=== PATIENT | female | born 1945 | race Caucasian/White ===

== ENCOUNTER → 2016-08-01 | Outpatient (CLI) | payer MEDICARE ==
[2016-08-04 13:18] LABS: Hepatitis B Virus DNA Not detected (Not detected); Hepatitis B Virus DNA, Quant <10 IU/mL (<10); Log HBV IU/mL <1.00 (<1.00)
== END | disposition home or self-care (01) ==
LOC: LABWHC1 13:14
PROVIDERS: ATTEND Family Medicine
DX: R76.8 Other specified abnormal immunological findings in serum (principal)
CPT/HCPCS: 36415; 87517

== ENCOUNTER 2016-08-15 19:56 | Emergency (ER) | payer MEDICARE ==
[2016-08-15] MEDS ORDERED: RX INFO: IV CONTRAST WAS GIVEN 1 EACH MISC MISCELLANE PRN (20:23)
[2016-08-15 21:08] LABS: Basophils % (A) 0 %; CH 31.5; CHCM 34.7; Eosinophils # (A) 0.2 k/uL (0-0.7); Eosinophils % (A) 2 %; HCT 44.4 % (34.0-46.0); HDW 2.47; Luc # (Auto) 0.19; Luc % (Auto) 2; Lymphocytes % (A) 23 %; MCH 30.9 pg (25.0-35.0); MCHC 33.8 g/dL (31.0-37.0); MCV 91.3 fL (80.0-100.0); Mean Platelet Volume 7.4; Monocytes # (A) 0.4 k/uL (0-1.0); Monocytes % (A) 5 %; Neutrophils % (A) 68 %; RBC 4.86 m/uL (3.80-5.40); RDW 12.7 % (11.5-15.5); WBC 8.8 k/uL (3.8-10.6); WBC (Perox) 8.82
[2016-08-15 21:10] LABS: INR 1.1 (<1.1); Prothrombin Time 11.3 sec (9.0-12.0)
[2016-08-15 21:15] LABS: Anion Gap 9 mmol/L; Blood Urea Nitrogen 20 mg/dL (7-17); Calcium 9.5 mg/dL (8.4-10.2); Carbon Dioxide 30 mmol/L (22-30); Chloride 104 mmol/L (98-107); Glucose 126 mg/dL (74-99); Non-African American GFR(MDRD) >60 (>60 ml/min/1.73 sqM); Potassium 4.3 mmol/L (3.5-5.1); Sodium 143 mmol/L (137-145)
--- NOTE | 2016-08-15 21:26 | ED ---
General Adult HPI - General Chief complaint: Recheck/Abnormal Lab/Rx Stated complaint: sent by Dr Humphreys Office Time Seen by Provider: 08/15/16 20:17 Source: patient, family, RN notes reviewed Mode of arrival: ambulatory Limitations: no limitations - History of Present Illness Initial comments: 71-year-old female presented for elevated d-dimer in the outpatient setting. Patient states that she had a syncopal episode about a week ago. She states that she has a history of pulmonary embolism in the past. She's not currently on any blood thinners. She states that she is also has right lower extremity swelling over the past week. He denies any active symptoms at this time. She denies any chest pain or shortness of breath currently. - Related Data Allergies Allergy/AdvReac Type Severity Reaction Status Date / Time No Known Allergies Allergy Unverified 08/15/16 20:09 Review of Systems ROS Statement: Those systems with pertinent positive or pertinent negative responses have been documented in the HPI. ROS Other: All systems not noted in ROS Statement are negative. Past Medical History Past Medical History: Diabetes Mellitus Additional Past Medical History / Comment(s): PE History of Any Multi-Drug Resistant Organisms: None Reported Past Surgical History: Orthopedic Surgery Additional Past Surgical History / Comment(s): hernia,eye surgery,rt knee Past Psychological History: No Psychological Hx Reported Smoking Status: Former smoker Past Alcohol Use History: None Reported Past Drug Use History: None Reported General Exam - General Exam Comments Initial Comments: General: Awake and Alert. No acute distress. Does not appear acutely ill. Obese. Eyes: AMIE, EOM intact. No nystagmus. No scleral icterus. HENT: Atraumatic, normocephalic. Mucous membranes moist. Trachea midline. Neck: The neck is supple, there is no tenderness or JVD. Cardiovascular: Regular rate and rhythm. No murmur, rub, or gallop is appreciated. Distal pulses intact. Bilateral lower extremity 2+ pitting edema, right leg is larger than left. Respiratory: Lungs are clear to auscultation bilaterally. No wheezes, rales, rhonchi. No respiratory distress. Gastrointestinal: Soft, Nontender. No rebound or guarding. Non-distended. No masses or organomegaly noted. No CVA tenderness. Musculoskeletal: No tenderness. Normal ROM. No gross deformity. No strength deficits. Neurological: A&Ox3. CN II-XII grossly intact, There are no obvious motor or sensory deficits. Coordination appears grossly intact. Speech is normal. Skin: Skin is warm and dry and no rashes or lesions are noted. Psychiatric: Cooperative, appropriate mood & affect, normal judgment. Limitations: no limitations Course Vital Signs 08/15/16 08/15/16 08/15/16 20:06 22:12 23:06 Temperature 98.0 F 99.0 F 98.1 F Pulse Rate 75 68 62 Respiratory 20 18 18 Rate Blood Pressure 193/90 181/79 180/77 O2 Sat by Pulse 96 98 96 Oximetry 08/15/16 23:55 Temperature 98.1 F Pulse Rate 63 Respiratory 20 Rate Blood Pressure 198/90 O2 Sat by Pulse 97 Oximetry EKG Findings - EKG Comments: EKG Findings:: EKG 20:48. Normal sinus rhythm. Rate 67. SC 150. QRS 84. QT/ QTc 386/47. Normal axis. No STEMI. Normal EKG. Medical Decision Making - Medical Decision Making 71-year-old female sent by PCP office as she had an elevated d-dimer and outpatient testing. Patient denies any active symptoms on initial exam. She denies any chest pain or shortness breath currently. Workup to rule out PE DVT ordered. CTA chest no evidence of PE or other acute process Right lower extremity duplex without evidence of DVT Patient reevaluated and states she is feeling well. She had no active symptoms during course in ED. She did state that she had the syncopal episode last week but no return of dizziness or near syncope since. States that she has had the occasional episode of epigastric abdominal pain that's been intense and then associated diaphoresis in the past, which usually occur every 6-8 months. The last episode was last week. States she has had recent stress testing which was negative. She also states she is currently in process of further outpatient workup with carotid Dopplers and aortic ultrasound by her PCP. Discussed importance of continued close PCP follow-up for further evaluation and treatment. She does not appear to require inpatient treatment at this time given no active symptoms and negative extensive workup. Encouraged to continue outpatient workup for further evaluation of her symptoms. Hypertension is noted here. Patient states that she normally has normal blood pressure. Discussed follow-up with PCP for repeat testing. Patient states she has follow- up appointment with her PCP next Thursday. Discussed concerning signs symptoms for immediate return to the ED. Patient is agreeable with plan discharge home. - Lab Data Result diagrams: 08/15/16 20:55 08/15/16 20:55 Lab Results 08/15/16 08/15/16 08/15/16 Range/Units 20:55 20:55 20:55 WBC 8.8 (3.8-10.6) k/uL RBC 4.86 (3.80-5.40) m/uL Hgb 15.0 (11.4-16.0) gm/dL Hct 44.4 (34.0-46.0) % MCV 91.3 (80.0-100.0) fL MCH 30.9 (25.0-35.0) pg MCHC 33.8 (31.0-37.0) g/dL RDW 12.7 (11.5-15.5) % Plt Count 266 (150-450) k/uL Neutrophils % 68 % Lymphocytes % 23 % Monocytes % 5 % Eosinophils % 2 % Basophils % 0 % Neutrophils # 6.0 (1.3-7.7) k/uL Lymphocytes # 2.0 (1.0-4.8) k/uL Monocytes # 0.4 (0-1.0) k/uL Eosinophils # 0.2 (0-0.7) k/uL Basophils # 0.0 (0-0.2) k/uL PT 11.3 (9.0-12.0) sec INR 1.1 (<1.1) Sodium 143 (137-145) mmol/L Potassium 4.3 (3.5-5.1) mmol/L Chloride 104 (98-107) mmol/L Carbon Dioxide 30 (22-30) mmol/L Anion Gap 9 mmol/L BUN 20 H (7-17) mg/dL Creatinine 0.77 (0.52-1.04) mg/dL Est GFR (MDRD) Af Amer >60 (>60 ml/min/1.73 sqM) Est GFR (MDRD) Non-Af >60 (>60 ml/min/1.73 sqM) Glucose 126 H (74-99) mg/dL Calcium 9.5 (8.4-10.2) mg/dL Troponin I (0.000-0.034) ng/mL 03/24/17 Range/Units 20:55 WBC (3.8-10.6) k/uL RBC (3.80-5.40) m/uL Hgb (11.4-16.0) gm/dL Hct (34.0-46.0) % MCV (80.0-100.0) fL MCH (25.0-35.0) pg MCHC (31.0-37.0) g/dL RDW (11.5-15.5) % Plt Count (150-450) k/uL Neutrophils % % Lymphocytes % % Monocytes % % Eosinophils % % Basophils % % Neutrophils # (1.3-7.7) k/uL Lymphocytes # (1.0-4.8) k/uL Monocytes # (0-1.0) k/uL Eosinophils # (0-0.7) k/uL Basophils # (0-0.2) k/uL PT (9.0-12.0) sec INR (<1.1) Sodium (137-145) mmol/L Potassium (3.5-5.1) mmol/L Chloride (98-107) mmol/L Carbon Dioxide (22-30) mmol/L Anion Gap mmol/L BUN (7-17) mg/dL Creatinine (0.52-1.04) mg/dL Est GFR (MDRD) Af Amer (>60 ml/min/1.73 sqM) Est GFR (MDRD) Non-Af (>60 ml/min/1.73 sqM) Glucose (74-99) mg/dL Calcium (8.4-10.2) mg/dL Troponin I <0.012 (0.000-0.034) ng/mL - EKG Data -: EKG Interpreted by Hi EKG shows normal: sinus rhythm Rate: normal - Radiology Data Radiology results: report reviewed, image reviewed Disposition Clinical Impression: Syncope, Leg swelling, Hx pulmonary embolism, Atypical chest pain, HTN ( hypertension) Disposition: HOME SELF-CARE Condition: Stable Instructions: Chest Pain (ED), Abdominal Pain (ED), Lightheadedness (ED) Referrals: Fidencio Humphreys MD [Primary Care Provider] - 1-2 days Time of Disposition: 23:42
--- NOTE | 2016-08-15 21:47 | US ---
EXAMINATION TYPE: US venous doppler duplex LE RT DATE OF EXAM: 08/15/2016 9:39 PM COMPARISON: NONE CLINICAL HISTORY: Swelling R/O DVT. Prior PE; EC patient who fell last week and stated has right foot fracture. SIDE PERFORMED: Right VESSELS IMAGED: Common Femoral Vein Deep Femoral Vein Greater Saphenous Vein * Femoral Vein Popliteal Vein Small Saphenous Vein * Proximal Calf Veins (* superficial vessels) Right Leg: Negative for DVT IMPRESSION: Normal exam. No evidence of deep venous thrombosis in the right leg.
--- NOTE | 2016-08-15 22:15 | CT ---
EXAMINATION TYPE: CT angio chest DATE OF EXAM: 08/15/2016 10:05 PM COMPARISON: 11/12/2010 HISTORY: Pt sent from PCP for elevated D-Dimer. CT DLP: 447.2 mGycm Automated exposure control for dose reduction was used. CONTRAST: CTA scan of the thorax is performed with IV Contrast, patient injected with 70 mL of Omnipaque 350, p ulmonary embolism protocol. . FINDINGS: There are 3-D post processed images. There is mild linear density at the right lung base and also left upper lobe consistent with scarring and subsegmental atelectasis. There is no pleural effusion. There are some hepatic cysts noted. There is no pericardial effusion. Heart appears enlarged. Thoracic aorta is atheromatous. There are no filling defects in the pulmonary arteries. There are no hilar masses. There is no medias tinal adenopathy. There is no sign of aortic aneurysm or dissection. There is spurring in the thoraci c spine. There is no focal bone destruction. IMPRESSION: NO EVIDENCE OF PULMONARY EMBOLISM. STABLE HEPATIC CYSTS. MINIMAL SCARRING OR SUBSEGMENTAL ATELECTASIS IN THE LEFT UPPER LOBE AND RIGHT LOWER LOBE. THIS APPEAR S INCREASED SLIGHTLY COMPARED TO OLD EXAM. MILD CARDIOMEGALY. ATHEROSCLEROTIC VASCULAR DISEASE.
[2016-08-15 23:50] VITALS: TEMP 98.1
[2016-08-15 23:56] VITALS: BP 198/90; PULSE 63; RESP 20
== END 2016-08-16 00:05 | disposition home or self-care (01) ==
LOC: EC 19:56
DX: R07.89 Other chest pain (principal); I10 Essential (primary) hypertension; R55 Syncope and collapse; R60.0 Localized edema; R10.13 Epigastric pain; Z87.891 Personal history of nicotine dependence; Z86.711 Personal history of pulmonary embolism; Z98.890 Other specified postprocedural states
CPT/HCPCS: 99284; 36415; 93005; 80048; 84484; 85025; 85610; 93971; 71275; Q9967

== ENCOUNTER → 2016-08-15 | Outpatient (CLI) | payer MEDICARE | LOC: LABWHC1 17:23 | PROVIDERS: ATTEND Nurse Practitioner Adult Health | DX: R55 Syncope and collapse (principal) | CPT/HCPCS: 36415; 85379 ==

== ENCOUNTER 2017-03-11 12:23 | Emergency (ER) | payer MEDICARE ==
--- NOTE | 2017-03-11 13:26 | ED ---
General Adult HPI - General Chief complaint: Back Pain/Injury Stated complaint: Back Pain Time Seen by Provider: 03/11/17 13:18 Source: patient, family, RN notes reviewed Mode of arrival: ambulatory Limitations: no limitations - History of Present Illness Initial comments: Patient is a pleasant 71-year-old female presenting to emergency department back pain. Onset of symptoms was around 8 this morning. Patient is unclear whether or not it woke her up. Patient states discomfort has been moderate to severe however is mild now. Discomfort has been mostly constant. No change in discomfort with movement. No dysuria or hematuria. No constipation or diarrhea. Patient does have a history of intestinal gas problems however that does not feel similar to this. No nausea or vomiting. No history of similar symptoms to this previously. Discomfort is right lower back. Patient states it is hard to get comfortable. Patient did go to the clinic and was told it was probably her kidney causing the problem. - Related Data Home Medications Medication Instructions Recorded Confirmed Alendronate Sodium [Fosamax] 70 mg PO JOHNSON 03/11/17 03/11/17 Ascorbic Acid [Vitamin C] 500 mg PO BID 03/11/17 03/11/17 Aspirin 325 mg PO HS 03/11/17 03/11/17 Bimatoprost [Lumigan .01% Ophth 1 drop BOTH EYES HS 03/11/17 03/11/17 Soln] Calcium Carbonate/Vitamin D3 1 tab PO BID 03/11/17 03/11/17 [Calcium 600-Vit D3 400 Caplet] Lisinopril [Zestril] 5 mg PO DAILY 03/11/17 03/11/17 Multivitamins, Thera [Multivitamin 1 tab PO DAILY 03/11/17 03/11/17 (formulary)] Simvastatin [Zocor] 5 mg PO HS 03/11/17 03/11/17 diphenhydrAMINE HCL [Benadryl] 50 mg PO HS 03/11/17 03/11/17 Previous Rx's Medication Instructions Recorded Sulfamethox-Tmp 800-160Mg [Bactrim 1 each PO Q12HR #20 tab 03/11/17 DS 800-160 mg] Allergies Allergy/AdvReac Type Severity Reaction Status Date / Time No Known Allergies Allergy Verified 03/11/17 12:55 Review of Systems ROS Statement: Those systems with pertinent positive or pertinent negative responses have been documented in the HPI. ROS Other: All systems not noted in ROS Statement are negative. Constitutional: Denies: fever Eyes: Denies: eye pain ENT: Denies: ear pain Respiratory: Denies: cough, dyspnea Cardiovascular: Denies: chest pain Endocrine: Denies: fatigue Gastrointestinal: Denies: abdominal pain Genitourinary: Denies: dysuria Musculoskeletal: Reports: as per HPI, back pain Skin: Denies: rash Neurological: Denies: weakness Past Medical History Past Medical History: Diabetes Mellitus Additional Past Medical History / Comment(s): PE History of Any Multi-Drug Resistant Organisms: None Reported Past Surgical History: Orthopedic Surgery Additional Past Surgical History / Comment(s): hernia,eye surgery,rt knee Past Psychological History: No Psychological Hx Reported Smoking Status: Former smoker Past Alcohol Use History: None Reported Past Drug Use History: None Reported General Exam Limitations: no limitations General appearance: alert, in no apparent distress Head exam: Present: atraumatic Eye exam: Present: normal appearance, PERRL ENT exam: Present: normal oropharynx Neck exam: Present: normal inspection Respiratory exam: Present: normal lung sounds bilaterally Cardiovascular Exam: Present: regular rate, normal rhythm Expanded Peripheral pulses: 2+: Dorsalis Pedis (R), Dorsalis Pedis (L) GI/Abdominal exam: Present: soft. Absent: tenderness Extremities exam: Present: normal inspection Back exam: Present: normal inspection. Absent: tenderness, CVA tenderness (R), vertebral tenderness Neurological exam: Present: alert. Absent: motor sensory deficit Psychiatric exam: Present: normal affect, normal mood Skin exam: Present: normal color Course Vital Signs 03/11/17 12:27 Temperature 97.5 F L Pulse Rate 64 Respiratory 16 Rate Blood Pressure 136/79 O2 Sat by Pulse 97 Oximetry Medical Decision Making - Medical Decision Making Patient reevaluated by myself, Dr. Samuel. Patient is symptom-free at this time. Patient's symptoms are not consistent with gallbladder problems. Normal appearing gallbladder on computed tomography scan and no abdominal discomfort. Patient's back discomfort was right lower back, not in the region of the gallbladder. Patient and family were fully updated on results including computed tomography scan. Patient will be placed on antibiotics for concern for urinary tract infection. Patient is advised to have close follow-up with primary care physician and have them review computed tomography scan as well as elevation of liver enzymes. Patient advised to return if worsening symptoms, fever, or vomiting. Patient also advised to hold her cholesterol medicine. - Lab Data Result diagrams: 03/11/17 13:37 03/11/17 13:37 Lab Results 03/11/17 03/11/17 03/11/17 Range/Units 13:37 13:37 13:37 WBC 13.3 H (3.8-10.6) k/uL RBC 4.89 (3.80-5.40) m/uL Hgb 15.4 (11.4-16.0) gm/dL Hct 46.4 H (34.0-46.0) % MCV 94.7 (80.0-100.0) fL MCH 31.5 (25.0-35.0) pg MCHC 33.3 (31.0-37.0) g/dL RDW 13.1 (11.5-15.5) % Plt Count 249 (150-450) k/uL Neutrophils % 91 % Lymphocytes % 6 % Monocytes % 3 % Eosinophils % 0 % Basophils % 0 % Neutrophils # 12.1 H (1.3-7.7) k/uL Lymphocytes # 0.8 L (1.0-4.8) k/uL Monocytes # 0.3 (0-1.0) k/uL Eosinophils # 0.1 (0-0.7) k/uL Basophils # 0.0 (0-0.2) k/uL PT 10.9 (9.0-12.0) sec INR 1.1 (<1.2) APTT 20.4 L (22.0-30.0) sec Sodium 138 (137-145) mmol/L Potassium 4.6 (3.5-5.1) mmol/L Chloride 103 (98-107) mmol/L Carbon Dioxide 25 (22-30) mmol/L Anion Gap 10 mmol/L BUN 18 H (7-17) mg/dL Creatinine 0.83 (0.52-1.04) mg/dL Est GFR (MDRD) Af Amer >60 (>60 ml/min/1.73 sqM) Est GFR (MDRD) Non-Af >60 (>60 ml/min/1.73 sqM) Glucose 125 H (74-99) mg/dL Calcium 9.5 (8.4-10.2) mg/dL Total Bilirubin 1.7 H (0.2-1.3) mg/dL AST 217 H (14-36) U/L ALT 603 H (9-52) U/L Alkaline Phosphatase 159 H (38-126) U/L Total Protein 7.3 (6.3-8.2) g/dL Albumin 4.2 (3.5-5.0) g/dL Amylase 71 (30-110) U/L Lipase 122 (23-300) U/L Urine Color Urine Appearance (Clear) Urine pH (5.0-8.0) Ur Specific Dennard (1.001-1.035) Urine Protein (Negative) Urine Glucose (UA) (Negative) Urine Ketones (Negative) Urine Blood (Negative) Urine Nitrite (Negative) Urine Bilirubin (Negative) Urine Urobilinogen (<2.0) mg/dL Ur Leukocyte Esterase (Negative) Urine RBC (0-5) /hpf Urine WBC (0-5) /hpf Urine Bacteria (None) /hpf 03/11/17 Range/Units 13:37 WBC (3.8-10.6) k/uL RBC (3.80-5.40) m/uL Hgb (11.4-16.0) gm/dL Hct (34.0-46.0) % MCV (80.0-100.0) fL MCH (25.0-35.0) pg MCHC (31.0-37.0) g/dL RDW (11.5-15.5) % Plt Count (150-450) k/uL Neutrophils % % Lymphocytes % % Monocytes % % Eosinophils % % Basophils % % Neutrophils # (1.3-7.7) k/uL Lymphocytes # (1.0-4.8) k/uL Monocytes # (0-1.0) k/uL Eosinophils # (0-0.7) k/uL Basophils # (0-0.2) k/uL PT (9.0-12.0) sec INR (<1.2) APTT (22.0-30.0) sec Sodium (137-145) mmol/L Potassium (3.5-5.1) mmol/L Chloride (98-107) mmol/L Carbon Dioxide (22-30) mmol/L Anion Gap mmol/L BUN (7-17) mg/dL Creatinine (0.52-1.04) mg/dL Est GFR (MDRD) Af Amer (>60 ml/min/1.73 sqM) Est GFR (MDRD) Non-Af (>60 ml/min/1.73 sqM) Glucose (74-99) mg/dL Calcium (8.4-10.2) mg/dL Total Bilirubin (0.2-1.3) mg/dL AST (14-36) U/L ALT (9-52) U/L Alkaline Phosphatase (38-126) U/L Total Protein (6.3-8.2) g/dL Albumin (3.5-5.0) g/dL Amylase (30-110) U/L Lipase (23-300) U/L Urine Color Yellow Urine Appearance Cloudy H (Clear) Urine pH 6.0 (5.0-8.0) Ur Specific Dennard 1.018 (1.001-1.035) Urine Protein Trace H (Negative) Urine Glucose (UA) Negative (Negative) Urine Ketones Negative (Negative) Urine Blood Negative (Negative) Urine Nitrite Positive H (Negative) Urine Bilirubin Negative (Negative) Urine Urobilinogen <2.0 (<2.0) mg/dL Ur Leukocyte Esterase Large H (Negative) Urine RBC 4 (0-5) /hpf Urine WBC 168 H (0-5) /hpf Urine Bacteria Moderate H (None) /hpf - Radiology Data Radiology results: image reviewed (Computed tomography scan of the abdomen and pelvis shows multiple cysts including liver and likely spleen. Possible 0.5 cm distal right ureteral stone. Normal gallbladder.) Disposition Clinical Impression: Urinary tract infection Disposition: HOME SELF-CARE Condition: Stable Instructions: Acute Low Back Pain (ED), Kidney Stones (ED), Urinary Tract Infection in Women (ED) Additional Instructions: Please follow-up with Dr. Humphreys in the next day or 2 for recheck. Have your doctor review CT and blood results. You will need further evaluation for elevated liver enzymes. Hold cholesterol medication. Return for fever, vomiting, increased pain, abdominal pain, worsening symptoms or any other concerns. Prescriptions: Sulfamethox-Tmp 800-160Mg [Bactrim DS 800-160 mg] 1 each PO Q12HR #20 tab Referrals: Fidencio Humphreys MD [Primary Care Provider] - 1-2 days
[2017-03-11 14:01] LABS: INR 1.1 (<1.2); Prothrombin Time 10.9 sec (9.0-12.0)
[2017-03-11 14:05] LABS: ALT 603 U/L (9-52); AST 217 U/L (14-36); Alkaline Phosphatase 159 U/L (38-126); Amylase 71 U/L (30-110); Anion Gap 10 mmol/L; Blood Urea Nitrogen 18 mg/dL (7-17); Calcium 9.5 mg/dL (8.4-10.2); Carbon Dioxide 25 mmol/L (22-30); Chloride 103 mmol/L (98-107); Glucose 125 mg/dL (74-99); Non-African American GFR(MDRD) >60 (>60 ml/min/1.73 sqM); Potassium 4.6 mmol/L (3.5-5.1); Sodium 138 mmol/L (137-145); Total Bilirubin 1.7 mg/dL (0.2-1.3); Total Protein 7.3 g/dL (6.3-8.2)
[2017-03-11 14:13] LABS: Appearance,Urine Cloudy (Clear); Bacteria,Urine Moderate /hpf; Bilirubin,Urine Negative (Negative); Glucose,Urine (UA) Negative (Negative); Ketones,Urine Negative (Negative); Leukocyte Esterase,Urine Large (Negative); Nitrite,Urine Positive (Negative); Particle Count 5489; Protein,Urine Trace (Negative); RBC,Urine 4 /hpf (0-5); Specific Gravity,Urine 1.018 (1.001-1.035); UA Billing (MACRO vs. MICRO) MICRO; Urobilinogen,Urine <2.0 mg/dL (<2.0); WBC,Urine 168 /hpf (0-5)
[2017-03-11 14:22] LABS: Partial Thromboplastin Time 20.4 sec (22.0-30.0)
[2017-03-11] MEDS ORDERED: RX INFO: IV CONTRAST WAS GIVEN 1 EACH MISC MISCELLANE PRN (14:24)
[2017-03-11 14:39] LABS: Basophils % (A) 0 %; CH 31.3; CHCM 33.2; Eosinophils # (A) 0.1 k/uL (0-0.7); Eosinophils % (A) 0 %; HCT 46.4 % (34.0-46.0); HDW 2.47; HGB 15.4 gm/dL (11.4-16.0); Luc # (Auto) 0.03; Luc % (Auto) 0; Lymphocytes # (A) 0.8 k/uL (1.0-4.8); Lymphocytes % (A) 6 %; MCH 31.5 pg (25.0-35.0); MCHC 33.3 g/dL (31.0-37.0); MCV 94.7 fL (80.0-100.0); Mean Platelet Volume 6.8; Monocytes # (A) 0.3 k/uL (0-1.0); Monocytes % (A) 3 %; Neutrophils # (A) 12.1 k/uL (1.3-7.7); Neutrophils % (A) 91 %; RBC 4.89 m/uL (3.80-5.40); RDW 13.1 % (11.5-15.5); WBC 13.3 k/uL (3.8-10.6); WBC (Perox) 12.16
--- NOTE | 2017-03-11 15:18 | CT ---
EXAMINATION TYPE: CT abdomen pelvis w con DATE OF EXAM: 03/11/2017 COMPARISON: NONE INDICATION: Rt flank pain DLP: 1588 mGycm, Automated exposure control for dose reduction was used. CONTRAST: 100 mL of Omnipaque 300. Study performed without Oral Contrast TECHNIQUE: Axial images were obtained from above the diaphragm to the pubic rami in the axial plane a t 5 mm thick sections. Reconstructed images are reviewed on the computer in the coronal plane. FINDINGS: Limited CT sections are obtained the lung bases. The lung bases are clear. Coronary artery calcific ation is present. CT ABDOMEN: Liver: There is a 4.7 cm cyst measuring 5 Hounsfield units within the right lobe liver. Small subcort ical cyst is present anterior measuring 0.9 cm size. There is a medial left liver lobe cyst measuring 3.0 cm and 1 Hounsfield unit. Small cyst may be adjacent to the ligamentum teres measuring 0.4 cm. T his is too small to verify is a simple cyst. Spleen: 0.5 cm cyst is superior lateral right spleen. This small to classify as a simple cyst. Osseou s margins Pancreas: Normal Adrenal glands: The adrenal glands are normal. Gallbladder: Normal Kidneys: No masses are evident. No hydronephrosis is present. There is a 4.1 cm cyst at the inferio r pole right kidney measuring 0 Hounsfield units. There may be some mild right hydroureter. There is a 0.5 cm calcification in the right hemipelvis above the ureterovesical junction. Distal ureteral sto ne is not excluded. Aorta: Vascular calcification is within the aorta. Inferior vena cava: Normal. CT PELVIS: Loops of bowel within the abdomen and pelvis are normal. Study is performed without oral contrast limiting the evaluation. Res[facility] Manager image suggests some dilated small bowel loops containing air within t he left midabdomen. No dilated loops of bowel are identified on the axial images. Note is made of a f ew diverticular changes. Appendix: Normal as visualized. Urinary bladder: Normal. Genitourinary structures: Uterus and adnexal regions are clear Osseous structures: No suspicious lytic or sclerotic lesions. Sacroiliac joint degenerative change. F acet degenerative changes are spine IMPRESSIONS: 1. Multiple cysts including liver kidneys and likely within the spleen. Some of these are too small to reliably classify as simple. Follow-up can be performed. 2. Possible 0.5 cm distal right ureteral stone at the UVJ.
[2017-03-11] MEDS ORDERED: SULFAMETH-TMP DS STARTER PACK 2 TAB BTL PO STA (15:40)
[2017-03-11 15:56] VITALS: BP 181/82; PULSE 75; RESP 18; TEMP 98
== END 2017-03-11 15:59 | disposition home or self-care (01) ==
LOC: EC 12:23
DX: N39.0 Urinary tract infection, site not specified (principal); Z87.891 Personal history of nicotine dependence; Z79.82 Long term (current) use of aspirin; Z79.899 Other long term (current) drug therapy
CPT/HCPCS: 99284 ×2; 36415; 80053; 82150; 83690; 85025; 85610; 85730; 81001; 87086; 87077; 87186; 74177; Q9967

== ENCOUNTER 2017-03-13 17:30 | Inpatient (IN) | payer MEDICARE ==
--- NOTE | 2017-03-13 17:51 | US ---
EXAMINATION TYPE: US abdomen complete DATE OF EXAM: 03/13/2017 COMPARISON: CT 03/11/2017 CLINICAL HISTORY: R74.8 Elevated Liver Enzymes. ALT 603, epigastric pain x 2 years EXAM MEASUREMENTS: Liver Length: 20.9 cm Gallbladder Wall: 0.3 cm CBD: 0.6 cm Spleen: 10.5 cm Right Kidney: 11.9 x 4.8 x 5.1 cm Left Kidney: 12.7 x 4.4 x 6.3 cm Pancreas: mostly obscured by gas Liver: difficult to penetrate, enlarged, 2 cystic area seen, left lobe = 3.4cm, right lobe = 5.7cm Gallbladder: multiple, mobile stones seen Evidence for sonographic Jolley's sign: no CBD: wnl Spleen: wnl Right Kidney: 4.0cm inferior pole cyt seen Left Kidney: wnl Upper IVC: wnl Abd Aorta: wnl, tech impression given to DYNAMOMETER MECH[employer]IC at office @1725, office wanted patient to be seen through ER and admitt ed IMPRESSION: There are 2 hepatic cysts and the largest measures 6 cm. There are numerous gallstones. N o dilated ducts. The common bile duct measures 6 mm.
[2017-03-13] MEDS ORDERED: SODIUM CHLORIDE 0.9% 1,000 ML IV STA (18:17)
[2017-03-13 19:02] LABS: Basophils % (A) 0 %; CH 30.9; CHCM 33.5; Eosinophils # (A) 0.1 k/uL (0-0.7); Eosinophils % (A) 1 %; HCT 42.7 % (34.0-46.0); HDW 2.43; HGB 14.2 gm/dL (11.4-16.0); Luc # (Auto) 0.22; Luc % (Auto) 2; Lymphocytes # (A) 1.4 k/uL (1.0-4.8); Lymphocytes % (A) 15 %; MCHC 33.4 g/dL (31.0-37.0); MCV 92.8 fL (80.0-100.0); Mean Platelet Volume 6.9; Monocytes # (A) 0.6 k/uL (0-1.0); Monocytes % (A) 7 %; Neutrophils # (A) 6.9 k/uL (1.3-7.7); Neutrophils % (A) 74 %; RDW 13.2 % (11.5-15.5); WBC 9.3 k/uL (3.8-10.6); WBC (Perox) 8.82
[2017-03-13 19:03] LABS: Appearance,Urine Cloudy (Clear); Bacteria,Urine Moderate /hpf; Bilirubin,Urine Negative (Negative); Glucose,Urine (UA) Negative (Negative); Ketones,Urine Negative (Negative); Leukocyte Esterase,Urine Large (Negative); Mucus,Urine Rare /hpf; Nitrite,Urine Negative (Negative); PH, Urine 7.5 (5.0-8.0); Particle Count 3302; Protein,Urine 1+ (Negative); RBC,Urine 27 /hpf (0-5); Specific Gravity,Urine 1.011 (1.001-1.035); Squamous Epithelial Cell,Urine <1 /hpf (0-4); UA Billing (MACRO vs. MICRO) MICRO; Urobilinogen,Urine <2.0 mg/dL (<2.0); WBC,Urine 104 /hpf (0-5)
[2017-03-13 19:07] LABS: ALT 430 U/L (9-52); AST 172 U/L (14-36); Alkaline Phosphatase 175 U/L (38-126); Amylase 51 U/L (30-110); Anion Gap 12 mmol/L; Blood Urea Nitrogen 12 mg/dL (7-17); Calcium 8.9 mg/dL (8.4-10.2); Carbon Dioxide 21 mmol/L (22-30); Chloride 103 mmol/L (98-107); Glucose 98 mg/dL (74-99); Non-African American GFR(MDRD) >60 (>60 ml/min/1.73 sqM); Potassium 4.8 mmol/L (3.5-5.1); Sodium 136 mmol/L (137-145); Total Bilirubin 2.3 mg/dL (0.2-1.3)
[2017-03-13] MEDS ORDERED: NALOXONE 0.4 MG/ML 1 ML VIAL IV PRN (19:18)
[2017-03-13] MEDS ORDERED: ONDANSETRON 4 MG/2 ML VIAL IVP PRN (19:18)
[2017-03-13] MEDS ORDERED: HYDROmorphone 1 MG/ML 1 ML SYRINGE IVP PRN (19:18)
--- NOTE | 2017-03-13 19:23 | ED ---
General Adult HPI - General Chief complaint: Recheck/Abnormal Lab/Rx Time Seen by Provider: 03/13/17 17:49 Source: patient Mode of arrival: ambulatory Limitations: no limitations - History of Present Illness Initial comments: 71-year-old female patient presents after having an outpatient ultrasound of her abdomen completed. She states that he was sent here due to large amount of gallstones. States that she has been having intermittent upper abdominal pain for the last 2 years. States that she was seen here 2 days ago for right flank pain . States that she was diagnosed with a kidney stone and sent home. She states that she has passed this kidney stone and has been pain-free for the last 24 hours. She states that she was also started on Bactrim for urinary tract infection. She states during this visit they did find increased liver enzymes, when she followed up with her primary doctor he ordered the ultrasound. She states that she has also had intermittent nausea and vomiting, denies any today. Denies any abdominal pain today. Patient denies any recent rash, fever, chills, shortness breath, diarrhea, constipation, back pain, numbness, tingling, dizziness, weakness, hematuria, dysuria, urinary urgency, urinary frequency, headache, visual changes, or any other complaints. - Related Data Home Medications Medication Instructions Recorded Confirmed Alendronate Sodium [Fosamax] 70 mg PO JOHNSON 03/11/17 03/13/17 Ascorbic Acid [Vitamin C] 500 mg PO BID 03/11/17 03/13/17 Aspirin 325 mg PO HS 03/11/17 03/13/17 Bimatoprost [Lumigan .01% Ophth 1 drop BOTH EYES HS 03/11/17 03/13/17 Soln] Calcium Carbonate/Vitamin D3 1 tab PO BID 03/11/17 03/13/17 [Calcium 600-Vit D3 400 Caplet] Lisinopril [Zestril] 5 mg PO DAILY 03/11/17 03/13/17 Multivitamins, Thera [Multivitamin 1 tab PO DAILY 03/11/17 03/13/17 (formulary)] Simvastatin [Zocor] 5 mg PO HS 03/11/17 03/13/17 diphenhydrAMINE HCL [Benadryl] 50 mg PO HS 03/11/17 03/13/17 Sulfamethox-Tmp 800-160Mg [Bactrim 1 tab PO Q12HR 03/13/17 03/13/17 DS 800-160 mg] Allergies Allergy/AdvReac Type Severity Reaction Status Date / Time No Known Allergies Allergy Verified 03/13/17 19:05 Review of Systems ROS Statement: Those systems with pertinent positive or pertinent negative responses have been documented in the HPI. ROS Other: All systems not noted in ROS Statement are negative. Past Medical History Past Medical History: Hyperlipidemia, Hypertension Additional Past Medical History / Comment(s): PE History of Any Multi-Drug Resistant Organisms: None Reported Past Surgical History: Orthopedic Surgery Additional Past Surgical History / Comment(s): hernia,eye surgery,rt knee Past Psychological History: No Psychological Hx Reported Smoking Status: Former smoker Past Alcohol Use History: None Reported Past Drug Use History: None Reported General Exam Limitations: no limitations General appearance: alert, in no apparent distress, other (This is a well- developed, obese female patient in no acute distress. Vital signs upon presentation are temperature 98.7F, pulse 71, respirations 20, blood pressure 137/71, pulse ox 95% on room air.) Eye exam: Present: normal appearance, PERRL, EOMI. Absent: scleral icterus, conjunctival injection, periorbital swelling ENT exam: Present: normal exam, normal oropharynx, mucous membranes moist Respiratory exam: Present: normal lung sounds bilaterally. Absent: respiratory distress, wheezes, rales, rhonchi, stridor Cardiovascular Exam: Present: regular rate, normal rhythm, normal heart sounds. Absent: systolic murmur, diastolic murmur, rubs, gallop, clicks GI/Abdominal exam: Present: soft, normal bowel sounds. Absent: distended, tenderness, guarding, rebound, rigid Back exam: Present: normal inspection. Absent: CVA tenderness (R), CVA tenderness (L) Neurological exam: Present: alert, oriented X3, CN II-XII intact Psychiatric exam: Present: normal affect, normal mood Skin exam: Present: warm, dry, intact, normal color. Absent: rash Course Vital Signs 03/13/17 17:37 Temperature 98.7 F Pulse Rate 71 Respiratory 20 Rate Blood Pressure 137/71 O2 Sat by Pulse 95 Oximetry EKG Findings - EKG Comments: EKG Findings:: EKG per performed at 1853 shows normal sinus rhythm with a ventricular rate of 66, LA interval 156, Q islam 84, QT 388, QTC 406. No evidence of ST elevation or depression. Medical Decision Making - Medical Decision Making 71-year-old female patient presents to emergency department today for evaluation after having an abnormal ultrasound outpatient today. Labs were performed, did show an elevated bilirubin at 2.3 which is higher from her 1.7 performed here 2 days ago. Liver enzymes show AST of 172, a LT 4:30. Alkaline phosphatase is 175. Urinalysis shows a cloudy appearance, 1+ protein, small blood, large leukocyte esterase, 27 red blood cells, 104 white blood cells, moderate bacteria, rare mucus, occasional yeast. Patient did start Bactrim for urinary tract infection outpatient. Patient will be admitted to Dr. Dixon with a surgical consult for further evaluation of the elevated liver enzymes as well as failed outpatient treatment for UTI. My attending Dr. Laura did speak to Dr. Dixon who accepts the patient. - Lab Data Result diagrams: 03/13/17 18:46 03/13/17 18:46 Lab Results 03/13/17 03/13/17 03/13/17 Range/Units 18:46 18:46 18:46 WBC 9.3 (3.8-10.6) k/uL RBC 4.60 (3.80-5.40) m/uL Hgb 14.2 (11.4-16.0) gm/dL Hct 42.7 (34.0-46.0) % MCV 92.8 (80.0-100.0) fL MCH 31.0 (25.0-35.0) pg MCHC 33.4 (31.0-37.0) g/dL RDW 13.2 (11.5-15.5) % Plt Count 237 (150-450) k/uL Neutrophils % 74 % Lymphocytes % 15 % Monocytes % 7 % Eosinophils % 1 % Basophils % 0 % Neutrophils # 6.9 (1.3-7.7) k/uL Lymphocytes # 1.4 (1.0-4.8) k/uL Monocytes # 0.6 (0-1.0) k/uL Eosinophils # 0.1 (0-0.7) k/uL Basophils # 0.0 (0-0.2) k/uL Sodium 136 L (137-145) mmol/L Potassium 4.8 (3.5-5.1) mmol/L Chloride 103 (98-107) mmol/L Carbon Dioxide 21 L (22-30) mmol/L Anion Gap 12 mmol/L BUN 12 (7-17) mg/dL Creatinine 0.80 (0.52-1.04) mg/dL Est GFR (MDRD) Af Amer >60 (>60 ml/min/1.73 sqM) Est GFR (MDRD) Non-Af >60 (>60 ml/min/1.73 sqM) Glucose 98 (74-99) mg/dL Calcium 8.9 (8.4-10.2) mg/dL Total Bilirubin 2.3 H (0.2-1.3) mg/dL AST 172 H (14-36) U/L ALT 430 H (9-52) U/L Alkaline Phosphatase 175 H (38-126) U/L Total Protein 7.0 (6.3-8.2) g/dL Albumin 3.8 (3.5-5.0) g/dL Amylase 51 (30-110) U/L Lipase 96 (23-300) U/L Urine Color Yellow Urine Appearance Cloudy H (Clear) Urine pH 7.5 (5.0-8.0) Ur Specific Watson 1.011 (1.001-1.035) Urine Protein 1+ H (Negative) Urine Glucose (UA) Negative (Negative) Urine Ketones Negative (Negative) Urine Blood Small H (Negative) Urine Nitrite Negative (Negative) Urine Bilirubin Negative (Negative) Urine Urobilinogen <2.0 (<2.0) mg/dL Ur Leukocyte Esterase Large H (Negative) Urine RBC 27 H (0-5) /hpf Urine WBC 104 H (0-5) /hpf Ur Squamous Epith Cells <1 (0-4) /hpf Urine Bacteria Moderate H (None) /hpf Urine Mucus Rare H (None) /hpf Urine Yeast (Budding) Occasional H (None) /hpf - Radiology Data Radiology results: report reviewed Ultrasound of the abdomen report read in its entirety, impression by Dr. Reese shows 2 hepatic cysts in the largest measures 6 cm. There are numerous gallstones. No dilated ducts. The common bile duct measures 6 mm. Disposition Clinical Impression: UTI (urinary tract infection), Cholelithiasis, Elevated liver enzymes, Hepatic cyst Narrative: Failed outpatient tx Disposition: ADMITTED IP TO THIS HOSP Condition: Fair Referrals: Fidencio Humphreys MD [Primary Care Provider] - 1-2 days Decision to Admit Reason: Admit from EC Decision Date: 03/13/17 Decision Time: 19:22
[2017-03-13] MEDS: SODIUM CHLORIDE 0.9% 1,000 ML IV SCH (21:25)
[2017-03-14 07:47] LABS: Basophils % (A) 0 %; CH 30.7; CHCM 33.1; Eosinophils # (A) 0.1 k/uL (0-0.7); Eosinophils % (A) 2 %; HCT 42.6 % (34.0-46.0); HGB 13.9 gm/dL (11.4-16.0); Luc # (Auto) 0.21; Luc % (Auto) 3; Lymphocytes # (A) 1.7 k/uL (1.0-4.8); Lymphocytes % (A) 23 %; MCH 30.5 pg (25.0-35.0); MCHC 32.7 g/dL (31.0-37.0); MCV 93.2 fL (80.0-100.0); Mean Platelet Volume 6.7; Monocytes # (A) 0.5 k/uL (0-1.0); Monocytes % (A) 7 %; Neutrophils # (A) 4.7 k/uL (1.3-7.7); Neutrophils % (A) 64 %; RBC 4.57 m/uL (3.80-5.40); RDW 13.2 % (11.5-15.5); WBC 7.3 k/uL (3.8-10.6); WBC (Perox) 7.24
[2017-03-14 08:06] LABS: ALT 371 U/L (9-52); AST 144 U/L (14-36); Alkaline Phosphatase 197 U/L (38-126); Anion Gap 8 mmol/L; Blood Urea Nitrogen 12 mg/dL (7-17); Calcium 8.6 mg/dL (8.4-10.2); Carbon Dioxide 24 mmol/L (22-30); Chloride 106 mmol/L (98-107); Glucose 84 mg/dL (74-99); Non-African American GFR(MDRD) >60 (>60 ml/min/1.73 sqM); Potassium 4.5 mmol/L (3.5-5.1); Sodium 138 mmol/L (137-145); Total Bilirubin 1.5 mg/dL (0.2-1.3); Total Protein 6.3 g/dL (6.3-8.2)
[2017-03-14] MEDS: SODIUM CHLORIDE 0.9% 1,000 ML IV SCH (11:43)
--- NOTE | 2017-03-14 13:46 | P.GSCN ---
History of Present Illness Consult date: 03/14/17 History of present illness: Angelina is a very pleasant 71-year-old with known history of cardiac issues and renal stones who presents with a one-week history of flank pain which resolved completely on passage of kidney stone. She presented for an ultrasound at which time of hepatic cysts and gallstones were seen. At this time she's not complaining of any pain nausea vomiting. She does complain of intermittent epigastric pain which resolved by itself which happened once the urine is now been more frequent. Although she is able to walk she does have a hand turner and has some significant issues. His no fever no chills. No jaundice or icterus. Normal bowel movements. She is feeling hungry and has a normal appetite. Review of Systems - Constitutional Denies anorexia, Denies chills, Denies fever, Denies lethargy, Denies malaise - Cardiovascular Denies chest pain, Denies claudication, Denies decreased exercise tolerance, Denies dyspnea on exertion, Denies edema - Respiratory Denies cough, Denies 7 - Gastrointestinal Reports as per HPI - Genitourinary Genitourinary: Reports as per HPI - Musculoskeletal Denies arm numbness/tingling, Denies atrophy, Denies fractures, Denies frequent falls, Denies gait dysfunction, Denies hot joints - Integumentary Denies rash, Denies unusual bruising - Neurological Denies headaches, Denies syncope - Psychiatric Denies anhedonia, Denies anxiety, Denies anxiety attacks, Denies change in appetite - Endocrine Reports as per HPI - Hematologic/Lymphatic Denies easy bleeding, Denies easy bruising - Allergic/Immunologic Denies as per HPI, Denies allergic rhinitis, Denies anaphylaxis, Denies angioedema, Denies gluten intolerance, Denies persistent infections, Denies seasonal allergies, Denies urticaria, Denies wheezing Past Medical History Past Medical History: Hyperlipidemia, Hypertension Additional Past Medical History / Comment(s): PE History of Any Multi-Drug Resistant Organisms: None Reported Past Surgical History: Orthopedic Surgery Additional Past Surgical History / Comment(s): hernia,eye surgery,rt knee Past Anesthesia/Blood Transfusion Reactions: No Reported Reaction Past Psychological History: No Psychological Hx Reported Smoking Status: Former smoker Past Alcohol Use History: None Reported Past Drug Use History: None Reported - Past Family History Sister(s) Family Medical History: Congestive Heart Failure (CHF) Additional Family Medical History / Comment(s): gallbladder removed Medications and Allergies Home Medications Medication Instructions Recorded Confirmed Type Alendronate Sodium [Fosamax] 70 mg PO JOHNSON 03/11/17 03/13/17 History Ascorbic Acid [Vitamin C] 500 mg PO BID 03/11/17 03/13/17 History Bimatoprost [Lumigan .01% Ophth 1 drop BOTH EYES HS 03/11/17 03/13/17 History Soln] Calcium Carbonate/Vitamin D3 1 tab PO BID 03/11/17 03/13/17 History [Calcium 600-Vit D3 400 Caplet] Lisinopril [Zestril] 5 mg PO DAILY 03/11/17 03/13/17 History Multivitamins, Thera [Multivitamin 1 tab PO DAILY 03/11/17 03/13/17 History (formulary)] RX: Aspirin 325 mg PO HS 03/11/17 03/13/17 History Simvastatin [Zocor] 5 mg PO HS 03/11/17 03/13/17 History diphenhydrAMINE HCL [Benadryl] 50 mg PO HS 03/11/17 03/13/17 History Sulfamethox-Tmp 800-160Mg [Bactrim 1 tab PO Q12HR 03/13/17 03/13/17 History DS 800-160 mg] Allergies Allergy/AdvReac Type Severity Reaction Status Date / Time No Known Allergies Allergy Verified 03/13/17 19:05 Surgical - Exam Vital Signs Temp Pulse Resp BP Pulse Ox 98.7 F 71 20 137/71 95 03/13/17 17:37 03/13/17 17:37 03/13/17 17:37 03/13/17 17:37 03/13/17 17:37 - General no distress, obese - Eyes PERRL, normal ocular movement, no pale, no icteric, no deviation, no loss of movement - ENT normal pinna, normal nares, normal mucosa, no hearing loss - Neck no masses, no bruits, trachea midline - Respiratory normal expansion, normal respiratory effort - Cardiovascular Rhythm: regular - Abdomen Abdomen: soft, non tender, no wound, no masses, no rebound, no distended Hernia: none - Integumentary no rash, no abnormal pigmentation - Neurologic no disoriented, no combative - Psychiatric oriented to time, oriented to person, oriented to place, speech is normal, memory intact Results - Labs 03/14/17 07:12 03/14/17 07:12 Abnormal Lab Results - Last 24 Hours (Table) 03/13/17 03/13/17 03/14/17 Range/Units 18:46 18:46 07:12 Sodium 136 L (137-145) mmol/L Carbon Dioxide 21 L (22-30) mmol/L Total Bilirubin 2.3 H 1.5 H (0.2-1.3) mg/dL AST 172 H 144 H (14-36) U/L ALT 430 H 371 H (9-52) U/L Alkaline Phosphatase 175 H 197 H (38-126) U/L Albumin 3.4 L (3.5-5.0) g/dL Urine Appearance Cloudy H (Clear) Urine Protein 1+ H (Negative) Urine Blood Small H (Negative) Ur Leukocyte Esterase Large H (Negative) Urine RBC 27 H (0-5) /hpf Urine WBC 104 H (0-5) /hpf Urine Bacteria Moderate H (None) /hpf Urine Mucus Rare H (None) /hpf Urine Yeast (Budding) Occasional H (None) /hpf Diabetes panel 03/13/17 03/14/17 Range/Units 18:46 07:12 Sodium 136 L 138 (137-145) mmol/L Potassium 4.8 4.5 (3.5-5.1) mmol/L Chloride 103 106 (98-107) mmol/L Carbon Dioxide 21 L 24 (22-30) mmol/L BUN 12 12 (7-17) mg/dL Creatinine 0.80 0.83 (0.52-1.04) mg/dL Glucose 98 84 (74-99) mg/dL Calcium 8.9 8.6 (8.4-10.2) mg/dL AST 172 H 144 H (14-36) U/L ALT 430 H 371 H (9-52) U/L Alkaline Phosphatase 175 H 197 H (38-126) U/L Total Protein 7.0 6.3 (6.3-8.2) g/dL Albumin 3.8 3.4 L (3.5-5.0) g/dL Calcium panel 03/13/17 03/14/17 Range/Units 18:46 07:12 Calcium 8.9 8.6 (8.4-10.2) mg/dL Albumin 3.8 3.4 L (3.5-5.0) g/dL Pituitary panel 03/13/17 03/14/17 Range/Units 18:46 07:12 Sodium 136 L 138 (137-145) mmol/L Potassium 4.8 4.5 (3.5-5.1) mmol/L Chloride 103 106 (98-107) mmol/L Carbon Dioxide 21 L 24 (22-30) mmol/L BUN 12 12 (7-17) mg/dL Creatinine 0.80 0.83 (0.52-1.04) mg/dL Glucose 98 84 (74-99) mg/dL Calcium 8.9 8.6 (8.4-10.2) mg/dL Adrenal panel 03/13/17 03/14/17 Range/Units 18:46 07:12 Sodium 136 L 138 (137-145) mmol/L Potassium 4.8 4.5 (3.5-5.1) mmol/L Chloride 103 106 (98-107) mmol/L Carbon Dioxide 21 L 24 (22-30) mmol/L BUN 12 12 (7-17) mg/dL Creatinine 0.80 0.83 (0.52-1.04) mg/dL Glucose 98 84 (74-99) mg/dL Calcium 8.9 8.6 (8.4-10.2) mg/dL Total Bilirubin 2.3 H 1.5 H (0.2-1.3) mg/dL AST 172 H 144 H (14-36) U/L ALT 430 H 371 H (9-52) U/L Alkaline Phosphatase 175 H 197 H (38-126) U/L Total Protein 7.0 6.3 (6.3-8.2) g/dL Albumin 3.8 3.4 L (3.5-5.0) g/dL - Imaging Additional studies: Report was reviewed and revealed gallstones as well as hepatic cyst. Assessment and Plan (1) Cholelithiasis Current Visit: Yes Status: Acute Code(s): K80.20 - CALCULUS OF GALLBLADDER W /O CHOLECYSTITIS W/O OBSTRUCTION SNOMED Code(s): 618943281 (2) Elevated liver enzymes Current Visit: Yes Status: Acute Code(s): R74.8 - ABNORMAL LEVELS OF OTHER SERUM ENZYMES SNOMED Code(s): 649827991 (3) Hepatic cyst Current Visit: Yes Status: Acute Code(s): K76.89 - OTHER SPECIFIED DISEASES OF LIVER SNOMED Code(s): 56509112 Plan: The patient's currently asymptomatic and isn't complaining of abdominal pain and discomfort. Her labs were reviewed she has a large liver cysts. She recently was on statins which have been stopped. He seems to be some improvement in her liver numbers. I do recommend that she get an MRCP him as an outpatient and cardiac clearance prior to getting a laparoscopic cholecystectomy which she will require because of her symptoms I do believe her intermittent epigastric pain that she describes is from biliary colic. I do not believe at this time she has any surgical problems that require urgent surgical intervention. She does however require cardiac optimization prior to surgery. I'll continue to follow the patient closely with you thank you very much for the consult
[2017-03-14] MEDS: SULFAMETHOX-TMP 800-160MG 1 EACH TAB PO SCH ×2 (14:11→21:47)
[2017-03-14] MEDS: LISINOPRIL 5 MG TAB PO SCH (14:11)
--- NOTE | 2017-03-14 16:10 | HP ---
HISTORY AND PHYSICAL DATE OF ADMISSION: 03/13/2017. DATE OF SERVICE: 03/14/2017 PRESENTING COMPLAINT: Abnormal labs. HISTORY OF PRESENTING COMPLAINT: This is a pleasant 71-year-old patient of Dr. Humphreys with known history of hypertension, hyperlipidemia, pulmonary embolism. The patient 3 days ago developed severe back pain, came down to the ER. The patient's CT scan of the abdomen did find a right distal ureteral stone that was passed, the pain disappeared. The patient also found to have a UTI, for which she was put on Bactrim DS. Because patient's liver enzymes were up at that time with an AST of 217 and ALT of 603, the patient was sent down to see her family doctor. The patient did undergo an abdominal ultrasound yesterday that did show multiple gallstones; hence, patient was admitted. The patient has had no more abdominal pain and in the meantime, no fever otherwise comfortable. REVIEW OF SYSTEMS: CONSTITUTIONAL: None. HEENT: None. RESPIRATORY: None. CARDIOVASCULAR: None. GASTROINTESTINAL: None. GENITOURINARY: None. MUSCULOSKELETAL: Some pain in the joints. DERMATOLOGICAL: None. HEMATOLOGIC: None. LYMPHATIC: None. PSYCHIATRY: None. NEUROLOGICAL: None. PAST HISTORY: Past history of hypertension, hyperlipidemia, PE, kidney stones. PAST SURGICAL HISTORY: Orthopedic surgery, hernia, eye surgery, right knee surgery. SOCIAL HISTORY: The patient smoked for about 32 years, stopped 22 years ago. Lives by herself. No alcohol. FAMILY HISTORY: Congestive heart failure. HOME MEDICATIONS: 1. Benadryl 50 mg q.h.s. 2. Zocor 5 mg q.h.s. 3. Lumigan 0.01% 1 drop to both eyes q.h.s. 4. Aspirin 325 p.o. q.h.s. 5. Fosamax 70 mg p.o. on Thursday. 6. Bactrim DS 1 tab p.o. q.12. 7. Multivitamin 1 tablet p.o. daily. 8. Zestril 5 mg p.o. daily. 9. Calcium with vitamin D one tablet p.o. b.i.d. 10.Vitamin C 500 mg p.o. b.i.d. ALLERGIES: None. PHYSICAL EXAMINATION: On examination vital signs on presentation: Temperature 99.9, pulse 63, respirations 18, blood pressure 171/82, pulse ox 95% on room air. Repeat blood pressure 143/81. GENERAL APPEARANCE: Well built, BMI 44.5, comfortable, sitting up. EYES: Pupils equal. Conjunctivae normal. HENT: Oral cavity normal. NECK: JVD not raised. Mass not palpable. RESPIRATORY: Effort normal. LUNGS: Fair air entry. CARDIOVASCULAR: First and second sounds normal. No edema. ABDOMEN: Soft, nontender. Liver and spleen not palpable. LYMPHATIC: No lymph node palpable of the neck or axillae. PSYCHIATRY: Alert and oriented x3. Mood and affect normal. NEUROLOGICAL: Pupils equal. Cranial nerves grossly intact. Power and sensation grossly intact. INVESTIGATIONS: White count 9.3, hemoglobin 14.2. Potassium 4.8. BUN and creatinine normal. Bilirubin is 2.3. AST 172, ALT 430. UA positive. Patient's urine culture is growing E. coli. ASSESSMENT: 1. Elevated liver enzymes. Could be from patient being on statins, recently started, cannot rule out the cause from being gallstones. 2. Acute urinary tract infection from Escherichia coli. 3. Hyperbilirubinemia. 4. Morbid obesity. BMI greater than 40. 5. Essential hypertension. 6. Hyperlipidemia. 7. Gallstones. PLAN: Patient's statins have been held. Bactrim will be continued. General surgery Dr. Cantu was consulted. I did talk to him. He did not feel the gallbladder was causing the LFTs to be raised. Will check patient's LFTs tomorrow. The patient's statins have been held. Care was discussed with the patient and brother at length. Questions were answered. MMODL / IJN: [id number] /
[2017-03-14] MEDS ORDERED: ASPIRIN 325 MG TAB PO SCH (21:00)
[2017-03-14] MEDS ORDERED: LATANOPROST 0.005% OPHTH DROPS 2.5 ML BTL BOTH EYES SCH (21:00)
[2017-03-15] MEDS: LISINOPRIL 5 MG TAB PO SCH (07:39)
[2017-03-15] MEDS: SULFAMETHOX-TMP 800-160MG 1 EACH TAB PO SCH (07:39)
[2017-03-15 07:41] VITALS: BP 165/84; PULSE 58; RESP 16; TEMP 97.1
[2017-03-15 08:02] LABS: ALT 260 U/L (9-52); AST 72 U/L (14-36); Alkaline Phosphatase 142 U/L (38-126); Anion Gap 7 mmol/L; Blood Urea Nitrogen 15 mg/dL (7-17); Calcium 8.7 mg/dL (8.4-10.2); Carbon Dioxide 24 mmol/L (22-30); Chloride 108 mmol/L (98-107); Glucose 91 mg/dL (74-99); Non-African American GFR(MDRD) >60 (>60 ml/min/1.73 sqM); Sodium 139 mmol/L (137-145); Total Protein 6.3 g/dL (6.3-8.2)
[2017-03-15 08:07] LABS: Potassium 5.1 mmol/L (3.5-5.1)
[2017-03-15] MEDS: SODIUM CHLORIDE 0.9% 1,000 ML IV SCH (10:54)
--- NOTE | 2017-03-15 12:29 | P.PN ---
Subjective Progress Note Date: 03/15/17 Patient has no new complaints. No fever o rchills. No pain. Objective - Vital Signs Vital signs: Vital Signs Temp 97.1 F L 03/15/17 07:00 Pulse 58 L 03/15/17 07:00 Resp 16 03/15/17 07:00 BP 165/84 03/15/17 07:00 Pulse Ox 100 03/15/17 07:00 Intake & Output 03/14/17 03/15/17 03/15/17 18:59 06:59 18:59 Intake Total 240 400 Balance 240 400 Intake: Oral 240 400 Other: Voiding Method Toilet Toilet # Voids 2 1 2 - Constitutional General appearance: Present: obese - Gastrointestinal General gastrointestinal: Present: soft. Absent: tenderness - Labs CBC & Chem 7: 03/14/17 07:12 03/15/17 07:21 Labs: Abnormal Lab Results - Last 24 Hours (Table) 03/15/17 Range/Units 07:21 Chloride 108 H (98-107) mmol/L AST 72 H (14-36) U/L ALT 260 H (9-52) U/L Alkaline Phosphatase 142 H (38-126) U/L Albumin 3.3 L (3.5-5.0) g/dL Assessment and Plan (1) Cholelithiasis Current Visit: Yes Status: Acute Code(s): K80.20 - CALCULUS OF GALLBLADDER W /O CHOLECYSTITIS W/O OBSTRUCTION SNOMED Code(s): 447641596 (2) Elevated liver enzymes Current Visit: Yes Status: Acute Code(s): R74.8 - ABNORMAL LEVELS OF OTHER SERUM ENZYMES SNOMED Code(s): 211156602 (3) Hepatic cyst Current Visit: Yes Status: Acute Code(s): K76.89 - OTHER SPECIFIED DISEASES OF LIVER SNOMED Code(s): 98601711 Plan: Patient is doing well. Ok to discharge Needs outpatient MRCP and CArdiac clearance as outpatient.
--- NOTE | 2017-03-16 05:32 | DS ---
DISCHARGE SUMMARY DATE OF ADMISSION: 03/13/2017 DATE OF DISCHARGE: 03/15/2017 FINAL DIAGNOSIS: 1. Acute hepatitis probably obstructive from gallstones, improving. 2. Acute urinary tract infection from Escherichia coli. 3. Hyperbilirubinemia. 4. Morbid obesity, body mass index greater than 40. 5. Essential hypertension. 6. Hyperlipidemia. 7. Gallstones. 8. Cannot rule out elevated liver enzymes from statins. HOSPITAL COURSE: This patient just presented to the hospital in the ER about 3 to 4 days ago with right flank pain. Seemed to have passed the stone. Then patient's liver enzymes were noted to be elevated. Statins were discontinued. Numbers were getting better by the time of discharge. AST had gone down from 172 down to 72, an ALT from 430 down to 260. Total bilirubin had gone down from 2.3 down to 1.0. This could have been from a gallstone or could be from statins itself. The patient also had a UTI diagnosed 3 days ago for which she is to continue on Bactrim. Care was discussed in detail with the patient and her brother. Questions were answered. Patient to complete a course of Bactrim. Zocor has been stopped. Consultation with Dr. Cantu from general surgery. He will do a cholecystectomy as an outpatient. Care was discussed in detail with the patient and brother. Questions were answered. Discharge planning more than 35 minutes. ABDOMEN: Soft, nontender. Liver and spleen not palpable. DISCHARGE MEDICATIONS: 1. Fosamax 70 mg p.o. on Thursday. 2. Vitamin C 500 mg p.o. b.i.d. 3. Lumigan 0.01% 1 drop to both eyes q.h.s. 4. Calcium with vitamin D3 one tab p.o. b.i.d. 5. Zestril 5 mg p.o. daily. 6. Multivitamin 1 tab p.o. daily. 7. Bactrim DS complete course. 8. Aspirin 81 mg p.o. daily. Follow up with Dr. Cantu in 1 week; Dr. Humphreys in 3 days. CMP and CBC in 3 days. Outpatient MRCP is being arranged by Dr. Cantu. She will have cardiology clearance. MMODL / IJN: [id number] /
== END 2017-03-15 15:01 | disposition home or self-care (01) | DRG 442 ==
LOC: EC 17:30 → 4MS4W 19:41
PROVIDERS: ADMIT Hospitalist; ATTEND Hospitalist
DX: K72.00 Acute and subacute hepatic failure without coma (principal); N39.0 Urinary tract infection, site not specified; Z68.41 Body mass index [BMI] 40.0-44.9, adult; K71.2 Toxic liver disease with acute hepatitis; E66.01 Morbid (severe) obesity due to excess calories; T46.6X5A Adverse effect of antihyperlipidemic and antiarteriosclerotic drugs, initial encounter; K76.89 Other specified diseases of liver; B96.20 Unspecified Escherichia coli [E. coli] as the cause of diseases classified elsewhere; I10 Essential (primary) hypertension; E78.5 Hyperlipidemia, unspecified; K80.20 Calculus of gallbladder without cholecystitis without obstruction; Z79.82 Long term (current) use of aspirin; Z79.83 Long term (current) use of bisphosphonates; Z79.899 Other long term (current) drug therapy; Z86.711 Personal history of pulmonary embolism; Z87.442 Personal history of urinary calculi; Z87.891 Personal history of nicotine dependence
CPT/HCPCS: 36415; 74177; 76700; 80053; 81001; 82150; 83690; 85025; 85610; 85730; 87077; 87086; 87186; 93005; 96360; 99284; 99285

== ENCOUNTER → 2017-04-01 | Outpatient (CLI) | payer MEDICARE ==
--- NOTE | 2017-04-01 14:07 | MR ---
MRCP HISTORY: Liver cyst, cholecystitis Correlation to ultrasound abdomen 03/13/2017, CT abdomen pelvis 03/11/2017 The gallbladder shows multiple luminal filling defects compatible with gallstones. Gallbladder is hyd ropic. There is no dilation of the common bile duct, choledocholithiasis is not evident. The liver is enlarged. Signal drop on out of phase imaging is compatible with hepatic steatosis. Mult iple cystic foci are associated with the liver, the largest is near the gerber measures approximately 5.8 cm, left lobe lesion corresponds to ultrasound findings as well measuring approximately 3.3 cm. S ubcentimeter cystic foci are present. Simple cyst is associated with the right kidney measuring 4 cm in size in the lower pole. Subcentimeter cystic foci are associated with the left kidney as well as a dominant cyst measuring 13 mm. Extrarenal pelvis again seen in the left kidney, hydronephrosis is im proved within the right kidney. The pancreas is within normal limits. The adrenal glands, spleen are within normal limits. There is n o ascites. No retroperitoneal adenopathy. Aorta shows normal caliber. There is a hiatal hernia presen t. The heart is enlarged. Degenerative disc changes are present in the visualized spine. IMPRESSION: Cholelithiasis. Findings suggest hepatic steatosis. Hiatal hernia. Liver cysts, renal cys ts appear simple. Hepatomegaly, findings suggest hepatic steatosis. Additional findings above.
== END | disposition home or self-care (01) ==
LOC: RADMRIMAIN 09:24
PROVIDERS: ATTEND Surgery
DX: K80.20 Calculus of gallbladder without cholecystitis without obstruction (principal); K44.9 Diaphragmatic hernia without obstruction or gangrene; R16.0 Hepatomegaly, not elsewhere classified
CPT/HCPCS: 74181

== ENCOUNTER → 2018-03-23 | Outpatient (CLI) | payer MEDICARE ==
[2018-03-23 16:33] LABS: LDL Cholesterol,Calculated 138.6 mg/dL (0.0-131.0); VLDL Calculation 27.4 mg/dL (5.00-40.00)
== END | disposition home or self-care (01) ==
LOC: LABWHC1 10:46
PROVIDERS: ATTEND Nurse Practitioner Adult Health
DX: E78.2 Mixed hyperlipidemia (principal)
CPT/HCPCS: 36415; 80061; 84450; 84460

== ENCOUNTER → 2019-03-22 | Outpatient (CLI) | payer MEDICARE ==
[2019-03-22 17:19] LABS: LDL Cholesterol,Calculated 134.6 mg/dL (0.0-131.0); VLDL Calculation 25.4 mg/dL (5.00-40.00)
== END | disposition home or self-care (01) ==
LOC: LABWHC1 11:02
PROVIDERS: ATTEND Internal Medicine Cardiovascular Disease
DX: E78.2 Mixed hyperlipidemia (principal)
CPT/HCPCS: 36415; 80061; 84450; 84460

== ENCOUNTER 2020-01-26 16:21 | Inpatient (IN) | payer MEDICARE ==
--- NOTE | 2020-01-26 17:02 | ED ---
Arrhythmia/Palpitations HPI - General Chief Complaint: Arrhythmia/Palpitations Stated Complaint: SOB, abn holter results Time Seen by Provider: 01/26/20 16:25 Source: patient Mode of arrival: ambulatory Limitations: no limitations - History of Present Illness Initial Comments: Patient is a 74-year-old female past history of hypertension and hyperlipidemia presents emergency room with reported shortness of breath just been occurring for the past several months. Patient also reports to multiple episodes of presyncope. Denies losing consciousness. States that she feels very weak. Denies any chest pain associated with the episode. Follow-up with primary care physician who had her wear a Holter monitor for 5 days. Reports the Holter monitor came back today. Because of the abnormal results the PCP called the patient told her to go immediately into the emergency department. She does fax report. Demonstrate several episodes of atrial fibrillation with a rapid ventricular response. Also reports to several episodes of bradycardia and sinus pause. Sinus pauses as long as 6.9 seconds. Patient denies feeling symptomatically she was wearing the Holter monitor. Reports that last night she had 5 episodes while she was attempting to sleep. Denies previous cardiac history. Sees Dr. Torres for "extra heart beats". No recent medication changes. No other alleviating, precipitating or modifying factors - Related Data Home Medications Medication Instructions Recorded Confirmed Ascorbic Acid [Vitamin C] 500 mg PO DAILY 03/11/17 01/26/20 Bimatoprost [Lumigan .01% Ophth 1 drop BOTH EYES HS 03/11/17 01/26/20 Soln] Calcium Carbonate/Vitamin D3 1 tab PO HS 03/11/17 01/26/20 [Calcium 600-Vit D3 400 Caplet] Multivitamins, Thera [Multivitamin 1 tab PO DAILY 03/11/17 01/26/20 (formulary)] Aspirin 81 mg PO HS 01/26/20 01/26/20 Diclofenac Sodium Gel [Voltaren 2 gm TOPICAL BID 01/26/20 01/26/20 Gel] Losartan [Cozaar] 25 mg PO DAILY 01/26/20 01/26/20 Metoprolol Succinate (ER) [Toprol 25 mg PO DAILY 01/26/20 01/26/20 Xl] Simvastatin [Zocor] 20 mg PO HS 01/26/20 01/26/20 diphenhydrAMINE [Benadryl] 100 mg PO HS 01/26/20 01/26/20 Allergies Allergy/AdvReac Type Severity Reaction Status Date / Time No Known Allergies Allergy Verified 01/26/20 20:07 Review of Systems ROS Statement: Those systems with pertinent positive or pertinent negative responses have been documented in the HPI. ROS Other: All systems not noted in ROS Statement are negative. Past Medical History Past Medical History: Hyperlipidemia, Hypertension Additional Past Medical History / Comment(s): PE ?; years ago History of Any Multi-Drug Resistant Organisms: None Reported Past Surgical History: Orthopedic Surgery Additional Past Surgical History / Comment(s): hernia,eye surgery,rt knee Past Anesthesia/Blood Transfusion Reactions: No Reported Reaction Past Psychological History: No Psychological Hx Reported Smoking Status: Former smoker Past Alcohol Use History: None Reported Past Drug Use History: None Reported - Past Family History Sister(s) Family Medical History: Congestive Heart Failure (CHF), Pulmonary Embolus Additional Family Medical History / Comment(s): gallbladder removed General Exam Limitations: no limitations General appearance: alert, in no apparent distress Head exam: Present: atraumatic, normocephalic, normal inspection Eye exam: Present: normal appearance, PERRL, EOMI. Absent: scleral icterus, conjunctival injection, periorbital swelling ENT exam: Present: normal exam, mucous membranes moist Neck exam: Present: normal inspection. Absent: tenderness, meningismus, lymphadenopathy Respiratory exam: Present: normal lung sounds bilaterally. Absent: respiratory distress, wheezes, rales, rhonchi, stridor Cardiovascular Exam: Present: regular rate, normal rhythm, normal heart sounds. Absent: systolic murmur, diastolic murmur, rubs, gallop, clicks GI/Abdominal exam: Present: soft, normal bowel sounds. Absent: distended, tenderness, guarding, rebound, rigid Extremities exam: Present: full ROM, normal capillary refill, pedal edema. Absent: tenderness, joint swelling, calf tenderness Back exam: Present: normal inspection Neurological exam: Present: alert, oriented X3, CN II-XII intact Psychiatric exam: Present: normal affect, normal mood Skin exam: Present: warm, dry, intact, normal color. Absent: rash Course Vital Signs 01/26/20 01/26/20 01/26/20 16:23 16:47 18:11 Temperature 98.1 F Pulse Rate 63 58 L 55 L Respiratory 18 20 16 Rate Blood Pressure 161/68 174/73 182/72 O2 Sat by Pulse 96 95 97 Oximetry 01/26/20 19:58 Temperature 98.3 F Pulse Rate 57 L Respiratory 14 Rate Blood Pressure 155/68 O2 Sat by Pulse 96 Oximetry EKG Findings - EKG Comments: EKG Findings:: EKG demonstrates normal sinus rhythm with a rate of 64. MI interval 154. QRS 80. QTC of 408. No acute ST segment elevations or depressions. Repeat EKG at 1640 demonstrates a sinus rhythm with ventricular rate of 65. MI interval 154. QRS 70. QTC of 422. PVCs with bigeminy rhythm Medical Decision Making - Medical Decision Making Upon arrival patient was placed into room 4. A thorough history and physical exam is performed. Patient placed on continuous pulse ox and cardiac monitoring. Patient's is any normal sinus rhythm. I did review the patient's Holter monitoring report. Laboratory studies are conducted. I discussed the case with Dr. Castaneda. Patient will be admitted for cardiology consultation. She is currently awaiting a bed on the floor - Lab Data Result diagrams: 01/27/20 06:40 01/27/20 06:40 Lab Results 01/26/20 01/26/20 01/26/20 Range/Units 16:43 16:43 16:43 WBC 11.2 H (3.8-10.6) k/uL RBC 4.81 (3.80-5.40) m/uL Hgb 14.0 (11.4-16.0) gm/dL Hct 44.1 (34.0-46.0) % MCV 91.6 (80.0-100.0) fL MCH 29.1 (25.0-35.0) pg MCHC 31.7 (31.0-37.0) g/dL RDW 13.5 (11.5-15.5) % Plt Count 277 (150-450) k/uL Neutrophils % 75 % Lymphocytes % 16 % Monocytes % 4 % Eosinophils % 2 % Basophils % 0 % Neutrophils # 8.4 H (1.3-7.7) k/uL Lymphocytes # 1.8 (1.0-4.8) k/uL Monocytes # 0.5 (0-1.0) k/uL Eosinophils # 0.2 (0-0.7) k/uL Basophils # 0.1 (0-0.2) k/uL PT 10.6 (9.0-12.0) sec INR 1.0 (<1.2) APTT 20.2 L (22.0-30.0) sec Sodium 136 L (137-145) mmol/L Potassium 5.1 (3.5-5.1) mmol/L Chloride 105 (98-107) mmol/L Carbon Dioxide 26 (22-30) mmol/L Anion Gap 5 mmol/L BUN 25 H (7-17) mg/dL Creatinine 0.76 (0.52-1.04) mg/dL Est GFR (CKD-EPI)AfAm 89 (>60 ml/min/1.73 sqM) Est GFR (CKD-EPI)NonAf 77 (>60 ml/min/1.73 sqM) Glucose 115 H (74-99) mg/dL Calcium 8.9 (8.4-10.2) mg/dL Magnesium 2.0 (1.6-2.3) mg/dL Total Bilirubin 1.5 H (0.2-1.3) mg/dL AST 31 (14-36) U/L ALT 19 (4-34) U/L Alkaline Phosphatase 42 (38-126) U/L Troponin I (0.000-0.034) ng/mL Total Protein 6.6 (6.3-8.2) g/dL Albumin 3.9 (3.5-5.0) g/dL TSH 2.510 (0.465-4.680) mIU/L 01/26/20 Range/Units 16:43 WBC (3.8-10.6) k/uL RBC (3.80-5.40) m/uL Hgb (11.4-16.0) gm/dL Hct (34.0-46.0) % MCV (80.0-100.0) fL MCH (25.0-35.0) pg MCHC (31.0-37.0) g/dL RDW (11.5-15.5) % Plt Count (150-450) k/uL Neutrophils % % Lymphocytes % % Monocytes % % Eosinophils % % Basophils % % Neutrophils # (1.3-7.7) k/uL Lymphocytes # (1.0-4.8) k/uL Monocytes # (0-1.0) k/uL Eosinophils # (0-0.7) k/uL Basophils # (0-0.2) k/uL PT (9.0-12.0) sec INR (<1.2) APTT (22.0-30.0) sec Sodium (137-145) mmol/L Potassium (3.5-5.1) mmol/L Chloride (98-107) mmol/L Carbon Dioxide (22-30) mmol/L Anion Gap mmol/L BUN (7-17) mg/dL Creatinine (0.52-1.04) mg/dL Est GFR (CKD-EPI)AfAm (>60 ml/min/1.73 sqM) Est GFR (CKD-EPI)NonAf (>60 ml/min/1.73 sqM) Glucose (74-99) mg/dL Calcium (8.4-10.2) mg/dL Magnesium (1.6-2.3) mg/dL Total Bilirubin (0.2-1.3) mg/dL AST (14-36) U/L ALT (4-34) U/L Alkaline Phosphatase (38-126) U/L Troponin I 0.028 (0.000-0.034) ng/mL Total Protein (6.3-8.2) g/dL Albumin (3.5-5.0) g/dL TSH (0.465-4.680) mIU/L Disposition Clinical Impression: Pre-syncope, Sinus pause, Afib Disposition: ADMITTED IP TO THIS [facility] Condition: Stable Is patient prescribed a controlled substance at d/c from ED?: No Decision to Admit Reason: Admit from EC Decision Date: 01/26/20 Decision Time: 17:57
[2020-01-26 17:03] LABS: Basophils # (A) 0.1 k/uL (0-0.2); Basophils % (A) 0 %; Eosinophils # (A) 0.2 k/uL (0-0.7); Eosinophils % (A) 2 %; HCT 44.1 % (34.0-46.0); Lymphocytes # (A) 1.8 k/uL (1.0-4.8); Lymphocytes % (A) 16 %; MCH 29.1 pg (25.0-35.0); MCHC 31.7 g/dL (31.0-37.0); MCV 91.6 fL (80.0-100.0); Mean Platelet Volume 6.7; Monocytes # (A) 0.5 k/uL (0-1.0); Monocytes % (A) 4 %; Neutrophils # (A) 8.4 k/uL (1.3-7.7); Neutrophils % (A) 75 %; Platelet Count 277 k/uL (150-450); RBC 4.81 m/uL (3.80-5.40); RDW 13.5 % (11.5-15.5); WBC 11.2 k/uL (3.8-10.6)
[2020-01-26 17:14] LABS: Albumin 3.9 g/dL (3.5-5.0); Calcium 8.9 mg/dL (8.4-10.2); Potassium 5.1 mmol/L (3.5-5.1); Total Bilirubin 1.5 mg/dL (0.2-1.3); Total Protein 6.6 g/dL (6.3-8.2)
[2020-01-26 17:32] LABS: Prothrombin Time 10.6 sec (9.0-12.0)
[2020-01-26 17:33] LABS: Partial Thromboplastin Time 20.2 sec (22.0-30.0)
--- NOTE | 2020-01-26 17:44 | XR ---
EXAMINATION: XR chest 2V DATE AND TIME: 01/26/2020 5:17 PM CLINICAL INDICATION: PHH; dysrhythmia TECHNIQUE: AP and lateral views were obtained COMPARISON: 11/12/2010 FINDINGS: The lungs are clear. The pleural spaces are negative. The cardiac silhouette appears mildly enlarged on this AP radiograph. The remainder of the mediastina l silhouette is unremarkable. The skeletal structures and soft tissues are negative for acute findings. IMPRESSION: 1. No definite acute radiographic process. 2. Cardiac silhouette appears mildly enlarged on this AP radiograph.
[2020-01-26] MEDS ORDERED: NALOXONE 0.4 MG/ML 1 ML VIAL IV PRN (17:57)
[2020-01-26] MEDS: ATORVASTATIN 10 MG TAB PO SCH (22:11)
[2020-01-26] MEDS: CALCIUM CARB-VIT D 500MG-200UN 1 EACH TAB PO SCH (22:11)
[2020-01-26] MEDS: LATANOPROST 0.005% OPHTH DROPS 2.5 ML BTL BOTH EYES SCH (22:12)
[2020-01-26] MEDS: diphenhydrAMINE 50 MG CAP PO SCH (22:12)
[2020-01-26] MEDS: METOPROLOL SUCCINATE (ER) 25 MG TAB.ER.24H PO SCH (22:13)
[2020-01-27 07:14] LABS: Basophils % (A) 0 %; Eosinophils # (A) 0.2 k/uL (0-0.7); Eosinophils % (A) 2 %; HCT 42.6 % (34.0-46.0); HGB 13.1 gm/dL (11.4-16.0); Lymphocytes # (A) 2.1 k/uL (1.0-4.8); Lymphocytes % (A) 22 %; MCH 28.6 pg (25.0-35.0); MCHC 30.8 g/dL (31.0-37.0); Mean Platelet Volume 6.9; Monocytes # (A) 0.5 k/uL (0-1.0); Monocytes % (A) 5 %; Neutrophils # (A) 6.3 k/uL (1.3-7.7); Neutrophils % (A) 68 %; Platelet Count 266 k/uL (150-450); RBC 4.58 m/uL (3.80-5.40); RDW 13.6 % (11.5-15.5); WBC 9.3 k/uL (3.8-10.6)
[2020-01-27 07:26] LABS: Calcium 8.9 mg/dL (8.4-10.2); Potassium 4.4 mmol/L (3.5-5.1)
[2020-01-27] MEDS ORDERED: LOSARTAN 25 MG TAB PO SCH (09:00)
[2020-01-27] MEDS: ASCORBIC ACID 500 MG TAB PO SCH (09:54)
[2020-01-27] MEDS: MULTIVITAMINS, THERA 1 EACH TAB PO SCH (09:54)
[2020-01-27] MEDS: METOPROLOL SUCCINATE (ER) 25 MG TAB.ER.24H PO SCH (09:55)
[2020-01-27] MEDS: DICLOFENAC SODIUM GEL 100 GM TUBE TOPICAL SCH ×2 (10:26→20:02)
[2020-01-27] MEDS ORDERED: LOSARTAN 25 MG TAB PO STA (12:15)
[2020-01-27] MEDS: SODIUM CHLORIDE 0.9% 1,000 ML IV SCH (13:32)
--- NOTE | 2020-01-27 13:39 | P.CRDCN ---
History of Present Illness Consult date: 01/27/20 History of present illness: CHIEF COMPLAINT: A. fib, pauses HISTORY OF PRESENT ILLNESS: 74-year-old female with a history of hypertension and hyperlipidemia who was directed to the emergency room by her primary care physician. Patient follows in the office with Dr. Torres. Patient reports she has been having episodes of "not feeling right" since October. She reports these episodes have increased in frequency since October. She was evaluated by her PCP who recommended a holter monitor. The patient was notified by her PCP that the results of the holter monitor were abnormal and she should come to the ER. Patient examined at the bedside. She denies chest pain. She reports shortness of breath which is at her baseline over the past few months. Denies dizziness or lightheadedness. Patient denies ever passing out with any of these episodes at home. Telemetry tracings of Holter monitor reviewed revealing A. fib with RVR and multiple pauses. DIAGNOSTICS: EKG reveals sinus rhythm Chest xray no definite acute radiographic process. Laboratory data: WBC 9.3. Hemoglobin 13.1. The contour and 66. Sodium 139. Potassium 4.4. BUN 19. Creatinine 0.78. Magnesium 2.0. Troponin 0.028. TSH 2.510. Current home cardiac medications include Zocor 20 mg daily, Toprol-XL 25 mg daily, aspirin 81 mg daily, and Cozaar 25 mg daily REVIEW OF SYSTEMS: CONSTITUTIONAL: Denies fever or chills. HEENT: Denies blurred vision, vision changes, or eye pain. Denies hemoptysis CARDIOVASCULAR: Denies chest pain, orthopnea, PND or palpitations RESPIRATORY: No shortness of breath. GASTROINTESTINAL: Denies abdominal pain. Denies nausea or vomiting. HEMATOLOGIC: Denies bleeding disorders. GENITOURINARY: Denies any blood in urine. SKIN: Denies pruitis. Denies rash. PHYSICAL EXAM: VITAL SIGNS: Reviewed. GENERAL: Well-developed in no acute distress. HEENT: Head is normocephalic. Pupils are equal, round. Sclerae anicteric. Mucous membranes of the mouth are moist. Neck supple. No JVD or thyromegaly LUNGS: Respirations even and unlabored. Lungs essentially clear to auscultation bilaterally. HEART: Regular rate and rhythm. S1 and S2 heard. ABDOMEN: Soft. Nondistended. Nontender. EXTREMITIES: Normal range of motion. No clubbing or cyanosis. Peripheral pulses intact. No lower extremity edema NEUROLOGIC: Awake and alert. Oriented x 3. ASSESSMENT: New onset paroxysmal a-fib with RVR with pauses Hypertension Hyperlipidemia Obstructive sleep apnea, noncompliant with CPAP Morbid obesity, BMI 57.8 PLAN: Increase Cozaar to 50mg daily Discontinue beta-billie TSH drawn and within normal limits Encouraged use of CPAP for PAMELA Begin Eliquis 5mg PO BID Continue to monitor telemetry for pauses. If patient has no further pauses, she may be discharged tomorrow and follow up outpatient If she shows pauses on telemetry in the next 24 hours, will plan for inpatient pacemaker insertion Nurse practitioner note has been reviewed by physician. Signing provider agrees with the documented findings, assessment, and plan of care. Past Medical History Past Medical History: Hyperlipidemia, Hypertension Additional Past Medical History / Comment(s): PE ?; years ago History of Any Multi-Drug Resistant Organisms: None Reported Past Surgical History: Orthopedic Surgery Additional Past Surgical History / Comment(s): hernia,eye surgery,rt knee Past Anesthesia/Blood Transfusion Reactions: No Reported Reaction Past Psychological History: No Psychological Hx Reported Smoking Status: Former smoker Past Alcohol Use History: None Reported Additional Past Alcohol Use History / Comment(s): smoked from [id number] 1ppd Past Drug Use History: None Reported - Past Family History Sister(s) Family Medical History: Congestive Heart Failure (CHF), Pulmonary Embolus Additional Family Medical History / Comment(s): gallbladder removed Medications and Allergies Home Medications Medication Instructions Recorded Confirmed Type Ascorbic Acid [Vitamin C] 500 mg PO DAILY 03/11/17 01/26/20 History Bimatoprost [Lumigan .01% Ophth 1 drop BOTH EYES HS 03/11/17 01/26/20 History Soln] Calcium Carbonate/Vitamin D3 1 tab PO HS 03/11/17 01/26/20 History [Calcium 600-Vit D3 400 Caplet] Multivitamins, Thera [Multivitamin 1 tab PO DAILY 03/11/17 01/26/20 History (formulary)] Aspirin 81 mg PO HS 01/26/20 01/26/20 History Diclofenac Sodium Gel [Voltaren 2 gm TOPICAL BID 01/26/20 01/26/20 History Gel] Losartan [Cozaar] 25 mg PO DAILY 01/26/20 01/26/20 History Metoprolol Succinate (ER) [Toprol 25 mg PO DAILY 01/26/20 01/26/20 History Xl] Simvastatin [Zocor] 20 mg PO HS 01/26/20 01/26/20 History diphenhydrAMINE [Benadryl] 100 mg PO HS 01/26/20 01/26/20 History Allergies Allergy/AdvReac Type Severity Reaction Status Date / Time No Known Allergies Allergy Verified 01/26/20 20:07 Physical Exam Vitals: Vital Signs Temp Pulse Pulse Resp BP BP Pulse Ox 01/27/20 07:22 96.1 F L 65 14 183/85 01/27/20 04:00 97.7 F 59 L 18 180/92 96 01/27/20 00:00 98.2 F 56 L 17 168/77 96 01/26/20 21:42 97.9 F 66 18 200/96 97 01/26/20 19:58 98.3 F 57 L 14 155/68 96 01/26/20 18:11 55 L 16 182/72 97 01/26/20 16:47 58 L 20 174/73 95 01/26/20 16:23 98.1 F 63 18 161/68 96 Intake and Output 01/26/20 01/27/20 01/27/20 22:59 06:59 14:59 Intake Total 200 Balance 200 Intake: Oral 200 Other: Voiding Method Toilet Toilet # Voids 1 Weight 136.078 kg 138.8 kg Results 01/27/20 06:40 01/27/20 06:40 Cardiac Enzymes 01/26/20 01/26/20 Range/Units 16:43 16:43 AST 31 (14-36) U/L Troponin I 0.028 (0.000-0.034) ng/mL Coagulation 01/26/20 Range/Units 16:43 PT 10.6 (9.0-12.0) sec APTT 20.2 L (22.0-30.0) sec CBC 01/26/20 01/27/20 Range/Units 16:43 06:40 WBC 11.2 H 9.3 (3.8-10.6) k/uL RBC 4.81 4.58 (3.80-5.40) m/uL Hgb 14.0 13.1 (11.4-16.0) gm/dL Hct 44.1 42.6 (34.0-46.0) % Plt Count 277 266 (150-450) k/uL Comprehensive Metabolic Panel 01/26/20 01/27/20 Range/Units 16:43 06:40 Sodium 136 L 139 (137-145) mmol/L Potassium 5.1 4.4 (3.5-5.1) mmol/L Chloride 105 102 (98-107) mmol/L Carbon Dioxide 26 33 H (22-30) mmol/L BUN 25 H 19 H (7-17) mg/dL Creatinine 0.76 0.78 (0.52-1.04) mg/dL Glucose 115 H 94 (74-99) mg/dL Calcium 8.9 8.9 (8.4-10.2) mg/dL AST 31 (14-36) U/L ALT 19 (4-34) U/L Alkaline Phosphatase 42 (38-126) U/L Total Protein 6.6 (6.3-8.2) g/dL Albumin 3.9 (3.5-5.0) g/dL Current Medications Generic Name Dose Route Start Last Admin Trade Name Freq PRN Reason Stop Dose Admin Ascorbic Acid 500 mg 01/27/20 09:00 01/27/20 09:54 Vitamin C PO 500 mg DAILY SONDRA Administration Aspirin 81 mg 01/27/20 21:00 Aspirin PO HS SONDRA Atorvastatin Calcium 10 mg 01/26/20 22:00 01/26/20 22:11 Lipitor PO 10 mg HS SONDRA Administration Calcium Carbonate 1 each 01/26/20 22:00 01/26/20 22:11 Oscal 500+D PO 1 each HS SONDRA Administration Diclofenac Sodium 2 gm 01/27/20 09:00 01/27/20 10:26 Voltaren Gel TOPICAL Not Given BID SONDRA Diphenhydramine HCl 100 mg 01/26/20 22:00 01/26/20 22:12 Benadryl PO 100 mg HS SONDRA Administration Latanoprost 1 drops 01/26/20 22:00 01/26/20 22:12 Xalatan 0.005% BOTH EYES 1 drops HS SODNRA Administration Losartan Potassium 25 mg 01/27/20 09:00 01/27/20 09:54 Cozaar PO 25 mg DAILY SONDRA Administration Multivitamins 1 each 01/27/20 09:00 01/27/20 09:54 Theragran PO 1 each DAILY SONDRA Administration Naloxone HCl 0.2 mg 01/26/20 17:57 Narcan IV Q2M PRN Opioid Reversal Intake and Output 01/26/20 01/27/20 01/27/20 22:59 06:59 14:59 Intake Total 200 Balance 200 Intake: Oral 200 Other: Voiding Method Toilet Toilet # Voids 1 Weight 136.078 kg 138.8 kg 01/27/20 06:40 01/27/20 06:40
--- NOTE | 2020-01-27 19:15 | P.HPIM ---
History of Present Illness H&P Date: 01/27/20 Chief Complaint: Short of breath, dizzy History of presenting complaint: This is a pleasant 74 patient who follows with Dr. Fidencio Humphreys. Chronic stable medical conditions include hypertension, hyperlipidemia, osteoarthritis. Patient had 2 episodes of becoming dizzy back in October and she was given a heart monitor. She was doing fine with that. Now patient presents with more frequent episodes of dizzy spell short of breath and obvious palpitations. Through her PCPs office she was asked to come in. No fever no chills. No neurological symptoms. Patient had multiple episodes of presyncope. Did not actually lose consciousness. There were several episodes of atrial fibrillation with a rapid ventricular rate and also with low heart rate and pauses. As per ER notes at least a 6.9 second pause. She follows with Dr. Brandi Bradley. Review of systems: GEN.: Tired EYES: None HEENT: None NECK: None RESPIRATORY: None CARDIOVASCULAR: As above GASTROINTESTINAL: None GENITOURINARY: None MUSCULOSKELETAL: Some joint pains LYMPHATICS: None HEMATOLOGICAL: None PSYCHIATRY: None NEUROLOGICAL: As above, no focal Past medical history to include: Hypertension, hyperlipidemia, osteoarthritis, Social history: Patient smoked for 32 years stopped in 1994. One pack daily. No alcohol. Lives alone. Physical examination: VITAL SIGNS: 98.1, 63, 18, 1 61/68, 96% room air GENERAL: BMI 37.8, sitting up, awake. EYES: Pupils equal. Conjunctiva normal. HEENT: External appearance of nose and ears normal, oral cavity grossly normal. NECK: JVD not raised; masses not palpable. HEART: Heart sounds irregular; no edema. LUNGS: Respiratory rate normal; clear to auscultation. ABDOMEN: Soft, nontender, liver spleen not palpable, no masses palpable. PSYCH: Alert and oriented x3; mood and affect normal. NEUROLOGICAL: Cranial nerves grossly intact; no facial asymmetry, power and sensation grossly intact. MUSCULAR skeletal: Evidence of OA LYMPHATICS: No lymph nodes palpable in the axilla and neck INVESTIGATIONS, reviewed in the clinical context: White count 11.2 hemoglobin 14 potassium 5.1 creatinine 0.76 Troponin I 0.028, TSH 2.5 EKG tracing personally reviewed by me-normal sinus rhythm Chest x-ray film personally reviewed by me-no obvious venous prominence Assessment: -Paroxysmal atrial fibrillation rapid ventricular rate associated with bradycardia/tachybradycardia syndrome with pauses reported up in 6.9 seconds note that patient is also on Toprol-XL at home. -Essential hypertension -Hyperlipidemia -Morbid obesity BMI 57.8 Plan: Patient put on telemetry. Cardiology was consulted. Beta blockers been held. Cozaar has been added. Care was discussed with the patient. Question also. Follow with [facility]. If the pauses persist. Patient will need a pacemaker. Past Medical History Past Medical History: Hyperlipidemia, Hypertension Additional Past Medical History / Comment(s): PE ?; years ago History of Any Multi-Drug Resistant Organisms: None Reported Past Surgical History: Orthopedic Surgery Additional Past Surgical History / Comment(s): hernia,eye surgery,rt knee Past Anesthesia/Blood Transfusion Reactions: No Reported Reaction Past Psychological History: No Psychological Hx Reported Smoking Status: Former smoker Past Alcohol Use History: None Reported Additional Past Alcohol Use History / Comment(s): smoked from [id number] 1ppd Past Drug Use History: None Reported - Past Family History Sister(s) Family Medical History: Congestive Heart Failure (CHF), Pulmonary Embolus Additional Family Medical History / Comment(s): gallbladder removed Medications and Allergies Home Medications Medication Instructions Recorded Confirmed Type Ascorbic Acid [Vitamin C] 500 mg PO DAILY 03/11/17 01/26/20 History Bimatoprost [Lumigan .01% Ophth 1 drop BOTH EYES HS 03/11/17 01/26/20 History Soln] Calcium Carbonate/Vitamin D3 1 tab PO HS 03/11/17 01/26/20 History [Calcium 600-Vit D3 400 Caplet] Multivitamins, Thera [Multivitamin 1 tab PO DAILY 03/11/17 01/26/20 History (formulary)] Aspirin 81 mg PO HS 01/26/20 01/26/20 History Diclofenac Sodium Gel [Voltaren 2 gm TOPICAL BID 01/26/20 01/26/20 History Gel] Losartan [Cozaar] 25 mg PO DAILY 01/26/20 01/26/20 History Metoprolol Succinate (ER) [Toprol 25 mg PO DAILY 01/26/20 01/26/20 History Xl] Simvastatin [Zocor] 20 mg PO HS 01/26/20 01/26/20 History diphenhydrAMINE [Benadryl] 100 mg PO HS 01/26/20 01/26/20 History Allergies Allergy/AdvReac Type Severity Reaction Status Date / Time No Known Allergies Allergy Verified 01/26/20 20:07 Physical Exam Vitals: Vital Signs Temp Pulse Pulse Resp BP BP Pulse Ox 01/27/20 07:22 96.1 F L 65 14 183/85 01/27/20 04:00 97.7 F 59 L 18 180/92 96 01/27/20 00:00 98.2 F 56 L 17 168/77 96 01/26/20 21:42 97.9 F 66 18 200/96 97 01/26/20 19:58 98.3 F 57 L 14 155/68 96 01/26/20 18:11 55 L 16 182/72 97 01/26/20 16:47 58 L 20 174/73 95 01/26/20 16:23 98.1 F 63 18 161/68 96 Intake and Output 01/26/20 01/27/20 01/27/20 22:59 06:59 14:59 Intake Total 200 Balance 200 Intake: Oral 200 Other: Voiding Method Toilet Toilet # Voids 1 Weight 136.078 kg 138.8 kg Results CBC & Chem 7: 01/27/20 06:40 01/27/20 06:40 Labs: Abnormal Lab Results - Last 24 Hours (Table) 01/26/20 01/26/20 01/26/20 Range/Units 16:43 16:43 16:43 WBC 11.2 H (3.8-10.6) k/uL MCHC (31.0-37.0) g/dL Neutrophils # 8.4 H (1.3-7.7) k/uL APTT 20.2 L (22.0-30.0) sec Sodium 136 L (137-145) mmol/L Carbon Dioxide (22-30) mmol/L BUN 25 H (7-17) mg/dL Glucose 115 H (74-99) mg/dL Total Bilirubin 1.5 H (0.2-1.3) mg/dL 01/27/20 01/27/20 Range/Units 06:40 06:40 WBC (3.8-10.6) k/uL MCHC 30.8 L (31.0-37.0) g/dL Neutrophils # (1.3-7.7) k/uL APTT (22.0-30.0) sec Sodium (137-145) mmol/L Carbon Dioxide 33 H (22-30) mmol/L BUN 19 H (7-17) mg/dL Glucose (74-99) mg/dL Total Bilirubin (0.2-1.3) mg/dL Thrombosis Risk Factor Assmnt - Choose All That Apply Each Factor Represents 1 point: Obesity (BMI >25), Swollen legs (current) Each Risk Factor Represents 3 Points: Age 75 years or older, History of DVT/PE Thrombosis Risk Factor Assessment Total Risk Factor Score: 8 Thrombosis Risk Factor Assessment Level: High Risk
[2020-01-27] MEDS: APIXABAN 5 MG TAB PO SCH (20:02)
[2020-01-27] MEDS: ATORVASTATIN 10 MG TAB PO SCH (20:02)
[2020-01-27] MEDS: CALCIUM CARB-VIT D 500MG-200UN 1 EACH TAB PO SCH (20:02)
[2020-01-27] MEDS: LATANOPROST 0.005% OPHTH DROPS 2.5 ML BTL BOTH EYES SCH (20:03)
[2020-01-27] MEDS: diphenhydrAMINE 50 MG CAP PO SCH (20:03)
[2020-01-27] MEDS ORDERED: ASPIRIN 81 MG PO SCH (21:00)
[2020-01-28] MEDS ORDERED: DEXTROSE 5% IN WATER 100 ML with AMIODARONE 150 MG IV ONE (06:45)
[2020-01-28] MEDS: LOSARTAN 50 MG TAB PO SCH (07:52)
[2020-01-28] MEDS: ASCORBIC ACID 500 MG TAB PO SCH (07:52)
[2020-01-28] MEDS: APIXABAN 5 MG TAB PO SCH ×3 (07:52→18:15)
[2020-01-28] MEDS: MULTIVITAMINS, THERA 1 EACH TAB PO SCH (07:52)
[2020-01-28] MEDS: DICLOFENAC SODIUM GEL 100 GM TUBE TOPICAL SCH ×2 (07:52→20:57)
[2020-01-28] MEDS: SODIUM CHLORIDE 0.9% 1,000 ML IV SCH (11:34)
--- NOTE | 2020-01-28 12:02 | P.PN ---
Subjective Progress Note Date: 01/28/20 CHIEF COMPLAINT: A. fib, pauses HISTORY OF PRESENT ILLNESS: Patient examined this morning the bedside. She denies chest pain. Denies shortness of breath. Patient continued to have conversion pauses overnight the longest lasting almost 6 seconds. Amiodarone b olus was ordered this morning per Dr. Delgado. She is currently maintaining sinus rhythm. PHYSICAL EXAM: VITAL SIGNS: Reviewed. GENERAL: Well-developed in no acute distress. HEENT: Head is normocephalic. Pupils are equal, round. Sclerae anicteric. Mucous membranes of the mouth are moist. Neck supple. No JVD or thyromegaly LUNGS: Respirations even and unlabored. Lungs essentially clear to auscultation bilaterally. HEART: Regular rate and rhythm. S1 and S2 heard. ABDOMEN: Soft. Nondistended. Nontender. EXTREMITIES: Normal range of motion. No clubbing or cyanosis. Peripheral pulses intact. No lower extremity edema NEUROLOGIC: Awake and alert. Oriented x 3. ASSESSMENT: Paroxysmal a-fib with RVR with conversion pauses Hypertension Hyperlipidemia Obstructive sleep apnea, noncompliant with CPAP Morbid obesity, BMI 57.8 PLAN: Continue current cardiac medications Patient to undergo pacemaker insertion with Dr. Delgado tomorrow. NPO at midnight Nurse practitioner note has been reviewed by physician. Signing provider agrees with the documented findings, assessment, and plan of care. Objective - Vital Signs Vital signs: Vital Signs Temp 97.3 F L 01/28/20 11:22 Pulse 72 01/28/20 11:22 Resp 18 01/28/20 11:22 BP 151/80 01/28/20 11:22 Pulse Ox 95 01/28/20 11:22 Intake & Output 01/27/20 01/28/20 01/28/20 18:59 06:59 18:59 Intake Total 480 Balance 480 Weight 137.8 kg Intake: Oral 480 Other: Voiding Method Toilet Toilet Toilet # Voids 1 1 # Bowel Movements 0 - Labs CBC & Chem 7: 01/27/20 06:40 01/27/20 06:40
[2020-01-28] MEDS: DOPamine DRIP 800 MG in DEXTROSE/WATER 1 250ML.BAG IV SCH (17:02)
--- NOTE | 2020-01-28 17:15 | P.PN ---
Progress Note - Text Progress Note Date: 01/28/20 Chief Complaint: Short of breath, dizzy History of presenting complaint: This is a pleasant 74 patient who follows with Dr. Fidencio Humphreys. Chronic stable medical conditions include hypertension, hyperlipidemia, osteoarthritis. Patient had 2 episodes of becoming dizzy back in October and she was given a heart monitor. She was doing fine with that. Now patient presents with more frequent episodes of dizzy spell short of breath and obvious palpitations. Through her PCPs office she was asked to come in. No fever no chills. No neurological symptoms. Patient had multiple episodes of presyncope. Did not actually lose consciousness. There were several episodes of atrial fibrillation with a rapid ventricular rate and also with low heart rate and pauses. As per ER notes at least a 6.9 second pause. She follows with Dr. Brandi Bradley. Today-sitting up in a chair. A bit tired. Has had episodes of atrial fibrillation with pauses. Pending pacemaker Review of systems: Was done for constitutional, cardiovascular, GI, pulmonary. relevant finding as above Active Medications Apixaban (Eliquis) 5 mg PO BID [facility] Stop: 01/28/20 23:59 Last Admin: 01/28/20 07:52 Dose: 5 mg Documented by: Ascorbic Acid (Vitamin C) 500 mg PO DAILY [facility] Last Admin: 01/28/20 07:52 Dose: 500 mg Documented by: Atorvastatin Calcium (Lipitor) 10 mg PO [facility] Last Admin: 01/27/20 20:02 Dose: 10 mg Documented by: Calcium Carbonate (Oscal 500+D) 1 each PO [facility] Last Admin: 01/27/20 20:02 Dose: 1 each Documented by: Diclofenac Sodium (Voltaren Gel) 2 gm TOPICAL BID [facility] Last Admin: 01/28/20 07:52 Dose: 2 gm Documented by: Diphenhydramine HCl (Benadryl) 100 mg PO [facility] Last Admin: 01/27/20 20:03 Dose: 100 mg Documented by: Sodium Chloride (Saline 0.9%) 1,000 mls @ 40 mls/hr IV .Q24H [facility] Last Admin: 01/28/20 11:34 Dose: 40 mls/hr Documented by: Dopamine HCl/Dextrose 800 mg/ (IV Solution) 250 mls @ 6.459 mls/hr IV .Q24H [facility]; Protocol Latanoprost (Xalatan 0.005%) 1 drops BOTH EYES HS [facility] Last Admin: 01/27/20 20:03 Dose: 1 drops Documented by: Losartan Potassium (Cozaar) 50 mg PO DAILY [facility] Last Admin: 01/28/20 07:52 Dose: 50 mg Documented by: Multivitamins (Theragran) 1 each PO DAILY [facility] Last Admin: 01/28/20 07:52 Dose: 1 each Documented by: Naloxone HCl (Narcan) 0.2 mg IV Q2M PRN PRN Reason: Opioid Reversal Physical examination: VITAL SIGNS: 97.6, 62, 18, 151/80, 95% room air GENERAL: Sitting up in a chair, comfortable EYES: Pupils equal. Conjunctiva normal. NECK: JVD not raised; masses not palpable. HEART: Heart sounds irregular; no edema. LUNGS: Respiratory rate normal; clear to auscultation. ABDOMEN: Soft, nontender, liver spleen not palpable, no masses palpable. PSYCH: Alert and oriented x3; mood and affect normal. NEUROLOGICAL: Cranial nerves grossly intact; no facial asymmetry, power and sensation grossly intact. MUSCULAR skeletal: Evidence of OA INVESTIGATIONS, reviewed in the clinical context: White count 9.3 hemoglobin 13.1 potassium 4.4 Admission testing White count 11.2 hemoglobin 14 potassium 5.1 creatinine 0.76 Troponin I 0.028, TSH 2.5 EKG tracing personally reviewed by me-normal sinus rhythm Chest x-ray film personally reviewed by me-no obvious venous prominence Assessment: -Paroxysmal atrial fibrillation rapid ventricular rate associated with bradycardia/tachybradycardia syndrome with pauses reported up in 6.9 seconds note that patient is also on Toprol-XL at home.-Pending pacemaker -Essential hypertension -Hyperlipidemia -Morbid obesity BMI 57.8 Plan: We'll hold tonight's dose of eliquis. Patient due for a pacemaker tomorrow. Discussed with patient.
[2020-01-28] MEDS: diphenhydrAMINE 50 MG CAP PO SCH (20:56)
[2020-01-28] MEDS: CALCIUM CARB-VIT D 500MG-200UN 1 EACH TAB PO SCH (20:57)
[2020-01-28] MEDS: ATORVASTATIN 10 MG TAB PO SCH (20:57)
[2020-01-28] MEDS: LATANOPROST 0.005% OPHTH DROPS 2.5 ML BTL BOTH EYES SCH (20:58)
[2020-01-29] MEDS: ASCORBIC ACID 500 MG TAB PO SCH (06:26)
[2020-01-29] MEDS: MULTIVITAMINS, THERA 1 EACH TAB PO SCH (06:26)
[2020-01-29] MEDS: DICLOFENAC SODIUM GEL 100 GM TUBE TOPICAL SCH ×2 (06:27→21:02)
[2020-01-29] MEDS: LOSARTAN 50 MG TAB PO SCH (06:27)
[2020-01-29 07:25] LABS: Potassium 4.6 mmol/L (3.5-5.1)
[2020-01-29] MEDS ORDERED: ceFAZolin 1,000 MG in SODIUM CHLORIDE 0.9% IRRIGATIO 250 ML IRRIGATION ONE (08:00)
[2020-01-29] MEDS ORDERED: LIDOCAINE 1% INJ 10MG/ML (20 ML MDV) ONE ×2 (08:48→08:50)
[2020-01-29] MEDS ORDERED: SUCCINYLCHOLINE CHLORIDE VIAL 200 MG/10 ML VIAL IV ONE (08:50)
[2020-01-29] MEDS ORDERED: DEXAMETHASONE SOD PHOSPHATE 10 MG/ML 1 ML VIAL ONE (08:50)
[2020-01-29] MEDS ORDERED: PROPOFOL 10 MG/ML 20 ML VIAL IV ONE (08:50)
[2020-01-29] MEDS ORDERED: MIDAZOLAM 2 MG/2 ML VIAL ONE (08:50)
[2020-01-29] MEDS ORDERED: ONDANSETRON 4 MG/2 ML VIAL ONE (08:50)
[2020-01-29] MEDS ORDERED: PHENYLEPHRINE-0.9% NACL SYG 1 MG/10 ML SYRINGE ONE (08:50)
[2020-01-29] MEDS ORDERED: ROCURONIUM BROMIDE 10 MG/ML 5 ML VIAL IV ONE (08:50)
[2020-01-29] MEDS ORDERED: NEOSTIGMINE 1 MG/ML 10 ML VIAL ONE (08:50)
[2020-01-29] MEDS ORDERED: GLYCOPYRROLATE 0.2 MG/ML 2 ML VIAL ONE (08:50)
[2020-01-29] MEDS ORDERED: fentaNYL (PF) 50 MCG/ML 2 ML AMP ONE (08:50)
[2020-01-29] MEDS ORDERED: IV FLUID CONTINUATION 1,000 ML IV ONE (08:55)
[2020-01-29] MEDS ORDERED: SODIUM CHLORIDE 0.9% 500 ML 500 ML IV ONE (08:55)
--- NOTE | 2020-01-29 08:58 | P.HPCAR ---
History of Present Illness This is Dr. Delgado dictating an H/P on this patient The patient was interviewed and examined IMPRESSION / ASSESSMENT: Paroxysmal atrial fibrillation with recently controlled ventricular response despite absence of the teresa blocking drugs, extrinsically rate controlled Recurrent postconversion pauses long and both primary and secondary pauses up to 6-7 seconds Hypertension Morbid obesity Obstructive sleep apnea, untreated Dyslipidemia PLAN: I discussed this with Dr. Bradley and with the patient At this time we would recommend permanent pacemaker implantation with dual- chamber pacing, predominantly atrial based pacing followed by AV node blocking drugs to control A. fib Anticoagulate for stroke prevention HPI 74-year-old female who was having dizzy spells and feeling woozy in the head since October. In the month of October she has several episodes. In November she had very few but once again towards the end of December she started experiencing these episodes once again. We will become more frequent and more pronounced. She saw nurse practitioner Gwendolyn at Dr. Humphreys's office who prescribed an event monitor. The event monitor showed paroxysms of atrial fibrillation with very long postconversion pauses. She is admitted to the hospital. While beta blockers. She continued to have episodes of atrial fibrillation with recently controlled ventricular response but recurrent postconversion pauses therapy and as long as 6-7 seconds long. She is asymptomatic with these episodes. We have tried suppressing atrial fib rillation with 1 small bolus of amiodarone. This worked briefly but then she started experiencing atrial fibrillation once again and had long postconversion pauses. No loss of consciousness She has a history of morbid obesity, hypertension and dyslipidemia. She is claustrophobic and says she cannot wear them sleep apnea mask ROS: No fever chills or rigors, no cough, phlegm or expectoration, no nausea, vomiting or diarrhea, no hematuria, dysuria, no musculoskeletal complaints, no strokes or seizures, no skin lesions. EXAMINATION: 145/87 mmHg pulse rate in the 80s afebrile 97.8F irregular Breath sounds are reduced bilaterally with scattered rhonchi Heart sounds are distant with a soft and irregular I can't appreciate any murmurs Abdomen is soft and and she is morbidly obese Minimal lower extremity edema Says she is unable to lie flat in bed and sleeps in a propped up position REVIEW OF LABS, ECG & MEDICAL DATA She is in simvastatin and losartan at home TSH normal Potassium 4.6 and 4.4 Normal renal function Physical Exam Vitals: Vital Signs Temp Pulse Resp BP Pulse Ox 01/29/20 07:35 97.8 F 95 18 145/87 93 L 01/29/20 04:00 97.4 F L 80 22 145/86 91 L 01/29/20 00:05 92 L 01/29/20 00:00 97.5 F L 75 18 140/79 89 L 01/28/20 20:00 97 18 149/77 91 L 01/28/20 16:25 97.6 F 62 18 150/58 95 01/28/20 11:22 97.3 F L 72 18 151/80 95 Intake and Output 01/28/20 01/29/20 01/29/20 22:59 06:59 14:59 Intake Total 100 Balance 100 Intake: Oral 100 Other: Voiding Method Toilet Toilet Toilet # Voids 1 2 Weight 137.6 kg Past Medical History Past Medical History: Hyperlipidemia, Hypertension Additional Past Medical History / Comment(s): PE ?; years ago History of Any Multi-Drug Resistant Organisms: None Reported Past Surgical History: Orthopedic Surgery Additional Past Surgical History / Comment(s): hernia,eye surgery,rt knee Past Anesthesia/Blood Transfusion Reactions: No Reported Reaction Past Psychological History: No Psychological Hx Reported Smoking Status: Former smoker Past Alcohol Use History: None Reported Past Drug Use History: None Reported - Past Family History Sister(s) Family Medical History: Congestive Heart Failure (CHF), Pulmonary Embolus Additional Family Medical History / Comment(s): gallbladder removed Physical Examination Vital Signs Temp Pulse Resp BP Pulse Ox 01/29/20 07:35 97.8 F 95 18 145/87 93 L 01/29/20 04:00 97.4 F L 80 22 145/86 91 L 01/29/20 00:05 92 L 01/29/20 00:00 97.5 F L 75 18 140/79 89 L 01/28/20 20:00 97 18 149/77 91 L 01/28/20 16:25 97.6 F 62 18 150/58 95 01/28/20 11:22 97.3 F L 72 18 151/80 95 Intake and Output 01/28/20 01/29/20 01/29/20 22:59 06:59 14:59 Intake Total 100 Balance 100 Intake: Oral 100 Other: Voiding Method Toilet Toilet Toilet # Voids 1 2 Weight 137.6 kg Results 01/27/20 06:40 01/29/20 06:38 Comprehensive Metabolic Panel 01/29/20 Range/Units 06:38 Sodium 137 (137-145) mmol/L Potassium 4.6 (3.5-5.1) mmol/L Chloride 100 (98-107) mmol/L Carbon Dioxide 31 H (22-30) mmol/L BUN 20 H (7-17) mg/dL Creatinine 0.82 (0.52-1.04) mg/dL Glucose 138 H (74-99) mg/dL Calcium 9.0 (8.4-10.2) mg/dL Current Medications Generic Name Dose Route Start Last Admin Trade Name Freq PRN Reason Stop Dose Admin Apixaban 5 mg 01/28/20 21:00 01/28/20 18:15 Eliquis PO Not Given BID [facility] Ascorbic Acid 500 mg 01/27/20 09:00 01/29/20 06:26 Vitamin C PO 500 mg DAILY [facility] Administration Atorvastatin Calcium 10 mg 01/26/20 22:00 01/28/20 20:57 Lipitor PO 10 mg HS [facility] Administration Calcium Carbonate 1 each 01/26/20 22:00 01/28/20 20:57 Oscal 500+D PO 1 each HS [facility] Administration Diclofenac Sodium 2 gm 01/27/20 09:00 01/29/20 06:27 Voltaren Gel TOPICAL Not Given BID [facility] Diphenhydramine HCl 100 mg 01/26/20 22:00 01/28/20 20:56 Benadryl PO 100 mg HS [facility] Administration Sodium Chloride 1,000 mls @ 40 mls/hr 01/27/20 12:15 01/28/20 11:34 Saline 0.9% IV 40 mls/hr .Q24H [facility] Administration Dopamine HCl/Dextrose 800 mg/ 250 mls @ 6.459 mls/hr 01/28/20 16:30 01/28/20 17:02 IV Solution IV 2.5 mcg/kg/min .Q24H [facility] 6.459 mls/hr Administration Protocol 2.5 MCG/KG/MIN Latanoprost 1 drops 01/26/20 22:00 01/28/20 20:58 Xalatan 0.005% BOTH EYES 1 drops HS [facility] Administration Losartan Potassium 50 mg 01/28/20 09:00 01/29/20 06:27 Cozaar PO 50 mg DAILY [facility] Administration Multivitamins 1 each 01/27/20 09:00 01/29/20 06:26 Theragran PO 1 each DAILY [facility] Administration Naloxone HCl 0.2 mg 01/26/20 17:57 Narcan IV Q2M PRN Opioid Reversal Intake and Output 01/28/20 01/29/20 01/29/20 22:59 06:59 14:59 Intake Total 100 Balance 100 Intake: Oral 100 Other: Voiding Method Toilet Toilet Toilet # Voids 1 2 Weight 137.6 kg 01/27/20 06:40 01/29/20 06:38
[2020-01-29] MEDS: IOPAMIDOL-370 50ML BTL INJ ONE ×2 (09:00→09:15)
[2020-01-29] MEDS ORDERED: LIDOCAINE 1% INJ 10MG/ML (20 ML MDV) SQ ONE ×2 (09:44→09:55)
[2020-01-29] MEDS ORDERED: LACTATED RINGERS 1,000 ML IV ONE (10:18)
[2020-01-29] MEDS ORDERED: HYDROcodone/APAP 5-325MG 1 EACH TAB PO PRN (10:59)
[2020-01-29] MEDS ORDERED: ACETAMINOPHEN IV (For NPO) 1,000 MG in EMPTY BAG 1 BAG IVPB ONE (10:59)
[2020-01-29] MEDS ORDERED: ACETAMINOPHEN TAB 325 MG TAB PO PRN (10:59)
--- NOTE | 2020-01-29 11:04 | P.PRLE ---
RE: Vicki Hooker Dear Vicki Nicolas underwent Successful dual-chamber pacemaker implantation for sick sinus syndrome/very long postconversion pauses long primary as well as secondary pos tconversion pauses and paroxysmal atrial fibrillation Tachybradycardia syndrome Plan dual-chamber pacing 50-130 bpm, VIP mode turned on to minimize RV pacing Metoprolol succinate 50 mg daily added Continue ELIQUIS Continue losartan Thank you for entrusting me with the care of the patient Warm regards Sincerely Saeid Delgado
--- NOTE | 2020-01-29 11:05 | P.PCN ---
Preoperative Diagnosis: Left upper extremity venogram 20 mL of IV dye injected in the left arm The cephalic vein, axillary vein and subclavian and innominate veins were well- opacified and are found to be patent Plan Proceed with dual-chamber pacemaker implantation via the left axillary venous out
[2020-01-29] MEDS ORDERED: IV FLUID CONTINUATION 150 ML IV ONE (11:41)
--- NOTE | 2020-01-29 12:23 | XR ---
EXAMINATION TYPE: XR chest 1V portable DATE OF EXAM: 01/29/2020 CLINICAL HISTORY: Pacemaker insertion TECHNIQUE: Portable upright view of the chest obtained COMPARISON: 01/26/2020 chest radiograph FINDINGS: Left-sided dual-chamber pacemaker with leads in expected orientation over the right atrial appendage and right ventricle. No evidence of lead discontinuity or kinking. Surgical roxy are se en over the left chest. Low lung volumes likely accentuate the mediastinal silhouette. Cardiac size n ormal. Mild left basilar atelectasis. No pneumothorax or pleural effusion. IMPRESSION: Expected radiographic appearance of left-sided dual-chamber pacemaker with right atrial a ppendage and right ventricular leads. No pneumothorax.
[2020-01-29] MEDS: METOPROLOL SUCCINATE (ER) 50 MG TAB.ER.24H PO SCH (12:36)
--- NOTE | 2020-01-29 13:20 | PCN ---
PROCEDURE NOTE INDICATION: Vicki Hooker is a 74-year-old female who presented with recurrent dizzy spells and was found to have very long primary and secondary post-conversion pauses following paroxysms of atrial fibrillation with a controlled ventricular response. She continued to have these episodes despite stopping beta blockers. We tried antiarrhythmic drugs to suppress her atrial fibrillation, but this did not work either. Electrolytes are normal. Renal function normal. TSH is normal. She does have a morbid obesity and severe sleep apnea. DESCRIPTION OF PROCEDURE: Patient was brought to the EP lab in a fasting state. Written informed consent was obtained prior to the procedure. The left shoulder area was prepped and draped as per protocol. Next, 1% lidocaine was used for local anesthesia. A 4 cm incision was made parallel to the deltopectoral groove, about 1.5 cm medial to it. The incision was carried down to the level of the pectoralis muscle. A subfascial pocket was made. Hemostasis was assured. The left axillary vein was accessed at 2 separate points under fluoroscopy and via appropriately-sized introducer sheaths 2 leads were positioned the right heart. The atrial lead was a [employer] tendril STF model #2088TC, 52 cm length and serial number [id number]. P waves were 2.7 mV, pacing impedance 540 ohms, pacing threshold 0.5 V at 0.5 milliseconds. The 10 V test was negative. The RV lead was positioned in the RV apex. This was again passive lead. R-waves greater than 12 mV, pacing impedance 990 ohms and pacing threshold 0.75 V at 0.5 milliseconds. The 10 V test was negative. Both leads were secured to the underlying pectoralis fascia using 2 nonabsorbable sutures. Pocket was irrigated with antibiotic solution. Leads were connected to the generator ([employer] MRI 2272, serial #[id number]. The leads and generator were placed in subfascial pocket. The wound was closed in 3 layers and dressed per protocol. The device was programmed to DDD mode 50 to 130, beats per minute with max tracking rate of 130 beats per minute and VIP mode turned on to minimize RV pacing. RESULTS: Successful dual-chamber pacemaker implantation for tachy-iva syndrome, sick sinus syndrome symptomatic without any precipitating factors, paroxysmal atrial fibrillation with very long primary and secondary post-conversion pauses. PLAN: Resume anticoagulation and start metoprolol succinate 50 mg p.o. daily for controlling atrial fibrillation rates. MMODL / IJN: [id number] /
[2020-01-29] MEDS: DOPamine DRIP 800 MG in DEXTROSE/WATER 1 250ML.BAG IV SCH (16:17)
[2020-01-29] MEDS: APIXABAN 5 MG TAB PO SCH (21:01)
[2020-01-29] MEDS: diphenhydrAMINE 50 MG CAP PO SCH (21:01)
[2020-01-29] MEDS: ATORVASTATIN 10 MG TAB PO SCH (21:01)
[2020-01-29] MEDS: CALCIUM CARB-VIT D 500MG-200UN 1 EACH TAB PO SCH (21:01)
[2020-01-29] MEDS: LATANOPROST 0.005% OPHTH DROPS 2.5 ML BTL BOTH EYES SCH (21:02)
--- NOTE | 2020-01-29 22:56 | P.PN ---
Progress Note - Text Progress Note Date: 01/29/20 Chief Complaint: Short of breath, dizzy History of presenting complaint: This is a pleasant 74 patient who follows with Dr[address] Fidencio Humphreys. Chronic stable medical conditions include hypertension, hyperlipidemia, osteoarthritis. Patient had 2 episodes of becoming dizzy back in October and she was given a heart monitor. She was doing fine with that. Now patient presents with more frequent episodes of dizzy spell short of breath and obvious palpitations. Through her PCPs office she was asked to come in. No fever no chills. No neurological symptoms. Patient had multiple episodes of presyncope. Did not actually lose consciousness. There were several episodes of atrial fibrillation with a rapid ventricular rate and also with low heart rate and pauses. As per ER notes at least a 6.9 second pause. She follows with Dr. Brandi Bradley. Underlying diagnoses of-atrial fibrillation, sick sinus syndrome, tachybradycardia syndrome. [id number] permanent pacemaker was placed today, by Dr. Saeid Delgado. Laying in bed. Breathing stable. No chest pain. Review of systems: Was done for constitutional, cardiovascular, GI, pulmonary. relevant finding as above Active Medications Acetaminophen (Tylenol Tab) 650 mg PO Q6HR PRN PRN Reason: Mild Pain Hydrocodone Bitart/Acetaminophen ([place] 5-325) 1 each PO Q4HR PRN PRN Reason: Pain Apixaban (Eliquis) 5 mg PO BID [facility] Last Admin: 01/29/20 21:01 Dose: 5 mg Documented by: Ascorbic Acid (Vitamin C) 500 mg PO DAILY [facility] Last Admin: 01/29/20 06:26 Dose: 500 mg Documented by: Atorvastatin Calcium (Lipitor) 10 mg PO [facility] Last Admin: 01/29/20 21:01 Dose: 10 mg Documented by: Calcium Carbonate (Oscal 500+D) 1 each PO [facility] Last Admin: 01/29/20 21:01 Dose: 1 each Documented by: Diclofenac Sodium (Voltaren Gel) 2 gm TOPICAL BID [facility] Last Admin: 01/29/20 21:02 Dose: Not Given Documented by: Diphenhydramine HCl (Benadryl) 100 mg PO [facility] Last Admin: 01/29/20 21:01 Dose: 100 mg Documented by: Cefazolin Sodium 2 gm/ Sodium (Chloride) 50 mls @ 100 mls/hr IVPB Q6H [facility] Stop: 01/30/20 03:59 Last Admin: 01/29/20 21:01 Dose: 100 mls/hr Documented by: Latanoprost (Xalatan 0.005%) 1 drops BOTH EYES HS [facility] Last Admin: 01/29/20 21:02 Dose: 1 drops Documented by: Losartan Potassium (Cozaar) 50 mg PO DAILY [facility] Last Admin: 01/29/20 06:27 Dose: 50 mg Documented by: Metoprolol Succinate (Toprol Xl) 50 mg PO DAILY [facility] Last Admin: 01/29/20 12:36 Dose: 50 mg Documented by: Multivitamins (Theragran) 1 each PO DAILY [facility] Last Admin: 01/29/20 06:26 Dose: 1 each Documented by: Naloxone HCl (Narcan) 0.2 mg IV Q2M PRN PRN Reason: Opioid Reversal Sodium Chloride (Saline Flush) 10 ml IV Q12HR [facility] Last Admin: 01/29/20 21:00 Dose: Not Given Documented by: Physical examination: VITAL SIGNS: 97.8, 63, 18, 122/68, 95% on 4 L GENERAL:laying in bed, tired EYES: Pupils equal. Conjunctiva normal. NECK: JVD not raised; masses not palpable. HEART: Heart sounds irregular; no edema. LUNGS: Respiratory rate normal; clear to auscultation. CHEST wall: Dressing over the left chest wall pacemaker with a left arm the support ABDOMEN: Soft, nontender, liver spleen not palpable, no masses palpable. PSYCH: Alert and oriented x3; mood and affect normal. INVESTIGATIONS, reviewed in the clinical context: Potassium 4.6 creatinine 0.82 Admission testing White count 11.2 hemoglobin 14 potassium 5.1 creatinine 0.76 Troponin I 0.028, TSH 2.5 EKG tracing personally reviewed by me-normal sinus rhythm Chest x-ray film personally reviewed by me-no obvious venous prominence Assessment: -Paroxysmal atrial fibrillation rapid ventricular rate ; bradycardia/tachybradycardia syndrome; with pauses over the dual-chamber permanent pacemaker -Essential hypertension -Hyperlipidemia -Morbid obesity BMI 57.8 Plan: eliquis to resume when okay with Dr. Ismael Delgado. Other medications to continue.discussed with patient.
[2020-01-30] MEDS: LOSARTAN 50 MG TAB PO SCH (08:42)
[2020-01-30] MEDS: DICLOFENAC SODIUM GEL 100 GM TUBE TOPICAL SCH (08:43)
[2020-01-30] MEDS: METOPROLOL SUCCINATE (ER) 50 MG TAB.ER.24H PO SCH (08:43)
[2020-01-30] MEDS: ASCORBIC ACID 500 MG TAB PO SCH (08:43)
[2020-01-30] MEDS: APIXABAN 5 MG TAB PO SCH (08:43)
[2020-01-30] MEDS: MULTIVITAMINS, THERA 1 EACH TAB PO SCH (08:43)
[2020-01-30 08:50] VITALS: RESP 20
--- NOTE | 2020-01-30 10:51 | P.PN ---
Subjective Progress Note Date: 01/30/20 CHIEF COMPLAINT: A. fib, pauses HISTORY OF PRESENT ILLNESS: Patient examined this morning the bedside. She is status post dual-chamber pacemaker implantation with Dr. Delgado. Patient denies chest pain. Denies shortness of breath. Chest x-ray completed posto peratively reveals leads in the correct position. No pneumothorax. Pacemaker was interrogated this morning by device rep. PHYSICAL EXAM: VITAL SIGNS: Reviewed. GENERAL: Well-developed in no acute distress. HEENT: Head is normocephalic. Pupils are equal, round. Sclerae anicteric. Mucous membranes of the mouth are moist. Neck supple. No JVD or thyromegaly LUNGS: Respirations even and unlabored. Lungs essentially clear to auscultation bilaterally. HEART: Regular rate and rhythm. S1 and S2 heard. ABDOMEN: Soft. Nondistended. Nontender. EXTREMITIES: Normal range of motion. No clubbing or cyanosis. Peripheral pulses intact. No lower extremity edema NEUROLOGIC: Awake and alert. Oriented x 3. ASSESSMENT: Paroxysmal a-fib with RVR with conversion pauses, s/p PPM Hypertension Hyperlipidemia Obstructive sleep apnea, noncompliant with CPAP Morbid obesity, BMI 57.8 PLAN: Continue current cardiac medications Patient may be discharged home today from a cardiac standpoint Nurse practitioner note has been reviewed by physician. Signing provider agrees with the documented findings, assessment, and plan of care. Objective - Vital Signs Vital signs: Vital Signs Temp 97.6 F 01/30/20 08:49 Pulse 60 01/30/20 08:49 Resp 20 01/30/20 08:49 BP 142/60 01/30/20 08:49 Pulse Ox 95 01/30/20 08:49 Intake & Output 01/29/20 01/30/20 01/30/20 18:59 06:59 18:59 Intake Total 1480.172 240 Output Total 300 Balance 1180.172 240 Weight 140.5 kg Intake: IV 625 Intake, IV Titration 630.172 Amount ACETAMINOPHEN IV (For NPO 100 ) 1,000 mg In Empty Bag 1 bag @ 400 mls/hr IVPB ONCE ONE Rx#:[id number] DOPamine DRIP 800 mg In 230.172 Dextrose/Water 1 250ml. bag @ 2.5 MCG/KG/MIN 6. 459 mls/hr IV .Q24H [facility] Rx#:[id number] Lactated Ringers 1,000 ml 100 @ 0 mls/hr IV .[facility] ONE Rx#:[id number] Sodium Chloride 0.9% 1, 200 000 ml @ 40 mls/hr IV . Q24H [facility] Rx#:[id number] Oral 225 240 Output: Urine 300 Other: Voiding Method Toilet Toilet Toilet # Voids 1 0 1 - Labs CBC & Chem 7: 01/27/20 06:40 01/29/20 06:38
[2020-01-30 11:42] VITALS: PULSE 50; TEMP 97.3
[2020-01-30 13:13] VITALS: BP 138/84
--- NOTE | 2020-01-30 16:05 | P.DS ---
Providers Date of admission: 01/26/20 17:58 Expected date of discharge: 01/30/20 Attending physician: Mickey Dixon Consults: 01/26/20 17:58 Consult Physician Urgent Consulting Provider: [facility] Consult Reason/Comments: presyncope, p afib, sinus pause Do you want consulting provider notified?: Yes Primary care physician: Fidencio Humphreys [facility] Course: Chief Complaint: Short of breath, dizzy History of presenting complaint: This is a pleasant 74 patient who follows with Dr. Fidencio Humphreys. Chronic stable medical conditions include hypertension, hyperlipidemia, osteoarthritis. Patient had 2 episodes of becoming dizzy back in October and she was given a heart monitor. She was doing fine with that. Now patient presents with more frequent episodes of dizzy spell short of breath and obvious palpitations. Through her PCPs office she was asked to come in. No fever no chills. No neurological symptoms. Patient had multiple episodes of presyncope. Did not actually lose consciousness. There were several episodes of atrial fibrillation with a rapid ventricular rate and also with low heart rate and pauses. As per ER notes at [facility] a 6.9 second pause. She follows with Dr. Brandi Bradley. Underlying diagnoses of-atrial fibrillation, sick sinus syndrome, tachybradycardia syndrome. dual-chamber permanent pacemaker was placed by Dr. Saeid Delgado. Today-doing well. Cough. No chest pain or shortness of breath. Cleared by cardiology. Consultation: Pacemaker placed by Dr. Saeid Torres from cardiology Physical examination: VITAL SIGNS: 97.3, 50, 20, 142/84, GENERAL: Sitting up in a chair, comfortable EYES: Pupils equal. Conjunctiva normal. NECK: JVD not raised; masses not palpable. HEART: Heart sounds irregular; no edema. LUNGS: Respiratory rate normal; clear to auscultation. CHEST wall: Dressing over the left chest wall pacemaker with a left arm the support ABDOMEN: Soft, nontender, liver spleen not palpable, no masses palpable. PSYCH: Alert and oriented x3; mood and affect normal. INVESTIGATIONS, reviewed in the clinical context: Potassium 4.6 creatinine 0.82 Admission testing White count 11.2 hemoglobin 14 potassium 5.1 creatinine 0.76 Troponin I 0.028, TSH 2.5 EKG tracing personally reviewed by me-normal sinus rhythm Chest x-ray film personally reviewed by me-no obvious venous prominence Assessment: -Paroxysmal atrial fibrillation rapid ventricular rate ; bradycardia/tachybradycardia syndrome; with pauses - dual-chamber permanent pacemaker placed -Essential hypertension -Hyperlipidemia -Morbid obesity BMI 57.8 Disposition: Home Patient Condition at Discharge: Stable Plan - Discharge Summary New Discharge Prescriptions: New Losartan [Cozaar] 50 mg PO DAILY #60 tab Apixaban [Eliquis] 5 mg PO BID #60 tab Atorvastatin Calcium [Lipitor] 20 mg PO HS #30 tab Melatonin 0 mg PO HS #1 tablet Metoprolol Succinate (ER) [Toprol XL] 50 mg PO DAILY #30 tab.er.24h Continue Ascorbic Acid [Vitamin C] 500 mg PO DAILY Calcium Carbonate/Vitamin D3 [Calcium 600-Vit D3 400 Caplet] 1 tab PO HS Multivitamins, Thera [Multivitamin (formulary)] 1 tab PO DAILY Bimatoprost [Lumigan .01% Ophth Soln] 1 drop BOTH EYES HS Diclofenac Sodium Gel [Voltaren Gel] 2 gm TOPICAL BID Aspirin 81 mg PO HS Discontinued Simvastatin [Zocor] 20 mg PO HS Metoprolol Succinate (ER) [Toprol Xl] 25 mg PO DAILY diphenhydrAMINE [Benadryl] 100 mg PO HS Losartan [Cozaar] 25 mg PO DAILY Discharge Medication List Ascorbic Acid [Vitamin C] 500 mg PO DAILY 03/11/17 [History] Bimatoprost [Lumigan .01% Ophth Soln] 1 drop BOTH EYES HS 03/11/17 [History] Calcium Carbonate/Vitamin D3 [Calcium 600-Vit D3 400 Caplet] 1 tab PO HS 03/11/17 [History] Multivitamins, Thera [Multivitamin (formulary)] 1 tab PO DAILY 03/11/17 [History ] Aspirin 81 mg PO HS 01/26/20 [History] Diclofenac Sodium Gel [Voltaren Gel] 2 gm TOPICAL BID 01/26/20 [History] Apixaban [Eliquis] 5 mg PO BID #60 tab 01/30/20 [Rx] Atorvastatin Calcium [Lipitor] 20 mg PO HS #30 tab 01/30/20 [Rx] Losartan [Cozaar] 50 mg PO DAILY #60 tab 01/30/20 [Rx] Melatonin 0 mg PO HS #1 tablet 01/30/20 [Rx] Metoprolol Succinate (ER) [Toprol XL] 50 mg PO DAILY #30 tab.er.24h 01/30/20 [Rx] Follow up Appointment(s)/Referral(s): Fidencio Humphreys MD [Primary Care Provider] - 1-2 days (Offices are closed. Please call to make a follow up appointment when offices open thursday.) Clayton Torres MD [STAFF PHYSICIAN] - 1 Week (Offices are closed. Please call to make a follow up appointment when offices open thursday.) Miki Chu MD [STAFF PHYSICIAN] - 2 Weeks (Offices are closed. Please call to make a follow up appointment when offices open thursday. Follow up with Dr. Chu for sleep study/need for CPAP) Patient Instructions/Handouts: Bradycardia (DC), Pacemaker (DC) Activity/Diet/Wound Care/Special Instructions: pacemaker clinic Discharge Disposition: HOME SELF-CARE
== END 2020-01-30 13:47 | disposition home or self-care (01) | DRG 243 ==
LOC: EC 16:21 → 3SCARD 17:58
PROVIDERS: ADMIT Hospitalist; ATTEND Hospitalist
PROC: 02H63JZ Insertion of Pacemaker Lead into Right Atrium, Percutaneous Approach (ICD-10-PCS; principal; 2020-01-29 08:00)
PROC: 0JH606Z Insertion of Pacemaker, Dual Chamber into Chest Subcutaneous Tissue and Fascia, Open Approach (ICD-10-PCS; principal; 2020-01-29 08:00)
PROC: 02HK3JZ Insertion of Pacemaker Lead into Right Ventricle, Percutaneous Approach (ICD-10-PCS; principal; 2020-01-29 08:00)
DX: I48.0 Paroxysmal atrial fibrillation (principal); Z68.43 Body mass index [BMI] 50.0-59.9, adult; I49.5 Sick sinus syndrome; E78.5 Hyperlipidemia, unspecified; I10 Essential (primary) hypertension; Z60.2 Problems related to living alone; E66.01 Morbid (severe) obesity due to excess calories; G47.33 Obstructive sleep apnea (adult) (pediatric); M19.91 Primary osteoarthritis, unspecified site; Z79.82 Long term (current) use of aspirin; Z79.899 Other long term (current) drug therapy; Z98.890 Other specified postprocedural states; Z87.891 Personal history of nicotine dependence; Z82.49 Family history of ischemic heart disease and other diseases of the circulatory system; Z83.79 Family history of other diseases of the digestive system; Z91.19 Patient's noncompliance with other medical treatment and regimen; Z79.01 Long term (current) use of anticoagulants
CPT/HCPCS: 33208; 36415; 71045; 71046; 80048; 80053; 83735; 84443; 84484; 85025; 85610; 85730; 93005; 99285

== ENCOUNTER → 2020-09-13 | Outpatient (CLI) | payer MEDICARE ==
--- NOTE | 2020-09-13 15:20 | US ---
EXAMINATION TYPE: US venous doppler duplex LE for venous insufficiency DATE OF EXAM: 09/13/2020 1:31 PM COMPARISON: US right lower extremity August 15, 2016 CLINICAL HISTORY: I87.2 Venous insufficiency (chronic) (peripheral). Ulcer left medial malleolus area from May 2020 trauma to area; slowly healing ulcer per patient, diabetic. SIDE PERFORMED: bilateral 1) Color flow is present and patency is documented in the following vessels. No DVT or SVT is noted . Common Femoral Vein Deep Femoral Vein Femoral Vein Popliteal Vein Proximal Calf Veins Greater Saph Vein Upper Small Saph Vein 2) There is venous reflux noted at the following venous levels: Right CFV delayed valve closure; Le ft CFV reflux noted; delayed valve closure left DFV 3) Incompetent perforators are noted at these levels: not identified Femoral Vein Popliteal Vein Small Saphenous Vein * Proximal Calf Veins (* superficial vessels) Right Leg: Negative for DVT Left Leg: Negative for DVT Grayscale, color doppler, spectral doppler imaging performed of the deep veins of the bilateral lower extremities. There is normal flow, compressibility, vascular waveforms. IMPRESSION: No ultrasound evidence for acute deep or superficial venous thrombosis bilaterally. Some venous reflux noted bilaterally as detailed above during real-time scanning.
--- NOTE | 2020-09-19 09:43 | P.ARTDOP ---
Arterial Doppler LOWER EXTREMITY ARTERIAL DOPPLER: DATE OF SERVICE: 09/13/2020 Reason for study: Left leg ulcer. Doppler waveforms: Multiphasic including the dorsalis pedis. Digital waveforms are blunted but present. Pulse volume recording: []. Pressure gradients: The only pressures readable are at the toe level. Ankle-brachial indices: []. Toe brachial indices: 0.42 on the right, 0.6 on the left Impression: Suggests calcific wall disease diffusely. Suggests potentially moderate bilateral fem-pop disease. Clinical correlation recommended..
== END | disposition home or self-care (01) ==
LOC: RADUSWWP 12:28
PROVIDERS: ATTEND Family Medicine
DX: I87.2 Venous insufficiency (chronic) (peripheral) (principal)
CPT/HCPCS: 93922; 93970

== ENCOUNTER → 2020-10-03 | Outpatient (CLI) | payer MEDICARE ==
[2020-10-04 03:41] LABS: Chol/HDL Ratio 3.24; LDL Cholesterol,Calculated 50.6 mg/dL (0.0-131.0); Non-African American GFR(CKD) 62.1 (60.0-200.0); VLDL Calculation 34.4 mg/dL (5.00-40.00)
== END | disposition home or self-care (01) ==
LOC: LABWHC1 09:41
PROVIDERS: ATTEND Internal Medicine Cardiovascular Disease
DX: E78.2 Mixed hyperlipidemia (principal); R60.0 Localized edema
CPT/HCPCS: 36415; 80061; 82565; 83880; 84443; 84450; 84460; 84520

== ENCOUNTER 2021-09-12 14:29 | Observation (INO) | payer MEDICARE ==
[2021-09-12 16:06] LABS: Albumin 3.7 g/dL (3.5-5.0); Calcium 9.3 mg/dL (8.4-10.2); Potassium 4.1 mmol/L (3.5-5.1); Prothrombin Time 11.2 sec (9.0-12.0); Total Bilirubin 1.9 mg/dL (0.2-1.3); Total Protein 6.8 g/dL (6.3-8.2)
[2021-09-12 16:12] LABS: Anisocytosis Slight; Basophils # (A) 0.1 k/uL (0-0.2); Basophils % (A) 1 %; Eosinophils # (A) 0.2 k/uL (0-0.7); Eosinophils % (A) 1 %; HCT 41.5 % (34.0-46.0); HGB 13.3 gm/dL (11.4-16.0); Hypochromasia Slight; Lymphocytes # (A) 1.7 k/uL (1.0-4.8); Lymphocytes % (A) 15 %; MCH 29.2 pg (25.0-35.0); MCHC 32.2 g/dL (31.0-37.0); MCV 90.9 fL (80.0-100.0); Mean Platelet Volume 7.1; Monocytes # (A) 0.6 k/uL (0-1.0); Monocytes % (A) 5 %; Neutrophils # (A) 8.6 k/uL (1.3-7.7); Neutrophils % (A) 76 %; Platelet Count 403 k/uL (150-450); RBC 4.56 m/uL (3.80-5.40); RDW 16.1 % (11.5-15.5); WBC 11.3 k/uL (3.8-10.6)
--- NOTE | 2021-09-12 16:22 | XR ---
EXAMINATION TYPE: XR chest 2V DATE OF EXAM: 09/12/2021 COMPARISON: X-ray dated 01/29/2020 HISTORY: Shortness of breath TECHNIQUE: Frontal and lateral views of the chest are obtained. FINDINGS: Slightly congested pulmonary vasculature. Minimal linear atelectasis seen in the left lung apex, not well appreciated previously. Minimal atelectasis seen in the lateral aspect of the left lung base. Gr ossly unremarkable lungs otherwise. No sizable pleural effusion or definite pneumothorax. Slightly increased cardiac transverse diameter. Left chest wall dual-lead pacemaker. Aortic atherosclerotic calcifications. Degenerative changes of the mid to lower thoracic spine. IMPRESSION: Suspected pulmonary edema, please correlate clinically. Other findings as described above.
--- NOTE | 2021-09-12 18:10 | ED ---
General Adult HPI - General Chief complaint: Recheck/Abnormal Lab/Rx Stated complaint: Irregular EKG Time Seen by Provider: 09/12/21 15:40 Source: patient, family Mode of arrival: ambulatory Limitations: no limitations - History of Present Illness Initial comments: 76-year-old female with history of hypertension, hyperlipidemia presents to the emergency department with abnormal EKG. She has had worsening exertional dyspnea for the past several weeks. It is to the point where she can no longer walk across the room. She went into Dr. Humphreys's office today for the complaints. He did an EKG and was concerned that her device is not working appropriately. She does have a dual chamber pacemaker however only ventricularly pacing at this time. Patient denies any chest pain. Chronic lower extremity swelling. Patient denies history of DVT or PE to me however PE as reported in the patient's history. She denies fevers or chills. Does admit to a nonproductive cough. No sick contacts with similar symptoms. Today history of congestive heart failure. Patient is on diuretics and taking them as directed. No other alleviating, precipitating or modifying factors - Related Data Home Medications Medication Instructions Recorded Confirmed Ascorbic Acid [Vitamin C] 500 mg PO DAILY 03/11/17 09/12/21 Bimatoprost [Lumigan 0.01% Ophth 1 drop BOTH EYES HS 03/11/17 09/12/21 Soln] Calcium Carbonate/Vitamin D3 1 tab PO HS 03/11/17 09/12/21 [Calcium 600-Vit D3 400 Caplet] Multivitamins, Thera [Multivitamin 1 tab PO DAILY 03/11/17 09/12/21 (formulary)] Aspirin 81 mg PO HS 01/26/20 09/12/21 Diclofenac Sodium Gel [Voltaren 1 applic TOPICAL BID 01/26/20 09/12/21 Gel] Furosemide [Lasix] 40 mg PO DAILY 09/12/21 09/12/21 Melatonin 5 mg PO HS 09/12/21 09/12/21 Metoprolol Succinate (ER) [Toprol 100 mg PO DAILY 09/12/21 09/12/21 XL] Potassium Chloride ER [K-Dur 20] 20 meq PO DAILY 09/12/21 09/12/21 metFORMIN HCL [Glucophage] 500 mg PO BID 09/12/21 09/12/21 metOLazone [Zaroxolyn] 5 mg PO DAILY 09/12/21 09/12/21 Previous Rx's Medication Instructions Recorded Apixaban [Eliquis] 5 mg PO BID #60 tab 01/30/20 Atorvastatin Calcium [Lipitor] 20 mg PO HS #30 tab 01/30/20 Losartan [Cozaar] 50 mg PO DAILY #60 tab 01/30/20 Albuterol Inhaler [Ventolin Hfa 1 puff INHALATION RT-QID #8 gm 09/14/21 Inhaler] Budesonide-Formot 160-4.5 Mcg 2 puff INHALATION RT-BID #1 each 09/14/21 [Symbicort 160-4.5 Mcg Inhaler] Allergies Allergy/AdvReac Type Severity Reaction Status Date / Time No Known Allergies Allergy Verified 09/12/21 18:37 Review of Systems ROS Statement: Those systems with pertinent positive or pertinent negative responses have been documented in the HPI. ROS Other: All systems not noted in ROS Statement are negative. Past Medical History Past Medical History: Hyperlipidemia, Hypertension Additional Past Medical History / Comment(s): PE ?; years ago History of Any Multi-Drug Resistant Organisms: None Reported Past Surgical History: Orthopedic Surgery Additional Past Surgical History / Comment(s): hernia,eye surgery,rt knee Past Anesthesia/Blood Transfusion Reactions: No Reported Reaction Past Psychological History: No Psychological Hx Reported Smoking Status: Former smoker Past Alcohol Use History: None Reported Past Drug Use History: None Reported - Past Family History Sister(s) Family Medical History: Congestive Heart Failure (CHF), Pulmonary Embolus Additional Family Medical History / Comment(s): gallbladder removed General Exam Limitations: no limitations General appearance: alert, in no apparent distress, obese Head exam: Present: atraumatic, normocephalic, normal inspection Eye exam: Present: normal appearance, PERRL, EOMI. Absent: scleral icterus, conjunctival injection, periorbital swelling ENT exam: Present: normal exam, mucous membranes moist Neck exam: Present: normal inspection. Absent: tenderness, meningismus, lymphadenopathy Respiratory exam: Present: normal lung sounds bilaterally. Absent: respiratory distress, wheezes, rales, rhonchi, stridor Cardiovascular Exam: Present: regular rate, normal rhythm, normal heart sounds. Absent: systolic murmur, diastolic murmur, rubs, gallop, clicks GI/Abdominal exam: Present: soft, normal bowel sounds. Absent: distended, tenderness, guarding, rebound, rigid Extremities exam: Present: normal inspection, full ROM, normal capillary refill, pedal edema. Absent: tenderness, joint swelling, calf tenderness Back exam: Present: normal inspection Neurological exam: Present: alert, oriented X3, CN II-XII intact Psychiatric exam: Present: normal affect, normal mood Skin exam: Present: warm, dry, intact, normal color. Absent: rash Course Vital Signs 09/12/21 09/12/21 14:36 18:21 Temperature 97.1 F L Pulse Rate 71 74 Respiratory 18 16 Rate Blood Pressure 121/74 138/86 O2 Sat by Pulse 91 L 92 L Oximetry EKG Findings - EKG Comments: EKG Findings:: EKG demonstrates an electronic pacemaker. Rate of 71. Appears ventricularly paced. QRS 158. QTC of 451. No acute ST segment elevations or depressions Medical Decision Making - Medical Decision Making Upon arrival patient is placed into room 15. A thorough history and physical exam is performed. EKG is obtained which demonstrates that the patient is ventricularly paced. Underlying rhythm is A. fib and therefore I do not see atrial spikes. Laboratory studies are conducted and reviewed. BNP is only 523. Chest x-ray does demonstrate primary vascular congestion. I did follow this up with a CTA of the chest as the patient does have PE listed in her history. Demonstrates no evidence of pulmonary embolism. I did recommend admission for cardiology consultation and device interrogation which is pending at this time. Patient agreed to this. Called and spoke with Dr. Barker who agreed to admit the patient. Patient awaiting a bed on the floor in stable condition - Lab Data Result diagrams: 09/14/21 06:57 09/14/21 12:46 Lab Results 09/12/21 09/12/21 09/12/21 Range/Units 15:49 15:49 15:49 WBC 11.3 H (3.8-10.6) k/uL RBC 4.56 (3.80-5.40) m/uL Hgb 13.3 (11.4-16.0) gm/dL Hct 41.5 (34.0-46.0) % MCV 90.9 (80.0-100.0) fL MCH 29.2 (25.0-35.0) pg MCHC 32.2 (31.0-37.0) g/dL RDW 16.1 H (11.5-15.5) % Plt Count 403 (150-450) k/uL MPV 7.1 Neutrophils % 76 % Lymphocytes % 15 % Monocytes % 5 % Eosinophils % 1 % Basophils % 1 % Neutrophils # 8.6 H (1.3-7.7) k/uL Lymphocytes # 1.7 (1.0-4.8) k/uL Monocytes # 0.6 (0-1.0) k/uL Eosinophils # 0.2 (0-0.7) k/uL Basophils # 0.1 (0-0.2) k/uL Hypochromasia Slight Anisocytosis Slight PT 11.2 (9.0-12.0) sec INR 1.0 (<1.2) APTT 25.0 (22.0-30.0) sec Sodium 136 L (137-145) mmol/L Potassium 4.1 (3.5-5.1) mmol/L Chloride 92 L (98-107) mmol/L Carbon Dioxide 40 H (22-30) mmol/L Anion Gap 4 mmol/L BUN 41 H (7-17) mg/dL Creatinine 0.90 (0.52-1.04) mg/dL Est GFR (CKD-EPI)AfAm 72 (>60 ml/min/1.73 sqM) Est GFR (CKD-EPI)NonAf 62 (>60 ml/min/1.73 sqM) Glucose 94 (74-99) mg/dL Calcium 9.3 (8.4-10.2) mg/dL Total Bilirubin 1.9 H (0.2-1.3) mg/dL AST 24 (14-36) U/L ALT 21 (4-34) U/L Alkaline Phosphatase 63 (38-126) U/L Troponin I (0.000-0.034) ng/mL NT-Pro-B Natriuret Pep pg/mL Total Protein 6.8 (6.3-8.2) g/dL Albumin 3.7 (3.5-5.0) g/dL 09/12/21 09/12/21 09/12/21 Range/Units 15:49 15:49 21:55 WBC (3.8-10.6) k/uL RBC (3.80-5.40) m/uL Hgb (11.4-16.0) gm/dL Hct (34.0-46.0) % MCV (80.0-100.0) fL MCH (25.0-35.0) pg MCHC (31.0-37.0) g/dL RDW (11.5-15.5) % Plt Count (150-450) k/uL MPV Neutrophils % % Lymphocytes % % Monocytes % % Eosinophils % % Basophils % % Neutrophils # (1.3-7.7) k/uL Lymphocytes # (1.0-4.8) k/uL Monocytes # (0-1.0) k/uL Eosinophils # (0-0.7) k/uL Basophils # (0-0.2) k/uL Hypochromasia Anisocytosis PT (9.0-12.0) sec INR (<1.2) APTT (22.0-30.0) sec Sodium (137-145) mmol/L Potassium (3.5-5.1) mmol/L Chloride (98-107) mmol/L Carbon Dioxide (22-30) mmol/L Anion Gap mmol/L BUN (7-17) mg/dL Creatinine (0.52-1.04) mg/dL Est GFR (CKD-EPI)AfAm (>60 ml/min/1.73 sqM) Est GFR (CKD-EPI)NonAf (>60 ml/min/1.73 sqM) Glucose (74-99) mg/dL Calcium (8.4-10.2) mg/dL Total Bilirubin (0.2-1.3) mg/dL AST (14-36) U/L ALT (4-34) U/L Alkaline Phosphatase (38-126) U/L Troponin I <0.012 0.012 (0.000-0.034) ng/mL NT-Pro-B Natriuret Pep 523 pg/mL Total Protein (6.3-8.2) g/dL Albumin (3.5-5.0) g/dL 09/13/21 09/13/21 Range/Units 02:14 06:42 WBC (3.8-10.6) k/uL RBC (3.80-5.40) m/uL Hgb (11.4-16.0) gm/dL Hct (34.0-46.0) % MCV (80.0-100.0) fL MCH (25.0-35.0) pg MCHC (31.0-37.0) g/dL RDW (11.5-15.5) % Plt Count (150-450) k/uL MPV Neutrophils % % Lymphocytes % % Monocytes % % Eosinophils % % Basophils % % Neutrophils # (1.3-7.7) k/uL Lymphocytes # (1.0-4.8) k/uL Monocytes # (0-1.0) k/uL Eosinophils # (0-0.7) k/uL Basophils # (0-0.2) k/uL Hypochromasia Anisocytosis PT (9.0-12.0) sec INR (<1.2) APTT (22.0-30.0) sec Sodium (137-145) mmol/L Potassium (3.5-5.1) mmol/L Chloride (98-107) mmol/L Carbon Dioxide (22-30) mmol/L Anion Gap mmol/L BUN (7-17) mg/dL Creatinine (0.52-1.04) mg/dL Est GFR (CKD-EPI)AfAm (>60 ml/min/1.73 sqM) Est GFR (CKD-EPI)NonAf (>60 ml/min/1.73 sqM) Glucose (74-99) mg/dL Calcium (8.4-10.2) mg/dL Total Bilirubin (0.2-1.3) mg/dL AST (14-36) U/L ALT (4-34) U/L Alkaline Phosphatase (38-126) U/L Troponin I <0.012 <0.012 (0.000-0.034) ng/mL NT-Pro-B Natriuret Pep pg/mL Total Protein (6.3-8.2) g/dL Albumin (3.5-5.0) g/dL Disposition Clinical Impression: Exertional dyspnea, Pulmonary vascular congestion, Pacemaker complications Disposition: ADMITTED IP TO THIS [facility] Condition: Good Is patient prescribed a controlled substance at d/c from ED?: No Decision to Admit Reason: Admit from EC Decision Date: 09/12/21 Decision Time: 18:54
[2021-09-12] MEDS ORDERED: NALOXONE 0.4 MG/ML 1 ML VIAL IV PRN (18:57)
--- NOTE | 2021-09-12 22:12 | CT ---
EXAMINATION TYPE: CT angio chest DATE OF EXAM: 09/12/2021 COMPARISON: 08/15/2016 HISTORY: SOB CT DLP: 907.8 mGycm Automated exposure control for dose reduction was used. CONTRAST: Performed with IV Contrast, patient injected with 80 mL of Isovue 370. Images obtained from the thoracic inlet to the diaphragm with IV contrast. There are Three-D postproc essed images. There is some fibrotic changes and subsegmental atelectasis in the mid and lower lung joyce bilatera lly. Heart is borderline enlarged. No pericardial effusion. No pleural effusion. There is no mediasti nal adenopathy. There are no hilar masses. Thoracic aorta is intact. No sign of aneurysm or dissection. Ascending aorta measures 3.2 cm. There is normal contrast opacification of the pulmonary arteries. There are no filling defects. The thoracic spine is intact. No evidence of focal bone destruction. No compression fracture. There i s degenerative hypertrophic spurring in the lower thoracic spine. Sternum is intact. There is rounded 3 cm fluid density in the anterior liver consistent with a cyst. IMPRESSION: No evidence of pulmonary embolism. Coarse interstitial density in the lung joyce bilaterally consist ent with some pulmonary fibrosis which is increased compared to old exam. No suspicious pulmonary mas s.
[2021-09-13] MEDS: CALCIUM CARB-VIT D 500 MG-5 MCG TAB PO SCH ×2 (01:48→19:37)
[2021-09-13] MEDS: LATANOPROST 0.005% OPHTH DROPS 2.5 ML BTL BOTH EYES SCH ×2 (01:48→19:38)
[2021-09-13] MEDS: APIXABAN 5 MG TAB PO SCH ×3 (01:48→19:39)
[2021-09-13] MEDS: ATORVASTATIN 20 MG TAB PO SCH ×2 (01:48→19:38)
[2021-09-13] MEDS: ASPIRIN 81 MG PO SCH ×2 (01:48→19:38)
[2021-09-13] MEDS: MELATONIN 5 MG TABLET PO SCH ×2 (01:49→19:38)
[2021-09-13] MEDS ORDERED: metFORMIN 500 MG TAB PO SCH (02:00)
--- NOTE | 2021-09-13 03:10 | P.HPIM ---
History of Present Illness H&P Date: 09/12/21 Chief Complaint: progressive exertional dyspnea 76-year-old female with diabetes mellitus, hypertension, lymphedema, irregular heartbeat status post pacemaker Patient comes in today for evaluation as a direct admit from her primary care office . she went there for evaluation upon the request of her brother's she's been having progressive worsening exertional dyspnea over the past couple weeks to the point where she can't walk around her own house. She reports that she used to be very active goes to the gym on regular basis this some regular biking however since Covid time she's been compliant to home and she has deconditioned significantly over the past 2 years and a half. Now at this point even while using the walker she would get short of breath just walking to her kitchen. She denies any worsening in her leg edema where she has chronic lymphedema. She d enies any episodes of chest pain fevers chills nausea vomiting denies any abdominal pain changes in her bowel or urinary habits. She does report some occasional coughing and trouble with laying down flat positive orthopnea and paroxysmal maternal dyspnea. She claims that this has been going on for at least 2 months but got worse over the past couple weeks. She denies any recent travel denies any history of cancer except for some skin cancer that was removed denies any recent hospitalization. She denies any falls she uses a walker at home Workup in the ED chest x-ray suggested some pulmonary edema for which she got some IV Lasix troponin negative 3, patient has elevated bicarbonate which is suggestive of possible chronic hypercapnic compensated respiratory failure especially with her body habitus possibility of pickwickian syndrome Review of Systems Pertinent positives as noted in HPI. All other systems were reviewed and are negative Past Medical History Past Medical History: Hyperlipidemia, Hypertension Additional Past Medical History / Comment(s): PE ?; years ago History of Any Multi-Drug Resistant Organisms: None Reported Past Surgical History: Orthopedic Surgery Additional Past Surgical History / Comment(s): hernia,eye surgery,rt knee Past Anesthesia/Blood Transfusion Reactions: No Reported Reaction Past Psychological History: No Psychological Hx Reported Smoking Status: Former smoker Past Alcohol Use History: None Reported Past Drug Use History: None Reported - Past Family History Sister(s) Family Medical History: Congestive Heart Failure (CHF), Pulmonary Embolus Additional Family Medical History / Comment(s): gallbladder removed Medications and Allergies Home Medications Medication Instructions Recorded Confirmed Type Ascorbic Acid [Vitamin C] 500 mg PO DAILY 03/11/17 09/12/21 History Bimatoprost [Lumigan 0.01% Ophth 1 drop BOTH EYES HS 03/11/17 09/12/21 History Soln] Calcium Carbonate/Vitamin D3 1 tab PO HS 03/11/17 09/12/21 History [Calcium 600-Vit D3 400 Caplet] Multivitamins, Thera [Multivitamin 1 tab PO DAILY 03/11/17 09/12/21 History (formulary)] Aspirin 81 mg PO HS 01/26/20 09/12/21 History Diclofenac Sodium Gel [Voltaren 1 applic TOPICAL BID 01/26/20 09/12/21 History Gel] Apixaban [Eliquis] 5 mg PO BID #60 tab 01/30/20 09/12/21 Rx Atorvastatin Calcium [Lipitor] 20 mg PO HS #30 tab 01/30/20 09/12/21 Rx Losartan [Cozaar] 50 mg PO DAILY #60 tab 01/30/20 09/12/21 Rx Furosemide [Lasix] 40 mg PO DAILY 09/12/21 09/12/21 History Melatonin 5 mg PO HS 09/12/21 09/12/21 History Metoprolol Succinate (ER) [Toprol 100 mg PO DAILY 09/12/21 09/12/21 History Xl] Potassium Chloride ER [K-Dur 20] 20 meq PO DAILY 09/12/21 09/12/21 History metFORMIN HCL [Glucophage] 500 mg PO BID 09/12/21 09/12/21 History metOLazone [Zaroxolyn] 5 mg PO DAILY 09/12/21 09/12/21 History Allergies Allergy/AdvReac Type Severity Reaction Status Date / Time No Known Allergies Allergy Verified 09/12/21 18:37 Physical Exam Vitals: Vital Signs Temp Pulse Pulse Resp BP BP Pulse Ox 09/13/21 01:23 17 09/12/21 21:42 97.9 F 84 17 161/74 98 09/12/21 18:21 74 16 138/86 92 L 09/12/21 14:36 97.1 F L 71 18 121/74 91 L Intake and Output 09/12/21 09/12/21 09/13/21 14:59 22:59 06:59 Other: # Voids 0 Weight 140.614 kg 140.614 kg Constitutional: No acute distress, conversant, pleasant, morbidly obese Eyes: Anicteric sclerae, moist conjunctiva, Pupils equal round reactive to light ENMT: NC/AT Oropharynx clear, no erythema, or exudates Neck: Supple , no masses, or JVD No carotid bruits No thyromegaly Lungs: good breath sounds bilaterally no wheezing or rhonchi Clear to percussion Normal respiratory effort, no accessory muscle use Cardiovascular: Heart regular No murmurs, gallops, or rubs bilateral nonpitting peripheral edema Abdominal: Soft Nontender, no guarding, rebound or rigidity Abdomen moving with respiration Normoactive bowel sounds obese limiting exam Skin: Normal temperature, tone, texture, turgor No induration No subcutaneous nodules No rash, lesions No ulcers Extremities: chronic bilateral lower extremity nonpitting lymphedema No digital cyanosis No clubbing Pedal pulses uNABLE TO DETECT BILATERALLY capillary refill is immediate Radial pulses intact and symmetrical No calf tenderness Psychiatric: Alert and oriented to person, place and time Appropriate affect fair judgement Neuro Muscles Strength 4/5 in all 4 extremities Sensation to light touch grossly present throughout Cranial nerves II-XII grossly intact No focal sensory deficits Lymphatics: no palpable cervical or supraclavicular , or inguinal lymph nodes Results CBC & Chem 7: 09/12/21 15:49 09/12/21 15:49 Labs: Abnormal Lab Results - Last 24 Hours (Table) 09/12/21 09/12/21 Range/Units 15:49 15:49 WBC 11.3 H (3.8-10.6) k/uL RDW 16.1 H (11.5-15.5) % Neutrophils # 8.6 H (1.3-7.7) k/uL Sodium 136 L (137-145) mmol/L Chloride 92 L (98-107) mmol/L Carbon Dioxide 40 H (22-30) mmol/L BUN 41 H (7-17) mg/dL Total Bilirubin 1.9 H (0.2-1.3) mg/dL Thrombosis Risk Factor Assmnt - Choose All That Apply Each Factor Represents 1 point: Obesity (BMI >25), Swollen legs (current) Each Risk Factor Represents 3 Points: Age 75 years or older Thrombosis Risk Factor Assessment Total Risk Factor Score: 5 Thrombosis Risk Factor Assessment Level: High Risk Assessment and Plan Assessment: ABNORMAL ekg WITH POSSIBLE DUAL-CHAMBER PACEMAKER MALFUNCTION pROGRESSIVE EXERTIONAL DYSPNEA pLAN cHECK ECHOCARDIOGRAM cARDIAC MONITORING cARDIOLOGY CONSULT tROPONIN NEGATIVE 3 iNTERROGATE PACEMAKER mONITOR VITAL SIGNS sUPPORTIVE CARE CONTINUE WITH BY MOUTH lASIX cONTINUE WITH CARDIAC MEDS ASPIRIN AND STATIN Continue. Diuresis Continue metoprolol and losartan CTA no acute pathology possible changes related to pulmonary fibrosis Fall precautions Diabetes mellitus Insulin sliding scale History of A. fib continue with Eliquis status post pacemaker Full code Anticipated length of stay less than 2 midnights DVT prophylaxis on Eliquis
[2021-09-13] MEDS: INSULIN ASPART (NovoLOG) 100 UNIT/ML VIAL SQ SCH ×4 (07:55→19:42)
[2021-09-13] MEDS ORDERED: FUROSEMIDE 10 MG/ML 4 ML VIAL IV STA (08:26)
[2021-09-13] MEDS ORDERED: FUROSEMIDE 40 MG TAB PO SCH (09:00)
[2021-09-13] MEDS: LOSARTAN 50 MG TAB PO SCH (09:35)
[2021-09-13] MEDS: MULTIVITAMINS, THERA 1 EACH TAB PO SCH (09:36)
[2021-09-13] MEDS: METOPROLOL SUCCINATE (ER) 100 MG TAB.ER.24H PO SCH (09:36)
[2021-09-13] MEDS: metOLazone 5 MG TAB PO SCH (09:36)
[2021-09-13] MEDS: POTASSIUM CHLORIDE ER 20 MEQ TAB.ER PO SCH (09:36)
[2021-09-13] MEDS: ASCORBIC ACID 500 MG TAB PO SCH (09:36)
--- NOTE | 2021-09-13 09:44 | P.CRDCN ---
History of Present Illness History of present illness: HISTORY OF PRESENTING ILLNESS This is a pleasant 76-year-old female past medical history significant for paroxysmal atrial fibrillation, sick sinus syndrome status post dual-chamber pacemaker 01/2020, dyslipidemia, hypertension, type 2 diabetes, former smoker quit in 1993. She follows in the office with Dr. Torres. We have been asked to see in consultation for exertional dyspnea. Patient presents emergency department after being sent from her primary care provider due to abnormal EKG. Patient has been having worsening exertional dyspnea for 1 month. She states her lower extremity edema has also been present for over 2 months. She states she has not taken her Lasix for 2 days because she did not want to urinate numerous times when going out. She denies any chest pain, palpitations, lightheadedness, dizziness, syncope or near syncope. She has been having symptoms of orthopnea and PND. She was evaluated in the office in September 28, 2020 she was in sinus mechanism. October 03, 2020 she had a 4 hour episode of atrial fibrillation. DIAGNOSTICS -EKG reveals underlying atrial fibrillation with ventricular paced heart rate 71 -Telemetry tracings indicate atrial fibrillation with ventricular paced Rates are controlled. -Chest xray slightly congested pulmonary vasculature, suspected pulmonary edema. -CT chest revealed fibrotic changes and subsegmental atelectasis in the mid and lower lungs consistent with some pulmonary fibrosis which is increased compared to last exam, heart is slightly enlarged, no pulmonary embolism, -Laboratory reviewed, WBC 11.3, hemoglobin 13.3, platelets 403, troponin negative 4, proBNP 523, sodium 136, potassium 4.1, BUN 41 Scr 0.9 -Current cardiac medications include Lasix 40 mg daily, atorvastatin 20 mg nightly, aspirin 80 mg daily, potassium chloride 20 mEq daily, losartan 50 mg daily, Eliquis 5 mg twice a day, metolazone 5 mg daily -Lexiscan stress test in 03/2019 revealed a fixed mid anterior wall defect, no reversible perfusion defects noted. -Echocardiogram in the office 03/2019 revealed EF of 55%, mild concentric hypertrophy, mild mitral regurgitation REVIEW OF SYSTEMS At the time of my exam: CONSTITUTIONAL: Denies fever or chills. CARDIOVASCULAR: Denies chest pain, +shortness of breath, +orthopnea,+ PND Denies palpitations. RESPIRATORY: Denies cough. GASTROINTESTINAL: Denies abdominal pain, diarrhea, constipation, nausea or v omiting. MUSCULOSKELETAL: Denies myalgias. NEUROLOGIC: Denies numbness, tingling, headacbe or weakness. ENDOCRINE: Denies fatigue, weight change, polydipsia or polyurina. GENITOURINARY: Denies burning, hematuria or urgency with micturation. HEMATOLOGIC: Denies history of anemia or bleeding. PHYSICAL EXAMINATION Blood pressure 112/71, heart rate 71, afebrile, saturations 95% on room air CONSTITUTIONAL: No apparent distress. HEENT: Head is normocephalic. Pupils are equal, round. Sclerae anicteric. Mucous membranes of the mouth are moist. No JVD. No carotid bruit. CHEST EXAMINATION: Lungs are diminished in the bases to auscultation. No chest wall tenderness is noted on palpation or with deep breathing. HEART EXAMINATION: Irregular rate and rhythm. S1, S2 heard. No murmurs, gallops or rub. ABDOMEN: Soft, nontender. Positive bowel sounds. EXTREMITIES: 2+ peripheral pulses, 3+ bilateral lower extremity edema NEUROLOGIC EXAMINATION: Patient is awake, alert and oriented x3. ASSESSMENT Symptoms of worsening shortness of breath, unclear etiology, possibly related to being back in atrial fibrillation vs pulmonary etiology vs heart failure Paroxysmal atrial fibrillation on Eliquis Sick sinus syndrome status post dual chamber pacemaker 01/2020 Dylipidemia Hypertension Type 2 diabetes PLAN Give one dose of IV Lasix 40mg Monitor I/Os, daily weights, renal function and electrolytes Interrogate patient's device to evaluate how long she has been in atrial fibrillation and if any acute events Obtain 2D echocardiogram and doppler study to assess cardiac structure and function. Continue anticoagulation with eliquis, statin, losartan, metolazone and metoprolol succinate Recommend pulmonary consult Further recommendations based on clinical course Nurse practitioner note has been reviewed by physician. Signing provider agrees with the documented findings, assessment, and plan of care. Past Medical History Past Medical History: Hyperlipidemia, Hypertension Additional Past Medical History / Comment(s): PE ?; years ago History of Any Multi-Drug Resistant Organisms: None Reported Past Surgical History: Orthopedic Surgery Additional Past Surgical History / Comment(s): hernia,eye surgery,rt knee Past Anesthesia/Blood Transfusion Reactions: No Reported Reaction Past Psychological History: No Psychological Hx Reported Smoking Status: Former smoker Past Alcohol Use History: None Reported Past Drug Use History: None Reported - Past Family History Sister(s) Family Medical History: Congestive Heart Failure (CHF), Pulmonary Embolus Additional Family Medical History / Comment(s): gallbladder removed Medications and Allergies Home Medications Medication Instructions Recorded Confirmed Type Ascorbic Acid [Vitamin C] 500 mg PO DAILY 03/11/17 09/12/21 History Bimatoprost [Lumigan 0.01% Ophth 1 drop BOTH EYES HS 03/11/17 09/12/21 History Soln] Calcium Carbonate/Vitamin D3 1 tab PO HS 03/11/17 09/12/21 History [Calcium 600-Vit D3 400 Caplet] Multivitamins, Thera [Multivitamin 1 tab PO DAILY 03/11/17 09/12/21 History (formulary)] Aspirin 81 mg PO HS 01/26/20 09/12/21 History Diclofenac Sodium Gel [Voltaren 1 applic TOPICAL BID 01/26/20 09/12/21 History Gel] Apixaban [Eliquis] 5 mg PO BID #60 tab 01/30/20 09/12/21 Rx Atorvastatin Calcium [Lipitor] 20 mg PO HS #30 tab 01/30/20 09/12/21 Rx Losartan [Cozaar] 50 mg PO DAILY #60 tab 01/30/20 09/12/21 Rx Furosemide [Lasix] 40 mg PO DAILY 09/12/21 09/12/21 History Melatonin 5 mg PO HS 09/12/21 09/12/21 History Metoprolol Succinate (ER) [Toprol 100 mg PO DAILY 09/12/21 09/12/21 History Xl] Potassium Chloride ER [K-Dur 20] 20 meq PO DAILY 09/12/21 09/12/21 History metFORMIN HCL [Glucophage] 500 mg PO BID 09/12/21 09/12/21 History metOLazone [Zaroxolyn] 5 mg PO DAILY 09/12/21 09/12/21 History Allergies Allergy/AdvReac Type Severity Reaction Status Date / Time No Known Allergies Allergy Verified 09/12/21 18:37 Physical Exam Vitals: Vital Signs Temp Pulse Pulse Resp BP BP Pulse Ox 09/13/21 01:58 97.8 F 71 17 120/71 95 09/13/21 01:23 17 09/12/21 21:42 97.9 F 84 17 161/74 98 09/12/21 18:21 74 16 138/86 92 L 09/12/21 14:36 97.1 F L 71 18 121/74 91 L Intake and Output 09/12/21 09/13/21 09/13/21 22:59 06:59 14:59 Other: # Voids 0 1 Weight 140.614 kg Results 09/12/21 15:49 09/12/21 15:49 Cardiac Enzymes 09/12/21 09/12/21 09/12/21 Range/Units 15:49 15:49 21:55 AST 24 (14-36) U/L Troponin I <0.012 0.012 (0.000-0.034) ng/mL 09/13/21 Range/Units 02:14 AST (14-36) U/L Troponin I <0.012 (0.000-0.034) ng/mL Coagulation 09/12/21 Range/Units 15:49 PT 11.2 (9.0-12.0) sec APTT 25.0 (22.0-30.0) sec CBC 09/12/21 Range/Units 15:49 WBC 11.3 H (3.8-10.6) k/uL RBC 4.56 (3.80-5.40) m/uL Hgb 13.3 (11.4-16.0) gm/dL Hct 41.5 (34.0-46.0) % Plt Count 403 (150-450) k/uL Comprehensive Metabolic Panel 09/12/21 Range/Units 15:49 Sodium 136 L (137-145) mmol/L Potassium 4.1 (3.5-5.1) mmol/L Chloride 92 L (98-107) mmol/L Carbon Dioxide 40 H (22-30) mmol/L BUN 41 H (7-17) mg/dL Creatinine 0.90 (0.52-1.04) mg/dL Glucose 94 (74-99) mg/dL Calcium 9.3 (8.4-10.2) mg/dL AST 24 (14-36) U/L ALT 21 (4-34) U/L Alkaline Phosphatase 63 (38-126) U/L Total Protein 6.8 (6.3-8.2) g/dL Albumin 3.7 (3.5-5.0) g/dL Current Medications Generic Name Dose Route Start Last Admin Trade Name Freq PRN Reason Stop Dose Admin Apixaban 5 mg 09/13/21 01:45 09/13/21 01:48 Apixaban 5 Mg Tab PO Not Given BID [facility] Protocol Ascorbic Acid 500 mg 09/13/21 09:00 Ascorbic Acid 500 Mg Tab PO DAILY [facility] Aspirin 81 mg 09/13/21 01:45 09/13/21 01:48 Aspirin 81 Mg PO Not Given HS [facility] Atorvastatin Calcium 20 mg 09/13/21 01:45 09/13/21 01:48 Atorvastatin 20 Mg Tab PO Not Given HS [facility] Calcium Carbonate 1 each 09/13/21 02:00 09/13/21 01:48 Calcium Carb-Vit D 500 Mg-5 Mcg Tab PO Not Given HS [facility] Furosemide 40 mg 09/13/21 09:00 Furosemide 40 Mg Tab PO DAILY [facility] Insulin Aspart 0 unit 09/13/21 07:30 Insulin Aspart (Novolog) 100 Unit/Ml Vial SQ ACHS [facility] Protocol Latanoprost 1 drops 09/13/21 01:45 09/13/21 01:48 Latanoprost 0.005% Ophth Drops 2.5 Ml Btl BOTH EYES Not Given HS [facility] Losartan Potassium 50 mg 09/13/21 09:00 Losartan 50 Mg Tab PO DAILY [facility] Melatonin 5 mg 09/13/21 02:00 09/13/21 01:49 Melatonin 5 Mg Tablet PO Not Given HS [facility] Metolazone 5 mg 09/13/21 09:00 Metolazone 5 Mg Tab PO DAILY [facility] Metoprolol Succinate 100 mg 09/13/21 09:00 Metoprolol Succinate (Er) 100 Mg Tab.Er.24h PO DAILY [facility] Multivitamins 1 each 09/13/21 09:00 Multivitamins, Thera 1 Each Tab PO DAILY [facility] Naloxone HCl 0.2 mg 09/12/21 18:57 Naloxone 0.4 Mg/Ml 1 Ml Vial IV Q2M PRN Opioid Reversal Potassium Chloride 20 meq 09/13/21 09:00 Potassium Chloride Er 20 Meq Tab.Er PO DAILY [facility] Intake and Output 09/12/21 09/13/21 09/13/21 22:59 06:59 14:59 Other: # Voids 0 1 Weight 140.614 kg 09/12/21 15:49 09/12/21 15:49
--- NOTE | 2021-09-13 10:30 | CA ---
Transthoracic Echo Report Name: Vicki Hooker Age: 76 Gender: F : 1945 Exam Date: 09/13/2021 07:33 Exam Location: [facility] Ht (in): 61 Wt (lb): 310 Ordering Physician: Kath Payan DO Attending/Referring Phys: Saeid Delgado MD ([id number]) Crisis Manager Becky Bingham, ALESSIA Procedure CPT: Indications: exterional dyspnea Cardiac Hx: Technical Quality: Fair Contrast 1: Total Dose (mL): Contrast 2: Total Dose (mL): MEASUREMENTS (Male / Female) Normal Values 2D ECHO LV Diastolic Diameter PLAX 4.0 cm 4.2 - 5.9 / 3.9 - 5.3 cm LV Systolic Diameter PLAX 3.0 cm IVS Diastolic Thickness 1.3 cm 0.6 - 1.0 / 0.6 - 0.9 cm LVPW Diastolic Thickness 1.3 cm 0.6 - 1.0 / 0.6 - 0.9 cm LV Relative Wall Thickness 0.7 RV Internal Dim ED PLAX 3.3 cm LA Systolic Diameter LX 3.5 cm 3.0 - 4.0 / 2.7 - 3.8 cm LA Volume 74.3 cm 18 - 58 / 22 - 52 cm M-MODE Aortic Root Diameter MM 3.4 cm MV E Point Septal Separation 0.9 cm AV Cusp Separation MM 2.4 cm DOPPLER AV Peak Velocity 118.5 cm/s AV Peak Gradient 5.6 mmHg MV Area PHT 4.7 cm MV Deceleration Time 156.9 ms TR Peak Velocity 307.5 cm/s TR Peak Gradient 37.8 mmHg Right Ventricular Systolic Press 39.7 mmHg FINDINGS Left Ventricle Moderately increased septal wall thickness. Moderately increased posterior wall thickness. Right Ventricle Mild right ventricular dilatation. Moderate pulmonary hypertension. Right Atrium Normal right atrial size. Left Atrium Severely increased left atrial volume. Mildly increased left atrial area. Mitral Valve Mitral valve thickened. Mitral annular calcification. Aortic Valve Thickened aortic valve without stenosis. Tricuspid Valve Mild tricuspid regurgitation. Pulmonic Valve Pulmonic valve not well visualized. Pericardium Normal pericardium. Aorta Normal size aortic root and proximal ascending aorta. CONCLUSIONS #1. Moderate concentric left ventricular hypertrophy. #2. Moderate to severe left atrial enlargement. #3. Thickening of the mitral and aortic valve leaflets without any stenosis. #4. Mild tricuspid regurgitation with mild to moderate pulmonary hypertension. #5. No pericardial effusion Previewed by: Dr. Ivory Carolina MD (Electronically Signed) Final Date: 13 September 2021 10:29
--- NOTE | 2021-09-13 11:26 | P.PN ---
Subjective Chart was reviewed patient was seen and examined. Patient is up in the chair. Patient is feeling better. Patient has any chest pain shortness of breath and any GI complaints Objective - Vital Signs Vital signs: Vital Signs Temp 98.3 F 09/13/21 07:00 Pulse 71 09/13/21 07:00 Resp 20 09/13/21 07:00 BP 112/71 09/13/21 07:00 Pulse Ox 94 L 09/13/21 07:00 Intake & Output 09/12/21 09/13/21 09/13/21 18:59 06:59 18:59 Intake Total 118 Balance 118 Weight 140.614 kg 140.614 kg Intake: Oral 118 Other: # Voids 1 - Exam Awake alert oriented 3 no active distress Head and neck: Anicteric sclerae no facial asymmetry no neck masses no JVD, oropharyngeal mucosa is clear Lungs: Diminished breath sounds, few basilar crackles no wheezing no rhonchi Cardiovascular: Regular rhythm and rate S1-S2 no murmurs rubs or gallops Abdomen: Soft nontender nondistended no organomegaly Extremities: 2+ pitting edema, no calf tenderness no warmth no cyanosis Neurological: No asterixis - Labs CBC & Chem 7: 09/12/21 15:49 09/12/21 15:49 Labs: Abnormal Lab Results - Last 24 Hours (Table) 09/12/21 09/12/21 Range/Units 15:49 15:49 WBC 11.3 H (3.8-10.6) k/uL RDW 16.1 H (11.5-15.5) % Neutrophils # 8.6 H (1.3-7.7) k/uL Sodium 136 L (137-145) mmol/L Chloride 92 L (98-107) mmol/L Carbon Dioxide 40 H (22-30) mmol/L BUN 41 H (7-17) mg/dL Total Bilirubin 1.9 H (0.2-1.3) mg/dL Assessment and Plan Plan: #Acute hypoxic respiratory failure with progressive exertional dyspnea Suspect component of chronic hypoxia CTA chest: No pulmonary embolism, interstitial fibrotic changes, rule out underlying interstitial pulmonary fibrosis, CHF Cardiology and pulmonary consultation Continue Lasix Echocardiogram Continue to wean oxygen as tolerated #sick sinus syndrome with history of paroxysmal A. fib Pacemaker in place Continue anticoagulation and metoprolol Cardiology consultation Pacemaker interrogation #Hypertension On metoprolol and losartan #Obesity Sleep studies as outpatient #Type 2 diabetes mellitus On sliding scale DVT prophylaxis: On Eliquis
--- NOTE | 2021-09-13 11:43 | P.CNPUL ---
History of Present Illness Consult date: 09/13/21 Requesting physician: Fidencio Humphreys Reason for consult: dyspnea, other Chief complaint: Shortness of breath on exertion, possible pacemaker malfunction. History of present illness: Pulmonary consultation dated 09/13/2021. 76-year-old obese female, with a history of hypertension, and hyperlipidemia, and previous pacemaker insertion, was seen by her primary care physician, and there was some concern that the pacemaker was not functioning properly. She was sent to the emergency room to be evaluated. Her primary complaint is shortness of breath on any exertion. She apparently can't walk 10 feet without becoming profoundly short of breath. The patient had a computed tomography scan that suggested the possibility of interstitial lung disease, and hence the consultation was initiated. The patient does have long-standing shortness of breath on exertion. She also apparently has a dry cough. She sees my partner in the office, once a year. She saw him last in April 2021. I will make sure that she goes back to see him in the near future. The patient will also be scheduled to have a high resolution computed tomography scan, while she is here in the hospital. She'll eventually need pulmonary function tests although she tells me she is quite claustrophobic. According to her home medications, she has a history of hypertension, hyperlipidemia, and diabetes mellitus. White count 11.3, hemoglobin 13.3, hematocrit 41.5, with a normal platelet count. Sodium 136, potassium or 0.1, chlorides 92, CO2 40, BUN 41, and creatinine 0.90. Chest x-ray on admission was consistent with some mild pulmonary edema. CT angiogram was negative for pulmonary embolism, but did show some interstitial densities bilaterally, consistent with pulmonary fibrosis. Review of Systems REVIEW OF SYSTEMS: CONSTITUTIONAL: [Negative.] NEUROLOGIC: [ Negative.] HEENT: [ Negative.] CARDIAC: [Negative.] PULMONARY: Shortness of breath on exertion, dry cough. GI: [Negative.] : [Negative.] RHEUMATOLOGIC: [ Negative.] IMMUNOLOGIC: [ Negative.] ENDOCRINE: [Negative. ] DERMATOLOGIC: [Negative.] Past Medical History Past Medical History: Hyperlipidemia, Hypertension Additional Past Medical History / Comment(s): PE ?; years ago History of Any Multi-Drug Resistant Organisms: None Reported Past Surgical History: Orthopedic Surgery Additional Past Surgical History / Comment(s): hernia,eye surgery,rt knee Past Anesthesia/Blood Transfusion Reactions: No Reported Reaction Past Psychological History: No Psychological Hx Reported Smoking Status: Former smoker Past Alcohol Use History: None Reported Past Drug Use History: None Reported - Past Family History Sister(s) Family Medical History: Congestive Heart Failure (CHF), Pulmonary Embolus Additional Family Medical History / Comment(s): gallbladder removed Medications and Allergies Home Medications Medication Instructions Recorded Confirmed Type Ascorbic Acid [Vitamin C] 500 mg PO DAILY 03/11/17 09/12/21 History Bimatoprost [Lumigan 0.01% Ophth 1 drop BOTH EYES HS 03/11/17 09/12/21 History Soln] Calcium Carbonate/Vitamin D3 1 tab PO HS 03/11/17 09/12/21 History [Calcium 600-Vit D3 400 Caplet] Multivitamins, Thera [Multivitamin 1 tab PO DAILY 03/11/17 09/12/21 History (formulary)] Aspirin 81 mg PO HS 01/26/20 09/12/21 History Diclofenac Sodium Gel [Voltaren 1 applic TOPICAL BID 01/26/20 09/12/21 History Gel] Apixaban [Eliquis] 5 mg PO BID #60 tab 01/30/20 09/12/21 Rx Atorvastatin Calcium [Lipitor] 20 mg PO HS #30 tab 01/30/20 09/12/21 Rx Losartan [Cozaar] 50 mg PO DAILY #60 tab 01/30/20 09/12/21 Rx Furosemide [Lasix] 40 mg PO DAILY 09/12/21 09/12/21 History Melatonin 5 mg PO HS 09/12/21 09/12/21 History Metoprolol Succinate (ER) [Toprol 100 mg PO DAILY 09/12/21 09/12/21 History Xl] Potassium Chloride ER [K-Dur 20] 20 meq PO DAILY 09/12/21 09/12/21 History metFORMIN HCL [Glucophage] 500 mg PO BID 09/12/21 09/12/21 History metOLazone [Zaroxolyn] 5 mg PO DAILY 09/12/21 09/12/21 History Allergies Allergy/AdvReac Type Severity Reaction Status Date / Time No Known Allergies Allergy Verified 09/12/21 18:37 Physical Exam Osteopathic Statement: *. No significant issues noted on an osteopathic structural exam other than those noted in the History and Physical/Consult. Vitals: Vital Signs Temp Pulse Pulse Resp BP BP Pulse Ox 09/13/21 07:00 98.3 F 71 20 112/71 94 L 09/13/21 01:58 97.8 F 71 17 120/71 95 09/13/21 01:23 17 09/12/21 21:42 97.9 F 84 17 161/74 98 09/12/21 18:21 74 16 138/86 92 L 09/12/21 14:36 97.1 F L 71 18 121/74 91 L Intake and Output 09/12/21 09/13/21 09/13/21 22:59 06:59 14:59 Intake Total 118 Balance 118 Intake: Oral 118 Other: # Voids 0 1 Weight 140.614 kg No acute distress, oriented 3. Currently on 2 L nasal cannula. Saturations 95%. HEENT examination is grossly unremarkable. Neck supple. Full range of motion. No adenopathy thyromegaly or neck vein distention. Cardiovascular examination reveals regular rhythm rate. S1-S2 normal. No S3 or S4. No discernible murmur noted. Heart rate 71 bpm. Lungs reveal mostly clear breath sounds. No distinct crackles. No wheezes. Mild scattered rhonchi. Breath sounds equal bilaterally. Abdomen obese, soft, with bowel sounds. Extremities reveal significant lower extremity edema. No cyanosis or clubbing. Skin is without rash or lesion. Neurologic examination is brief but nonfocal. Results - Laboratory Findings CBC and BMP: 09/12/21 15:49 09/12/21 15:49 PT/INR, D-dimer PT 11.2 sec (9.0-12.0) 09/12/21 15:49 INR 1.0 (<1.2) 09/12/21 15:49 Abnormal lab findings: Abnormal Labs 09/12/21 09/12/21 15:49 15:49 WBC 11.3 H RDW 16.1 H Neutrophils # 8.6 H Sodium 136 L Chloride 92 L Carbon Dioxide 40 H BUN 41 H Total Bilirubin 1.9 H - Diagnostic Findings Chest x-ray: image reviewed CT scan - chest: image reviewed Assessment and Plan Assessment: Shortness of breath on exertion, with dry cough, rule out interstitial lung disease/pulmonary fibrosis. Morbid obesity. Diabetes mellitus. History of hypertension. History of hyperlipidemia. Reviewed his history of pacemaker implantation. Plan: Plan dated 09/13/2021. The patient is seen and examined in room 624. We went ahead and ordered a high- resolution computed tomography scan, to determine if there is any interstitial lung disease present. The patient has significant obesity, and certainly some of her shortness of breath on exertion relates that. In addition, she did smoke for many years and could have some COPD. She apparently was not able to do a pulmonary function test in my office because of claustrophobia. The patient will follow-up with my partner. Additional recommendations and suggestions are forthcoming. Time with Patient: Greater than 30
[2021-09-13 12:22] LABS: Glucose,Whole Blood 127 mg/dL (75-99)
--- NOTE | 2021-09-13 17:02 | CT ---
EXAMINATION TYPE: CT chest wo con DATE OF EXAM: 09/13/2021 COMPARISON: CT chest 09/12/[address] chest dated 08/15/2016 HISTORY: SOB, pulmonary fibrosis CT DLP: 874.6 mGycm. Automated Exposure Control for Dose Reduction was Utilized. TECHNIQUE: CT scan of the thorax is performed without IV contrast. FINDINGS: LUNGS: The lungs show thickened parenchymal bands bilaterally. There are scattered pulmonary nodules present, largest of the left lower lobe on axial image #42 measures approximately 9 to 10 mm, nodules in the right upper lobe on axial image #16 and 17 show less solid component. There is no bronchiecta sis or honeycomb formation, no significant emphysematous change. No interlobular septal pleural thick ening noted. MEDIASTINUM: Lack of IV contrast is noted to limit evaluation for mediastinal and especially hilar ad enopathy. There are no definitive greater than 1 cm hilar or mediastinal lymph nodes. No cardiomega ly or pericardial effusion is seen. There are coronary artery calcifications. Prominence of pulmonary artery may be indicative of pulmonary artery hypertension OTHER: There is a generator in left pectoral region, leads coursing via subclavian approach into the heart. Retained contrast material present within the renal collecting system of the left. Patient is post cholecystectomy. There are cysts associated with the left lobe of the liver. Diverticular change noted in the visualized colon. Degenerative disc changes present in the visualized spine. IMPRESSION: Pulmonary nodules, consider granulomatous disease both infectious and noninfectious, meta static disease. Areas of probable scarring or atelectasis within the lungs, no significant interstiti al lung disease. Coronary artery disease and possible pulmonary artery hypertension. Noncontrast exam . Additional findings above.
[2021-09-13 17:08] LABS: Glucose,Whole Blood 144 mg/dL (75-99)
[2021-09-13 20:48] VITALS: RESP 20
[2021-09-14 07:33] LABS: Glucose,Whole Blood 131 mg/dL (75-99)
[2021-09-14] MEDS: INSULIN ASPART (NovoLOG) 100 UNIT/ML VIAL SQ SCH (08:09)
[2021-09-14 08:44] VITALS: BP 119/75; TEMP 98.2
[2021-09-14] MEDS ORDERED: FUROSEMIDE 40 MG TAB PO SCH (09:00)
[2021-09-14] MEDS: LOSARTAN 50 MG TAB PO SCH (09:11)
[2021-09-14] MEDS: metOLazone 5 MG TAB PO SCH (09:11)
[2021-09-14] MEDS: METOPROLOL SUCCINATE (ER) 100 MG TAB.ER.24H PO SCH (09:11)
[2021-09-14] MEDS: APIXABAN 5 MG TAB PO SCH (09:11)
[2021-09-14] MEDS: ASCORBIC ACID 500 MG TAB PO SCH (09:11)
[2021-09-14] MEDS: POTASSIUM CHLORIDE ER 20 MEQ TAB.ER PO SCH (09:11)
[2021-09-14] MEDS: MULTIVITAMINS, THERA 1 EACH TAB PO SCH (09:11)
--- NOTE | 2021-09-14 10:03 | P.PN ---
Subjective Progress Note Date: 09/14/21 Principal diagnosis: Shortness of breath. Pulmonary consultation dated 09/13/2021. 76-year-old obese female, with a history of hypertension, and hyperlipidemia, and previous pacemaker insertion, was seen by her primary care physician, and there was some concern that the pacemaker was not functioning properly. She was sent to the emergency room to be evaluated. Her primary complaint is shortness of breath on any exertion. She apparently can't walk 10 feet without becoming profoundly short of breath. The patient had a computed tomography scan that suggested the possibility of interstitial lung disease, and hence the consultation was initiated. The patient does have long-standing shortness of breath on exertion. She also apparently has a dry cough. She sees my partner in the office, once a year. She saw him last in April 2021. I will make sure that she goes back to see him in the near future. The patient will also be scheduled to have a high resolution computed tomography scan, while she is here in the hospital. She'll eventually need pulmonary function tests although she tells me she is quite claustrophobic. According to her home medications, she has a history of hypertension, hyperlipidemia, and diabetes mellitus. White count 11.3, hemoglobin 13.3, hematocrit 41.5, with a normal platelet count. Sodium 136, potassium or 0.1, chlorides 92, CO2 40, BUN 41, and creatinine 0.90. Chest x-ray on admission was consistent with some mild pulmonary edema. CT angiogram was negative for pulmonary embolism, but did show some interstitial densities bilaterally, consistent with pulmonary fibrosis. Progress note dated 09/14/2021. 76-year-old female seen yesterday in consultation. She has a history of obesity, hypertension, hyperlipidemia, and prior pacemaker implantation. The patient is admitted for shortness of breath on exertion. She was thought to have possible interstitial lung disease. High resolution computed tomography scan was negative for pulmonary fibrosis. CT angiogram was negative for pulmonary embolism. She has seen my partner in the past and is encouraged to go back and see him for further evaluation. Currently, she is on 2 L nasal cannula. She's not receiving any IV fluids. No new blood work today. CAT scan is reviewed. Objective - Vital Signs Vital signs: Vital Signs Temp 98.2 F 09/14/21 07:00 Pulse 70 09/14/21 07:00 Resp 20 09/14/21 08:00 BP 119/75 09/14/21 07:00 Pulse Ox 97 09/14/21 07:00 Intake & Output 09/13/21 09/14/21 09/14/21 18:59 06:59 18:59 Intake Total 835 118 Balance 835 118 Weight 144.5 kg 145.3 kg Intake: Oral 835 118 - Exam No acute distress, oriented 3. Currently on 2 L nasal cannula. Saturations 97 %. HEENT examination is grossly unremarkable. Neck supple. Full range of motion. No adenopathy thyromegaly or neck vein distention. Cardiovascular examination reveals regular rhythm rate. S1-S2 normal. No S3 or S4. No discernible murmur noted. Heart rate 70 bpm. Lungs reveal mostly clear breath sounds. No distinct crackles. No wheezes. Mild scattered rhonchi. Breath sounds equal bilaterally. Abdomen obese, soft, with bowel sounds. Extremities reveal significant lower extremity edema. No cyanosis or clubbing. Skin is without rash or lesion. Neurologic examination is brief but nonfocal. - Labs CBC & Chem 7: 09/12/21 15:49 09/12/21 15:49 Labs: Abnormal Lab Results - Last 24 Hours (Table) 09/13/21 09/13/21 09/14/21 Range/Units 12:21 17:06 07:32 POC Glucose (mg/dL) 127 H 144 H 131 H (75-99) mg/dL Assessment and Plan Assessment: Shortness of breath on exertion, of unclear etiology. No evidence of interstitial lung disease on high resolution computed tomography scan, or pulmonary embolism on CT angiogram. Morbid obesity. Diabetes mellitus. History of hypertension. History of hyperlipidemia. Reviewed his history of pacemaker implantation. Plan: Plan dated 09/13/2021. The patient is seen and examined in room 624. We went ahead and ordered a high- resolution computed tomography scan, to determine if there is any interstitial lung disease present. The patient has significant obesity, and certainly some of her shortness of breath on exertion relates that. In addition, she did smoke for many years and could have some COPD. She apparently was not able to do a pulmonary function test in my office because of claustrophobia. The patient will follow-up with my partner. Additional recommendations and suggestions are forthcoming. Plan dated 09/14/2021. The high-resolution computed tomography scan was essentially negative for interstitial lung disease/pulmonary fibrosis. The CT angiogram did not reveal any pulmonary embolism. The patient did smoke for a number of years, and could have underlying COPD. She apparently was not able to do a pulmonary function test, because of claustrophobia. The patient should follow-up with my partner. Additional recommendations and suggestions are forthcoming. Time with Patient: Less than 30
[2021-09-14 11:42] LABS: HCT 43.6 % (37.2-46.3); MCH 28.4 pg (27.0-32.0); MCHC 29.8 g/dL (32.0-37.0); MCV 95.2 fL (80.0-97.0); Mean Platelet Volume 9.9 fL (9.5-12.2); NRBC Per 100 WBC 0 /100 WBCS (0.0-0.0); Platelet Count 273 X 10*3/uL (140-440); RBC 4.58 X 10*6/uL (4.10-5.20); RDW 16.5 % (11.5-14.5); WBC 11.16 X 10*3/uL (4.50-10.00)
[2021-09-14] MEDS ORDERED: IPRATROPIUM-ALBUTEROL 3 ML NEB INHALATION SCH (12:00)
[2021-09-14 12:18] VITALS: PULSE 78
--- NOTE | 2021-09-14 12:22 | P.PN ---
Subjective Progress Note Date: 09/14/21 This is Antelmo tarango NP, I'm dictating on behalf of Dr. Delgado's H&P and A&P. Patient was interviewed and examined. Patient is a pleasant 76-year-old female who initially presented to the hospital with exertional dyspnea. Patient reports that she is not feeling much better than yesterday. Patient received 1 dose of IV Lasix yesterday, which she states did not change her respiratory status. Patient has no left ventricular hypertrophy, along with lung disease. She continues to report shortness of breath today, however denies chest pain, heart palpitations, nausea, vomiting, diarrhea, constipation, and abdominal pain. GENERAL: Well-appearing, well-nourished and in no acute distress. NECK: Supple without JVD or thyromegaly. LUNGS: Breath sounds clear to auscultation bilaterally. Respiration equal and unlabored. No wheezes, rales or rhonchi. HEART: Regular rate and rhythm without murmurs, rubs or gallops. S1 and S2 heard. EXTREMITIES: Normal range of motion, no edema. No clubbing or cyanosis. Peripheral pulses intact and strong. VITALS: [Temp 98.2, pulse 70, respirations 18, blood pressure 119/75, O2 saturation 97% on 2 L via nasal cannula] TELEMETRY: [Ventricularly paced rhythm] LABS: [White count 11.16, hemoglobin 13, platelets 273, sodium 136, potassium 4.1, B1 41, creatinine 0.90, magnesium 2.1, troponin 2 less than 0.012, BNP 523] IMPRESSION/PLAN: [1. Shortness of breath-symptoms are likely related to pulmonary etiology. Recommend no increase in Lasix or metolazone secondary to patient's kidney function. 2. Paroxysmal A. fib-continue Eliquis Further recommendations based on patient's clinical course] Objective - Vital Signs Vital signs: Vital Signs Temp 98.2 F 09/14/21 07:00 Pulse 73 09/14/21 12:08 Resp 20 09/14/21 08:00 BP 119/75 09/14/21 07:00 Pulse Ox 97 09/14/21 07:00 Intake & Output 09/13/21 09/14/21 09/14/21 18:59 06:59 18:59 Intake Total 835 118 Balance 835 118 Weight 144.5 kg 145.3 kg Intake: Oral 835 118 - Labs CBC & Chem 7: 09/14/21 06:57 09/12/21 15:49 Labs: Abnormal Lab Results - Last 24 Hours (Table) 09/13/21 09/13/21 09/14/21 Range/Units 12:21 17:06 06:57 WBC 11.16 H (4.50-10.00) X 10*3/uL MCHC 29.8 L (32.0-37.0) g/dL RDW 16.5 H (11.5-14.5) % POC Glucose (mg/dL) 127 H 144 H (75-99) mg/dL 09/14/21 Range/Units 07:32 WBC (4.50-10.00) X 10*3/uL MCHC (32.0-37.0) g/dL RDW (11.5-14.5) % POC Glucose (mg/dL) 131 H (75-99) mg/dL
[2021-09-14 13:39] LABS: African American GFR (CKD) 63 (>60 ml/min/1.73 sqM); Anion Gap 9 mmol/L; Blood Urea Nitrogen 46 mg/dL (7-17); Carbon Dioxide 36 mmol/L (22-30); Chloride 90 mmol/L (98-107); Glucose 184 mg/dL (74-99); Non-African American GFR(CKD) 55 (>60 ml/min/1.73 sqM); Sodium 135 mmol/L (137-145)
[2021-09-14 13:42] LABS: Potassium 3.8 mmol/L (3.5-5.1)
--- NOTE | 2021-09-14 14:46 | P.DS ---
Providers Date of admission: 09/13/21 11:46 Expected date of discharge: 09/14/21 Attending physician: Burton Barker MD Consults: 09/12/21 19:02 Consult Physician Urgent Consulting Provider: [facility] Consult Reason/Comments: extertional shortness of breath Do you want consulting provider notified?: Yes 09/13/21 08:33 Consult Physician Routine Consulting Provider: eRno Schofield Consult Reason/Comments: pulmonary fibrosis Do you want consulting provider notified?: Yes Primary care physician: [facility] Hospital Course: #Acute hypoxic respiratory failure with progressive exertional dyspnea #sick sinus syndrome with history of paroxysmal A. fib #Hypertension #Obesity #Type 2 diabetes mellitus 76-year-old female with diabetes mellitus, hypertension, lymphedema, irregular heartbeat status post pacemaker presented for evaluation as a direct admit from her primary care office after she went there for evaluation for progressive worsening exertional dyspnea over the past couple weeks. Workup in the ED with chest x-ray suggested some pulmonary edema for which she got some IV Lasix. Initial CTA chest: No pulmonary embolism, interstitial fibrotic changes, rule out underlying interstitial pulmonary fibrosis, CHF. Troponin negative 3, patient had elevated bicarbonate which is suggestive of possible chronic hypercapnic compensated respiratory failure especially with her body habitus possibility of pickwickian syndrome. Pt did not appear to be grossly volume overloaded on admission, and so admitting physician switched patient back to PO lasix. She was seen by cardiology who agreed regarding volume status. They also evaluated pacemaker, no changes. They recommended pulm consult, who saw the patient and recommended hr-CT Chest which did not show pulmonary fibrosis. They recommended pt f/u with Dr. Chu for PFTs. Pt was at baseline at time of discharge. CT scan with incidental findings of thickened pleura c/w infectious vs non- infectious granulomatous disease versus malignancy. She will require f/u imaging for this via pulm follow up as well. I spent 37 minutes coordinating this complex discharge. Gen: awake, alert HEENT: normocephalic, atraumatic, good hearing acuity, moist mucous membranes Resp: good air exchange, breathing comfortably with no accessory muscle use CVS: good distal perfusion x 4, GI: soft, NTTP, ND : no SPT, no CVAT, floyd catheter not present MSK: no pitting edema, no clubbing Neuro: non-focal, moving all extremities Psych: cooperative, euthymic mood Patient Condition at Discharge: Good Plan - Discharge Summary New Discharge Prescriptions: New Budesonide-Formot 160-4.5 Mcg [Symbicort 160-4.5 Mcg Inhaler] 2 puff INHALATION RT-BID #1 each Albuterol Inhaler [Ventolin Hfa Inhaler] 1 puff INHALATION RT-QID #8 gm Continue Ascorbic Acid [Vitamin C] 500 mg PO DAILY Calcium Carbonate/Vitamin D3 [Calcium 600-Vit D3 400 Caplet] 1 tab PO HS Multivitamins, Thera [Multivitamin (formulary)] 1 tab PO DAILY Bimatoprost [Lumigan 0.01% Ophth Soln] 1 drop BOTH EYES HS Diclofenac Sodium Gel [Voltaren Gel] 1 applic TOPICAL BID Aspirin 81 mg PO HS Losartan [Cozaar] 50 mg PO DAILY #60 tab Apixaban [Eliquis] 5 mg PO BID #60 tab Atorvastatin Calcium [Lipitor] 20 mg PO HS #30 tab metFORMIN HCL [Glucophage] 500 mg PO BID Furosemide [Lasix] 40 mg PO DAILY metOLazone [Zaroxolyn] 5 mg PO DAILY Melatonin 5 mg PO HS Potassium Chloride ER [K-Dur 20] 20 meq PO DAILY Metoprolol Succinate (ER) [Toprol XL] 100 mg PO DAILY Discharge Medication List Ascorbic Acid [Vitamin C] 500 mg PO DAILY 03/11/17 [History] Bimatoprost [Lumigan 0.01% Ophth Soln] 1 drop BOTH EYES HS 03/11/17 [History] Calcium Carbonate/Vitamin D3 [Calcium 600-Vit D3 400 Caplet] 1 tab PO HS 03/11/17 [History] Multivitamins, Thera [Multivitamin (formulary)] 1 tab PO DAILY 03/11/17 [History] Aspirin 81 mg PO HS 01/26/20 [History] Diclofenac Sodium Gel [Voltaren Gel] 1 applic TOPICAL BID 01/26/20 [History] Apixaban [Eliquis] 5 mg PO BID #60 tab 01/30/20 [Rx] Atorvastatin Calcium [Lipitor] 20 mg PO HS #30 tab 01/30/20 [Rx] Losartan [Cozaar] 50 mg PO DAILY #60 tab 01/30/20 [Rx] Furosemide [Lasix] 40 mg PO DAILY 09/12/21 [History] Melatonin 5 mg PO HS 09/12/21 [History] Metoprolol Succinate (ER) [Toprol XL] 100 mg PO DAILY 09/12/21 [History] Potassium Chloride ER [K-Dur 20] 20 meq PO DAILY 09/12/21 [History] metFORMIN HCL [Glucophage] 500 mg PO BID 09/12/21 [History] metOLazone [Zaroxolyn] 5 mg PO DAILY 09/12/21 [History] Albuterol Inhaler [Ventolin Hfa Inhaler] 1 puff INHALATION RT-QID #8 gm 09/14/21 [Rx] Budesonide-Formot 160-4.5 Mcg [Symbicort 160-4.5 Mcg Inhaler] 2 puff INHALATION RT-BID #1 each 09/14/21 [Rx] Follow up Appointment(s)/Referral(s): Fidencio Humphreys MD [Primary Care Provider] - 1-2 days Clayton Torres MD [Family Provider] - 1 Week Miki Chu MD [STAFF PHYSICIAN] - 1 Week Patient Instructions/Handouts: Pulmonary Fibrosis (DC) Discharge Disposition: HOME SELF-CARE
[2021-09-14] MEDS ORDERED: SYMBICORT 160-4.5 MCG INHALER INHALATION SCH (20:00)
== END 2021-09-14 13:15 | disposition home or self-care (01) ==
LOC: EC 14:29 → 6NMEDSUR 18:57 → OBSVTOIN 09-13 11:46 → INTOOBSV 09-13 11:46 → UNDODISIN 09-14 13:15
PROVIDERS: ADMIT Internal Medicine; ATTEND Internal Medicine
DX: J96.01 Acute respiratory failure with hypoxia (principal); I49.5 Sick sinus syndrome; I48.0 Paroxysmal atrial fibrillation; I11.0 Hypertensive heart disease with heart failure; I50.9 Heart failure, unspecified; E11.9 Type 2 diabetes mellitus without complications; E78.5 Hyperlipidemia, unspecified; E66.01 Morbid (severe) obesity due to excess calories; Z68.44 Body mass index [BMI] 60.0-69.9, adult; I89.0 Lymphedema, not elsewhere classified; M79.89 Other specified soft tissue disorders; I07.1 Rheumatic tricuspid insufficiency; I27.20 Pulmonary hypertension, unspecified; Z95.0 Presence of cardiac pacemaker; Z87.891 Personal history of nicotine dependence; Z85.828 Personal history of other malignant neoplasm of skin; Z79.899 Other long term (current) drug therapy; Z79.82 Long term (current) use of aspirin; Z79.84 Long term (current) use of oral hypoglycemic drugs; Z79.01 Long term (current) use of anticoagulants; Z79.51 Long term (current) use of inhaled steroids; Z71.9 Counseling, unspecified; Z82.49 Family history of ischemic heart disease and other diseases of the circulatory system; Z83.2 Family history of diseases of the blood and blood-forming organs and certain disorders involving the immune mechanism
CPT/HCPCS: 96374; 99285; 36415; 94640; 93005; 93306; 83880; 80053; 80048; 83735; 84484 ×2; 85025; 85027; 85610; 85730; 71046; 71250; 71275; G0378 ×3; J1940; Q9967

== ENCOUNTER 2021-11-23 10:07 | Emergency (ER) | payer MEDICARE ==
[2021-11-23 10:26] VITALS: RESP 18
[2021-11-23] MEDS ORDERED: CLOTRIMAZOLE 1% CREAM 30 GM TUBE TOPICAL SCH (11:30)
--- NOTE | 2021-11-23 11:38 | ED ---
General Adult HPI - General Chief complaint: Extremity Injury, Lower Stated complaint: leg edema Time Seen by Provider: 11/23/21 10:30 Source: patient, family (brother), EMS Mode of arrival: EMS Limitations: physical limitation - History of Present Illness Initial comments: 76-year-old female presents to the emergency room with complaints of the left gr oin discomfort and rash. Patient states she was sent by EMS and her brother but states she does not know why. Patient denies any shortness of breath or chest pain. She denies any fevers, no nausea, vomiting or diarrhea. She states that she is able to take care of herself and she does live alone. She uses a walker at home. Patient states that she does have bedbugs in the home and has a exterm inator coming next week. Her brother is at bedside states that she is unable to care for herself, her house is dirty and he will not take her home with him. He wants her admitted to the hospital for long-term care because she cannot care for herself. Patient is disagreeing stating that she is able to care for herself. She is her own legal guardian. She states that while the house is being treated for bedbugs she has no where else to go and brother states he will not take her to his home. He states that he has tried to talk to her primary care doctor months ago about putting her into a facility for chronic care which she refuses. -: month(s) Severity scale (1-10): 4 Quality: constant Consistency: constant Worsens with: other (palpations) Associated Symptoms: denies other symptoms Treatments Prior to Arrival: none - Related Data Home Medications Medication Instructions Recorded Confirmed Ascorbic Acid [Vitamin C] 500 mg PO DAILY 03/11/17 09/12/21 Bimatoprost [Lumigan 0.01% Ophth 1 drop BOTH EYES HS 03/11/17 09/12/21 Soln] Calcium Carbonate/Vitamin D3 1 tab PO HS 03/11/17 09/12/21 [Calcium 600-Vit D3 400 Caplet] Multivitamins, Thera [Multivitamin 1 tab PO DAILY 03/11/17 09/12/21 (formulary)] Aspirin 81 mg PO HS 01/26/20 09/12/21 Diclofenac Sodium Gel [Voltaren 1 applic TOPICAL BID 01/26/20 09/12/21 Gel] Furosemide [Lasix] 40 mg PO DAILY 09/12/21 09/12/21 Melatonin 5 mg PO HS 09/12/21 09/12/21 Metoprolol Succinate (ER) [Toprol 100 mg PO DAILY 09/12/21 09/12/21 XL] Potassium Chloride ER [K-Dur 20] 20 meq PO DAILY 09/12/21 09/12/21 metFORMIN HCL [Glucophage] 500 mg PO BID 09/12/21 09/12/21 metOLazone [Zaroxolyn] 5 mg PO DAILY 09/12/21 09/12/21 Previous Rx's Medication Instructions Recorded Apixaban [Eliquis] 5 mg PO BID #60 tab 01/30/20 Atorvastatin Calcium [Lipitor] 20 mg PO HS #30 tab 01/30/20 Losartan [Cozaar] 50 mg PO DAILY #60 tab 01/30/20 Albuterol Inhaler [Ventolin Hfa 1 puff INHALATION RT-QID #8 gm 09/14/21 Inhaler] Budesonide-Formot 160-4.5 Mcg 2 puff INHALATION RT-BID #1 each 09/14/21 [Symbicort 160-4.5 Mcg Inhaler] Allergies Allergy/AdvReac Type Severity Reaction Status Date / Time No Known Allergies Allergy Verified 11/23/21 10:26 Review of Systems ROS Statement: Those systems with pertinent positive or pertinent negative responses have been documented in the HPI. ROS Other: All systems not noted in ROS Statement are negative. Past Medical History Past Medical History: Hyperlipidemia, Hypertension Additional Past Medical History / Comment(s): PE ?; years ago, diabetes, pacemaker, obesity, hernia, History of Any Multi-Drug Resistant Organisms: None Reported Past Surgical History: Orthopedic Surgery Additional Past Surgical History / Comment(s): hernia,eye surgery,rt knee Past Anesthesia/Blood Transfusion Reactions: No Reported Reaction Past Psychological History: No Psychological Hx Reported Smoking Status: Former smoker Past Alcohol Use History: None Reported Past Drug Use History: None Reported - Past Family History Sister(s) Family Medical History: Congestive Heart Failure (CHF), Pulmonary Embolus Additional Family Medical History / Comment(s): gallbladder removed General Exam Limitations: physical limitation General appearance: alert Head exam: Present: atraumatic Eye exam: Absent: scleral icterus, conjunctival injection ENT exam: Present: mucous membranes moist Neck exam: Present: normal inspection. Absent: tenderness, meningismus Respiratory exam: Absent: respiratory distress, accessory muscle use Cardiovascular Exam: Present: regular rate GI/Abdominal exam: Absent: tenderness Extremities exam: Present: normal capillary refill, other (Bilateral lower extremity chornic lymphedema, no evidence of cellulitis or exudate). Absent: tenderness Expanded Back exam: Absent: saddle anesthesia Back exam: Negative Straight Leg Raising: Left, Right Neurological exam: Present: alert, oriented X3 Psychiatric exam: Present: normal affect, normal mood Skin exam: Present: warm, dry, normal color. Absent: cyanosis, diaphoretic Course Vital Signs 11/23/21 11/23/21 10:19 12:23 Temperature 97.6 F 98.2 F Pulse Rate 86 73 Respiratory 18 18 Rate Blood Pressure 122/63 115/61 O2 Sat by Pulse 95 98 Oximetry Medical Decision Making - Medical Decision Making 76-year-old female presents with complaints of the left groin discomfort and rash. She has no other complaints. She was given clotrimazole is to be directed to place it on the area twice a day for the next 4 weeks and follow up with primary care doctor. Her brother is at bedside requesting that she be placed in extended care facility stating that she is unable to care for herself. Patient disagrees with that, stats she is ambulatory at home with a walker and able to care for herself. She has no concerns. She does have chronic lymphedema, no concern or evidence for cellulitis or DVT. Patient is able to lift each leg up off the bed. She states that she does have compression socks that she normally wears but is not wearing them today. Patient is clean no evidence of bedbugs upon arrival to ER. States that she does have bedbugs in the home and has a rubber tile floor layer coming next week. Patient is her own legal guardian, alert and oriented 4. Vital signs are stable. I did explain to brother and patient that I can not admit her without a medical concern. We did discuss options of obtaining a hotel room until her rubber tile floor layer comes which they are agreeable to that option. Case discussed with Dr. Herrera. . Disposition Clinical Impression: Intertrigo, Lymphedema due to chronic inflammation Disposition: HOME SELF-CARE Condition: Good Additional Instructions: Use clotrimazole cream as provided twice a day for the next 4 weeks. Allow the area to air dry. Follow-up with the primary care doctor next week. Return to the emergency room with any new or concerning symptoms including increased pain or fevers. Is patient prescribed a controlled substance at d/c from ED?: No Referrals: Fidencio Humphreys MD [Primary Care Provider] - 1-2 days Time of Disposition: 11:54
[2021-11-23 12:24] VITALS: BP 115/61; PULSE 73; TEMP 98.2
== END 2021-11-23 12:55 | disposition home or self-care (01) ==
LOC: EC 10:07
DX: I89.0 Lymphedema, not elsewhere classified (principal); L30.4 Erythema intertrigo; E78.5 Hyperlipidemia, unspecified; I10 Essential (primary) hypertension; Z87.891 Personal history of nicotine dependence
CPT/HCPCS: 99283

== ENCOUNTER 2022-03-30 15:16 | Inpatient (IN) | payer MEDICARE ==
[2022-03-30 15:41] LABS: Glucose,Whole Blood 260 mg/dL (70-110)
[2022-03-30] MEDS ORDERED: SODIUM CHLORIDE 0.9% 1,000 ML IV STA (15:45)
--- NOTE | 2022-03-30 16:21 | XR ---
EXAMINATION TYPE: XR chest 2V DATE OF EXAM: 03/30/2022 COMPARISON: 09/12/2021 HISTORY: Weakness TECHNIQUE: Frontal and lateral views of the chest are obtained. FINDINGS: The heart size is prominent but the pulmonary vasculature is not congested. There is a 2-l ead cardiac pacemaker. The lungs are clear consolidative or interstitial density. There is no pleural effusion or pneumothor ax. The osseous structures are intact IMPRESSION: Mild cardiomegaly but no overt CHF or acute cardiopulmonary disease.
[2022-03-30 16:33] LABS: HCT 36.8 % (34.0-46.0); HGB 12.5 gm/dL (11.4-16.0); MCH 31.7 pg (25.0-35.0); MCHC 34.1 g/dL (31.0-37.0); Mean Platelet Volume 8.3; Platelet Count 316 k/uL (150-450); RBC 3.96 m/uL (3.80-5.40); WBC 27.5 k/uL (3.8-10.6)
[2022-03-30 16:36] LABS: ALT 23 U/L (4-34); AST 31 U/L (14-36); African American GFR (CKD) 12 (>60 ml/min/1.73 sqM); Albumin 3.8 g/dL (3.5-5.0); Alkaline Phosphatase 101 U/L (38-126); Anion Gap 17 mmol/L; Calcium 9.5 mg/dL (8.4-10.2); Carbon Dioxide 27 mmol/L (22-30); Chloride 93 mmol/L (98-107); Creatine Kinase 135 U/L (30-135); Glucose 232 mg/dL (74-99); Magnesium 2.1 mg/dL (1.6-2.3); Non-African American GFR(CKD) 11 (>60 ml/min/1.73 sqM); Sodium 137 mmol/L (137-145); Total Bilirubin 2.1 mg/dL (0.2-1.3); Total Protein 6.9 g/dL (6.3-8.2)
[2022-03-30 16:58] LABS: Band Neutrophils % 4 %; Lymphocytes # (M) 2.48 k/uL (1.0-4.8); Monocytes # (M) 0.28 k/uL (0-1.0); Neutrophils % (M) 86 %; Nucleated Red Blood Cells 0 /100 WBC (0-0); Total Cells Counted 100; Toxic Vacuolation Present
[2022-03-30 16:59] LABS: RBC Morphology Normal
[2022-03-30 17:02] LABS: Blood Urea Nitrogen 107 mg/dL (7-17)
[2022-03-30 17:03] LABS: INR 1.2 (<1.2); Prothrombin Time 12.2 sec (9.0-12.0)
[2022-03-30] MEDS ORDERED: SODIUM CHLORIDE 0.9% 2,000 ML IV STA (17:03)
[2022-03-30 17:04] LABS: Partial Thromboplastin Time 21.4 sec (22.0-30.0)
--- NOTE | 2022-03-30 17:21 | ED ---
General Adult HPI - General Chief complaint: Weakness Stated complaint: Weakness Time Seen by Provider: 03/30/22 15:19 Source: patient, EMS Mode of arrival: EMS Limitations: physical limitation - History of Present Illness Initial comments: 76-year-old female past medical history of A. fib, hypertension on Eliquis, obesity who presents to the emergency department with weakness. Patient states that she normally ambulates with a walker. She was sitting in her chair and attempted to stand up however she was extremely weak in her lower extremities and therefore could not get out of the chair. States that the last she ambulated was Thursday and this is the last that she took her medications. Her brother ended up visiting her today at her house and found that the patient had not gotten out of the chair in 2 days. She has not ate or drank anything. She denies any headaches or visual changes. No chest pain or shortness of breath. No abdominal pain. Does admit to bilateral lower extremity pain. Patient has developed pressure ulcers to the posterior aspect of the bilateral calf. Denies sick contacts with similar symptoms. No vomiting. No unilateral weakness. No other alleviating, precipitating modifying factors - Related Data Home Medications Medication Instructions Recorded Confirmed Ascorbic Acid [Vitamin C] 500 mg PO DAILY 03/11/17 03/30/22 Bimatoprost [Lumigan 0.01% Ophth 1 drop BOTH EYES HS 03/11/17 03/30/22 Soln] Calcium Carbonate/Vitamin D3 1 tab PO HS 03/11/17 03/30/22 [Calcium 600-Vit D3 400 Caplet] Multivitamins, Thera [Multivitamin 1 tab PO DAILY 03/11/17 03/30/22 (formulary)] Aspirin 81 mg PO HS 01/26/20 03/30/22 Diclofenac Sodium Gel [Voltaren 1 applic TOPICAL BID 01/26/20 03/30/22 Gel] Furosemide [Lasix] 40 mg PO DAILY 09/12/21 09/12/21 Melatonin 5 mg PO HS 09/12/21 03/30/22 Metoprolol Succinate (ER) [Toprol 100 mg PO DAILY 09/12/21 03/30/22 XL] Potassium Chloride ER [K-Dur 20] 20 meq PO DAILY 09/12/21 03/30/22 metFORMIN HCL [Glucophage] 500 mg PO BID 09/12/21 03/30/22 metOLazone [Zaroxolyn] 5 mg PO BID 09/12/21 03/30/22 Albuterol Inhaler [Ventolin Hfa 1 puff INHALATION RT-QID PRN 03/30/22 03/30/22 Inhaler] Furosemide [Lasix] 40 mg PO BID 03/30/22 03/30/22 hydrOXYzine HCL [Atarax] 25 mg PO DAILY 03/30/22 03/30/22 Previous Rx's Medication Instructions Recorded Apixaban [Eliquis] 5 mg PO BID #60 tab 01/30/20 Atorvastatin Calcium [Lipitor] 20 mg PO HS #30 tab 01/30/20 Losartan [Cozaar] 50 mg PO DAILY #60 tab 01/30/20 Budesonide-Formot 160-4.5 Mcg 2 puff INHALATION RT-BID #1 each 09/14/21 [Symbicort 160-4.5 Mcg Inhaler] Allergies Allergy/AdvReac Type Severity Reaction Status Date / Time No Known Allergies Allergy Verified 11/23/21 10:26 Review of Systems ROS Statement: Those systems with pertinent positive or pertinent negative responses have been documented in the HPI. ROS Other: All systems not noted in ROS Statement are negative. Past Medical History Past Medical History: Atrial Fibrillation, Hyperlipidemia, Hypertension Additional Past Medical History / Comment(s): PE ?; years ago, diabetes, pacemaker, obesity, hernia, History of Any Multi-Drug Resistant Organisms: None Reported Past Surgical History: Orthopedic Surgery Additional Past Surgical History / Comment(s): hernia,eye surgery,rt knee Past Anesthesia/Blood Transfusion Reactions: No Reported Reaction Past Psychological History: No Psychological Hx Reported Smoking Status: Former smoker Past Alcohol Use History: None Reported Past Drug Use History: None Reported - Past Family History Sister(s) Family Medical History: Congestive Heart Failure (CHF), Pulmonary Embolus Additional Family Medical History / Comment(s): gallbladder removed General Exam Limitations: physical limitation General appearance: alert, in no apparent distress, other (fatigued) Head exam: Present: atraumatic, normocephalic, normal inspection Eye exam: Present: normal appearance, PERRL, EOMI. Absent: scleral icterus, conjunctival injection, periorbital swelling ENT exam: Present: normal exam, mucous membranes moist Neck exam: Present: normal inspection. Absent: tenderness, meningismus, lym phadenopathy Respiratory exam: Present: normal lung sounds bilaterally. Absent: respiratory distress, wheezes, rales, rhonchi, stridor Cardiovascular Exam: Present: normal rhythm, tachycardia, normal heart sounds. Absent: systolic murmur, diastolic murmur, rubs, gallop, clicks GI/Abdominal exam: Present: soft, normal bowel sounds. Absent: distended, tenderness, guarding, rebound, rigid Extremities exam: Present: normal inspection, full ROM, normal capillary refill. Absent: tenderness, pedal edema, joint swelling, calf tenderness Back exam: Present: normal inspection Neurological exam: Present: alert, oriented X3, CN II-XII intact Psychiatric exam: Present: normal affect, normal mood Skin exam: Present: warm, dry, normal color, other (pressure wounds bilateral calfs - 3 x 3 cm left calf, 2 x 1 cm right calf. mild weeping. no bleeding. no pustular drainage). Absent: rash Course Vital Signs 03/30/22 03/30/22 03/30/22 15:31 15:34 17:34 Temperature 98.4 F 99.0 F Pulse Rate 102 H 100 Pulse Rate [ 100 Comprehensive Ophthalmologist ] Respiratory 18 Rate Blood Pressure 130/89 O2 Sat by Pulse 93 L 88 L Oximetry 03/30/22 18:24 Temperature Pulse Rate 93 Pulse Rate [ Comprehensive Ophthalmologist ] Respiratory 20 Rate Blood Pressure 140/75 O2 Sat by Pulse 94 L Oximetry EKG Findings - EKG Comments: EKG Findings:: EKG demonstrates A. fib with rate of 94. QRS 96. QTC of 273. No acute ST segment elevation or depression. I interpreted the EKG myself Medical Decision Making - Medical Decision Making Upon arrival patient was placed into room 5. Thorough history and physical exam is performed. IV access was established and patient was started on 130 mL of normal saline. Laboratory studies are conducted and demonstrated white count 27.5. The when is 107. Creatinine 3.8. Patient has normal kidney function. Hernandez catheter is placed. Urine is sent for evaluation which does demonstrates many bacteria. She was given a dose of Rocephin. Covid, fluid chest x-ray are negative for any additional infection. Due to a K I did recommend admission for nephrology consultation. Patient was agreeable to this. Spoke with Dr. Chong who was agreeable to admit the patient - Lab Data Result diagrams: 04/02/22 05:51 04/02/22 05:51 Lab Results 03/30/22 03/30/22 03/30/22 Range/Units 15:38 15:56 15:56 WBC 27.5 H (3.8-10.6) k/uL RBC 3.96 (3.80-5.40) m/uL Hgb 12.5 (11.4-16.0) gm/dL Hct 36.8 (34.0-46.0) % MCV 93.0 (80.0-100.0) fL MCH 31.7 (25.0-35.0) pg MCHC 34.1 (31.0-37.0) g/dL RDW 14.0 (11.5-15.5) % Plt Count 316 (150-450) k/uL MPV 8.3 Neutrophils % (Manual) 86 % Band Neuts % (Manual) 4 % Lymphocytes % (Manual) 9 % Monocytes % (Manual) 1 % Neutrophils # (Manual) 24.70 H (1.3-7.7) k/uL Lymphocytes # (Manual) 2.48 (1.0-4.8) k/uL Monocytes # (Manual) 0.28 (0-1.0) k/uL Nucleated RBCs 0 (0-0) /100 WBC Manual Slide Review Performed Toxic Vacuolation Present RBC Morphology Normal PT 12.2 H (9.0-12.0) sec INR 1.2 H (<1.2) APTT 21.4 L (22.0-30.0) sec Sodium (137-145) mmol/L Potassium (3.5-5.1) mmol/L Chloride (98-107) mmol/L Carbon Dioxide (22-30) mmol/L Anion Gap mmol/L BUN (7-17) mg/dL Creatinine (0.52-1.04) mg/dL Est GFR (CKD-EPI)AfAm (>60 ml/min/1.73 sqM) Est GFR (CKD-EPI)NonAf (>60 ml/min/1.73 sqM) Glucose (74-99) mg/dL POC Glucose (mg/dL) 260 H (70-110) mg/dL POC Glu Environmental Economist ID Belval, Shy Lactic Ac Sepsis Rflx Plasma Lactic Acid Saul (0.7-2.0) mmol/L Calcium (8.4-10.2) mg/dL Magnesium (1.6-2.3) mg/dL Total Bilirubin (0.2-1.3) mg/dL AST (14-36) U/L ALT (4-34) U/L Alkaline Phosphatase (38-126) U/L Creatine Kinase (30-135) U/L Troponin I (0.000-0.034) ng/mL NT-Pro-B Natriuret Pep pg/mL Total Protein (6.3-8.2) g/dL Albumin (3.5-5.0) g/dL TSH (0.465-4.680) mIU/L Urine Color Urine Appearance (Clear) Urine pH (5.0-8.0) Ur Specific [place] (1.001-1.035) Urine Protein (Negative) Urine Glucose (UA) (Negative) Urine Ketones (Negative) Urine Blood (Negative) Urine Nitrite (Negative) Urine Bilirubin (Negative) Urine Urobilinogen (<2.0) mg/dL Ur Leukocyte Esterase (Negative) Urine RBC (0-5) /hpf Urine WBC (0-5) /hpf Ur Squamous Epith Cells (0-4) /hpf Amorphous Sediment (None) /hpf Urine Bacteria (None) /hpf Hyaline Casts (0-2) /lpf Urine Mucus (None) /hpf Coronavirus (PCR) (Not Detectd) Influenza Type A RNA (Not Detectd) Influenza Type B (PCR) (Not Detectd) 03/30/22 03/30/22 03/30/22 Range/Units 15:56 15:56 15:56 WBC (3.8-10.6) k/uL RBC (3.80-5.40) m/uL Hgb (11.4-16.0) gm/dL Hct (34.0-46.0) % MCV (80.0-100.0) fL MCH (25.0-35.0) pg MCHC (31.0-37.0) g/dL RDW (11.5-15.5) % Plt Count (150-450) k/uL MPV Neutrophils % (Manual) % Band Neuts % (Manual) % Lymphocytes % (Manual) % Monocytes % (Manual) % Neutrophils # (Manual) (1.3-7.7) k/uL Lymphocytes # (Manual) (1.0-4.8) k/uL Monocytes # (Manual) (0-1.0) k/uL Nucleated RBCs (0-0) /100 WBC Manual Slide Review Toxic Vacuolation RBC Morphology PT (9.0-12.0) sec INR (<1.2) APTT (22.0-30.0) sec Sodium 137 (137-145) mmol/L Potassium 4.0 (3.5-5.1) mmol/L Chloride 93 L (98-107) mmol/L Carbon Dioxide 27 (22-30) mmol/L Anion Gap 17 mmol/L BUN 107 H* (7-17) mg/dL Creatinine 3.81 H (0.52-1.04) mg/dL Est GFR (CKD-EPI)AfAm 12 (>60 ml/min/1.73 sqM) Est GFR (CKD-EPI)NonAf 11 (>60 ml/min/1.73 sqM) Glucose 232 H (74-99) mg/dL POC Glucose (mg/dL) (70-110) mg/dL POC Glu Environmental Economist ID Lactic Ac Sepsis Rflx Plasma Lactic Acid Saul 2.6 H* (0.7-2.0) mmol/L Calcium 9.5 (8.4-10.2) mg/dL Magnesium 2.1 (1.6-2.3) mg/dL Total Bilirubin 2.1 H (0.2-1.3) mg/dL AST 31 (14-36) U/L ALT 23 (4-34) U/L Alkaline Phosphatase 101 (38-126) U/L Creatine Kinase 135 (30-135) U/L Troponin I (0.000-0.034) ng/mL NT-Pro-B Natriuret Pep pg/mL Total Protein 6.9 (6.3-8.2) g/dL Albumin 3.8 (3.5-5.0) g/dL TSH 1.570 (0.465-4.680) mIU/L Urine Color Yellow Urine Appearance Cloudy H (Clear) Urine pH 5.0 (5.0-8.0) Ur Specific [place] 1.017 (1.001-1.035) Urine Protein 1+ H (Negative) Urine Glucose (UA) Negative (Negative) Urine Ketones Negative (Negative) Urine Blood Small H (Negative) Urine Nitrite Negative (Negative) Urine Bilirubin Negative (Negative) Urine Urobilinogen <2.0 (<2.0) mg/dL Ur Leukocyte Esterase Large H (Negative) Urine RBC 2 (0-5) /hpf Urine WBC 16 H (0-5) /hpf Ur Squamous Epith Cells 3 (0-4) /hpf Amorphous Sediment Moderate H (None) /hpf Urine Bacteria Many H (None) /hpf Hyaline Casts 37 H (0-2) /lpf Urine Mucus Rare H (None) /hpf Coronavirus (PCR) (Not Detectd) Influenza Type A RNA (Not Detectd) Influenza Type B (PCR) (Not Detectd) 03/30/22 03/30/22 03/30/22 Range/Units 15:56 15:56 15:56 WBC (3.8-10.6) k/uL RBC (3.80-5.40) m/uL Hgb (11.4-16.0) gm/dL Hct (34.0-46.0) % MCV (80.0-100.0) fL MCH (25.0-35.0) pg MCHC (31.0-37.0) g/dL RDW (11.5-15.5) % Plt Count (150-450) k/uL MPV Neutrophils % (Manual) % Band Neuts % (Manual) % Lymphocytes % (Manual) % Monocytes % (Manual) % Neutrophils # (Manual) (1.3-7.7) k/uL Lymphocytes # (Manual) (1.0-4.8) k/uL Monocytes # (Manual) (0-1.0) k/uL Nucleated RBCs (0-0) /100 WBC Manual Slide Review Toxic Vacuolation RBC Morphology PT (9.0-12.0) sec INR (<1.2) APTT (22.0-30.0) sec Sodium (137-145) mmol/L Potassium (3.5-5.1) mmol/L Chloride (98-107) mmol/L Carbon Dioxide (22-30) mmol/L Anion Gap mmol/L BUN (7-17) mg/dL Creatinine (0.52-1.04) mg/dL Est GFR (CKD-EPI)AfAm (>60 ml/min/1.73 sqM) Est GFR (CKD-EPI)NonAf (>60 ml/min/1.73 sqM) Glucose (74-99) mg/dL POC Glucose (mg/dL) (70-110) mg/dL POC Glu Environmental Economist ID Lactic Ac Sepsis Rflx Plasma Lactic Acid Saul (0.7-2.0) mmol/L Calcium (8.4-10.2) mg/dL Magnesium (1.6-2.3) mg/dL Total Bilirubin (0.2-1.3) mg/dL AST (14-36) U/L ALT (4-34) U/L Alkaline Phosphatase (38-126) U/L Creatine Kinase (30-135) U/L Troponin I 0.025 (0.000-0.034) ng/mL NT-Pro-B Natriuret Pep 1010 pg/mL Total Protein (6.3-8.2) g/dL Albumin (3.5-5.0) g/dL TSH (0.465-4.680) mIU/L Urine Color Urine Appearance (Clear) Urine pH (5.0-8.0) Ur Specific [place] (1.001-1.035) Urine Protein (Negative) Urine Glucose (UA) (Negative) Urine Ketones (Negative) Urine Blood (Negative) Urine Nitrite (Negative) Urine Bilirubin (Negative) Urine Urobilinogen (<2.0) mg/dL Ur Leukocyte Esterase (Negative) Urine RBC (0-5) /hpf Urine WBC (0-5) /hpf Ur Squamous Epith Cells (0-4) /hpf Amorphous Sediment (None) /hpf Urine Bacteria (None) /hpf Hyaline Casts (0-2) /lpf Urine Mucus (None) /hpf Coronavirus (PCR) (Not Detectd) Influenza Type A RNA Not Detected (Not Detectd) Influenza Type B (PCR) Not Detected (Not Detectd) 03/30/22 03/30/22 Range/Units 15:56 17:03 WBC (3.8-10.6) k/uL RBC (3.80-5.40) m/uL Hgb (11.4-16.0) gm/dL Hct (34.0-46.0) % MCV (80.0-100.0) fL MCH (25.0-35.0) pg MCHC (31.0-37.0) g/dL RDW (11.5-15.5) % Plt Count (150-450) k/uL MPV Neutrophils % (Manual) % Band Neuts % (Manual) % Lymphocytes % (Manual) % Monocytes % (Manual) % Neutrophils # (Manual) (1.3-7.7) k/uL Lymphocytes # (Manual) (1.0-4.8) k/uL Monocytes # (Manual) (0-1.0) k/uL Nucleated RBCs (0-0) /100 WBC Manual Slide Review Toxic Vacuolation RBC Morphology PT (9.0-12.0) sec INR (<1.2) APTT (22.0-30.0) sec Sodium (137-145) mmol/L Potassium (3.5-5.1) mmol/L Chloride (98-107) mmol/L Carbon Dioxide (22-30) mmol/L Anion Gap mmol/L BUN (7-17) mg/dL Creatinine (0.52-1.04) mg/dL Est GFR (CKD-EPI)AfAm (>60 ml/min/1.73 sqM) Est GFR (CKD-EPI)NonAf (>60 ml/min/1.73 sqM) Glucose (74-99) mg/dL POC Glucose (mg/dL) (70-110) mg/dL POC Glu Environmental Economist ID Lactic Ac Sepsis Rflx Y Plasma Lactic Acid Saul (0.7-2.0) mmol/L Calcium (8.4-10.2) mg/dL Magnesium (1.6-2.3) mg/dL Total Bilirubin (0.2-1.3) mg/dL AST (14-36) U/L ALT (4-34) U/L Alkaline Phosphatase (38-126) U/L Creatine Kinase (30-135) U/L Troponin I (0.000-0.034) ng/mL NT-Pro-B Natriuret Pep pg/mL Total Protein (6.3-8.2) g/dL Albumin (3.5-5.0) g/dL TSH (0.465-4.680) mIU/L Urine Color Urine Appearance (Clear) Urine pH (5.0-8.0) Ur Specific [place] (1.001-1.035) Urine Protein (Negative) Urine Glucose (UA) (Negative) Urine Ketones (Negative) Urine Blood (Negative) Urine Nitrite (Negative) Urine Bilirubin (Negative) Urine Urobilinogen (<2.0) mg/dL Ur Leukocyte Esterase (Negative) Urine RBC (0-5) /hpf Urine WBC (0-5) /hpf Ur Squamous Epith Cells (0-4) /hpf Amorphous Sediment (None) /hpf Urine Bacteria (None) /hpf Hyaline Casts (0-2) /lpf Urine Mucus (None) /hpf Coronavirus (PCR) Not Detected (Not Detectd) Influenza Type A RNA (Not Detectd) Influenza Type B (PCR) (Not Detectd) Disposition Clinical Impression: Afib, DAIN (acute kidney injury), Leukocytosis, Lactic acid acidosis Disposition: ADMITTED IP TO THIS [facility] Condition: Serious Is patient prescribed a controlled substance at d/c from ED?: No Time of Disposition: 17:49 Decision to Admit Reason: Admit from EC Decision Date: 03/30/22 Decision Time: 17:49
[2022-03-30 17:46] LABS: Amorphous Sediment,Urine Moderate /hpf; Appearance,Urine Cloudy (Clear); Bacteria,Urine Many /hpf; Bilirubin,Urine Negative (Negative); Blood,Urine Small (Negative); Color,Urine Yellow; Glucose,Urine (UA) Negative (Negative); Hyaline Casts,Urine 37 /lpf (0-2); Ketones,Urine Negative (Negative); Leukocyte Esterase,Urine Large (Negative); Mucus,Urine Rare /hpf; Nitrite,Urine Negative (Negative); Protein,Urine 1+ (Negative); RBC,Urine 2 /hpf (0-5); Specific Gravity,Urine 1.017 (1.001-1.035); Squamous Epithelial Cell,Urine 3 /hpf (0-4); Urobilinogen,Urine <2.0 mg/dL (<2.0); WBC,Urine 16 /hpf (0-5)
[2022-03-30] MEDS ORDERED: NALOXONE 0.4 MG/ML 1 ML VIAL IV PRN (17:54)
[2022-03-30] MEDS ORDERED: cefTRIAXone IN SWFI 1,000 MG/10 ML SYRINGE IVP STA (18:07)
[2022-03-30] MEDS: ACETAMINOPHEN TAB 325 MG TAB PO PRN (20:04)
[2022-03-30] MEDS ORDERED: ALBUTEROL NEBULIZED 2.5 MG/3 ML INHALATION PRN (20:49)
[2022-03-30] MEDS: ATORVASTATIN 20 MG TAB PO SCH (21:24)
[2022-03-30] MEDS: ASPIRIN 81 MG PO SCH (21:24)
[2022-03-30] MEDS: LATANOPROST 0.005% OPHTH DROPS 2.5 ML BTL BOTH EYES SCH (21:24)
[2022-03-30] MEDS: APIXABAN 5 MG TAB PO SCH (21:24)
--- NOTE | 2022-03-31 03:37 | P.HPIM ---
History of Present Illness H&P Date: 03/30/22 The patient is a 76-year-old female with a PMH of paroxysmal A. fib on Eliquis status post pacemaker placement, type II DM, hypertension, hyperlipidemia who presents to the emergency room for weakness. The history was supplemented by the ED physician. The patient reported that she normally ambulates with a walker but that over the past 2 days, she had been unable to stand up and had es sentially been stuck in a chair in her house. She reports that she had attempted to stand up but her legs felt extremely weak this past Thursday, and was essentially not able to stand up. The patient's brother visited her today when he found her on the chair dehydrated and not having eaten anything. The patient also reported bilateral lower extremity swelling. She reports feeling overall not well. Denied experiencing fever, chills, urinary complaints, abdominal pain, nausea, vomiting. Chest x-ray in the emergency room revealed mild cardiomegaly with no CHF. EKG revealed A. fib at [address]/T-wave changes noted as reviewed by me. Laboratory evaluation was remarkable for leukocytosis of 27.5, UA consistent with UTI, BUN 107, creatinine 3.81 (baseline 1.0), lactic acid 2.6, proBNP 1010. Review of systems: Pertinent positives and negatives as discussed in HPI, a complete review of systems was performed and all other systems are negative. Physical examination: General: Disheveled female, non toxic, no distress, appears at stated age, obese Derm: Bilateral lower extremity venous stasis changes noted, warm Head: atraumatic, normocephalic, symmetric Eyes: EOMI, no lid lag, anicteric sclera, pupils equal round reactive to light ENT: Nose and ears atraumatic Neck: No cervical lymphadenopathy, trachea midline, supple Mouth: no lip lesion, mucus membranes moist Cardiovascular: S1S2 reg, no murmur, positive dorsalis pedis pulse bilateral, 1+ bilateral lower extremity pitting edema Lungs: CTA bilateral, no rhonchi, no rales, no accessory muscle use Abdominal: soft, nontender to palpation, no guarding Ext: muscle strength 2 out of 5 bilateral lower extremities, strength 3 out of 5 in bilateral upper extremities, no gross muscle atrophy, no contractures, Neuro: CN II-XI grossly intact, no gross focal neuro deficits Psych: Alert, oriented, appropriate affect Assessment/plan Severe sepsis secondary to UTI -Continue ceftriaxone -Follow up cultures Prerenal DAIN, secondary to dehydration with UTI -Judicious IV fluid use due to history of CHF with significant lower extremity edema Chronic conditions: A. fib, hypertension, hyperlipidemia, type II DM -Hold antihypertensives -Continue the remaining home medications including Eliquis DVT prophylaxis -Eliquis The patient is admitted with an anticipated greater than 2 midnight stay for evaluation of urosepsis CODE STATUS: Full Code Discussed with: Patient Anticipated discharge date: 2-[address]: Home Past Medical History Past Medical History: Atrial Fibrillation, Hyperlipidemia, Hypertension Additional Past Medical History / Comment(s): PE ?; years ago, diabetes, pacemaker, obesity, hernia, History of Any Multi-Drug Resistant Organisms: None Reported Past Surgical History: Orthopedic Surgery Additional Past Surgical History / Comment(s): hernia,eye surgery,rt knee Past Anesthesia/Blood Transfusion Reactions: No Reported Reaction Past Psychological History: No Psychological Hx Reported Smoking Status: Former smoker Past Alcohol Use History: None Reported Past Drug Use History: None Reported - Past Family History Sister(s) Family Medical History: Congestive Heart Failure (CHF), Pulmonary Embolus Additional Family Medical History / Comment(s): gallbladder removed Medications and Allergies Home Medications Medication Instructions Recorded Confirmed Type Ascorbic Acid [Vitamin C] 500 mg PO DAILY 03/11/17 03/30/22 History Bimatoprost [Lumigan 0.01% Ophth 1 drop BOTH EYES HS 03/11/17 03/30/22 History Soln] Calcium Carbonate/Vitamin D3 1 tab PO HS 03/11/17 03/30/22 History [Calcium 600-Vit D3 400 Caplet] Multivitamins, Thera [Multivitamin 1 tab PO DAILY 03/11/17 03/30/22 History (formulary)] Aspirin 81 mg PO HS 01/26/20 03/30/22 History Diclofenac Sodium Gel [Voltaren 1 applic TOPICAL BID 01/26/20 03/30/22 History Gel] Apixaban [Eliquis] 5 mg PO BID #60 tab 01/30/20 03/30/22 Rx Atorvastatin Calcium [Lipitor] 20 mg PO HS #30 tab 01/30/20 03/30/22 Rx Losartan [Cozaar] 50 mg PO DAILY #60 tab 01/30/20 03/30/22 Rx Furosemide [Lasix] 40 mg PO DAILY 09/12/21 09/12/21 History Melatonin 5 mg PO HS 09/12/21 03/30/22 History Metoprolol Succinate (ER) [Toprol 100 mg PO DAILY 09/12/21 03/30/22 History XL] Potassium Chloride ER [K-Dur 20] 20 meq PO DAILY 09/12/21 03/30/22 History metFORMIN HCL [Glucophage] 500 mg PO BID 09/12/21 03/30/22 History metOLazone [Zaroxolyn] 5 mg PO BID 09/12/21 03/30/22 History Budesonide-Formot 160-4.5 Mcg 2 puff INHALATION RT-BID #1 each 09/14/21 03/30/22 Rx [Symbicort 160-4.5 Mcg Inhaler] Albuterol Inhaler [Ventolin Hfa 1 puff INHALATION RT-QID PRN 03/30/22 03/30/22 History Inhaler] Furosemide [Lasix] 40 mg PO BID 03/30/22 03/30/22 History hydrOXYzine HCL [Atarax] 25 mg PO DAILY 03/30/22 03/30/22 History Allergies Allergy/AdvReac Type Severity Reaction Status Date / Time No Known Allergies Allergy Verified 11/23/21 10:26 Physical Exam Vitals: Vital Signs Temp Pulse Pulse Resp BP BP Pulse Ox 03/30/22 20:00 100.4 F H 98 18 138/86 95 03/30/22 18:24 93 20 140/75 94 L 03/30/22 17:34 99.0 F 100 88 L 03/30/22 15:34 100 03/30/22 15:31 98.4 F 102 H 18 130/89 93 L Intake and Output 03/30/22 03/30/22 03/30/22 06:59 14:59 22:59 Other: Weight 136.078 kg Results CBC & Chem 7: 03/30/22 15:56 03/30/22 15:56 Labs: Abnormal Lab Results - Last 24 Hours (Table) 03/30/22 03/30/22 03/30/22 Range/Units 15:38 15:56 15:56 WBC 27.5 H (3.8-10.6) k/uL Neutrophils # (Manual) 24.70 H (1.3-7.7) k/uL PT 12.2 H (9.0-12.0) sec INR 1.2 H (<1.2) APTT 21.4 L (22.0-30.0) sec Chloride (98-107) mmol/L BUN (7-17) mg/dL Creatinine (0.52-1.04) mg/dL Glucose (74-99) mg/dL POC Glucose (mg/dL) 260 H (70-110) mg/dL Plasma Lactic Acid Saul (0.7-2.0) mmol/L Total Bilirubin (0.2-1.3) mg/dL Urine Appearance (Clear) Urine Protein (Negative) Urine Blood (Negative) Ur Leukocyte Esterase (Negative) Urine WBC (0-5) /hpf Amorphous Sediment (None) /hpf Urine Bacteria (None) /hpf Hyaline Casts (0-2) /lpf Urine Mucus (None) /hpf 03/30/22 03/30/22 03/30/22 Range/Units 15:56 15:56 15:56 WBC (3.8-10.6) k/uL Neutrophils # (Manual) (1.3-7.7) k/uL PT (9.0-12.0) sec INR (<1.2) APTT (22.0-30.0) sec Chloride 93 L (98-107) mmol/L BUN 107 H* (7-17) mg/dL Creatinine 3.81 H (0.52-1.04) mg/dL Glucose 232 H (74-99) mg/dL POC Glucose (mg/dL) (70-110) mg/dL Plasma Lactic Acid Saul 2.6 H* (0.7-2.0) mmol/L Total Bilirubin 2.1 H (0.2-1.3) mg/dL Urine Appearance Cloudy H (Clear) Urine Protein 1+ H (Negative) Urine Blood Small H (Negative) Ur Leukocyte Esterase Large H (Negative) Urine WBC 16 H (0-5) /hpf Amorphous Sediment Moderate H (None) /hpf Urine Bacteria Many H (None) /hpf Hyaline Casts 37 H (0-2) /lpf Urine Mucus Rare H (None) /hpf Thrombosis Risk Factor Assmnt - Choose All That Apply Any of the Below Risk Factors Present?: Yes Each Risk Factor Represents 3 Points: Age 75 years or older Thrombosis Risk Factor Assessment Total Risk Factor Score: 3 Thrombosis Risk Factor Assessment Level: Moderate Risk
[2022-03-31] MEDS: SYMBICORT 160-4.5 MCG INHALER INHALATION SCH ×2 (08:15→20:56)
[2022-03-31 08:44] LABS: HCT 30.4 % (37.2-46.3); HGB 9.8 g/dL (12.0-15.0); MCHC 32.2 g/dL (32.0-37.0); MCV 96.2 fL (80.0-97.0); Mean Platelet Volume 9.4 fL (9.5-12.2); NRBC Per 100 WBC 0 /100 WBCS (0.0-0.0); Platelet Count 297 X 10*3/uL (140-440); RBC 3.16 X 10*6/uL (4.10-5.20); RDW 14.7 % (11.5-14.5); WBC 25.63 X 10*3/uL (4.50-10.00)
[2022-03-31 09:05] LABS: African American GFR (CKD) 17.4 (60.0-200.0); BUN/Creat Ratio 31.34 Ratio (12.00-20.00); Blood Urea Nitrogen 90.9 mg/dL (9.0-27.0); Calcium 8.5 mg/dL (8.7-10.3); Potassium 3.4 mmol/L (3.5-5.5)
[2022-03-31] MEDS: APIXABAN 5 MG TAB PO SCH ×2 (09:08→21:55)
[2022-03-31] MEDS: METOPROLOL SUCCINATE (ER) 100 MG TAB.ER.24H PO SCH (09:08)
[2022-03-31 09:57] LABS: Basophils # (A) 0.05 X 10*3/uL (0.00-0.10); Basophils % (A) 0.2 %; Eosinophils # (A) 0.01 X 10*3/uL (0.04-0.35); Eosinophils % (A) 0 %; Immature Grans, Automated 4.1 %; Lymphocytes # (A) 1.22 X 10*3/uL (0.90-5.00); Lymphocytes % (A) 4.8 %; Monocytes # (A) 0.96 X 10*3/uL (0.20-1.00); Monocytes % (A) 3.7 %; Neutrophils # (A) 22.34 X 10*3/uL (1.80-7.70); Neutrophils % (A) 87.2 %
[2022-03-31] MEDS ORDERED: POTASSIUM CHLORIDE ER 20 MEQ TAB.ER PO STA (10:11)
--- NOTE | 2022-03-31 10:12 | P.NPCON ---
History of Present Illness - Reason for Consult acute renal failure - History of Present Illness Reason for consultation: Acute kidney injury History of present illness: Patient is a 76-year-old female seen in consultation for acute kidney injury. Patient baseline creatinine is near 1 and was 3.81 on admission. It is down to 2.9 today. Patient presented to the hospital due to generalized weakness. P atient states she was unable to get off the chair. Oral intake had been fair. She denies any vomiting or diarrhea. No chest pain or shortness of breath. She was febrile with temperature of 100.4F this admission. She denies use of nonsteroidals. She does have history of diabetes. Denies family history of renal disease. No history of heart disease. She does have chronic lymphedema. Patient does take multiple diuretics as well as angiotensin receptor billie at home which are all currently held. She did receive 1 L of normal saline bolus and then was started on normal saline at 1 30 mL an hour overnight. Fluids were discontinued early this morning. She has a Hernandez catheter and is nonoliguric. Vital signs are stable. General: Resting in bed. HEENT: Head exam is unremarkable. On nasal cannula. LUNGS: Breath sounds decreased. HEART: Rate and Rhythm are regular. ABDOMEN: Soft, obese. EXTREMITITES: Chronic lymphedema. No drainage. Past Medical History Past Medical History: Atrial Fibrillation, Hyperlipidemia, Hypertension Additional Past Medical History / Comment(s): PE ?; years ago, diabetes, pacemaker, obesity, hernia, History of Any Multi-Drug Resistant Organisms: None Reported Past Surgical History: Orthopedic Surgery Additional Past Surgical History / Comment(s): hernia,eye surgery,rt knee Past Anesthesia/Blood Transfusion Reactions: No Reported Reaction Past Psychological History: No Psychological Hx Reported Smoking Status: Former smoker Past Alcohol Use History: None Reported Past Drug Use History: None Reported - Past Family History Sister(s) Family Medical History: Congestive Heart Failure (CHF), Pulmonary Embolus Additional Family Medical History / Comment(s): gallbladder removed Medications and Allergies Home Medications Medication Instructions Recorded Confirmed Type Ascorbic Acid [Vitamin C] 500 mg PO DAILY 03/11/17 03/30/22 History Bimatoprost [Lumigan 0.01% Ophth 1 drop BOTH EYES HS 03/11/17 03/30/22 History Soln] Calcium Carbonate/Vitamin D3 1 tab PO HS 03/11/17 03/30/22 History [Calcium 600-Vit D3 400 Caplet] Multivitamins, Thera [Multivitamin 1 tab PO DAILY 03/11/17 03/30/22 History (formulary)] Aspirin 81 mg PO HS 01/26/20 03/30/22 History Diclofenac Sodium Gel [Voltaren 1 applic TOPICAL BID 01/26/20 03/30/22 History Gel] Apixaban [Eliquis] 5 mg PO BID #60 tab 01/30/20 03/30/22 Rx Atorvastatin Calcium [Lipitor] 20 mg PO HS #30 tab 01/30/20 03/30/22 Rx Losartan [Cozaar] 50 mg PO DAILY #60 tab 01/30/20 03/30/22 Rx Furosemide [Lasix] 40 mg PO DAILY 09/12/21 09/12/21 History Melatonin 5 mg PO HS 09/12/21 03/30/22 History Metoprolol Succinate (ER) [Toprol 100 mg PO DAILY 09/12/21 03/30/22 History XL] Potassium Chloride ER [K-Dur 20] 20 meq PO DAILY 09/12/21 03/30/22 History metFORMIN HCL [Glucophage] 500 mg PO BID 09/12/21 03/30/22 History metOLazone [Zaroxolyn] 5 mg PO BID 09/12/21 03/30/22 History Budesonide-Formot 160-4.5 Mcg 2 puff INHALATION RT-BID #1 each 09/14/21 03/30/22 Rx [Symbicort 160-4.5 Mcg Inhaler] Albuterol Inhaler [Ventolin Hfa 1 puff INHALATION RT-QID PRN 03/30/22 03/30/22 History Inhaler] Furosemide [Lasix] 40 mg PO BID 03/30/22 03/30/22 History hydrOXYzine HCL [Atarax] 25 mg PO DAILY 03/30/22 03/30/22 History Allergies Allergy/AdvReac Type Severity Reaction Status Date / Time No Known Allergies Allergy Verified 11/23/21 10:26 Physical Exam Vitals: Vital Signs Temp Pulse Pulse Resp BP BP Pulse Ox 03/31/22 09:14 98.2 F 95 19 121/79 94 L 03/31/22 07:30 95 18 03/31/22 02:00 98.9 F 95 18 114/76 96 03/30/22 20:00 100.4 F H 98 29 H 138/86 95 03/30/22 18:24 93 20 140/75 94 L 03/30/22 17:34 99.0 F 100 88 L 03/30/22 15:34 100 03/30/22 15:31 98.4 F 102 H 18 130/89 93 L Intake and Output 03/30/22 03/31/22 03/31/22 22:59 06:59 14:59 Output Total 1100 Balance -1100 Output: Urine 1100 Other: Voiding Method Indwelling Catheter Indwelling Catheter Weight 136.078 kg Results - Lab Results Most recent lab results Calcium 8.5 mg/dL (8.7-10.3) L 03/31/22 04:42 Magnesium 2.1 mg/dL (1.6-2.3) 03/30/22 15:56 03/31/22 04:42 03/31/22 04:42 Assessment and Plan Plan: Assessment: 1. Acute kidney injury mostly prerenal secondary to diuresis and further worsened with the use of angiotensin receptor billie. Creatinine was 3.8 on admission and is 2.9 today. Baseline creatinine 1 from August 2021. 2. Hypokalemia from diuresis. 3. Chronic lymphedema. 4. Lactic acidosis secondary to metformin. 5. Diabetes mellitus. 6. UTI on antibiotics. Plan: IV fluids discontinued. Hold off on diuretics for now. Encourage oral intake. Replace potassium. Follow-up cultures. Check renal ultrasound. Thank you for the consultation. I will continue to follow the patient with you during her hospital stay.
[2022-03-31] MEDS ORDERED: DEXTROSE 50% SYRINGE 50 ML IVP PRN ×2 (10:42)
--- NOTE | 2022-03-31 11:03 | P.PN ---
Subjective Progress Note Date: 03/31/22 Principal diagnosis: weakness Hospital Course: 76-year-old with history of Praxis [place] atrial fibrillation status post pacemaker, type 2 diabetes, hypertension, dyslipidemia presented for weakness. Initial labs showed leukocytosis, acute kidney injury, lactic acidosis, and UA consistent with UTI. Patient started on IV ceftriaxone, [facility] Nephro following. Subjective: Patient seen and examined at bedside. No acute events overnight. She claims that she normally uses 2 L oxygen at home. She denies any significant changes in her shortness of breath. She denies any chest pain, abdominal pain. She does complain of bilateral lower extremity weakness. She claims that she was able to walk at home with some assistance. She denies any significant urinary complaints. Pertinent positives and negatives as discussed above, a complete review of systems was performed and all other systems are negative. Vitals Signs Reviewed. General: nontoxic, no distress, appears at stated age, drowsy Derm: warm, dry Head: atraumatic, normocephalic, symmetric Eyes: EOMI, no lid lag, anicteric sclera Mouth: no lip lesion, mucus membranes moist Cardiovascular: S1S2 reg, no murmur Lungs: CTA bilateral, no rhonchi, no rales , no accessory muscle use, 2 L nasal cannula Abdominal: soft, nontender to palpation, no guarding, no appreciable organomegaly Ext: no gross muscle atrophy, trace peripheral edema, no contractures, 2/5 stre ngth in bilateral lower extremities Neuro: CN II-XI grossly intact, no focal neuro deficits Psych: Alert, oriented, appropriate affect Assessment and Plan: Severe sepsis secondary to UTI Generalized weakness -Continue IV ceftriaxone -Cultures pending -PT eval Prerenal DAIN - improving Cr -nephro consulted -holding diuretics Hypokalemia - replete and monitor DM - SSI Afib HTN HLD - continue home meds DVT ppx: eliquis Code status: Full code Anticipated discharge place: pending clinical course Anticipated discharge time: 2+ days Objective - Vital Signs Vital signs: Vital Signs Temp 98.2 F 03/31/22 09:14 Pulse 95 03/31/22 09:14 Resp 19 03/31/22 09:14 BP 121/79 03/31/22 09:14 Pulse Ox 94 L 03/31/22 09:14 FiO2 Intake & Output 03/30/22 03/31/22 03/31/22 18:59 06:59 18:59 Output Total 1100 Balance -1100 Weight 136.078 kg Output: Urine 1100 Other: Voiding Method Indwelling Catheter Indwelling Catheter - Labs CBC & Chem 7: 03/31/22 04:42 03/31/22 04:42 Labs: Abnormal Lab Results - Last 24 Hours (Table) 03/30/22 03/30/22 03/30/22 Range/Units 15:38 15:56 15:56 WBC 27.5 H (3.8-10.6) k/uL RBC (4.10-5.20) X 10*6/uL Hgb (12.0-15.0) g/dL Hct (37.2-46.3) % RDW (11.5-14.5) % Plt Count Comment MPV (9.5-12.2) fL Immature Gran # (0.00-0.04) X 10*3/uL Neutrophils # (1.80-7.70) X 10*3/uL Neutrophils # (Manual) 24.70 H (1.3-7.7) k/uL Eosinophils # (0.04-0.35) X 10*3/uL PT 12.2 H (9.0-12.0) sec INR 1.2 H (<1.2) APTT 21.4 L (22.0-30.0) sec Potassium (3.5-5.5) mmol/L Chloride (98-107) mmol/L BUN (7-17) mg/dL Creatinine (0.52-1.04) mg/dL Est GFR (CKD-EPI)AfAm (60.0-200.0) Est GFR (CKD-EPI)NonAf (60.0-200.0) BUN/Creatinine Ratio (12.00-20.00) Ratio Glucose (74-99) mg/dL POC Glucose (mg/dL) 260 H (70-110) mg/dL Plasma Lactic Acid Saul (0.7-2.0) mmol/L Calcium (8.7-10.3) mg/dL Total Bilirubin (0.2-1.3) mg/dL Urine Appearance (Clear) Urine Protein (Negative) Urine Blood (Negative) Ur Leukocyte Esterase (Negative) Urine WBC (0-5) /hpf Amorphous Sediment (None) /hpf Urine Bacteria (None) /hpf Hyaline Casts (0-2) /lpf Urine Mucus (None) /hpf 03/30/22 03/30/22 03/30/22 Range/Units 15:56 15:56 15:56 WBC (3.8-10.6) k/uL RBC (4.10-5.20) X 10*6/uL Hgb (12.0-15.0) g/dL Hct (37.2-46.3) % RDW (11.5-14.5) % Plt Count Comment MPV (9.5-12.2) fL Immature Gran # (0.00-0.04) X 10*3/uL Neutrophils # (1.80-7.70) X 10*3/uL Neutrophils # (Manual) (1.3-7.7) k/uL Eosinophils # (0.04-0.35) X 10*3/uL PT (9.0-12.0) sec INR (<1.2) APTT (22.0-30.0) sec Potassium (3.5-5.5) mmol/L Chloride 93 L (98-107) mmol/L BUN 107 H* (7-17) mg/dL Creatinine 3.81 H (0.52-1.04) mg/dL Est GFR (CKD-EPI)AfAm (60.0-200.0) Est GFR (CKD-EPI)NonAf (60.0-200.0) BUN/Creatinine Ratio (12.00-20.00) Ratio Glucose 232 H (74-99) mg/dL POC Glucose (mg/dL) (70-110) mg/dL Plasma Lactic Acid Saul 2.6 H* (0.7-2.0) mmol/L Calcium (8.7-10.3) mg/dL Total Bilirubin 2.1 H (0.2-1.3) mg/dL Urine Appearance Cloudy H (Clear) Urine Protein 1+ H (Negative) Urine Blood Small H (Negative) Ur Leukocyte Esterase Large H (Negative) Urine WBC 16 H (0-5) /hpf Amorphous Sediment Moderate H (None) /hpf Urine Bacteria Many H (None) /hpf Hyaline Casts 37 H (0-2) /lpf Urine Mucus Rare H (None) /hpf 03/31/22 03/31/22 Range/Units 04:42 04:42 WBC 25.63 H (3.8-10.6) k/uL RBC 3.16 L (4.10-5.20) X 10*6/uL Hgb 9.8 L (12.0-15.0) g/dL Hct 30.4 L (37.2-46.3) % RDW 14.7 H (11.5-14.5) % Plt Count Comment DECREASED A MPV 9.4 L (9.5-12.2) fL Immature Gran # 1.05 H (0.00-0.04) X 10*3/uL Neutrophils # 22.34 H (1.80-7.70) X 10*3/uL Neutrophils # (Manual) (1.3-7.7) k/uL Eosinophils # 0.01 L (0.04-0.35) X 10*3/uL PT (9.0-12.0) sec INR (<1.2) APTT (22.0-30.0) sec Potassium 3.4 L (3.5-5.5) mmol/L Chloride (98-107) mmol/L BUN 90.9 H (7-17) mg/dL Creatinine 2.9 H (0.52-1.04) mg/dL Est GFR (CKD-EPI)AfAm 17.4 L (60.0-200.0) Est GFR (CKD-EPI)NonAf 15.0 L (60.0-200.0) BUN/Creatinine Ratio 31.34 H (12.00-20.00) Ratio Glucose 174 H (74-99) mg/dL POC Glucose (mg/dL) (70-110) mg/dL Plasma Lactic Acid Saul (0.7-2.0) mmol/L Calcium 8.5 L (8.7-10.3) mg/dL Total Bilirubin (0.2-1.3) mg/dL Urine Appearance (Clear) Urine Protein (Negative) Urine Blood (Negative) Ur Leukocyte Esterase (Negative) Urine WBC (0-5) /hpf Amorphous Sediment (None) /hpf Urine Bacteria (None) /hpf Hyaline Casts (0-2) /lpf Urine Mucus (None) /hpf Microbiology - Last 24 Hours (Table) 03/30/22 15:56 Urine Culture - Preliminary Urine,Voided
--- NOTE | 2022-03-31 11:38 | US ---
EXAMINATION TYPE: US kidneys/renal and bladder DATE OF EXAM: 03/31/2022 COMPARISON: CLINICAL HISTORY: davy. abnormal labs. Patient has bladder floyd. EXAM MEASUREMENTS: Right Kidney: 11.9 x 4.9 x 4.7 cm Left Kidney: 12.8 x 4.8 x 6.5 cm Right Kidney: Lower pole cyst = 3.9 x 3.5 x 3.7 cm Left Kidney: Medial anechoic lesion at hilum = 2.8 x 1.8 cm Bladder: not well seen due to bladder floyd Bilateral Jets not visualized due to bladder floyd IMPRESSION: 1. No hydronephrosis or nephrolithiasis. Suspect bilateral renal cysts.
[2022-03-31 12:36] VITALS: BMI 56.7
[2022-03-31 13:24] LABS: Glucose,Whole Blood 250 mg/dL (70-110)
[2022-03-31] MEDS: INSULIN ASPART (NovoLOG) 100 UNIT/ML VIAL SQ SCH ×3 (14:11→21:55)
[2022-03-31 16:45] LABS: Glucose,Whole Blood 209 mg/dL (70-110)
[2022-03-31 20:04] LABS: Glucose,Whole Blood 273 mg/dL (70-110)
[2022-03-31 21:46] LABS: Glucose,Whole Blood 223 mg/dL (70-110)
[2022-03-31] MEDS: CALCIUM CARB-VIT D 500 MG-5 MCG TAB PO SCH (21:55)
[2022-03-31] MEDS: MELATONIN 5 MG TABLET PO SCH (21:55)
[2022-03-31] MEDS: ASPIRIN 81 MG PO SCH (21:55)
[2022-03-31] MEDS: ATORVASTATIN 20 MG TAB PO SCH (21:55)
[2022-03-31] MEDS: LATANOPROST 0.005% OPHTH DROPS 2.5 ML BTL BOTH EYES SCH (21:56)
[2022-03-31] MEDS: ACETAMINOPHEN TAB 325 MG TAB PO PRN (23:26)
[2022-04-01 06:06] LABS: Glucose,Whole Blood 196 mg/dL (70-110)
[2022-04-01] MEDS: INSULIN ASPART (NovoLOG) 100 UNIT/ML VIAL SQ SCH ×4 (07:15→21:39)
[2022-04-01] MEDS: SYMBICORT 160-4.5 MCG INHALER INHALATION SCH ×2 (07:25→20:47)
[2022-04-01] MEDS ORDERED: bisacodyL 10 MG SUPP RECTAL STA (08:38)
[2022-04-01] MEDS ORDERED: HYDROmorphone 2 MG TAB PO STA (08:52)
[2022-04-01] MEDS: APIXABAN 5 MG TAB PO SCH ×2 (09:34→21:38)
[2022-04-01] MEDS: METOPROLOL SUCCINATE (ER) 100 MG TAB.ER.24H PO SCH (09:34)
[2022-04-01] MEDS: polyethylene glycoL 3350 17 GM POWD.PACK PO SCH (09:34)
[2022-04-01] MEDS: ASCORBIC ACID 500 MG TAB PO SCH (09:36)
[2022-04-01] MEDS: MULTIVITAMINS, THERA 1 EACH TAB PO SCH (09:36)
--- NOTE | 2022-04-01 10:15 | P.PN ---
Subjective Patient is seen in follow-up for acute kidney injury. Has Hernandez catheter for retention. Nonoliguric. Blood pressure stable. Oral intake fair. On 3 L is a cannula. Denies chest pain or shortness of breath. Vital signs are stable. General: Awake. No acute distress. HEENT: Head exam is unremarkable. LUNGS: Breath sounds decreased. HEART: Rate and Rhythm are regular. ABDOMEN: Soft, obese. EXTREMITITES: 1+ edema. Chronic lymphedema. Objective - Vital Signs Vital signs: Vital Signs Temp 97.7 F 04/01/22 02:00 Pulse 99 04/01/22 07:35 Resp 18 04/01/22 07:35 BP 112/73 04/01/22 07:35 Pulse Ox 92 L 04/01/22 07:35 FiO2 21 03/31/22 20:58 Intake & Output 03/31/22 04/01/22 04/01/22 18:59 06:59 18:59 Output Total 600 950 Balance -600 -950 Weight 136.078 kg Output: Urine 600 950 Uretheral (Hernandez) 600 Other: Voiding Method Indwelling Catheter Indwelling Catheter - Labs CBC & Chem 7: 03/31/22 04:42 03/31/22 04:42 Labs: Abnormal Lab Results - Last 24 Hours (Table) 03/31/22 03/31/22 03/31/22 Range/Units 04:42 13:22 16:44 POC Glucose (mg/dL) 250 H 209 H (70-110) mg/dL Hemoglobin A1c 7.0 H (0.0-6.0) % 03/31/22 03/31/22 04/01/22 Range/Units 20:02 21:44 06:05 POC Glucose (mg/dL) 273 H 223 H 196 H (70-110) mg/dL Hemoglobin A1c (0.0-6.0) % Microbiology - Last 24 Hours (Table) 03/30/22 18:00 Blood Culture - Preliminary Blood No Growth after 24 hours 03/30/22 15:56 Urine Culture - Preliminary Urine,Voided Gram Neg Bacilli Assessment and Plan Plan: Assessment: 1. Acute kidney injury mostly prerenal secondary to diuresis and further worsened with the use of angiotensin receptor billie. Creatinine was 3.8 on admission - 2.9 yesterday. Baseline creatinine 1 from August 2021. No hydronep hrosis noted on kidney ultrasound. 2. Hypokalemia from diuresis. Replaced. 3. Chronic lymphedema. 4. Lactic acidosis secondary to metformin. Improved. 5. Diabetes mellitus. 6. UTI on antibiotics. Urine culture positive for gram-negative bacilli. 7. Urinary retention. Currently has Hernandez catheter. Plan: Encouraged oral intake. Follow-up cultures. Repeat CXR. Add Flomax. Trial of void in the next 1-2 days.
--- NOTE | 2022-04-01 11:05 | P.CONS ---
History of Present Illness - Reason for Consult Consult date: 04/01/22 wound care - History of Present Illness This is a 76-year-old patient with history of lymphedema who sees the lymphedema clinic on a regular basis. Who has nonhealing ulcerations to bilateral lower extremity posterior aspect. Patient states that she did not know the ulcerations have been there until she came to the hospital. She is unsure of how long they've been there. She previously had similar ulceration options and were treated in the wound care center over the summer. At this time patient has a ulceration to the right lower extremity posterior aspect measuring up rectally 1.7 x 1.5 x 0.1 cm Limited to skin breakdown with granulation noted and minimal slough. The left lower extremity ulceration posterior aspect is 3 x 4 x 0.1 cm with fat layer exposure with granulation and minimal slough. The wound edges are attached to the wound base. Both lower extremities is edematous. Review Of Systems: Constitutional: No fever, no chills, no night sweats. No weight change. No weakness, fatigue or lethargy. No daytime sleepiness. Integumentary:reports wounds, no lesions. No rash or pruritus. No unusual bruising. No change in hair or nails. Physical exam: General Appearance: Alert, cooperative, no distress, appears stated age. Skin: See HPI all other Skin color, texture, tugor normal, no rashes or lesions. Neurologic: Alert oriented x3 Assessment: 1. Lymphedema 2. Nonhealing ulceration to calf with fat layer exposure left lower extremity 2. Nonhealing ulceration to Limited to skin breakdown right lower extremity 3. Diabetes with skin ulcer Plan: 1. Apply absorptive silver, saline moistened gauze, dry gauze, rolled gauze and secure with paper tape. Change Thursday. Discussed with patient the importance of continue with the lymphedema clinic and [facility]. Patient states that this time she cannot make any decisions due to her home situation. We will be happy to see the patient upon discharge if she chooses to come. Thank you for the consultation any questions please contact the wound care center DNP note has been reviewed and discussed with Dr. Phelps and the impression and plan of care has been directed as dictated. Past Medical History Past Medical History: Atrial Fibrillation, Hyperlipidemia, Hypertension Additional Past Medical History / Comment(s): PE ?; years ago, diabetes, pacemaker, obesity, hernia, History of Any Multi-Drug Resistant Organisms: None Reported Past Surgical History: Orthopedic Surgery Additional Past Surgical History / Comment(s): hernia,eye surgery,rt knee Past Anesthesia/Blood Transfusion Reactions: No Reported Reaction Past Psychological History: No Psychological Hx Reported Smoking Status: Former smoker Past Alcohol Use History: None Reported Past Drug Use History: None Reported - Past Family History Sister(s) Family Medical History: Congestive Heart Failure (CHF), Pulmonary Embolus Additional Family Medical History / Comment(s): gallbladder removed Medications and Allergies Home Medications Medication Instructions Recorded Confirmed Type Ascorbic Acid [Vitamin C] 500 mg PO DAILY 03/11/17 03/30/22 History Bimatoprost [Lumigan 0.01% Ophth 1 drop BOTH EYES HS 03/11/17 03/30/22 History Soln] Calcium Carbonate/Vitamin D3 1 tab PO HS 03/11/17 03/30/22 History [Calcium 600-Vit D3 400 Caplet] Multivitamins, Thera [Multivitamin 1 tab PO DAILY 03/11/17 03/30/22 History (formulary)] Aspirin 81 mg PO HS 01/26/20 03/30/22 History Diclofenac Sodium Gel [Voltaren 1 applic TOPICAL BID 01/26/20 03/30/22 History Gel] Apixaban [Eliquis] 5 mg PO BID #60 tab 01/30/20 03/30/22 Rx Atorvastatin Calcium [Lipitor] 20 mg PO HS #30 tab 01/30/20 03/30/22 Rx Losartan [Cozaar] 50 mg PO DAILY #60 tab 01/30/20 03/30/22 Rx Furosemide [Lasix] 40 mg PO DAILY 09/12/21 09/12/21 History Melatonin 5 mg PO HS 09/12/21 03/30/22 History Metoprolol Succinate (ER) [Toprol 100 mg PO DAILY 09/12/21 03/30/22 History XL] Potassium Chloride ER [K-Dur 20] 20 meq PO DAILY 09/12/21 03/30/22 History metFORMIN HCL [Glucophage] 500 mg PO BID 09/12/21 03/30/22 History metOLazone [Zaroxolyn] 5 mg PO BID 09/12/21 03/30/22 History Budesonide-Formot 160-4.5 Mcg 2 puff INHALATION RT-BID #1 each 09/14/21 03/30/22 Rx [Symbicort 160-4.5 Mcg Inhaler] Albuterol Inhaler [Ventolin Hfa 1 puff INHALATION RT-QID PRN 03/30/22 03/30/22 History Inhaler] Furosemide [Lasix] 40 mg PO BID 03/30/22 03/30/22 History hydrOXYzine HCL [Atarax] 25 mg PO DAILY 03/30/22 03/30/22 History Allergies Allergy/AdvReac Type Severity Reaction Status Date / Time No Known Allergies Allergy Verified 11/23/21 10:26 Physical Exam Vitals: Vital Signs Temp Pulse Pulse Resp BP Pulse Ox FiO2 04/01/22 07:35 99 18 112/73 92 L 04/01/22 02:00 97.7 F 89 19 105/69 92 L 03/31/22 20:58 94 L 21 03/31/22 20:00 97.8 F 79 21 96/62 95 Intake and Output 03/31/22 04/01/22 04/01/22 22:59 06:59 14:59 Output Total 600 950 Balance -600 -950 Output: Urine 600 950 Uretheral (Hernandez) 600 Other: Voiding Method Indwelling Catheter Results CBC & Chem 7: 03/31/22 04:42 03/31/22 04:42 Labs: Abnormal Lab Results - Last 24 Hours (Table) 03/31/22 03/31/22 03/31/22 Range/Units 04:42 13:22 16:44 POC Glucose (mg/dL) 250 H 209 H (70-110) mg/dL Hemoglobin A1c 7.0 H (0.0-6.0) % 03/31/22 03/31/22 04/01/22 Range/Units 20:02 21:44 06:05 POC Glucose (mg/dL) 273 H 223 H 196 H (70-110) mg/dL Hemoglobin A1c (0.0-6.0) % Microbiology - Last 24 Hours (Table) 03/30/22 17:45 Blood Culture - Preliminary Blood No Growth after 24 hours 03/30/22 18:00 Blood Culture - Preliminary Blood No Growth after 24 hours 03/30/22 15:56 Urine Culture - Preliminary Urine,Voided Gram Neg Bacilli Assessment and Plan (1) Lymphedema Current Visit: Yes Status: Acute Code(s): I89.0 - LYMPHEDEMA, NOT ELSEWHERE CLASSIFIED SNOMED Code(s): 855593959 (2) Non-pressure chronic ulcer of left calf with fat layer exposed Current Visit: Yes Status: Acute Code(s): L97.222 - NON-PRESSURE CHRONIC ULCER OF LEFT CALF W FAT LAYER EXPOSED SNOMED Code(s): 99408304331476459 (3) Non-pressure chronic ulcer of right calf limited to breakdown of skin Current Visit: Yes Status: Acute Code(s): L97.211 - NON-PRS CHRONIC ULCER OF RIGHT CALF LIMITED TO BRKDWN SKIN SNOMED Code(s): 06595089174092994 (4) Type 2 diabetes mellitus with other skin ulcer Current Visit: Yes Status: Acute Code(s): E11.622 - TYPE 2 DIABETES MELLITUS WITH OTHER SKIN ULCER; L98.499 - NON-PRESSURE CHRONIC ULCER OF SKIN OF SITES W UNSP SEVERITY SNOMED Code(s): 834827713
[2022-04-01 11:16] LABS: Glucose,Whole Blood 257 mg/dL (70-110)
--- NOTE | 2022-04-01 11:22 | P.PN ---
Subjective Progress Note Date: 04/01/22 Principal diagnosis: weakness Hospital Course: 76-year-old with history of paroxysmal atrial fibrillation status post pacemaker, type 2 diabetes, hypertension, dyslipidemia presented for weakness. Initial labs showed leukocytosis, acute kidney injury, lactic acidosis, and UA consistent with UTI. Patient started on IV ceftriaxone, then admitted for further workup. Nephro following. Renal function improving. Subjective: Patient seen and examined at bedside. No acute events overnight. She denies any significant changes in her shortness of breath. She denies any chest pain, abdominal pain. She continues to have a Hernandez catheter in place. Patient still having significant weakness in her lower extremities. She has also noticed pressure wound on her calves, present on admission.. Pertinent positives and negatives as discussed above, a complete review of systems was performed and all other systems are negative. Vitals Signs Reviewed. General: nontoxic, no distress, appears at stated age Derm: warm, dry Head: atraumatic, normocephalic, symmetric Eyes: EOMI, no lid lag, anicteric sclera Mouth: no lip lesion, mucus membranes moist Cardiovascular: S1S2 reg, no murmur Lungs: CTA bilateral, no rhonchi, no rales , no accessory muscle use Abdominal: soft, nontender to palpation, no guarding, no appreciable organomegaly Ext: no gross muscle atrophy, trace peripheral edema, no contractures, 2/5 strength in bilateral lower extremities Neuro: CN II-XI grossly intact, no focal neuro deficits Psych: Alert, oriented, appropriate affect Assessment and Plan: Severe sepsis secondary to UTI Lactic acidosis Generalized weakness -Continue IV ceftriaxone -Blood cultures, no growth to date -Urine cultures growing gram-negative bacilli -PT eval Prerenal DAIN -improving Cr -nephro consulted -holding diuretics Urinary retention -Has Hernandez catheter, voiding trial in 1-2 days -flomax added Hypokalemia - Repeat BMP pending DM - SSI Afib HTN HLD - continue home meds DVT ppx: eliquis Code status: Full code Anticipated discharge place: pending clinical course, likely [facility] rehab Anticipated discharge time: 2+ days Objective - Vital Signs Vital signs: Vital Signs Temp 97.7 F 04/01/22 02:00 Pulse 99 04/01/22 07:35 Resp 18 04/01/22 07:35 BP 112/73 04/01/22 07:35 Pulse Ox 92 L 04/01/22 07:35 FiO2 21 03/31/22 20:58 Intake & Output 03/31/22 04/01/22 04/01/22 18:59 06:59 18:59 Output Total 600 950 Balance -600 -950 Weight 136.078 kg Output: Urine 600 950 Uretheral (Hernandez) 600 Other: Voiding Method Indwelling Catheter Indwelling Catheter - Labs CBC & Chem 7: 03/31/22 04:42 03/31/22 04:42 Labs: Abnormal Lab Results - Last 24 Hours (Table) 03/31/22 03/31/22 03/31/22 Range/Units 04:42 13:22 16:44 POC Glucose (mg/dL) 250 H 209 H (70-110) mg/dL Hemoglobin A1c 7.0 H (0.0-6.0) % 03/31/22 03/31/22 04/01/22 Range/Units 20:02 21:44 06:05 POC Glucose (mg/dL) 273 H 223 H 196 H (70-110) mg/dL Hemoglobin A1c (0.0-6.0) % Microbiology - Last 24 Hours (Table) 03/30/22 17:45 Blood Culture - Preliminary Blood No Growth after 24 hours 03/30/22 18:00 Blood Culture - Preliminary Blood No Growth after 24 hours 03/30/22 15:56 Urine Culture - Preliminary Urine,Voided Gram Neg Bacilli
[2022-04-01 11:47] LABS: African American GFR (CKD) 26.4 (60.0-200.0); Anion Gap 15.5 mmol/L (10.00-18.00); BUN/Creat Ratio 37.37 Ratio (12.00-20.00); Blood Urea Nitrogen 76.6 mg/dL (9.0-27.0); Calcium 8.6 mg/dL (8.7-10.3); Magnesium 2.1 mg/dL (1.5-2.4); Non-African American GFR(CKD) 22.8 (60.0-200.0); Potassium 3.8 mmol/L (3.5-5.5)
[2022-04-01 16:43] LABS: Glucose,Whole Blood 304 mg/dL (70-110)
[2022-04-01] MEDS: TAMSULOSIN 0.4 MG CAP.ER.24H PO SCH (17:19)
--- NOTE | 2022-04-01 18:42 | XR ---
EXAMINATION TYPE: XR chest 1V DATE OF EXAM: 04/01/2022 COMPARISON: 03/30/2022 HISTORY: Short of breath TECHNIQUE: FINDINGS: There is no heart failure or confluent pneumonic infiltrate. Heart appears slightly enlarge d. There is left axillary pacemaker. No pleural effusion. There are chest leads. IMPRESSION: Cardiomegaly. No heart failure seen. No change.
[2022-04-01 21:30] LABS: Glucose,Whole Blood 202 mg/dL (70-110)
[2022-04-01] MEDS: CALCIUM CARB-VIT D 500 MG-5 MCG TAB PO SCH (21:38)
[2022-04-01] MEDS: LATANOPROST 0.005% OPHTH DROPS 2.5 ML BTL BOTH EYES SCH (21:38)
[2022-04-01] MEDS: ATORVASTATIN 20 MG TAB PO SCH (21:38)
[2022-04-01] MEDS: ASPIRIN 81 MG PO SCH (21:38)
[2022-04-01] MEDS: MELATONIN 5 MG TABLET PO SCH (21:39)
[2022-04-02 07:22] LABS: Glucose,Whole Blood 171 mg/dL (70-110)
[2022-04-02] MEDS: INSULIN ASPART (NovoLOG) 100 UNIT/ML VIAL SQ SCH ×4 (07:32→21:46)
[2022-04-02] MEDS: SYMBICORT 160-4.5 MCG INHALER INHALATION SCH ×2 (09:16→19:38)
--- NOTE | 2022-04-02 09:36 | P.PN ---
Subjective Patient is seen in follow-up for acute kidney injury. Has Hernandez catheter for retention. Nonoliguric. Blood pressure stable. Oral intake fair. On room air. Sitting up in chair. Denies chest pain or shortness of breath. Vital signs are stable. General: Awake. No acute distress. HEENT: Head exam is unremarkable. LUNGS: Breath sounds decreased. HEART: Rate and Rhythm are regular. ABDOMEN: Soft, obese. EXTREMITITES: 1+ edema. Chronic lymphedema. Objective - Vital Signs Vital signs: Vital Signs Temp 97.9 F 04/02/22 02:00 Pulse 93 04/02/22 02:00 Resp 18 04/02/22 02:00 BP 96/67 04/02/22 02:00 Pulse Ox 96 04/02/22 09:17 FiO2 21 03/31/22 20:58 Intake & Output 04/01/22 04/02/22 04/02/22 18:59 06:59 18:59 Output Total 550 450 Balance -550 -450 Output: Urine 550 450 Other: Voiding Method Indwelling Catheter Indwelling Catheter - Labs CBC & Chem 7: 03/31/22 04:42 04/01/22 07:48 Labs: Abnormal Lab Results - Last 24 Hours (Table) 04/01/22 04/01/22 04/01/22 Range/Units 07:48 11:13 16:38 BUN 76.6 H (9.0-27.0) mg/dL Creatinine 2.1 H (0.6-1.5) mg/dL Est GFR (CKD-EPI)AfAm 26.4 L (60.0-200.0) Est GFR (CKD-EPI)NonAf 22.8 L (60.0-200.0) BUN/Creatinine Ratio 37.37 H (12.00-20.00) Ratio Glucose 193 H (70-110) mg/dL POC Glucose (mg/dL) 257 H 304 H (70-110) mg/dL Calcium 8.6 L (8.7-10.3) mg/dL 04/01/22 04/02/22 Range/Units 21:29 07:21 BUN (9.0-27.0) mg/dL Creatinine (0.6-1.5) mg/dL Est GFR (CKD-EPI)AfAm (60.0-200.0) Est GFR (CKD-EPI)NonAf (60.0-200.0) BUN/Creatinine Ratio (12.00-20.00) Ratio Glucose (70-110) mg/dL POC Glucose (mg/dL) 202 H 171 H (70-110) mg/dL Calcium (8.7-10.3) mg/dL Microbiology - Last 24 Hours (Table) 03/30/22 18:00 Blood Culture - Preliminary Blood No Growth after 48 hours 03/30/22 15:56 Urine Culture - Final Urine,Voided Escherichia coli 03/30/22 17:45 Blood Culture - Preliminary Blood No Growth after 24 hours Assessment and Plan Plan: Assessment: 1. Acute kidney injury mostly prerenal secondary to severe sepsis, diuresis and further worsened with the use of angiotensin receptor billie. Creatinine was 3.8 on admission - 2.1 yesterday. Baseline creatinine 1 from August 2021. No hydronephrosis noted on kidney ultrasound. 2. Hypokalemia from diuresis. Replaced. Improved. 3. Chronic lymphedema. 4. Lactic acidosis secondary to metformin. Improved. 5. Diabetes mellitus. 6. UTI on antibiotics. Urine culture positive for E. coli. 7. Urinary retention. Currently has Hernandez catheter. On Flomax. Plan: Encouraged oral intake. Add Lasix 40 mg orally once daily. Plan for trial avoid tomorrow. Continue to hold losartan for now.
[2022-04-02] MEDS: polyethylene glycoL 3350 17 GM POWD.PACK PO SCH (10:00)
[2022-04-02] MEDS: FUROSEMIDE 40 MG TAB PO SCH (10:01)
[2022-04-02] MEDS: APIXABAN 5 MG TAB PO SCH ×2 (10:01→21:46)
[2022-04-02] MEDS: MULTIVITAMINS, THERA 1 EACH TAB PO SCH (10:02)
[2022-04-02] MEDS: ASCORBIC ACID 500 MG TAB PO SCH (10:02)
[2022-04-02] MEDS: METOPROLOL SUCCINATE (ER) 100 MG TAB.ER.24H PO SCH (10:02)
[2022-04-02 11:30] LABS: Basophils # (A) 0.07 X 10*3/uL (0.00-0.10); Basophils % (A) 0.3 %; Eosinophils # (A) 0.21 X 10*3/uL (0.04-0.35); Eosinophils % (A) 0.9 %; HCT 30.4 % (37.2-46.3); HGB 9.8 g/dL (12.0-15.0); Immature Grans, Automated 1.7 %; Lymphocytes # (A) 1.95 X 10*3/uL (0.90-5.00); Lymphocytes % (A) 8.7 %; MCHC 32.2 g/dL (32.0-37.0); MCV 96.2 fL (80.0-97.0); Mean Platelet Volume 9.9 fL (9.5-12.2); Monocytes # (A) 0.99 X 10*3/uL (0.20-1.00); Monocytes % (A) 4.4 %; NRBC Per 100 WBC 0 /100 WBCS (0.0-0.0); Neutrophils # (A) 18.81 X 10*3/uL (1.80-7.70); Platelet Count 292 X 10*3/uL (140-440); RBC 3.16 X 10*6/uL (4.10-5.20); RDW 14.4 % (11.5-14.5); WBC 22.41 X 10*3/uL (4.50-10.00)
[2022-04-02 11:31] LABS: Anion Gap 11.1 mmol/L (10.00-18.00); BUN/Creat Ratio 37.74 Ratio (12.00-20.00); Blood Urea Nitrogen 71.7 mg/dL (9.0-27.0); Calcium 8.3 mg/dL (8.7-10.3); Carbon Dioxide 25.9 mmol/L (20.0-27.5); Magnesium 1.9 mg/dL (1.5-2.4); Potassium 3.6 mmol/L (3.5-5.5)
--- NOTE | 2022-04-02 11:42 | P.PN ---
Subjective Progress Note Date: 04/02/22 Principal diagnosis: weakness Hospital Course: 76-year-old with history of paroxysmal atrial fibrillation status post pacemaker, type 2 diabetes, hypertension, dyslipidemia presented for weakness. Initial labs showed leukocytosis, acute kidney injury, lactic acidosis, and UA consistent with UTI. Patient started on IV ceftriaxone, then admitted for further workup. Nephro following. Renal function improving. Subjective: Patient seen and examined at bedside. No acute events overnight. She denies any significant changes in her shortness of breath. She denies any chest pain, abdominal pain. She continues to have a Hernandez catheter in place. Patient still having significant weakness in her lower extremities. Pertinent positives and negatives as discussed above, a complete review of systems was performed and all other systems are negative. Vitals Signs Reviewed. General: nontoxic, no distress, appears at stated age Derm: warm, dry Head: atraumatic, normocephalic, symmetric Eyes: EOMI, no lid lag, anicteric sclera Mouth: no lip lesion, mucus membranes moist Cardiovascular: S1S2 reg, no murmur Lungs: CTA bilateral, no rhonchi, no rales , no accessory muscle use Abdominal: soft, nontender to palpation, no guarding, no appreciable org anomegaly Ext: no gross muscle atrophy, peripheral edema, no contractures, 2/5 strength in bilateral lower extremities Neuro: CN II-XI grossly intact, no focal neuro deficits Psych: Alert, oriented, appropriate affect Assessment and Plan: Severe sepsis secondary to UTI - resolving Lactic acidosis - resolved Generalized weakness -Continue IV ceftriaxone -Blood cultures, no growth to date -Urine cultures growing E coli sensitive to ceftriaxone -PT eval Prerenal DAIN -improving Cr -nephro consulted -added back PO lasix today -holding losartan Urinary retention -Has Hernandez catheter, voiding trial in 1-2 days -flomax added Hypokalemia - resolved DM - SSI Afib HTN - hold losartan and metolazone HLD - continue home meds DVT ppx: eliquis Code status: Full code Anticipated discharge place: pending clinical course, likely [facility] rehab Anticipated discharge time: 2+ days Objective - Vital Signs Vital signs: Vital Signs Temp 98.0 F 04/02/22 07:56 Pulse 88 04/02/22 07:56 Resp 16 04/02/22 07:56 BP 91/59 04/02/22 07:56 Pulse Ox 96 04/02/22 09:17 FiO2 21 03/31/22 20:58 Intake & Output 04/01/22 04/02/22 04/02/22 18:59 06:59 18:59 Output Total 550 450 Balance -550 -450 Output: Urine 550 450 Other: Voiding Method Indwelling Catheter Indwelling Catheter Indwelling Catheter - Labs CBC & Chem 7: 04/02/22 05:51 04/02/22 05:51 Labs: Abnormal Lab Results - Last 24 Hours (Table) 04/01/22 04/01/22 04/01/22 Range/Units 07:48 16:38 21:29 WBC (4.50-10.00) X 10*3/uL RBC (4.10-5.20) X 10*6/uL Hgb (12.0-15.0) g/dL Hct (37.2-46.3) % Immature Gran # (0.00-0.04) X 10*3/uL Neutrophils # (1.80-7.70) X 10*3/uL Sodium (135-145) mmol/L Chloride (96-109) mmol/L BUN 76.6 H (9.0-27.0) mg/dL Creatinine 2.1 H (0.6-1.5) mg/dL Est GFR (CKD-EPI)AfAm 26.4 L (60.0-200.0) Est GFR (CKD-EPI)NonAf 22.8 L (60.0-200.0) BUN/Creatinine Ratio 37.37 H (12.00-20.00) Ratio Glucose 193 H (70-110) mg/dL POC Glucose (mg/dL) 304 H 202 H (70-110) mg/dL Calcium 8.6 L (8.7-10.3) mg/dL 04/02/22 04/02/22 04/02/22 Range/Units 05:51 05:51 07:21 WBC 22.41 H (4.50-10.00) X 10*3/uL RBC 3.16 L (4.10-5.20) X 10*6/uL Hgb 9.8 L (12.0-15.0) g/dL Hct 30.4 L (37.2-46.3) % Immature Gran # 0.38 H (0.00-0.04) X 10*3/uL Neutrophils # 18.81 H (1.80-7.70) X 10*3/uL Sodium 132 L (135-145) mmol/L Chloride 95 L (96-109) mmol/L BUN 71.7 H (9.0-27.0) mg/dL Creatinine 1.9 H (0.6-1.5) mg/dL Est GFR (CKD-EPI)AfAm 29.0 L (60.0-200.0) Est GFR (CKD-EPI)NonAf 25.0 L (60.0-200.0) BUN/Creatinine Ratio 37.74 H (12.00-20.00) Ratio Glucose 153 H (70-110) mg/dL POC Glucose (mg/dL) 171 H (70-110) mg/dL Calcium 8.3 L (8.7-10.3) mg/dL Microbiology - Last 24 Hours (Table) 03/30/22 17:45 Blood Culture - Preliminary Blood No Growth after 48 hours 03/30/22 18:00 Blood Culture - Preliminary Blood No Growth after 48 hours 03/30/22 15:56 Urine Culture - Final Urine,Voided Escherichia coli
[2022-04-02 11:55] LABS: Glucose,Whole Blood 262 mg/dL (70-110)
[2022-04-02] MEDS ORDERED: POTASSIUM CHLORIDE ER 20 MEQ TAB.ER PO STA (12:52)
[2022-04-02] MEDS: TAMSULOSIN 0.4 MG CAP.ER.24H PO SCH (15:00)
[2022-04-02 17:13] LABS: Glucose,Whole Blood 322 mg/dL (70-110)
[2022-04-02 21:28] LABS: Glucose,Whole Blood 234 mg/dL (70-110)
[2022-04-02] MEDS: ASPIRIN 81 MG PO SCH (21:46)
[2022-04-02] MEDS: CALCIUM CARB-VIT D 500 MG-5 MCG TAB PO SCH (21:46)
[2022-04-02] MEDS: MELATONIN 5 MG TABLET PO SCH (21:46)
[2022-04-02] MEDS: ATORVASTATIN 20 MG TAB PO SCH (21:46)
[2022-04-02] MEDS: LATANOPROST 0.005% OPHTH DROPS 2.5 ML BTL BOTH EYES SCH (23:06)
[2022-04-03 02:07] VITALS: RESP 16
[2022-04-03 06:19] LABS: Glucose,Whole Blood 249 mg/dL (70-110)
[2022-04-03] MEDS: INSULIN ASPART (NovoLOG) 100 UNIT/ML VIAL SQ SCH ×2 (07:01→12:18)
[2022-04-03] MEDS: SYMBICORT 160-4.5 MCG INHALER INHALATION SCH (07:24)
[2022-04-03 08:28] VITALS: BP 106/72; PULSE 93; TEMP 97.7
[2022-04-03] MEDS: METOPROLOL SUCCINATE (ER) 100 MG TAB.ER.24H PO SCH (09:29)
[2022-04-03] MEDS: FUROSEMIDE 40 MG TAB PO SCH (09:29)
[2022-04-03] MEDS: MULTIVITAMINS, THERA 1 EACH TAB PO SCH (09:29)
[2022-04-03] MEDS: ASCORBIC ACID 500 MG TAB PO SCH (09:29)
[2022-04-03] MEDS: polyethylene glycoL 3350 17 GM POWD.PACK PO SCH (09:30)
[2022-04-03] MEDS: APIXABAN 5 MG TAB PO SCH (09:30)
[2022-04-03 09:31] LABS: African American GFR (CKD) 27.2 (60.0-200.0); Anion Gap 16.9 mmol/L (10.00-18.00); BUN/Creat Ratio 38.05 Ratio (12.00-20.00); Blood Urea Nitrogen 76.1 mg/dL (9.0-27.0); Calcium 9.4 mg/dL (8.7-10.3); Carbon Dioxide 20.1 mmol/L (20.0-27.5); Non-African American GFR(CKD) 23.5 (60.0-200.0); Potassium 4.4 mmol/L (3.5-5.5)
--- NOTE | 2022-04-03 09:40 | P.PN ---
Subjective Patient is seen in follow-up for acute kidney injury. Has Hernandez catheter for retention. Nonoliguric. Blood pressure stable. Oral intake fair. On room air. Sitting up in chair. Denies chest pain or shortness of breath. Renal function stable. Vital signs are stable. General: Awake. No acute distress. HEENT: Head exam is unremarkable. LUNGS: Breath sounds decreased. HEART: Rate and Rhythm are regular. ABDOMEN: Soft, obese. EXTREMITITES: 1+ edema. Chronic lymphedema. Objective - Vital Signs Vital signs: Vital Signs Temp 97.7 F 04/03/22 08:00 Pulse 93 04/03/22 08:00 Resp 16 04/03/22 08:00 BP 106/72 04/03/22 08:00 Pulse Ox 95 04/03/22 08:00 FiO2 21 04/03/22 07:35 Intake & Output 04/02/22 04/03/22 04/03/22 18:59 06:59 18:59 Intake Total 100 Output Total 700 Balance 100 -700 Intake: Intake, IV Titration 100 Amount cefTRIAXone 2 gm In 100 Sodium Chloride 0.9% 50 ml @ 100 mls/hr IVPB Q24H [facility] Rx#:[id number] Output: Urine 700 Other: Voiding Method Indwelling Catheter Indwelling Catheter - Labs CBC & Chem 7: 04/02/22 05:51 04/03/22 06:22 Labs: Abnormal Lab Results - Last 24 Hours (Table) 04/02/22 04/02/22 04/02/22 Range/Units 05:51 05:51 11:54 WBC 22.41 H (4.50-10.00) X 10*3/uL RBC 3.16 L (4.10-5.20) X 10*6/uL Hgb 9.8 L (12.0-15.0) g/dL Hct 30.4 L (37.2-46.3) % Immature Gran # 0.38 H (0.00-0.04) X 10*3/uL Neutrophils # 18.81 H (1.80-7.70) X 10*3/uL Sodium 132 L (135-145) mmol/L Chloride 95 L (96-109) mmol/L BUN 71.7 H (9.0-27.0) mg/dL Creatinine 1.9 H (0.6-1.5) mg/dL Est GFR (CKD-EPI)AfAm 29.0 L (60.0-200.0) Est GFR (CKD-EPI)NonAf 25.0 L (60.0-200.0) BUN/Creatinine Ratio 37.74 H (12.00-20.00) Ratio Glucose 153 H (70-110) mg/dL POC Glucose (mg/dL) 262 H (70-110) mg/dL Calcium 8.3 L (8.7-10.3) mg/dL 04/02/22 04/02/22 04/03/22 Range/Units 17:10 21:12 06:10 WBC (4.50-10.00) X 10*3/uL RBC (4.10-5.20) X 10*6/uL Hgb (12.0-15.0) g/dL Hct (37.2-46.3) % Immature Gran # (0.00-0.04) X 10*3/uL Neutrophils # (1.80-7.70) X 10*3/uL Sodium (135-145) mmol/L Chloride (96-109) mmol/L BUN (9.0-27.0) mg/dL Creatinine (0.6-1.5) mg/dL Est GFR (CKD-EPI)AfAm (60.0-200.0) Est GFR (CKD-EPI)NonAf (60.0-200.0) BUN/Creatinine Ratio (12.00-20.00) Ratio Glucose (70-110) mg/dL POC Glucose (mg/dL) 322 H 234 H 249 H (70-110) mg/dL Calcium (8.7-10.3) mg/dL 04/03/22 Range/Units 06:22 WBC (4.50-10.00) X 10*3/uL RBC (4.10-5.20) X 10*6/uL Hgb (12.0-15.0) g/dL Hct (37.2-46.3) % Immature Gran # (0.00-0.04) X 10*3/uL Neutrophils # (1.80-7.70) X 10*3/uL Sodium 129 L (135-145) mmol/L Chloride 92 L (96-109) mmol/L BUN 76.1 H (9.0-27.0) mg/dL Creatinine 2.0 H (0.6-1.5) mg/dL Est GFR (CKD-EPI)AfAm 27.2 L (60.0-200.0) Est GFR (CKD-EPI)NonAf 23.5 L (60.0-200.0) BUN/Creatinine Ratio 38.05 H (12.00-20.00) Ratio Glucose 241 H (70-110) mg/dL POC Glucose (mg/dL) (70-110) mg/dL Calcium (8.7-10.3) mg/dL Microbiology - Last 24 Hours (Table) 03/30/22 18:00 Blood Culture - Preliminary Blood No Growth after 72 hours 03/30/22 17:45 Blood Culture - Preliminary Blood No Growth after 48 hours Assessment and Plan Plan: Assessment: 1. Acute kidney injury mostly prerenal secondary to severe sepsis, diuresis and further worsened with the use of angiotensin receptor billie. Creatinine was 3.8 on admission - fairly stable at 2.0 today. Baseline creatinine 1 from August 2021. No hydronephrosis noted on kidney ultrasound. 2. Hypokalemia from diuresis. Replaced. Improved. 3. Chronic lymphedema. 4. Lactic acidosis secondary to metformin. Improved. 5. Diabetes mellitus. 6. UTI on antibiotics. Urine culture positive for E. coli. 7. Urinary retention. Currently has Hernandez catheter. On Flomax. 8. Hypervolemic hyponatremia with component of hyperglycemia. 9. Metabolic acidosis secondary to acute kidney injury. Plan: Encouraged oral intake. Add 1500 mL fluid restriction. Maintain oral Lasix. DC Hernandez catheter today and monitor bladder scans to make sure no urinary retention. Continue to hold losartan for now. Blood sugar control. Add oral bicarbonate. Plan for ECF upon discharge. Repeat BMP and magnesium level 2-3 days postdischarge. Follow up outpatient in 1 week.
[2022-04-03] MEDS ORDERED: SODIUM BICARBONATE TAB 650 MG TAB PO SCH (09:45)
[2022-04-03 11:05] LABS: Basophils # (A) 0.11 X 10*3/uL (0.00-0.10); Basophils % (A) 0.4 %; Eosinophils # (A) 0.13 X 10*3/uL (0.04-0.35); Eosinophils % (A) 0.5 %; HCT 34.7 % (37.2-46.3); HGB 11.7 g/dL (12.0-15.0); Immature Grans, Automated 3.9 %; Lymphocytes # (A) 2.05 X 10*3/uL (0.90-5.00); Lymphocytes % (A) 7.8 %; MCH 31.3 pg (27.0-32.0); MCHC 33.7 g/dL (32.0-37.0); MCV 92.8 fL (80.0-97.0); Mean Platelet Volume 9.6 fL (9.5-12.2); Monocytes # (A) 0.98 X 10*3/uL (0.20-1.00); Monocytes % (A) 3.7 %; NRBC Per 100 WBC 0.1 /100 WBCS (0.0-0.0); Neutrophils # (A) 21.91 X 10*3/uL (1.80-7.70); Neutrophils % (A) 83.7 %; Platelet Count 382 X 10*3/uL (140-440); RBC 3.74 X 10*6/uL (4.10-5.20); RDW 14.2 % (11.5-14.5)
[2022-04-03 11:28] LABS: Glucose,Whole Blood 310 mg/dL (70-110)
--- NOTE | 2022-04-03 11:49 | P.DS ---
Providers Date of admission: 03/30/22 17:54 Expected date of discharge: 04/03/22 Attending physician: Deysi Chong MD Consults: 03/30/22 17:54 Consult Physician Urgent Consulting Provider: Aly Case Consult Reason/Comments: davy Do you want consulting provider notified?: Yes Primary care physician: Fidencio Humphreys [place] Hospital Course: Discharge Diagnosis: Severe sepsis secondary to UTI Lactic acidosis Leukocytosis Generalized weakness Acute kidney injury Hypokalemia Urinary retention Chronic lymphedema Diabetes with hyperglycemia Hypervolemic hyponatremia Atrial fibrillation Hypertension Dyslipidemia Hospital Course: 76-year-old with history of paroxysmal atrial fibrillation status post pacemaker, type 2 diabetes, hypertension, dyslipidemia presented for weakness. Initial labs showed leukocytosis, acute kidney injury, lactic acidosis, and UA consistent with UTI. Patient started on IV ceftriaxone. Urine cultures positive for E. coli sensitive to ceftriaxone, blood cultures negative. We will discharge on Cefdinir for additional 4 days For acute kidney injury, patient was evaluated by nephrology. Renal injury likely in the setting of sepsis, diuretic use, and ARB use. No hydronephrosis noted on kidney ultrasound. Renal function improved over the course of her hospitalization. Patient also had urinary retention, required Hernandez catheter. Discontinue on discharge, also on Flomax. Patient restarted on oral Lasix prior to discharge. Patient to maintain 1.5 L fluid restriction daily. Holding losartan and metolazone. Also started on oral bicarbonate per nephrology. In terms of diabetes, metformin held due to acute kidney injury. Patient to be discharged on sliding scale insulin. Patient seen and examined at bedside. Vital signs reviewed and stable. General: nontoxic, no distress, appears at stated age Derm: warm, dry Head: atraumatic, normocephalic, symmetric Eyes: EOMI, no lid lag, anicteric sclera Mouth: no lip lesion, mucus membranes moist Cardiovascular: S1S2 reg, no murmur Lungs: CTA bilateral, no rhonchi, no rales , no accessory muscle use Abdominal: soft, nontender to palpation, no guarding, no appreciable organomegaly Ext: no gross muscle atrophy, peripheral edema, no contractures, 2/5 strength in bilateral lower extremities Neuro: CN II-XI grossly intact, no focal neuro deficits Psych: Alert, oriented, appropriate affect A total of 46 minutes of time were spent preparing this complex discharge summary. Patient was discharged on 04/03/22 at 11:38. Patient Condition at Discharge: Stable Plan - Discharge Summary Discharge Rx Participant: No New Discharge Prescriptions: New Tamsulosin [Flomax] 0.4 mg PO PC-SUPPER cap Furosemide [Lasix] 40 mg PO DAILY tab polyethylene glycoL 3350 [Miralax] 17 gm PO DAILY packet INSULIN ASPART (NovoLOG) [NovoLOG (formulary)] 0 unit SQ ACHS each Sodium Bicarbonate Tab 650 mg PO BID tab Acetaminophen Tab [Tylenol] 650 mg PO Q6HR PRN tab PRN Reason: Mild Pain Or Fever > 100.5 Cefdinir 300 mg PO Q12HR #8 cap Continue Ascorbic Acid [Vitamin C] 500 mg PO DAILY Calcium Carbonate/Vitamin D3 [Calcium 600-Vit D3 400 Caplet] 1 tab PO HS Multivitamins, Thera [Multivitamin (formulary)] 1 tab PO DAILY Bimatoprost [Lumigan 0.01% Ophth Soln] 1 drop BOTH EYES HS Aspirin 81 mg PO HS Apixaban [Eliquis] 5 mg PO BID #60 tab Atorvastatin Calcium [Lipitor] 20 mg PO HS #30 tab Melatonin 5 mg PO HS Budesonide-Formot 160-4.5 Mcg [Symbicort 160-4.5 Mcg Inhaler] 2 puff INHALATION RT-BID #1 each Albuterol Inhaler [Ventolin Hfa Inhaler] 1 puff INHALATION RT-QID PRN PRN Reason: Shortness Of Breath Metoprolol Succinate (ER) [Toprol XL] 100 mg PO DAILY Discontinued Diclofenac Sodium Gel [Voltaren Gel] 1 applic TOPICAL BID Losartan [Cozaar] 50 mg PO DAILY #60 tab metFORMIN HCL [Glucophage] 500 mg PO BID Furosemide [Lasix] 40 mg PO DAILY metOLazone [Zaroxolyn] 5 mg PO BID Potassium Chloride ER [K-Dur 20] 20 meq PO DAILY Furosemide [Lasix] 40 mg PO BID hydrOXYzine HCL [Atarax] 25 mg PO DAILY Discharge Medication List Ascorbic Acid [Vitamin C] 500 mg PO DAILY 03/11/17 [History] Bimatoprost [Lumigan 0.01% Ophth Soln] 1 drop BOTH EYES HS 03/11/17 [History] Calcium Carbonate/Vitamin D3 [Calcium 600-Vit D3 400 Caplet] 1 tab PO HS 03/11/17 [History] Multivitamins, Thera [Multivitamin (formulary)] 1 tab PO DAILY 03/11/17 [History] Aspirin 81 mg PO HS 01/26/20 [History] Apixaban [Eliquis] 5 mg PO BID #60 tab 01/30/20 [Rx] Atorvastatin Calcium [Lipitor] 20 mg PO HS #30 tab 01/30/20 [Rx] Melatonin 5 mg PO HS 09/12/21 [History] Metoprolol Succinate (ER) [Toprol XL] 100 mg PO DAILY 09/12/21 [History] Budesonide-Formot 160-4.5 Mcg [Symbicort 160-4.5 Mcg Inhaler] 2 puff INHALATION RT-BID #1 each 09/14/21 [Rx] Albuterol Inhaler [Ventolin Hfa Inhaler] 1 puff INHALATION RT-QID PRN 03/30/22 [History] Acetaminophen Tab [Tylenol] 650 mg PO Q6HR PRN tab 04/03/22 [Rx] Cefdinir 300 mg PO Q12HR #8 cap 04/03/22 [Rx] Furosemide [Lasix] 40 mg PO DAILY tab 04/03/22 [Rx] INSULIN ASPART (NovoLOG) [NovoLOG (formulary)] 0 unit SQ ACHS each 04/03/22 [Rx] Sodium Bicarbonate Tab 650 mg PO BID tab 04/03/22 [Rx] Tamsulosin [Flomax] 0.4 mg PO PC-SUPPER cap 04/03/22 [Rx] polyethylene glycoL 3350 [Miralax] 17 gm PO DAILY packet 04/03/22 [Rx] Follow up Appointment(s)/Referral(s): Fidencio Humphreys MD [Primary Care Provider] - 1-2 days Patient Instructions/Handouts: Acute Kidney Injury (GEN), Sepsis (GEN) Activity/Diet/Wound Care/Special Instructions: BMP and Magnesium levels on 04/06/22 Monitor for fluid and urinary retention, bladder scan prn Fluid restrtiction 1500cc/24hrs Consistent carb/heart healthy diet For lower extremities: Aquacel AG, wet to dry, cover with ABD's, kerlix, TRINITY srap daily Discharge Disposition: TRANSFER TO SNF/ECF
== END 2022-04-03 13:25 | DRG 872 ==
LOC: EC 15:16 → 4SSUR 17:54
PROVIDERS: ADMIT Internal Medicine; ATTEND Internal Medicine
PROC: 0T9B70Z Drainage of Bladder with Drainage Device, Via Natural or Artificial Opening (ICD-10-PCS; principal; 2022-03-30)
DX: A41.51 Sepsis due to Escherichia coli [E. coli] (principal); N17.9 Acute kidney failure, unspecified; E87.20 Acidosis, unspecified; Z68.43 Body mass index [BMI] 50.0-59.9, adult; N39.0 Urinary tract infection, site not specified; E87.1 Hypo-osmolality and hyponatremia; L97.222 Non-pressure chronic ulcer of left calf with fat layer exposed; L97.211 Non-pressure chronic ulcer of right calf limited to breakdown of skin; R65.20 Severe sepsis without septic shock; I48.0 Paroxysmal atrial fibrillation; I10 Essential (primary) hypertension; E87.6 Hypokalemia; E11.65 Type 2 diabetes mellitus with hyperglycemia; E66.9 Obesity, unspecified; Z20.822 Contact with and (suspected) exposure to COVID-19; E78.5 Hyperlipidemia, unspecified; R33.9 Retention of urine, unspecified; I89.0 Lymphedema, not elsewhere classified; E87.70 Fluid overload, unspecified; E86.0 Dehydration; T38.3X5A Adverse effect of insulin and oral hypoglycemic [antidiabetic] drugs, initial encounter; T50.2X5A Adverse effect of carbonic-anhydrase inhibitors, benzothiadiazides and other diuretics, initial encounter; K46.9 Unspecified abdominal hernia without obstruction or gangrene; Z86.711 Personal history of pulmonary embolism; Z95.0 Presence of cardiac pacemaker; Z87.891 Personal history of nicotine dependence; Z79.899 Other long term (current) drug therapy; Z79.84 Long term (current) use of oral hypoglycemic drugs; Z79.82 Long term (current) use of aspirin; Z79.51 Long term (current) use of inhaled steroids; Z79.01 Long term (current) use of anticoagulants
CPT/HCPCS: 36415; 51702; 71045; 71046; 76770; 80048; 80053; 81001; 82550; 83036; 83605; 83735; 83880; 84443; 84484; 85025; 85610; 85730; 87040; 87077; 87086; 87186; 87502; 87635; 93005; 94640; 94760; 96361; 96374; 99285

== ENCOUNTER 2022-04-04 00:48 | Emergency (ER) | payer MEDICARE ==
[2022-04-04 01:00] VITALS: BP 130/71; PULSE 98; RESP 18; TEMP 98.9
--- NOTE | 2022-04-04 01:32 | ED ---
Fall HPI - General Chief Complaint: Fall Stated Complaint: Fall Time Seen by Provider: 04/04/22 01:02 Source: patient Mode of arrival: EMS - History of Present Illness Initial Comments: This is a pleasant 76-year-old female with a history of atrial fibrillation, on anticoagulation therapy. Also has history of hyperlipidemia hypertension, and chronic edema both lower extremities. Patient is at the rehab facility at [facility] after being discharged from here. Patient states she got up in the middle of night to go to the bathroom and did not know she needed an assist. Patient ended up slipping on urine and striking the right side of her forehead just above her right eye on the floor. There was no loss of consciousness. Patient had no preceding symptomology. Patient is denying any pain elsewhere. Mild pain to the right supraorbital area. No vision or hearing changes. No headache, no fever or chills, no changes in vision or hearing, no sore throat or difficulty with speech, no neck pain, no chest pain or shortness of breath, no abdominal pain, no nausea or vomiting, no changes in urination or bowel movements, no numbness or tingling, CHRONIC leg pain/edema, no skin rashes or lesions. Past medical, surgical, social, and family history reviewed. MD Complaint: fall - Related Data Home Medications Medication Instructions Recorded Confirmed Ascorbic Acid [Vitamin C] 500 mg PO DAILY 03/11/17 03/30/22 Bimatoprost [Lumigan 0.01% Ophth 1 drop BOTH EYES HS 03/11/17 03/30/22 Soln] Calcium Carbonate/Vitamin D3 1 tab PO HS 03/11/17 03/30/22 [Calcium 600-Vit D3 400 Caplet] Multivitamins, Thera [Multivitamin 1 tab PO DAILY 03/11/17 03/30/22 (formulary)] Aspirin 81 mg PO HS 01/26/20 03/30/22 Melatonin 5 mg PO HS 09/12/21 03/30/22 Metoprolol Succinate (ER) [Toprol 100 mg PO DAILY 09/12/21 03/30/22 XL] Albuterol Inhaler [Ventolin Hfa 1 puff INHALATION RT-QID PRN 03/30/22 03/30/22 Inhaler] Previous Rx's Medication Instructions Recorded Apixaban [Eliquis] 5 mg PO BID #60 tab 01/30/20 Atorvastatin Calcium [Lipitor] 20 mg PO HS #30 tab 01/30/20 Budesonide-Formot 160-4.5 Mcg 2 puff INHALATION RT-BID #1 each 09/14/21 [Symbicort 160-4.5 Mcg Inhaler] Acetaminophen Tab [Tylenol] 650 mg PO Q6HR PRN tab 04/03/22 Cefdinir 300 mg PO Q12HR #8 cap 04/03/22 Furosemide [Lasix] 40 mg PO DAILY tab 04/03/22 INSULIN ASPART (NovoLOG) [NovoLOG 0 unit SQ ACHS each 04/03/22 (formulary)] Sodium Bicarbonate Tab 650 mg PO BID tab 04/03/22 Tamsulosin [Flomax] 0.4 mg PO PC-SUPPER cap 04/03/22 polyethylene glycoL 3350 [Miralax] 17 gm PO DAILY packet 04/03/22 Allergies Allergy/AdvReac Type Severity Reaction Status Date / Time No Known Allergies Allergy Verified 11/23/21 10:26 Review of Systems ROS Statement: Those systems with pertinent positive or pertinent negative responses have been documented in the HPI. ROS Other: All systems not noted in ROS Statement are negative. Past Medical History Past Medical History: Atrial Fibrillation, Hyperlipidemia, Hypertension, Supraventricular Tachycardia (SVT) Additional Past Medical History / Comment(s): PE ?; years ago, diabetes, pacemaker, obesity, hernia, History of Any Multi-Drug Resistant Organisms: None Reported Past Surgical History: Orthopedic Surgery Additional Past Surgical History / Comment(s): hernia,eye surgery,rt knee Past Anesthesia/Blood Transfusion Reactions: No Reported Reaction Past Psychological History: No Psychological Hx Reported Smoking Status: Former smoker Past Alcohol Use History: None Reported Past Drug Use History: None Reported - Past Family History Sister(s) Family Medical History: Congestive Heart Failure (CHF), Pulmonary Embolus Additional Family Medical History / Comment(s): gallbladder removed General Exam Limitations: physical limitation General appearance: alert, obese Head exam: Present: other (Ecchymosis noted to the right supraorbital area. Minimal tenderness to palpation. No step-off. No break in skin integrity.) Eye exam: Present: normal appearance, PERRL, EOMI. Absent: scleral icterus, conjunctival injection, periorbital swelling Pupils: Present: normal accommodation ENT exam: Present: normal exam, normal oropharynx, mucous membranes moist, TM's normal bilaterally, normal external ear exam. Absent: mucous membranes dry Neck exam: Present: normal inspection, full ROM. Absent: tenderness, meningismus, lymphadenopathy Respiratory exam: Present: normal lung sounds bilaterally. Absent: respiratory distress, wheezes, rales, rhonchi, stridor Cardiovascular Exam: Present: regular rate, normal rhythm, normal heart sounds. Absent: systolic murmur, diastolic murmur, rubs, gallop, clicks GI/Abdominal exam: Present: soft, normal bowel sounds. Absent: distended, tenderness, guarding, rebound, rigid Extremities exam: Present: normal inspection, full ROM, normal capillary refill, pedal edema, other (Chronic edema both lower extremities. No tenderness.). A bsent: tenderness, joint swelling, calf tenderness Back exam: Present: normal inspection Neurological exam: Present: alert, oriented X3, CN II-XII intact Expanded Patient oriented to: Present: person, place, time Speech: Present: fluid speech Cranial nerves: EOM's Intact: Normal, Gag Reflex: Normal, Tongue Deviation: Normal, Nystagmus: Normal, Facial Sensation: Normal, Facial Palsy with Forehead Movement: Normal, Facial Palsy without Forehead Movement: Normal Cerebellar function: Finger to Nose: Normal, Heel to Nicole: Normal Motor strength exam: RUE: 5, LUE: 5, RLE: 5, LLE: 5 Eye Response: (4) open spontaneously Motor Response: (6) obeys commands Verbal Response: (5) oriented Antaoly Total: 15 Psychiatric exam: Present: normal affect, normal mood Skin exam: Present: warm, dry, intact, normal color. Absent: rash Course Vital Signs 04/04/22 00:53 Temperature 98.9 F Pulse Rate 98 Respiratory 18 Rate Blood Pressure 130/71 O2 Sat by Pulse 94 L Oximetry - Reevaluation(s) Reevaluation #1: 04/04/22 02:52 Medical record is reviewed Symptoms are improved here in the emergency department Patient is informed of results and questions answered Patient in no distress Repeat neurological exam is benign. Patient is alert and oriented 4. Cranial nerves II through XII are intact. No focal neurologic deficits. Computed tomography scan shows no evidence of acute injury. Medical Decision Making - Medical Decision Making Patient presents with a mechanical fall with a injury to her right supraorbital region. Likely just bruising. We will order a CT of the brain and cervical spine based on the patient's anticoagulation. No from the outpatient facility states that the patient had a nonreactive right pupil. However this does not appear to be the case. Patient's pupils are somewhat pinpoint it at 3 mm but they are reactive bilaterally with no and is acoria or irregularity. Patient's vision is normal No acute findings and EKG scan after the patient had a mechanical fall. Patient will be sent back to the rehabilitation facility. Neurologically intact. The case was discussed in detail with ED attending physician. Presentation, findings, treatment plan discussed in detail. Patient was told to return to the ER for any signs or symptoms worsen. Told to return immediately if any other problems arise. All questions answered. Treatment plan discussed. Patient in agreement Every effort has been made to ensure accuracy of this dictation. However, due to the limitations of electronic medical records and dictation devices, errors in charting still occur. [employer] Dr. Sorto - Radiology Data Radiology results: report reviewed, image reviewed I did interpretthe computed tomography scan myself. No evidence of acute pathology.agree with radiology interpretation. Disposition Clinical Impression: Closed head injury, Fall, Forehead contusion Disposition: HOME SELF-CARE Condition: Good Instructions (If sedation given, give patient instructions): Fall Prevention for Older Adults (ED), Head Injury (ED) Additional Instructions: Follow-up with your regular physician as directed. Return to the ER immediately if any symptoms worsen, new symptoms arise, or any other problems develop. Is patient prescribed a controlled substance at d/c from ED?: No Referrals: Fidencio Humphreys MD [Primary Care Provider] - 1-2 days Time of Disposition: 02:53
--- NOTE | 2022-04-04 02:04 | CT ---
EXAMINATION TYPE: CT brain raven arriaga DATE OF EXAM: 04/04/2022 COMPARISON: None HISTORY: fall on eliquis, head injury CT DLP: 1627.8 mGycm Automated exposure control for dose reduction was used. Images of the brain and cervical spine obtained with no contrast. There is mild cerebral cortical atrophy. There is no mass effect or midline shift. No sign of intracr anial hemorrhage. Calvarium is intact. No evidence of cerebral edema. There is normal aeration of the mastoid sinuses. There is right frontal lateral scalp hematoma measuring almost 1 cm in thickness. The cervical vertebrae show fairly normal alignment. There is mild disc space narrowing at C5-6 and C 6-7 with spurring of the endplates. Facet joints are intact. Prevertebral soft tissues are intact. IMPRESSION: Mild spondylotic changes in the cervical spine. No fracture. Cerebral atrophy. No acute intracranial abnormality. Right lateral frontal scalp hematoma.
[2022-04-04] MEDS ORDERED: BACITRACIN OINT 1 EACH PACKET TOPICAL ONE (02:58)
== END 2022-04-04 04:06 | disposition home or self-care (01) ==
LOC: EC 00:48
DX: S00.93XA Contusion of unspecified part of head, initial encounter (principal); I48.91 Unspecified atrial fibrillation; E78.5 Hyperlipidemia, unspecified; I10 Essential (primary) hypertension; Z87.891 Personal history of nicotine dependence; Z79.4 Long term (current) use of insulin; Z79.82 Long term (current) use of aspirin; Z79.899 Other long term (current) drug therapy; W01.10XA Fall on same level from slipping, tripping and stumbling with subsequent striking against unspecified object, initial encounter
CPT/HCPCS: 70450; 72125; 99284

== ENCOUNTER 2022-04-05 16:41 | Inpatient (IN) | payer MEDICARE ==
[2022-04-05] MEDS ORDERED: ACETAMINOPHEN TAB 500 MG TAB PO STA (17:47)
[2022-04-05 18:16] LABS: Basophils # (A) 0.1 k/uL (0-0.2); Basophils % (A) 0 %; Eosinophils # (A) 0.2 k/uL (0-0.7); Eosinophils % (A) 1 %; HCT 30.4 % (34.0-46.0); HGB 10.3 gm/dL (11.4-16.0); Lymphocytes # (A) 1.8 k/uL (1.0-4.8); Lymphocytes % (A) 11 %; MCH 31.4 pg (25.0-35.0); MCHC 34.1 g/dL (31.0-37.0); MCV 92.3 fL (80.0-100.0); Monocytes # (A) 0.7 k/uL (0-1.0); Monocytes % (A) 5 %; Neutrophils # (A) 12.8 k/uL (1.3-7.7); Neutrophils % (A) 81 %; Platelet Count 408 k/uL (150-450); RBC 3.29 m/uL (3.80-5.40); RDW 14.1 % (11.5-15.5); WBC 15.8 k/uL (3.8-10.6)
[2022-04-05 18:27] LABS: Albumin 2.8 g/dL (3.5-5.0); C Reactive Protein 5.9 mg/dL (<1.0); Calcium 8.3 mg/dL (8.4-10.2); Potassium 3.4 mmol/L (3.5-5.1); Total Bilirubin 1.2 mg/dL (0.2-1.3); Total Protein 5.8 g/dL (6.3-8.2)
--- NOTE | 2022-04-05 18:27 | XR ---
EXAMINATION TYPE: XR tibia fibula bilateral DATE OF EXAM: 04/05/2022 COMPARISON: NONE HISTORY: Bilateral leg edema TECHNIQUE: 3 views each tibia and fibula. FINDINGS: There is right knee prosthesis. Components appear in anatomic position. There is some narro wing of the ankle joint spaces. There is narrowing of the medial joint space of the left knee. No fra cture seen. There is subcutaneous edema around both lower legs. IMPRESSION: Soft tissue edema. Arthritic changes. No fracture seen.
[2022-04-05 19:10] LABS: Erythrocyte Sedimentation Rate 114 mm/hr (0-20)
[2022-04-05] MEDS ORDERED: AMPICILLIN-SULBACTAM 3 GM in SODIUM CHLORIDE 0.9% 100 ML IVPB STA (19:58)
[2022-04-05] MEDS ORDERED: VANCOMYCIN 2,000 MG in SODIUM CHLORIDE 0.9% 500 ML 500 ML IVPB STA (19:59)
--- NOTE | 2022-04-05 20:02 | ED ---
General Adult HPI - General Chief complaint: Skin/Abscess/Foreign Body Stated complaint: pressure ulcer lt calf Time Seen by Provider: 04/05/22 16:50 Source: patient, EMS Mode of arrival: EMS Limitations: no limitations - History of Present Illness Initial comments: 76-year-old female with past medical history of A. fib, PE, hypertension, hyperlipidemia who presents to the emergency department from [facility]. Patient was previously admitted after she had a significant urinary tract infection with sepsis. She was in a chair for 2 days before she was found by her brother and brought to the emergency department. She had pressure ulcers to the lower extremities. Patient was discharged to [facility]. Came in yesterday after she sustained a fall. Patient does not remember injuring her right calf however the skin is now sloughing. Significant warmth and redness. Wound care nurse at the facility was concerned about the appearance of the lower extremity and therefore discussed this with the physician medical collections specialist. Physician medical collections specialist recommended trans joaquim to the hospital. - Related Data Home Medications Medication Instructions Recorded Confirmed Ascorbic Acid [Vitamin C] 500 mg PO DAILY@1700 03/11/17 04/05/22 Bimatoprost [Lumigan 0.01% Ophth 1 drop BOTH EYES HS@209903/11/17 04/05/22 Soln] Multivitamins, Thera [Multivitamin 1 tab PO DAILY@1700 03/11/17 04/05/22 (formulary)] Aspirin 81 mg PO DAILY@1700 01/26/20 04/05/22 Melatonin 5 mg PO HS@2100 09/12/21 04/05/22 Metoprolol Succinate (ER) [Toprol 100 mg PO DAILY@0800 09/12/21 04/05/22 XL] Albuterol Inhaler [Ventolin Hfa 1 puff INHALATION RT-QID PRN 03/30/22 04/05/22 Inhaler] Apixaban [Eliquis] 5 mg PO BID@0800,1700 04/05/22 04/05/22 Atorvastatin Calcium [Lipitor] 20 mg PO HS@209904/05/22 04/05/22 Budesonide-Formot 160-4.5 Mcg 2 puff INHALATION RT-BID@0800,1700 04/05/22 04/05/22 [Symbicort 160-4.5 Mcg Inhaler] Calcium Carbonate Antacid (Unkown 1 tab PO DAILY@1700 04/05/22 04/05/22 Strength) Cefdinir 300 mg PO DAILY@0700 04/05/22 04/05/22 Furosemide [Lasix] 40 mg PO DAILY@0800 04/05/22 04/05/22 INSULIN ASPART (NovoLOG) [NovoLOG See Protocol SQ 04/05/22 04/05/22 (formulary)] ACHS@07,11,1630,2130 Magnesium Hydroxide [Milk of 7,200 mg PO DAILY PRN 04/05/22 04/05/22 Magnesia Concentrate] Na Phos,M-B/Na Phos,Di-Ba [Fleet 133 ml RECTAL DAILY PRN 04/05/22 04/05/22 Adult] Sodium Bicarbonate Tab 650 mg PO BID@0800,1700 04/05/22 04/05/22 Tamsulosin [Flomax] 0.4 mg PO DAILY@1700 04/05/22 04/05/22 bisacodyL [Dulcolax] 10 mg RECTAL DAILY PRN 04/05/22 04/05/22 polyethylene glycoL 3350 [Miralax] 17 gm PO DAILY@0800 04/05/22 04/05/22 Previous Rx's Medication Instructions Recorded Acetaminophen Tab [Tylenol] 650 mg PO Q6HR PRN tab 04/03/22 Allergies Allergy/AdvReac Type Severity Reaction Status Date / Time No Known Allergies Allergy Verified 04/05/22 22:06 Review of Systems ROS Statement: Those systems with pertinent positive or pertinent negative responses have been documented in the HPI. ROS Other: All systems not noted in ROS Statement are negative. Past Medical History Past Medical History: Atrial Fibrillation, Hyperlipidemia, Hypertension, Supraventricular Tachycardia (SVT) Additional Past Medical History / Comment(s): PE ?; years ago, diabetes, pacemaker, obesity, hernia, History of Any Multi-Drug Resistant Organisms: None Reported Past Surgical History: Orthopedic Surgery Additional Past Surgical History / Comment(s): hernia,eye surgery,rt knee Past Anesthesia/Blood Transfusion Reactions: No Reported Reaction Past Psychological History: No Psychological Hx Reported Smoking Status: Former smoker Past Alcohol Use History: None Reported Past Drug Use History: None Reported - Past Family History Sister(s) Family Medical History: Congestive Heart Failure (CHF), Pulmonary Embolus Additional Family Medical History / Comment(s): gallbladder removed General Exam Limitations: no limitations General appearance: alert, in no apparent distress, obese Head exam: Present: atraumatic, normocephalic, normal inspection Eye exam: Present: normal appearance, PERRL, EOMI. Absent: scleral icterus, conjunctival injection, periorbital swelling ENT exam: Present: normal exam, mucous membranes moist Neck exam: Present: normal inspection. Absent: tenderness, meningismus, lymphadenopathy Respiratory exam: Present: normal lung sounds bilaterally. Absent: respiratory distress, wheezes, rales, rhonchi, stridor Cardiovascular Exam: Present: regular rate, normal rhythm, normal heart sounds. Absent: systolic murmur, diastolic murmur, rubs, gallop, clicks GI/Abdominal exam: Present: soft, normal bowel sounds. Absent: distended, tenderness, guarding, rebound, rigid Extremities exam: Present: tenderness, pedal edema (significant lymphedema), calf tenderness, other (skin sloughing to the entire posterior aspect of rle. serous drainage. no bleeding. warm to the touch. 2+ DP and PT pulses) Back exam: Present: normal inspection Neurological exam: Present: alert, oriented X3, CN II-XII intact Psychiatric exam: Present: normal affect, normal mood Course Vital Signs 04/05/22 04/05/22 04/05/22 16:44 19:29 19:31 Temperature 98.2 F Pulse Rate 94 82 Respiratory 18 18 Rate Blood Pressure 102/62 114/40 O2 Sat by Pulse 98 95 Oximetry 04/05/22 21:59 Temperature 98.4 F Pulse Rate 68 Respiratory 18 Rate Blood Pressure 118/64 O2 Sat by Pulse 99 Oximetry Medical Decision Making - Medical Decision Making Upon arrival patient was placed into room 21. Thorough history and physical exam was performed. I did remove the patient's lower extremity dressings. Right lower extremity has significant sloughing of the skin on the posterior aspect. Majority of the epidermis is removed. Extremity is weeping. It is warm to the touch. I did place an IV. Patient is agreeable to Tylenol for pain control. Laboratory studies are conducted and reviewed. White count is improving at this time as well as the patient's kidney function. C-reactive protein is 5.9. Due to the clinical examination I did recommend admission for wound care consult and antibiotics. Patient change to Unasyn and Vanco. I spoke with Dr. Guadalupe who agreed to accept the admission. Patient had recently been admitted to [facility] [place] [facility]. Spoke with them and they were agreeable to allowing [facility] to have her admission if they were accepting. Patient was agreeable to admission and was transferred of foreign stable condition - Lab Data Result diagrams: 04/07/22 06:31 04/07/22 06:31 Lab Results 04/05/22 04/05/22 04/05/22 Range/Units 17:50 17:50 17:50 WBC 15.8 H (3.8-10.6) k/uL RBC 3.29 L (3.80-5.40) m/uL Hgb 10.3 L (11.4-16.0) gm/dL Hct 30.4 L (34.0-46.0) % MCV 92.3 (80.0-100.0) fL MCH 31.4 (25.0-35.0) pg MCHC 34.1 (31.0-37.0) g/dL RDW 14.1 (11.5-15.5) % Plt Count 408 (150-450) k/uL MPV 8.0 Neutrophils % 81 % Lymphocytes % 11 % Monocytes % 5 % Eosinophils % 1 % Basophils % 0 % Neutrophils # 12.8 H (1.3-7.7) k/uL Lymphocytes # 1.8 (1.0-4.8) k/uL Monocytes # 0.7 (0-1.0) k/uL Eosinophils # 0.2 (0-0.7) k/uL Basophils # 0.1 (0-0.2) k/uL ESR 114 H (0-20) mm/hr Sodium 134 L (137-145) mmol/L Potassium 3.4 L (3.5-5.1) mmol/L Chloride 96 L (98-107) mmol/L Carbon Dioxide 29 (22-30) mmol/L Anion Gap 9 mmol/L BUN 73 H (7-17) mg/dL Creatinine 1.52 H (0.52-1.04) mg/dL Est GFR (CKD-EPI)AfAm 38 (>60 ml/min/1.73 sqM) Est GFR (CKD-EPI)NonAf 33 (>60 ml/min/1.73 sqM) Glucose 206 H (74-99) mg/dL Plasma Lactic Acid Saul 1.5 (0.7-2.0) mmol/L Calcium 8.3 L (8.4-10.2) mg/dL Total Bilirubin 1.2 (0.2-1.3) mg/dL AST 75 H (14-36) U/L ALT 146 H (4-34) U/L Alkaline Phosphatase 112 (38-126) U/L C-Reactive Protein 5.9 H (<1.0) mg/dL Total Protein 5.8 L (6.3-8.2) g/dL Albumin 2.8 L (3.5-5.0) g/dL Disposition Clinical Impression: Bilateral lower leg cellulitis Disposition: ADMITTED IP TO THIS [facility] Condition: Stable Is patient prescribed a controlled substance at d/c from ED?: No Time of Disposition: 20:01 Decision to Admit Reason: Admit from EC Decision Date: 04/05/22 Decision Time: 20:01
[2022-04-05] MEDS ORDERED: VANCOMYCIN IV PER PHARMACY 1 EACH MISC MISCELLANE PRN (20:37)
[2022-04-05] MEDS ORDERED: ACETAMINOPHEN TAB 325 MG TAB PO PRN (21:28)
[2022-04-05] MEDS ORDERED: NALOXONE 0.4 MG/ML 1 ML VIAL IV PRN (21:28)
[2022-04-05] MEDS ORDERED: MAGNESIUM HYDROXIDE 2,400 MG/10 ML CUP PO PRN (23:38)
[2022-04-05] MEDS ORDERED: ALBUTEROL NEBULIZED 2.5 MG/3 ML INHALATION PRN (23:38)
[2022-04-05] MEDS ORDERED: bisacodyL 10 MG SUPP RECTAL PRN (23:38)
[2022-04-06] MEDS: ACETAMINOPHEN TAB 325 MG TAB PO PRN ×2 (01:02→21:35)
[2022-04-06 04:45] LABS: Basophils % (A) 0 %; Eosinophils # (A) 0.2 k/uL (0-0.7); Eosinophils % (A) 1 %; HCT 28.6 % (34.0-46.0); HGB 9.7 gm/dL (11.4-16.0); Lymphocytes # (A) 1.9 k/uL (1.0-4.8); Lymphocytes % (A) 13 %; MCH 31.6 pg (25.0-35.0); Mean Platelet Volume 7.8; Monocytes # (A) 0.7 k/uL (0-1.0); Monocytes % (A) 4 %; Neutrophils % (A) 80 %; Platelet Count 415 k/uL (150-450); RBC 3.08 m/uL (3.80-5.40); RDW 14.2 % (11.5-15.5)
[2022-04-06 04:54] LABS: Potassium 3.4 mmol/L (3.5-5.1)
[2022-04-06] MEDS: METOPROLOL SUCCINATE (ER) 100 MG TAB.ER.24H PO SCH (07:42)
[2022-04-06] MEDS: SODIUM BICARBONATE TAB 650 MG TAB PO SCH ×2 (07:42→17:03)
[2022-04-06] MEDS: APIXABAN 5 MG TAB PO SCH ×2 (07:42→17:03)
[2022-04-06] MEDS: polyethylene glycoL 3350 17 GM POWD.PACK PO SCH (07:42)
[2022-04-06] MEDS ORDERED: FUROSEMIDE 40 MG TAB PO SCH (08:00)
[2022-04-06] MEDS: SYMBICORT 160-4.5 MCG INHALER INHALATION SCH ×2 (08:43→21:20)
[2022-04-06] MEDS ORDERED: NA PHOS,M-B/NA PHOS,DI-BA 133 ML ENEMA RECTAL PRN (09:00)
[2022-04-06] MEDS ORDERED: POTASSIUM CHLORIDE ER 20 MEQ TAB.ER PO STA (11:14)
[2022-04-06] MEDS ORDERED: VANCOMYCIN 2,000 MG in SODIUM CHLORIDE 0.9% 500 ML 500 ML IVPB ONE (14:00)
[2022-04-06] MEDS ORDERED: CALCIUM CARBONATE 500 MG CHEWABLE PO SCH (17:00)
[2022-04-06] MEDS: MULTIVITAMINS, THERA 1 EACH TAB PO SCH (17:02)
[2022-04-06] MEDS: CALCIUM CARBONATE 500 MG CHEWABLE PO SCH (17:02)
[2022-04-06] MEDS: ASPIRIN 81 MG PO SCH (17:03)
[2022-04-06] MEDS: TAMSULOSIN 0.4 MG CAP.ER.24H PO SCH (17:03)
[2022-04-06] MEDS: ASCORBIC ACID 500 MG TAB PO SCH (17:03)
[2022-04-06] MEDS: MELATONIN 5 MG TABLET PO SCH (21:35)
[2022-04-06] MEDS: ATORVASTATIN 20 MG TAB PO SCH (21:35)
[2022-04-06] MEDS: LATANOPROST 0.005% OPHTH DROPS 2.5 ML BTL BOTH EYES SCH (22:04)
--- NOTE | 2022-04-07 02:55 | P.HPIM ---
History of Present Illness H&P Date: 04/06/22 Chief Complaint: Bilateral leg wounds Patient is a 76-year-old female with a known history of atrial fibrillation on anticoagulation with Eliquis, hypertension, hyperlipidemia, morbid obesity, diabetes type 2 insulin-dependent and prior history of smoking was sent to the hospital from [facility]. Patient was recently admitted to hospital due to sepsis secondary to urinary tract infection. She was discharged from the hospital 04/03/2022. Patient has been in the state for 2 days before she was found by her brother and brought to the ER. Patient developed paralysis on the bilateral lower extremities. Patient was noted to have bilateral lower extremity redness and sloughing of the skin.. Wound care nurse at the facility was concerned about the appearance of bilateral lower extremity skin changes and inform the physician on-call., Who recommended transfer the patient to hospital. Patient was admitted to hospital due to bilateral lower extremity cellulitis. Patient already denies any complaints of fever or chills. No nausea vomiting abdominal pain or diarrhea. No chest pain or worsening shortness of breath. CT head and cervical spine showed mild spondylitic changes in the cervical spine. No fracture. Cerebral atrophy. No acute intracranial abnormality. Right lateral frontal scalp hematoma. TiBia and fibula x-ray showed soft tissue edema. Laboratory test showed WBC 15.8 hemoglobin 10.3 and platelets 408 Sodium 134 potassium 3.4 chloride 96 bicarb is 29 BUN 73 and creatinine 1.52 and blood sugar is 206 AST 75 ALT 146 alk phos 112 and CRP 5.9. Review of Systems Constitutional: Patient denies any fever or chills . no Generalized weakness. Abdomen: Patient denied any nausea or vomiting or abd. pain Cardiovascular: Patient denies any chest pain or short of breath no palpitations. Respiratory: patient denied any cough . no sputum production. No shortness of breath Neurologic: Patient denied any numbness or tingling headache. Musculoskeletal: Patient denies any complaints of joint swelling or deformity. Skin: Bilateral leg wounds in his leg no skin. Psychiatric: Negative Complete review of systems could not be obtained from the patient. Past Medical History Past Medical History: Atrial Fibrillation, Hyperlipidemia, Hypertension, Supraventricular Tachycardia (SVT) Additional Past Medical History / Comment(s): PE ?; years ago, diabetes, p acemaker, obesity, hernia, History of Any Multi-Drug Resistant Organisms: None Reported Past Surgical History: Orthopedic Surgery Additional Past Surgical History / Comment(s): hernia,eye surgery,rt knee Past Anesthesia/Blood Transfusion Reactions: No Reported Reaction Past Psychological History: No Psychological Hx Reported Smoking Status: Former smoker Past Alcohol Use History: None Reported Additional Past Alcohol Use History / Comment(s): smoked from [id number] 1ppd Past Drug Use History: None Reported - Past Family History Sister(s) Family Medical History: Congestive Heart Failure (CHF), Pulmonary Embolus Additional Family Medical History / Comment(s): gallbladder removed Medications and Allergies Home Medications Medication Instructions Recorded Confirmed Type Ascorbic Acid [Vitamin C] 500 mg PO DAILY@0 03/11/17 04/05/22 History Bimatoprost [Lumigan 0.01% Ophth 1 drop BOTH EYES HS@209903/11/17 04/05/22 History Soln] Multivitamins, Thera [Multivitamin 1 tab PO DAILY@169903/11/17 04/05/22 History (formulary)] Aspirin 81 mg PO DAILY@169901/26/20 04/05/22 History Melatonin 5 mg PO HS@209909/12/21 04/05/22 History Metoprolol Succinate (ER) [Toprol 100 mg PO DAILY@0809/12/21 04/05/22 History XL] Albuterol Inhaler [Ventolin Hfa 1 puff INHALATION RT-QID PRN 03/30/22 04/05/22 History Inhaler] Acetaminophen Tab [Tylenol] 650 mg PO Q6HR PRN tab 04/03/22 04/05/22 Rx Apixaban [Eliquis] 5 mg PO BID@0800,0 04/05/22 04/05/22 History Atorvastatin Calcium [Lipitor] 20 mg PO HS@209904/05/22 04/05/22 History Budesonide-Formot 160-4.5 Mcg 2 puff INHALATION RT-BID@0800,0 04/05/22 04/05/22 History [Symbicort 160-4.5 Mcg Inhaler] Calcium Carbonate Antacid (Unkown 1 tab PO DAILY@0 04/05/22 04/05/22 History Strength) Cefdinir 300 mg PO DAILY@0700 04/05/22 04/05/22 History Furosemide [Lasix] 40 mg PO DAILY@0800 04/05/22 04/05/22 History INSULIN ASPART (NovoLOG) [NovoLOG See Protocol SQ 04/05/22 04/05/22 History (formulary)] ACHS@07,11,1630,2130 Magnesium Hydroxide [Milk of 7,200 mg PO DAILY PRN 04/05/22 04/05/22 History Magnesia Concentrate] Na Phos,M-B/Na Phos,Di-Ba [Fleet 133 ml RECTAL DAILY PRN 04/05/22 04/05/22 History Adult] Sodium Bicarbonate Tab 650 mg PO BID@0800,1700 04/05/22 04/05/22 History Tamsulosin [Flomax] 0.4 mg PO DAILY@1700 04/05/22 04/05/22 History bisacodyL [Dulcolax] 10 mg RECTAL DAILY PRN 04/05/22 04/05/22 History polyethylene glycoL 3350 [Miralax] 17 gm PO DAILY@0800 04/05/22 04/05/22 History Allergies Allergy/AdvReac Type Severity Reaction Status Date / Time No Known Allergies Allergy Verified 04/05/22 22:06 Physical Exam Vitals: Vital Signs Temp Pulse Pulse Resp BP BP Pulse Ox 04/06/22 07:53 97.8 F 80 16 106/54 94 L 04/06/22 01:59 97.9 F 83 18 112/68 95 04/05/22 22:46 97.9 F 85 18 114/71 98 04/05/22 21:59 98.4 F 68 18 118/64 99 04/05/22 19:31 114/40 04/05/22 19:29 82 18 95 04/05/22 16:44 98.2 F 94 18 102/62 98 Intake and Output 04/05/22 04/06/22 04/06/22 22:59 06:59 14:59 Output Total 500 Balance -500 Output: Urine 500 Other: Voiding Method External Catheter # Voids 1 1 # Bowel Movements 1 Weight 133.356 kg 133.356 kg PHYSICAL EXAMINATION: Patient is lying in the bed comfortably, no acute distress, awake alert and oriented.. Morbidly obese. HEENT: Normocephalic. Neck is supple. Pupils reactive. Nostrils clear. Oral cavity is moist. Neck reveals no JVD, carotid bruits, or thyromegaly. CHEST EXAMINATION: Trachea is central. Symmetrical expansion. Bibasilar diminished sounds otherwise lung joyce clear to auscultation and percussion. CARDIAC: Normal S1, S2 with no gallops. No murmurs ABDOMEN: Soft. Bowel sounds present. Nontender. No organomegaly. No abdominal bruits. Extremities: Bilateral lower extremity chronic lymphedema. No clubbing or cyanosis Neurologically awake, alert, oriented x3 with well-coordinated movements. No focal deficits noted Skin: Bilateral lower extremities redness and flaking of the skin especially in the calf region. No purulent drainage noted.. Psychiatric: Coperative. Nonsuicidal, Musculoskeletal: No joint swelling or deformity. Normal range of motion. Results CBC & Chem 7: 04/06/22 04:04 04/06/22 04:04 Labs: Abnormal Lab Results - Last 24 Hours (Table) 04/05/22 04/05/22 04/06/22 Range/Units 17:50 17:50 04:04 WBC 15.8 H (3.8-10.6) k/uL RBC 3.29 L (3.80-5.40) m/uL Hgb 10.3 L (11.4-16.0) gm/dL Hct 30.4 L (34.0-46.0) % Neutrophils # 12.8 H (1.3-7.7) k/uL ESR 114 H (0-20) mm/hr Sodium 134 L 131 L (137-145) mmol/L Potassium 3.4 L 3.4 L (3.5-5.1) mmol/L Chloride 96 L (98-107) mmol/L BUN 73 H 66 H (7-17) mg/dL Creatinine 1.52 H 1.46 H (0.52-1.04) mg/dL Glucose 206 H 169 H (74-99) mg/dL Calcium 8.3 L 8.0 L (8.4-10.2) mg/dL AST 75 H (14-36) U/L ALT 146 H (4-34) U/L C-Reactive Protein 5.9 H (<1.0) mg/dL Total Protein 5.8 L (6.3-8.2) g/dL Albumin 2.8 L (3.5-5.0) g/dL 04/06/22 Range/Units 04:04 WBC 15.0 H (3.8-10.6) k/uL RBC 3.08 L (3.80-5.40) m/uL Hgb 9.7 L (11.4-16.0) gm/dL Hct 28.6 L (34.0-46.0) % Neutrophils # 12.0 H (1.3-7.7) k/uL ESR (0-20) mm/hr Sodium (137-145) mmol/L Potassium (3.5-5.1) mmol/L Chloride (98-107) mmol/L BUN (7-17) mg/dL Creatinine (0.52-1.04) mg/dL Glucose (74-99) mg/dL Calcium (8.4-10.2) mg/dL AST (14-36) U/L ALT (4-34) U/L C-Reactive Protein (<1.0) mg/dL Total Protein (6.3-8.2) g/dL Albumin (3.5-5.0) g/dL Thrombosis Risk Factor Assmnt - DVT/VTE Prophylaxis DVT/VTE Prophylaxis: Pharmacologic Prophylaxis ordered Assessment and Plan Assessment: Bilateral lower extremity cellulitis with sloughing of the skin in the calf region. Chronic bilateral lower extremity swelling/lymphedema Recent admission with urinary tract infection and severe sepsis and DAIN Chronic bladder retention Diabetes type 2 currently on insulin sliding scale Paroxysmal atrial fibrillation on anticoagulation with Eliquis Hyperlipidemia Previous history of smoking Morbid obesity with BMI 55.6 DVT prophylaxis patient is already on Eliquis Plan: Patient will be continued antibiotics above vancomycin.. Follow-up blood cultures and wound care. Infectious disease consult for further evaluation. Follow-up CBC and BMP. Replace electrolytes. Continue with home medications. Lasix dose increased to 40 mg twice daily.. Patient was also on metolazone pre viously and was discontinued due to DAIN during recent admission. Continue to follow closely. Prognosis is guarded with multiple medical problems and comorbid conditions. Time with Patient: Greater than 30
[2022-04-07 08:41] LABS: Vancomycin,Random 24.3 ug/mL
[2022-04-07 08:46] LABS: African American GFR (CKD) 32 (>60 ml/min/1.73 sqM); Anion Gap 10 mmol/L; Blood Urea Nitrogen 61 mg/dL (7-17); Calcium 8.2 mg/dL (8.4-10.2); Carbon Dioxide 24 mmol/L (22-30); Chloride 96 mmol/L (98-107); Glucose 241 mg/dL (74-99); Non-African American GFR(CKD) 28 (>60 ml/min/1.73 sqM); Potassium 5.2 mmol/L (3.5-5.1); Sodium 130 mmol/L (137-145)
[2022-04-07] MEDS ORDERED: FUROSEMIDE 40 MG TAB PO SCH (09:00)
[2022-04-07] MEDS: SYMBICORT 160-4.5 MCG INHALER INHALATION SCH ×2 (09:29→21:14)
[2022-04-07] MEDS: APIXABAN 5 MG TAB PO SCH ×2 (10:04→17:12)
[2022-04-07] MEDS: METOPROLOL SUCCINATE (ER) 100 MG TAB.ER.24H PO SCH (10:04)
[2022-04-07] MEDS: polyethylene glycoL 3350 17 GM POWD.PACK PO SCH (10:04)
[2022-04-07 10:30] LABS: Basophils # (A) 0.08 X 10*3/uL (0.00-0.10); Basophils % (A) 0.4 %; Eosinophils % (A) 0.9 %; HCT 34.5 % (37.2-46.3); HGB 11.5 g/dL (12.0-15.0); Immature Grans, Automated 3.3 %; Lymphocytes # (A) 2.37 X 10*3/uL (0.90-5.00); MCH 31.5 pg (27.0-32.0); MCHC 33.3 g/dL (32.0-37.0); MCV 94.5 fL (80.0-97.0); Mean Platelet Volume 9.3 fL (9.5-12.2); Monocytes # (A) 1.07 X 10*3/uL (0.20-1.00); NRBC Per 100 WBC 0 /100 WBCS (0.0-0.0); Neutrophils # (A) 17.11 X 10*3/uL (1.80-7.70); Neutrophils % (A) 79.4 %; Platelet Count 578 X 10*3/uL (140-440); RBC 3.65 X 10*6/uL (4.10-5.20); RDW 14.7 % (11.5-14.5); WBC 21.55 X 10*3/uL (4.50-10.00)
--- NOTE | 2022-04-07 13:34 | P.PN ---
Subjective Patient is a 76-year-old female with a known history of atrial fibrillation on anticoagulation with Eliquis, hypertension, hyperlipidemia, morbid obesity, diabetes type 2 insulin-dependent and prior history of smoking was sent to the hospital from [facility]. Patient was recently admitted to hospital due to sepsis secondary to urinary tract infection. She was discharged from the hospital 04/03/2022. Patient has been in the state for 2 days before she was found by her brother and brought to the ER. Patient developed paralysis on the bilateral lower extremities. Patient was noted to have bilateral lower extremity redness and sloughing of the skin.. Wound care nurse at the facility was concerned about the appearance of bilateral lower extremity skin changes and inform the physician on-call., Who recommended transfer [facility]. Patient was admitted to hospital due to bilateral lower extremity cellulitis. Patient already denies any complaints of fever or chills. No nausea vomiting abdominal pain or diarrhea. No chest pain or worsening shortness of breath. CT head and cervical spine showed mild spondylitic changes in the cervical spine. No fracture. Cerebral atrophy. No acute intracranial abnormality. Right lateral frontal scalp hematoma. TiBia and fibula x-ray showed soft tissue edema. Laboratory test showed WBC 15.8 hemoglobin 10.3 and platelets 408 Sodium 134 potassium 3.4 chloride 96 bicarb is 29 BUN 73 and creatinine 1.52 and blood sugar is 206 AST 75 ALT 146 alk phos 112 and CRP 5.9. 04/07/2022 Patient complaining of from right leg swelling, bruising/weekend with some clear yellow discharge from the lateral leg with some vesicles, also complex more red and slightly warm compared to the left side, she has history of chronic with elephat Patient still has right leg cellulitis, she is on IV vancomycin as per ID team Creatinine 1.4 went to 1.7, with lower dose of Lasix, check a bladder scan and consult nephrology who saw her last time for a I secondary to obstructive uropathy and had Hernandez catheter pending. She is also on home dose of Eliquis for A. fib Objective - Vital Signs Vital signs: Vital Signs Temp 98.2 F 04/07/22 08:00 Pulse 89 04/07/22 08:15 Resp 16 04/07/22 08:15 BP 106/63 04/07/22 08:00 Pulse Ox 98 04/07/22 08:00 FiO2 Intake & Output 04/06/22 04/07/22 04/07/22 18:59 06:59 18:59 Intake Total 1560 480 Balance 1560 480 Intake: Oral 1560 480 Other: Voiding Method External Catheter External Catheter External Catheter # Voids 1 1 # Bowel Movements 1 - Exam -GENERAL: The patient is alert and oriented x3, not in any acute distress. Well developed, well morbidly obese HEENT: Pupils are round and equally reacting to light. EOMI. No scleral icterus. No conjunctival pallor. Normocephalic, atraumatic. No pharyngeal erythema. No thyromegaly. CARDIOVASCULAR: S1 and S2 present. No murmurs, rubs, or gallops. PULMONARY: Chest is clear to auscultation, no wheezing or crackles. ABDOMEN: Soft, nontender, nondistended, normoactive bowel sounds. No palpable organomegaly. MUSCULOSKELETAL: No joint swelling or deformity. -EXTREMITIES: No cyanosis, clubbing, or pedal edema. Right leg warm rate and tender with vesicular lesion and some purulent discharge on the lateral lower leg. Bilateral chronic lymphedema NEUROLOGICAL: Gross neurological examination did not reveal any focal deficits. SKIN: No rashes. no petechiae. - Labs CBC & Chem 7: 04/07/22 06:31 04/07/22 06:31 Labs: Abnormal Lab Results - Last 24 Hours (Table) 04/07/22 04/07/22 Range/Units 06:31 06:31 WBC 21.55 H (4.50-10.00) X 10*3/uL RBC 3.65 L (4.10-5.20) X 10*6/uL Hgb 11.5 L (12.0-15.0) g/dL Hct 34.5 L (37.2-46.3) % RDW 14.7 H (11.5-14.5) % Plt Count 578 H (140-440) X 10*3/uL MPV 9.3 L (9.5-12.2) fL Immature Gran # 0.72 H (0.00-0.04) X 10*3/uL Neutrophils # 17.11 H (1.80-7.70) X 10*3/uL Monocytes # 1.07 H (0.20-1.00) X 10*3/uL Sodium 130 L (137-145) mmol/L Potassium 5.2 H (3.5-5.1) mmol/L Chloride 96 L (98-107) mmol/L BUN 61 H (7-17) mg/dL Creatinine 1.74 H (0.52-1.04) mg/dL Glucose 241 H (74-99) mg/dL Calcium 8.2 L (8.4-10.2) mg/dL Microbiology - Last 24 Hours (Table) 04/05/22 20:00 Blood Culture - Preliminary Blood No Growth after 24 hours 04/05/22 20:15 Blood Culture - Preliminary Blood No Growth after 24 hours Assessment and Plan Assessment: Right lower extremity cellulitis with sloughing of the skin in the calf region, Some physical Chronic bilateral lower extremity swelling/lymphedema Recent admission with urinary tract infection and severe sepsis and DAIN Chronic bladder retention Diabetes type 2 currently on insulin sliding scale Paroxysmal atrial fibrillation on anticoagulation with Eliquis Hyperlipidemia Previous history of smoking Morbid obesity with BMI 55.6 Plan: Continue with antibiotic as per infectious disease team Monitor creatinine, lower oral Lasix twice daily and was daily. Check bladder scan and consult physics instructor Labs and medication were reviewed.. Continue same treatment. Continue with symptomatic treatment. Resume home medication. Monitor labs and vitals. DVT and GI prophylaxis. Further recommendations as per clinical course of the emelyn hdz DVT prophylaxis: Eliquis GI prophylaxis, Pepcid PT/OT: Pending Prognosis is guarded
[2022-04-07] MEDS: ACETAMINOPHEN TAB 325 MG TAB PO PRN ×2 (17:11→23:37)
[2022-04-07] MEDS: MULTIVITAMINS, THERA 1 EACH TAB PO SCH (17:12)
[2022-04-07] MEDS: TAMSULOSIN 0.4 MG CAP.ER.24H PO SCH (17:12)
[2022-04-07] MEDS: ASPIRIN 81 MG PO SCH (17:12)
[2022-04-07] MEDS: ASCORBIC ACID 500 MG TAB PO SCH (17:12)
[2022-04-07] MEDS: CALCIUM CARBONATE 500 MG CHEWABLE PO SCH (17:12)
[2022-04-07] MEDS: ATORVASTATIN 20 MG TAB PO SCH (20:47)
[2022-04-07] MEDS: MELATONIN 5 MG TABLET PO SCH (20:47)
[2022-04-07] MEDS: LATANOPROST 0.005% OPHTH DROPS 2.5 ML BTL BOTH EYES SCH (20:48)
--- NOTE | 2022-04-07 23:47 | P.CONS ---
History of Present Illness - Reason for Consult Consult date: 04/07/22 - History of Present Illness Patient is a 76-year-old female with a past medical history difficult for atrial fibrillation PE hypertension hyperlipidemia currently residing at [facility] after apparently the patient did sustain a fall patient did have a extensive swelling to bilateral lower extremity right greater than the left and the patient did have blister formation to the right lower leg with some ulceration with associated swelling and redness with a snf physician consult for possible cellulitis for the patient was sent to the ER patient on presentation to the hospital was afebrile and no fever has been recorded subsequently patient did have white count of 15,000 which is up to 21,000 today also have elevated BUN and creatinine patient did have blood culture which has been negative so far did have x-ray of the tibia-fibula which has been negative for any fracture patient has been treated with vancomycin infectious disease was consulted today for further management of antibiotic therapy, patient complaining of pain to the right lower extremity morphine the laking at times s harp intensity is about 4 to 5-10 and radiation with associated diffuse swelling redness but no foul-smelling drainage Past Medical History Past Medical History: Atrial Fibrillation, Hyperlipidemia, Hypertension, Supraventricular Tachycardia (SVT) Additional Past Medical History / Comment(s): PE ?; years ago, diabetes, pacemaker, obesity, hernia, History of Any Multi-Drug Resistant Organisms: None Reported Past Surgical History: Orthopedic Surgery Additional Past Surgical History / Comment(s): hernia,eye surgery,rt knee Past Anesthesia/Blood Transfusion Reactions: No Reported Reaction Past Psychological History: No Psychological Hx Reported Smoking Status: Former smoker Past Alcohol Use History: None Reported Additional Past Alcohol Use History / Comment(s): smoked from [id number] 1ppd Past Drug Use History: None Reported - Past Family History Sister(s) Family Medical History: Congestive Heart Failure (CHF), Pulmonary Embolus Additional Family Medical History / Comment(s): gallbladder removed Medications and Allergies Home Medications Medication Instructions Recorded Confirmed Type Ascorbic Acid [Vitamin C] 500 mg PO DAILY@1700 03/11/17 04/05/22 History Bimatoprost [Lumigan 0.01% Ophth 1 drop BOTH EYES HS@2100 03/11/17 04/05/22 History Soln] Multivitamins, Thera [Multivitamin 1 tab PO DAILY@1700 03/11/17 04/05/22 History (formulary)] Aspirin 81 mg PO DAILY@1700 01/26/20 04/05/22 History Melatonin 5 mg PO HS@209909/12/21 04/05/22 History Metoprolol Succinate (ER) [Toprol 100 mg PO DAILY@0800 09/12/21 04/05/22 History XL] Albuterol Inhaler [Ventolin Hfa 1 puff INHALATION RT-QID PRN 03/30/22 04/05/22 History Inhaler] Acetaminophen Tab [Tylenol] 650 mg PO Q6HR PRN tab 04/03/22 04/05/22 Rx Apixaban [Eliquis] 5 mg PO BID@0800,1700 04/05/22 04/05/22 History Atorvastatin Calcium [Lipitor] 20 mg PO HS@209904/05/22 04/05/22 History Budesonide-Formot 160-4.5 Mcg 2 puff INHALATION RT-BID@0800,1700 04/05/22 04/05/22 History [Symbicort 160-4.5 Mcg Inhaler] Calcium Carbonate Antacid (Unkown 1 tab PO DAILY@1700 04/05/22 04/05/22 History Strength) Cefdinir 300 mg PO DAILY@0700 04/05/22 04/05/22 History Furosemide [Lasix] 40 mg PO DAILY@0800 04/05/22 04/05/22 History INSULIN ASPART (NovoLOG) [NovoLOG See Protocol SQ 04/05/22 04/05/22 History (formulary)] ACHS@07,11,1630,2130 Magnesium Hydroxide [Milk of 7,200 mg PO DAILY PRN 04/05/22 04/05/22 History Magnesia Concentrate] Na Phos,M-B/Na Phos,Di-Ba [Fleet 133 ml RECTAL DAILY PRN 04/05/22 04/05/22 History Adult] Sodium Bicarbonate Tab 650 mg PO BID@0800,1700 04/05/22 04/05/22 History Tamsulosin [Flomax] 0.4 mg PO DAILY@1700 04/05/22 04/05/22 History bisacodyL [Dulcolax] 10 mg RECTAL DAILY PRN 04/05/22 04/05/22 History polyethylene glycoL 3350 [Miralax] 17 gm PO DAILY@0800 04/05/22 04/05/22 History Allergies Allergy/AdvReac Type Severity Reaction Status Date / Time No Known Allergies Allergy Verified 04/05/22 22:06 Physical Exam Vitals: Vital Signs Temp Pulse Resp BP Pulse Ox 04/07/22 08:00 98.2 F 89 16 106/63 98 04/07/22 01:02 97.9 F 85 20 116/77 93 L 04/06/22 19:32 98.8 F 79 18 99/69 98 04/06/22 17:05 102 H 135/74 04/06/22 14:00 97.9 F 59 L 18 83/57 97 Intake and Output 04/06/22 04/07/22 04/07/22 22:59 06:59 14:59 Intake Total 1560 Balance 1560 Intake: Oral 1560 Other: Voiding Method External Catheter # Voids 1 1 # Bowel Movements 1 Results CBC & Chem 7: 04/07/22 06:31 04/07/22 06:31 Labs: Abnormal Lab Results - Last 24 Hours (Table) 04/07/22 04/07/22 Range/Units 06:31 06:31 WBC 21.55 H (4.50-10.00) X 10*3/uL RBC 3.65 L (4.10-5.20) X 10*6/uL Hgb 11.5 L (12.0-15.0) g/dL Hct 34.5 L (37.2-46.3) % RDW 14.7 H (11.5-14.5) % Plt Count 578 H (140-440) X 10*3/uL MPV 9.3 L (9.5-12.2) fL Immature Gran # 0.72 H (0.00-0.04) X 10*3/uL Neutrophils # 17.11 H (1.80-7.70) X 10*3/uL Monocytes # 1.07 H (0.20-1.00) X 10*3/uL Sodium 130 L (137-145) mmol/L Potassium 5.2 H (3.5-5.1) mmol/L Chloride 96 L (98-107) mmol/L BUN 61 H (7-17) mg/dL Creatinine 1.74 H (0.52-1.04) mg/dL Glucose 241 H (74-99) mg/dL Calcium 8.2 L (8.4-10.2) mg/dL Microbiology - Last 24 Hours (Table) 04/05/22 20:00 Blood Culture - Preliminary Blood No Growth after 24 hours 04/05/22 20:15 Blood Culture - Preliminary Blood No Growth after 24 hours Assessment and Plan Plan: 1patient with the acute right lower extremity cellulitis in this patient did have diffuse swelling and blister formation and ulceration from ruptured blister likely from gram-positive skin marli. 2patient with the elevated kidney function and high risk of nephrotoxicity from vancomycin level is on the high side. 3discontinue vancomycin. 4cefazolin 2 g every 8 hours. 5local wound care with a dry Aquacel silver dressing and Sebas wrap from just above the toe to below the knee We will follow on clinical condition and cultures to further adjust medication if needed Thank you for this consultation will follow this patient with you Time with Patient: Greater than 30
[2022-04-08 07:10] LABS: African American GFR (CKD) 22 (>60 ml/min/1.73 sqM); Anion Gap 14 mmol/L; Blood Urea Nitrogen 76 mg/dL (7-17); Calcium 8.1 mg/dL (8.4-10.2); Carbon Dioxide 21 mmol/L (22-30); Chloride 93 mmol/L (98-107); Glucose 309 mg/dL (74-99); Non-African American GFR(CKD) 19 (>60 ml/min/1.73 sqM); Potassium 5.2 mmol/L (3.5-5.1); Sodium 128 mmol/L (137-145)
[2022-04-08] MEDS ORDERED: SODIUM CHLORIDE 0.9% 500 ML 500 ML IV ONE (08:11)
[2022-04-08] MEDS: SYMBICORT 160-4.5 MCG INHALER INHALATION SCH ×2 (08:55→21:18)
[2022-04-08 09:27] LABS: Basophils # (A) 0.11 X 10*3/uL (0.00-0.10); Basophils % (A) 0.5 %; Eosinophils # (A) 0.13 X 10*3/uL (0.04-0.35); Eosinophils % (A) 0.6 %; HCT 36.9 % (37.2-46.3); HGB 11.8 g/dL (12.0-15.0); Immature Grans, Automated 3.1 %; Lymphocytes # (A) 3.03 X 10*3/uL (0.90-5.00); Lymphocytes % (A) 13.9 %; MCH 30.5 pg (27.0-32.0); MCV 95.3 fL (80.0-97.0); Mean Platelet Volume 9.6 fL (9.5-12.2); Monocytes % (A) 4.1 %; NRBC Per 100 WBC 0.1 /100 WBCS (0.0-0.0); Neutrophils # (A) 16.91 X 10*3/uL (1.80-7.70); Neutrophils % (A) 77.8 %; Platelet Count 675 X 10*3/uL (140-440); RBC 3.87 X 10*6/uL (4.10-5.20); RDW 15.1 % (11.5-14.5); WBC 21.76 X 10*3/uL (4.50-10.00)
[2022-04-08] MEDS: APIXABAN 5 MG TAB PO SCH ×2 (09:32→18:33)
[2022-04-08] MEDS: polyethylene glycoL 3350 17 GM POWD.PACK PO SCH (09:33)
[2022-04-08] MEDS: FUROSEMIDE 40 MG TAB PO SCH (09:34)
[2022-04-08] MEDS: METOPROLOL SUCCINATE (ER) 100 MG TAB.ER.24H PO SCH (09:36)
[2022-04-08] MEDS ORDERED: SODIUM CHLORIDE 0.9% 1,000 ML IV SCH (11:00)
--- NOTE | 2022-04-08 11:01 | P.PN ---
Subjective Patient is a 76-year-old female with a known history of atrial fibrillation on anticoagulation with Eliquis, hypertension, hyperlipidemia, morbid obesity, diabetes type 2 insulin-dependent and prior history of smoking was sent to the hospital from [facility]. Patient was recently admitted to hospital due to sepsis secondary to urinary tract infection. She was discharged from the hospital 04/03/2022. Patient has been in the state for 2 days before she was found by her brother and brought to the ER. Patient developed paralysis on the bilateral lower extremities. Patient was noted to have bilateral lower extremity redness and sloughing of the skin.. Wound care nurse at the facility was concerned about the appearance of bilateral lower extremity skin changes and inform the physician on-call., Who recommended transfer the patient to [facility]. Patient was admitted to hospital due to bilateral lower extremity cellulitis. Patient already denies any complaints of fever or chills. No nausea vomiting abdominal pain or diarrhea. No chest pain or worsening shortness of breath. CT head and cervical spine showed mild spondylitic changes in the cervical spine. No fracture. Cerebral atrophy. No acute intracranial abnormality. Right lateral frontal scalp hematoma. TiBia and fibula x-ray showed soft tissue edema. Laboratory test showed WBC 15.8 hemoglobin 10.3 and platelets 408 Sodium 134 potassium 3.4 chloride 96 bicarb is 29 BUN 73 and creatinine 1.52 and blood sugar is 206 AST 75 ALT 146 alk phos 112 and CRP 5.9. 04/07/2022 Patient complaining of from right leg swelling, bruising/weekend with some clear yellow discharge from the lateral leg with some vesicles, also complex more red and slightly warm compared to the left side, she has history of chronic with elephat Patient still has right leg cellulitis, she is on IV vancomycin as per ID team Creatinine 1.4 went to 1.7, with lower dose of Lasix, check a bladder scan and consult nephrology who saw her last time for a I secondary to obstructive uropathy and had Hernandez catheter pending. She is also on home dose of Eliquis for A. fib 04/08/2012 Patient clinically looks the same, sitting in chair denies chest pain or dyspnea or dizziness. She still been treated for her right leg cellulitis which is wrapped in a dressing. Patient does not have significant pain. Her creatinine went up today 2.5, she was hypotensive this morning. Lasix dose was lowered yesterday from twice a day down towards daily. Also we will lower her metoprolol 100 mg down to 25 mg. We give bolus of 500 mL and start normal saline at 75 mL/h Urine analysis in the bladder scan still pending. Losartan still on hold since admission. Consult ethnographer. Patient currently remains on cefazolin with ID team on the case. IV vancomycin was stopped. Also she is on Eliquis home dose of 5 mg for her history of A. fib. Check labs in the morning Review of systems CONSTITUTIONAL: No fever, no malaise, no fatigue. HEENT: No recent visual problems or hearing problems. Denied any sore throat. CARDIOVASCULAR: No orthopnea, PND, no palpitations, no syncope. PULMONARY: No shortness of breath, no cough, no hemoptysis. GASTROINTESTINAL: No diarrhea, no nausea, no vomiting, no abdominal pain. Normoactive bowel sounds. NEUROLOGICAL: No headaches, no weakness, no numbness. Active Medications Generic Name Dose Route Start Last Admin Trade Name Freq PRN Reason Stop Dose Admin Acetaminophen 650 mg 04/05/22 23:38 04/07/22 23:37 Acetaminophen Tab 325 Mg Tab PO 650 mg Q6HR PRN Administration Mild Pain or Fever > 100.5 Albuterol Sulfate 2.5 mg 04/05/22 23:38 Albuterol Nebulized 2.5 Mg/3 Ml INHALATION RT-QID PRN Shortness Of Breath Apixaban 5 mg 04/06/22 08:00 04/08/22 09:32 Apixaban 5 Mg Tab PO 5 mg BID@0800,1700 [facility] Administration Protocol Ascorbic Acid 500 mg 04/06/22 17:00 04/07/22 17:12 Ascorbic Acid 500 Mg Tab PO 500 mg DAILY@1700 SONDRA Administration Aspirin 81 mg 04/06/22 17:00 04/07/22 17:12 Aspirin 81 Mg PO 81 mg DAILY@1700 [facility] Administration Atorvastatin Calcium 20 mg 04/06/22 21:00 04/07/22 20:47 Atorvastatin 20 Mg Tab PO 20 mg HS@2100 SONDRA Administration Bisacodyl 10 mg 04/05/22 23:38 Bisacodyl 10 Mg Supp RECTAL DAILY PRN Constipation Budesonide/Formoterol Fumarate 2 puff 04/06/22 08:00 04/08/22 08:55 Symbicort 160-4.5 Mcg Inhaler INHALATION 2 puff RT-BID@0800,1700 [facility] Administration Calcium Carbonate/Glycine 500 mg 04/06/22 17:00 04/07/22 17:12 Calcium Carbonate 500 Mg Chewable PO 500 mg DAILY@1700 SON[facility]A Administration Furosemide 40 mg 04/08/22 09:00 04/08/22 09:34 Furosemide 40 Mg Tab PO 40 mg DAILY SONDRA Administration Cefazolin Sodium 2 gm/ Sodium 50 mls @ 100 mls/hr 04/07/22 21:00 04/08/22 09:34 Chloride IVPB 100 mls/hr Q12HR [facility] Administration Protocol Sodium Chloride 1,000 mls @ 75 mls/hr 04/08/22 11:00 Saline 0.9% IV .[id number] [facility] Latanoprost 1 drops 04/06/22 21:00 04/07/22 20:48 Latanoprost 0.005% Ophth Drops 2.5 Ml Btl BOTH EYES 1 drops HS@2100 [facility] Administration Magnesium Hydroxide 2,400 mg 04/05/22 23:38 Magnesium Hydroxide 2,400 Mg/10 Ml Cup PO DAILY PRN Constipation Melatonin 5 mg 04/06/22 21:00 04/07/22 20:47 Melatonin 5 Mg Tablet PO 5 mg HS@2100 [facility] Administration Metoprolol Succinate 25 mg 04/09/22 08:00 Metoprolol Succinate (Er) 25 Mg Tab.Er.24h PO DAILY@0800 [facility] Multivitamins 1 each 04/06/22 17:00 04/07/22 17:12 Multivitamins, Thera 1 Each Tab PO 1 each DAILY@1700 [facility] Administration Naloxone HCl 0.2 mg 04/05/22 21:28 Naloxone 0.4 Mg/Ml 1 Ml Vial IV Q2M PRN Opioid Reversal Polyethylene Glycol 17 gm 04/06/22 08:00 04/08/22 09:33 Polyethylene Glycol 3350 17 Gm Powd.Pack PO 17 gm DAILY@0800 [facility] Administration Sodium Biphosphate/Sodium Phosphate 133 ml 04/06/22 09:00 Na Phos,M-B/Na Phos,Di-Ba 133 Ml Enema RECTAL DAILY PRN Constipation Tamsulosin HCl 0.4 mg 04/06/22 17:00 04/07/22 17:12 Tamsulosin 0.4 Mg Cap.Er.24h PO 0.4 mg DAILY@1700 [facility] Administration Objective - Vital Signs Vital signs: Vital Signs Temp 96.0 F L 04/08/22 08:00 Pulse 86 04/08/22 08:00 Resp 17 04/08/22 08:00 BP 92/67 04/08/22 08:00 Pulse Ox 96 04/08/22 08:00 FiO2 Intake & Output 04/07/22 04/08/22 04/08/22 18:59 06:59 18:59 Intake Total 930 390 Output Total 500 Balance 930 -110 Intake: Intake, IV Titration 50 Amount ceFAZolin 2 gm In Sodium 50 Chloride 0.9% 50 ml @ 100 mls/hr IVPB Q12HR [facility]ON[facility] Rx #:[id number] Oral 930 340 Output: Urine 500 Other: Voiding Method External Catheter # Voids 3 1 # Bowel Movements 1 - Exam -GENERAL: The patient is alert and oriented x3, not in any acute distress. Well developed, well morbidly obese HEENT: Pupils are round and equally reacting to light. EOMI. No scleral icterus. No conjunctival pallor. Normocephalic, atraumatic. No pharyngeal erythema. No thyromegaly. CARDIOVASCULAR: S1 and S2 present. No murmurs, rubs, or gallops. PULMONARY: Chest is clear to auscultation, no wheezing or crackles. ABDOMEN: Soft, nontender, nondistended, normoactive bowel sounds. No palpable organomegaly. MUSCULOSKELETAL: No joint swelling or deformity. -EXTREMITIES: No cyanosis, clubbing, or pedal edema. Right leg warm rate and tender with vesicular lesion and some purulent discharge on the lateral lower leg. Bilateral chronic lymphedema NEUROLOGICAL: Gross neurological examination did not reveal any focal deficits. SKIN: No rashes. no petechiae. - Labs CBC & Chem 7: 04/08/22 06:38 04/08/22 06:38 Labs: Abnormal Lab Results - Last 24 Hours (Table) 04/08/22 04/08/22 Range/Units 06:38 06:38 WBC 21.76 H (4.50-10.00) X 10*3/uL RBC 3.87 L (4.10-5.20) X 10*6/uL Hgb 11.8 L (12.0-15.0) g/dL Hct 36.9 L (37.2-46.3) % RDW 15.1 H (11.5-14.5) % Plt Count 675 H (140-440) X 10*3/uL Absolute Nucleated RBC 0.02 H (0.00-0.00) X 10*3/uL Immature Gran # 0.68 H (0.00-0.04) X 10*3/uL Neutrophils # 16.91 H (1.80-7.70) X 10*3/uL Basophils # 0.11 H (0.00-0.10) X 10*3/uL NRBC/100 WBC Diff 0.1 H (0.0-0.0) /100 WBCS Sodium 128 L (137-145) mmol/L Potassium 5.2 H (3.5-5.1) mmol/L Chloride 93 L (98-107) mmol/L Carbon Dioxide 21 L (22-30) mmol/L BUN 76 H (7-17) mg/dL Creatinine 2.35 H (0.52-1.04) mg/dL Glucose 309 H (74-99) mg/dL Calcium 8.1 L (8.4-10.2) mg/dL Microbiology - Last 24 Hours (Table) 04/05/22 20:15 Blood Culture - Preliminary Blood No Growth after 48 hours 04/05/22 20:00 Blood Culture - Preliminary Blood No Growth after 48 hours Assessment and Plan Assessment: Right lower extremity cellulitis with sloughing of the skin in the calf region, Acute kidney injury on chronic kidney disease Mild hypernatremia Chronic bilateral lower extremity swelling/lymphedema Recent admission with urinary tract infection and severe sepsis and DAIN Chronic bladder retention Diabetes type 2 currently on insulin sliding scale Paroxysmal atrial fibrillation on anticoagulation with Eliquis Hyperlipidemia Previous history of smoking Morbid obesity with BMI 55.6 Plan: Continue with antibiotic as per infectious disease team currently on cefazolin Monitor creatinine, lower oral Lasix twice daily and was daily. Check bladder scan and consult ethnographer . Lower dose of metoprolol to 25 mg give bolus of 500 mL and continue with normal saline infusion Labs and medication were reviewed.. Continue same treatment. Continue with sym ptomatic treatment. Resume home medication. Monitor labs and vitals. DVT and GI prophylaxis. Further recommendations as per clinical course of the patient DVT prophylaxis: Eliquis GI prophylaxis, Pepcid PT/OT: Pending Prognosis is guarded
[2022-04-08] MEDS ORDERED: FUROSEMIDE 10 MG/ML 4 ML VIAL IV STA (11:36)
--- NOTE | 2022-04-08 11:36 | P.NPCON ---
History of Present Illness - Reason for Consult acute renal failure - History of Present Illness Patient is a 76-year-old female with history of hypertension, chronic A. fib, type 2 diabetes and morbid obesity. She currently resides at [facility]. Recently discharged from the hospital on 04/03/2022 after admission for sepsis from urinary tract infection. Reason for admission this time is increased weakness in increased lower extremity swelling with concern for bilateral lower extremity cellulitis. Serum creatinine 1.5 on initial admission and increased to 2.3 today. Serum creatinine was 2.0 on 04/03/2022 prior to discharge from last admission. At that time serum creatinine had peaked at 3.8 mg/dL. Blood pressure is low with systolic in the 80s. Maintained on IV fluids at 75 mL an hour Urine output is not accurately charted. Patient had an external catheter. No fever noted. No abdominal pain or diarrhea. Review of Systems As per HPI Past Medical History Past Medical History: Atrial Fibrillation, Hyperlipidemia, Hypertension, Supraventricular Tachycardia (SVT) Additional Past Medical History / Comment(s): PE ?; years ago, diabetes, pacemaker, obesity, hernia, History of Any Multi-Drug Resistant Organisms: None Reported Past Surgical History: Orthopedic Surgery Additional Past Surgical History / Comment(s): hernia,eye surgery,rt knee Past Anesthesia/Blood Transfusion Reactions: No Reported Reaction Past Psychological History: No Psychological Hx Reported Smoking Status: Former smoker Past Alcohol Use History: None Reported Additional Past Alcohol Use History / Comment(s): smoked from [id number] 1ppd Past Drug Use History: None Reported - Past Family History Sister(s) Family Medical History: Congestive Heart Failure (CHF), Pulmonary Embolus Additional Family Medical History / Comment(s): gallbladder removed Medications and Allergies Home Medications Medication Instructions Recorded Confirmed Type Ascorbic Acid [Vitamin C] 500 mg PO DAILY@169903/11/17 04/05/22 History Bimatoprost [Lumigan 0.01% Ophth 1 drop BOTH EYES HS@209903/11/17 04/05/22 History Soln] Multivitamins, Thera [Multivitamin 1 tab PO DAILY@169903/11/17 04/05/22 History (formulary)] Aspirin 81 mg PO DAILY@169901/26/20 04/05/22 History Melatonin 5 mg PO HS@209909/12/21 04/05/22 History Metoprolol Succinate (ER) [Toprol 100 mg PO DAILY@0800 09/12/21 04/05/22 History XL] Albuterol Inhaler [Ventolin Hfa 1 puff INHALATION RT-QID PRN 03/30/22 04/05/22 History Inhaler] Acetaminophen Tab [Tylenol] 650 mg PO Q6HR PRN tab 04/03/22 04/05/22 Rx Apixaban [Eliquis] 5 mg PO BID@0800,1700 04/05/22 04/05/22 History Atorvastatin Calcium [Lipitor] 20 mg PO HS@2100 04/05/22 04/05/22 History Budesonide-Formot 160-4.5 Mcg 2 puff INHALATION RT-BID@0800,1700 04/05/22 04/05/22 History [Symbicort 160-4.5 Mcg Inhaler] Calcium Carbonate Antacid (Unkown 1 tab PO DAILY@1700 04/05/22 04/05/22 History Strength) Cefdinir 300 mg PO DAILY@0700 04/05/22 04/05/22 History Furosemide [Lasix] 40 mg PO DAILY@0800 04/05/22 04/05/22 History INSULIN ASPART (NovoLOG) [NovoLOG See Protocol SQ 04/05/22 04/05/22 History (formulary)] ACHS@07,11,1630,2130 Magnesium Hydroxide [Milk of 7,200 mg PO DAILY PRN 04/05/22 04/05/22 History Magnesia Concentrate] Na Phos,M-B/Na Phos,Di-Ba [Fleet 133 ml RECTAL DAILY PRN 04/05/22 04/05/22 History Adult] Sodium Bicarbonate Tab 650 mg PO BID@0800,1700 04/05/22 04/05/22 History Tamsulosin [Flomax] 0.4 mg PO DAILY@1700 04/05/22 04/05/22 History bisacodyL [Dulcolax] 10 mg RECTAL DAILY PRN 04/05/22 04/05/22 History polyethylene glycoL 3350 [Miralax] 17 gm PO DAILY@0800 04/05/22 04/05/22 History Allergies Allergy/AdvReac Type Severity Reaction Status Date / Time No Known Allergies Allergy Verified 04/05/22 22:06 Physical Exam Vitals: Vital Signs Temp Pulse Resp BP Pulse Ox 04/08/22 08:00 96.0 F L 86 17 92/67 96 04/08/22 02:00 98.1 F 94 17 100/50 04/07/22 20:00 98.2 F 84 20 109/63 97 04/07/22 14:00 97.6 F 81 19 80/59 100 Intake and Output 04/07/22 04/08/22 04/08/22 22:59 06:59 14:59 Intake Total 450 390 Output Total 500 Balance 450 -110 Intake: Intake, IV Titration 50 Amount ceFAZolin 2 gm In Sodium 50 Chloride 0.9% 50 ml @ 100 mls/hr IVPB Q12HR SONDRA Rx #:[id number] Oral 450 340 Output: Urine 500 Other: # Voids 1 1 # Bowel Movements 1 1 Patient is awake, no acute distress Examination of the heart S1 and S2 Examination lungs decreased breath sounds at the bases Abdomen is soft morbidly obese Examination lower extremity shows significant edema and chronic skin changes. TILE FITTER exam shows patient is moving all 4 extremities Results - Lab Results Most recent lab results Calcium 8.1 mg/dL (8.4-10.2) L 04/08/22 06:38 04/08/22 06:38 04/08/22 06:38 Assessment and Plan Assessment: 1. Acute kidney injury secondary to hypotension and hypoperfusion. Rule out urine retention. Check urine analysis and check ultrasound of the abdomen 2. Hyponatremia currently hypervolemic. 3. Mild hyperkalemia associated with acute kidney injury 4. Lower extremity cellulitis mostly right side maintained on antibiotics 5. Chronic A. fib maintained on Kelechi was 6. Recent admission for sepsis and urinary tract infection Plan: Add midodrine for hypotension IV Lasix 1 Try to decrease IV fluids Check urine sodium and urine osmolality Check bladder scan Check ultrasound of the kidneys Check urine analysis Avoid nephrotoxic agents Repeat labs in a.m. next Thank you for the consultation. We will continue to follow the patient with you during her hospitalization
[2022-04-08 11:48] LABS: Glucose,Whole Blood 298 mg/dL (70-110)
[2022-04-08] MEDS ORDERED: DEXTROSE 50% SYRINGE 50 ML IVP PRN ×2 (12:56)
[2022-04-08] MEDS: MIDODRINE 5 MG TAB PO SCH ×2 (13:23→18:33)
[2022-04-08] MEDS: ACETAMINOPHEN TAB 325 MG TAB PO PRN (13:25)
--- NOTE | 2022-04-08 13:29 | US ---
EXAMINATION TYPE: US kidneys/renal and bladder DATE OF EXAM: 04/08/2022 COMPARISON: US 03/31/2022 CLINICAL HISTORY: dain. DAIN. EXAM MEASUREMENTS: Right Kidney: 11.1 x 5.3 x 4.4 cm Left Kidney: 12.5 x 4.7 x 4.8 cm Right Kidney: Hypoechoic area seen lower pole: 4.4 x 3.7 x 3.5 cm. Left Kidney: Appears enlarged. Hypoechoic area seen at hilum at mid: 2.1 x 2.5 x 2.3 cm. Bladder: Not seen. Pt has catheter. Bilateral Jets seen: No Very limited exam due to patient body habitus. No overt hydronephrosis or masses. Mild cortical thinn ing bilaterally. IMPRESSION: 1. Hypoechoic area seen within the kidneys bilaterally do not meet the criteria for simple cyst but t his likely is technical. Suspected right-sided renal cyst is reported on the prior exam. 2. No overt hydronephrosis or nephrolithiasis. Very minimal pelvocaliectasis on the left suggested. S imilar to prior exam. 3. Mild cortical thinning bilaterally correlate for chronic medical renal disease.
[2022-04-08] MEDS ORDERED: SODIUM CHLORIDE 0.9% 500 ML 250 ML IV ONE (14:00)
[2022-04-08 16:31] LABS: Glucose,Whole Blood 284 mg/dL (70-110)
[2022-04-08] MEDS: HYDROcodone/APAP 5-325MG 1 EACH TAB PO PRN (17:16)
[2022-04-08 17:51] LABS: Appearance,Urine Cloudy (Clear); Bacteria,Urine Moderate /hpf; Bilirubin,Urine Negative (Negative); Blood,Urine Moderate (Negative); Color,Urine Yellow; Glucose,Urine (UA) Negative (Negative); Hyaline Casts,Urine 5 /lpf (0-2); Ketones,Urine Negative (Negative); Leukocyte Esterase,Urine Small (Negative); Mucus,Urine Rare /hpf; Nitrite,Urine Negative (Negative); Protein,Urine Trace (Negative); RBC,Urine 4 /hpf (0-5); Squamous Epithelial Cell,Urine 8 /hpf (0-4); Urobilinogen,Urine <2.0 mg/dL (<2.0); WBC,Urine <1 /hpf (0-5)
[2022-04-08] MEDS: CALCIUM CARBONATE 500 MG CHEWABLE PO SCH (18:34)
[2022-04-08] MEDS: MULTIVITAMINS, THERA 1 EACH TAB PO SCH (18:34)
[2022-04-08] MEDS: ASPIRIN 81 MG PO SCH (18:34)
[2022-04-08] MEDS: INSULIN ASPART (NovoLOG) 100 UNIT/ML VIAL SQ SCH ×2 (18:34→21:23)
[2022-04-08] MEDS: TAMSULOSIN 0.4 MG CAP.ER.24H PO SCH (18:34)
[2022-04-08] MEDS: ASCORBIC ACID 500 MG TAB PO SCH (18:34)
[2022-04-08 20:01] LABS: Glucose,Whole Blood 320 mg/dL (70-110)
[2022-04-08] MEDS: MELATONIN 5 MG TABLET PO SCH (21:23)
[2022-04-08] MEDS: ATORVASTATIN 20 MG TAB PO SCH (21:23)
[2022-04-08] MEDS: LATANOPROST 0.005% OPHTH DROPS 2.5 ML BTL BOTH EYES SCH (22:53)
[2022-04-09] MEDS: HYDROcodone/APAP 5-325MG 1 EACH TAB PO PRN ×2 (01:00→17:10)
[2022-04-09] MEDS: MIDODRINE 5 MG TAB PO SCH ×3 (06:21→17:16)
[2022-04-09 06:26] LABS: Glucose,Whole Blood 250 mg/dL (70-110)
[2022-04-09] MEDS: INSULIN ASPART (NovoLOG) 100 UNIT/ML VIAL SQ SCH ×4 (06:39→23:06)
[2022-04-09] MEDS: SYMBICORT 160-4.5 MCG INHALER INHALATION SCH ×2 (07:04→16:13)
[2022-04-09] MEDS: METOPROLOL SUCCINATE (ER) 25 MG TAB.ER.24H PO SCH (08:59)
[2022-04-09] MEDS: APIXABAN 5 MG TAB PO SCH ×2 (08:59→17:03)
[2022-04-09] MEDS: polyethylene glycoL 3350 17 GM POWD.PACK PO SCH (08:59)
[2022-04-09] MEDS: FUROSEMIDE 40 MG TAB PO SCH (08:59)
[2022-04-09 11:33] LABS: Basophils # (A) 0.09 X 10*3/uL (0.00-0.10); Basophils % (A) 0.4 %; Eosinophils # (A) 0.06 X 10*3/uL (0.04-0.35); Eosinophils % (A) 0.2 %; HGB 12.1 g/dL (12.0-15.0); Immature Grans, Automated 1.9 %; Lymphocytes # (A) 2.01 X 10*3/uL (0.90-5.00); Lymphocytes % (A) 7.9 %; MCH 30.6 pg (27.0-32.0); MCHC 32.7 g/dL (32.0-37.0); MCV 93.7 fL (80.0-97.0); Mean Platelet Volume 9.3 fL (9.5-12.2); Monocytes # (A) 1.12 X 10*3/uL (0.20-1.00); Monocytes % (A) 4.4 %; NRBC Per 100 WBC 0.1 /100 WBCS (0.0-0.0); Neutrophils # (A) 21.81 X 10*3/uL (1.80-7.70); Neutrophils % (A) 85.2 %; Platelet Count 692 X 10*3/uL (140-440); RBC 3.95 X 10*6/uL (4.10-5.20); RDW 15.2 % (11.5-14.5); WBC 25.57 X 10*3/uL (4.50-10.00)
[2022-04-09 12:20] LABS: African American GFR (CKD) 19.8 (60.0-200.0); Albumin 3.4 g/dL (3.8-4.9); Albumin/Globulin Ratio 1.06 (1.60-3.17); Anion Gap 21.4 mmol/L (10.00-18.00); BUN/Creat Ratio 30.58 Ratio (12.00-20.00); Bilirubin, Conjugated 0.29 mg/dL (0.20-0.40); Bilirubin,Unconjugated 0.71 mg/dL (0.20-1.00); Blood Urea Nitrogen 79.5 mg/dL (9.0-27.0); Calcium 8.6 mg/dL (8.7-10.3); Carbon Dioxide 14.6 mmol/L (20.0-27.5); Globulin 3.2 g/dL (1.6-3.3); Non-African American GFR(CKD) 17.1 (60.0-200.0); Potassium 5.8 mmol/L (3.5-5.5); Total Protein 6.6 g/dL (6.2-8.2)
[2022-04-09 12:49] LABS: Glucose,Whole Blood 295 mg/dL (70-110)
[2022-04-09] MEDS: DAPTOmycin 350 MG in SODIUM CHLORIDE 0.9% 50 ML IVPB SCH (16:41)
[2022-04-09 16:45] LABS: Glucose,Whole Blood 298 mg/dL (70-110)
[2022-04-09] MEDS: MULTIVITAMINS, THERA 1 EACH TAB PO SCH (17:02)
[2022-04-09] MEDS: TAMSULOSIN 0.4 MG CAP.ER.24H PO SCH (17:03)
[2022-04-09] MEDS: ASCORBIC ACID 500 MG TAB PO SCH (17:03)
[2022-04-09] MEDS: CALCIUM CARBONATE 500 MG CHEWABLE PO SCH (17:03)
[2022-04-09] MEDS: ASPIRIN 81 MG PO SCH (17:03)
[2022-04-09] MEDS ORDERED: SODIUM ZIRCONIUM CYCLOSILICATE 10 GM PACKET PO ONE (17:44)
[2022-04-09] MEDS: SODIUM CHLORIDE 0.45% 1,000 ML with SODIUM BICARB (1 MEQ/ML) 150 ML IV SCH ×2 (19:07)
--- NOTE | 2022-04-09 19:36 | P.PN ---
Subjective Patient is a 76-year-old female with a known history of atrial fibrillation on anticoagulation with Eliquis, hypertension, hyperlipidemia, morbid obesity, diabetes type 2 insulin-dependent and prior history of smoking was sent to the hospital from [facility]. Patient was recently admitted to hospital due to sepsis secondary to urinary tract infection. She was discharged from the hospital 04/03/2022. Patient has been in the state for 2 days before she was found by her brother and brought to the ER. Patient developed paralysis on the bilateral lower extremities. Patient was noted to have bilateral lower extremity redness and sloughing of the skin.. Wound care nurse at the facility was concerned about the appearance of bilateral lower extremity skin changes and inform the physician on-call., Who recommended transfer the patient to [facility]. Patient was admitted to hospital due to bilateral lower extremity cellulitis. Patient already denies any complaints of fever or chills. No nausea vomiting abdominal pain or diarrhea. No chest pain or worsening shortness of breath. CT head and cervical spine showed mild spondylitic changes in the cervical spine. No fracture. Cerebral atrophy. No acute intracranial abnormality. Right lateral frontal scalp hematoma. TiBia and fibula x-ray showed soft tissue edema. Laboratory test showed WBC 15.8 hemoglobin 10.3 and platelets 408 Sodium 134 potassium 3.4 chloride 96 bicarb is 29 BUN 73 and creatinine 1.52 and blood sugar is 206 AST 75 ALT 146 alk phos 112 and CRP 5.9. 04/07/2022 Patient complaining of from right leg swelling, bruising/weekend with some clear yellow discharge from the lateral leg with some vesicles, also complex more red and slightly warm compared to the left side, she has history of chronic with elephat Patient still has right leg cellulitis, she is on IV vancomycin as per ID team Creatinine 1.4 went to 1.7, with lower dose of Lasix, check a bladder scan and consult nephrology who saw her last time for a I secondary to obstructive uropathy and had Hernandez catheter pending. She is also on home dose of Eliquis for A. fib 04/08/2012 Patient clinically looks the same, sitting in chair denies chest pain or dyspnea or dizziness. She still been treated for her right leg cellulitis which is wrapped in a dressing. Patient does not have significant pain. Her creatinine went up today 2.5, she was hypotensive this morning. Lasix dose was lowered yesterday from twice a day down towards daily. Also we will lower her metoprolol 100 mg down to 25 mg. We give bolus of 500 mL and start normal saline at 75 mL/h Urine analysis in the bladder scan still pending. Losartan still on hold since admission. Consult tripe scraper. Patient currently remains on cefazolin with ID team on the case. IV vancomycin was stopped. Also she is on Eliquis home dose of 5 mg for her history of A. fib. Check labs in the morning 04/09/2022 Patient still feeling sick, she sitting in chair almost all the time but looks very tired. She still been treated for her right leg cellulitis. Leukocytosis worsened today up to 25,000. Antibiotics was suggested to daptomycin today. Normal saline at 50 mL was stopped and patient was started on bicarbonate drip at 75 mL/h given her worsening creatinine 2.6 also with some evidence of acidemia and hyponatremia with sodium 125. But partly also because of hyperglycemia 3 and anatomic looks like she was on insulin sliding scale. She was started on Levemir 5 units today because sugar more than 250 and average. Blood pressure improved after known dose of her Lasix and metoprolol however still borderline and still needs close monitoring, Patient remains in guarded prognosis. We'll keep monitoring her closely. Check labs in the morning Review of systems CONSTITUTIONAL: No fever, no malaise, no fatigue. HEENT: No recent visual problems or hearing problems. Denied any sore throat. CARDIOVASCULAR: No orthopnea, PND, no palpitations, no syncope. PULMONARY: No shortness of breath, no cough, no hemoptysis. GASTROINTESTINAL: No diarrhea, no nausea, no vomiting, no abdominal pain. Normoactive bowel sounds. NEUROLOGICAL: No headaches, no weakness, no numbness. Active Medications Generic Name Dose Route Start Last Admin Trade Name Freq PRN Reason Stop Dose Admin Acetaminophen 650 mg 04/05/22 23:38 04/08/22 13:25 Acetaminophen Tab 325 Mg Tab PO 650 mg Q6HR PRN Administration Mild Pain or Fever > 100.5 Hydrocodone Bitart/Acetaminophen 1 each 04/08/22 16:41 04/09/22 17:10 Hydrocodone/Apap 5-325mg 1 Each Tab PO 1 each Q6HR PRN Administration Pain Albuterol Sulfate 2.5 mg 04/05/22 23:38 Albuterol Nebulized 2.5 Mg/3 Ml INHALATION RT-QID PRN Shortness Of Breath Apixaban 5 mg 04/06/22 08:00 04/09/22 17:03 Apixaban 5 Mg Tab PO 5 mg BID@0800,1700 SONDRA Administration Protocol Ascorbic Acid 500 mg 04/06/22 17:00 04/09/22 17:03 Ascorbic Acid 500 Mg Tab PO 500 mg DAILY@1700 SONDRA Administration Aspirin 81 mg 04/06/22 17:00 04/09/22 17:03 Aspirin 81 Mg PO 81 mg DAILY@1700 SONDRA Administration Bisacodyl 10 mg 04/05/22 23:38 Bisacodyl 10 Mg Supp RECTAL DAILY PRN Constipation Budesonide/Formoterol Fumarate 2 puff 04/06/22 08:00 04/09/22 16:13 Symbicort 160-4.5 Mcg Inhaler INHALATION 2 puff RT-BID@0800,1700 SONDRA Administration Calcium Carbonate/Glycine 500 mg 04/06/22 17:00 04/09/22 17:03 Calcium Carbonate 500 Mg Chewable PO 500 mg DAILY@1700 [facility] Administration Dextrose/Water 25 ml 04/08/22 12:56 Dextrose 50% Syringe 50 Ml IVP PER PROTOCOL PRN Hypoglycemia Protocol Dextrose/Water 50 ml 04/08/22 12:56 Dextrose 50% Syringe 50 Ml IVP PER PROTOCOL PRN Hypoglycemia Protocol Furosemide 40 mg 04/08/22 09:00 04/09/22 08:59 Furosemide 40 Mg Tab PO 40 mg DAILY SONDRA Administration Daptomycin 350 mg/ Sodium 50 mls @ 100 mls/hr 04/09/22 15:00 04/09/22 16:41 Chloride IVPB 100 mls/hr Q48H SONDRA Administration Protocol Sodium Bicarbonate 150 ml/ 1,150 mls @ 75 mls/hr 04/09/22 18:00 04/09/22 19:07 Sodium Chloride IV 75 mls/hr .[id number] SONDRA Administration Insulin Aspart 0 unit 04/08/22 17:30 04/09/22 17:02 Insulin Aspart (Novolog) 100 Unit/Ml Vial SQ 6 unit ACHS [facility] Administration Protocol Insulin Detemir 5 unit 04/09/22 21:00 Insulin Detemir (Levemir) 100 Unit/Ml Syr SQ HS [facility] Latanoprost 1 drops 04/06/22 21:00 04/08/22 22:53 Latanoprost 0.005% Ophth Drops 2.5 Ml Btl BOTH EYES Not Given HS@2100 [facility] Magnesium Hydroxide 2,400 mg 04/05/22 23:38 Magnesium Hydroxide 2,400 Mg/10 Ml Cup PO DAILY PRN Constipation Melatonin 5 mg 04/06/22 21:00 04/08/22 21:23 Melatonin 5 Mg Tablet PO 5 mg HS@2100 [facility] Administration Metoprolol Succinate 25 mg 04/09/22 08:00 04/09/22 08:59 Metoprolol Succinate (Er) 25 Mg Tab.Er.24h PO 25 mg DAILY@0800 [facility] Administration Midodrine 10 mg 04/08/22 12:30 04/09/22 17:16 Midodrine 5 Mg Tab PO 10 mg AC-TID [facility] Administration Multivitamins 1 each 04/06/22 17:00 04/09/22 17:02 Multivitamins, Thera 1 Each Tab PO 1 each DAILY@1700 [facility] Administration Naloxone HCl 0.2 mg 04/05/22 21:28 Naloxone 0.4 Mg/Ml 1 Ml Vial IV Q2M PRN Opioid Reversal Polyethylene Glycol 17 gm 04/06/22 08:00 04/09/22 08:59 Polyethylene Glycol 3350 17 Gm Powd.Pack PO 17 gm DAILY@0800 [facility] Administration Sodium Biphosphate/Sodium Phosphate 133 ml 04/06/22 09:00 Na Phos,M-B/Na Phos,Di-Ba 133 Ml Enema RECTAL DAILY PRN Constipation Tamsulosin HCl 0.4 mg 04/06/22 17:00 04/09/22 17:03 Tamsulosin 0.4 Mg Cap.Er.24h PO 0.4 mg DAILY@1700 [facility] Administration Objective - Vital Signs Vital signs: Vital Signs Temp 98.2 F 04/09/22 14:00 Pulse 100 04/09/22 14:00 Resp 20 04/09/22 14:00 BP 100/57 04/09/22 14:00 Pulse Ox 95 04/09/22 14:00 FiO2 Intake & Output 04/08/22 04/09/22 04/09/22 18:59 06:59 18:59 Intake Total 930 Output Total 75 Balance 930 -75 Intake: Intake, IV Titration 450 Amount Sodium Chloride 0.9% 1, 450 000 ml @ 50 mls/hr IV . Q20H [facility] Rx#:[id number] Oral 480 Output: Urine 75 Other: Voiding Method Bedside Commode Bedside Commode # Voids 2 2 # Bowel Movements 1 1 - Exam -GENERAL: The patient is alert and oriented x3, not in any acute distress. Well developed, well morbidly obese HEENT: Pupils are round and equally reacting to light. EOMI. No scleral icterus. No conjunctival pallor. Normocephalic, atraumatic. No pharyngeal erythema. No t hyromegaly. CARDIOVASCULAR: S1 and S2 present. No murmurs, rubs, or gallops. PULMONARY: Chest is clear to auscultation, no wheezing or crackles. ABDOMEN: Soft, nontender, nondistended, normoactive bowel sounds. No palpable organomegaly. MUSCULOSKELETAL: No joint swelling or deformity. -EXTREMITIES: No cyanosis, clubbing, or pedal edema. Right leg warm rate and tender with vesicular lesion and some purulent discharge on the lateral lower leg. Bilateral chronic lymphedema NEUROLOGICAL: Gross neurological examination did not reveal any focal deficits. SKIN: No rashes. no petechiae. - Labs CBC & Chem 7: 04/09/22 06:01 04/09/22 06:01 Labs: Abnormal Lab Results - Last 24 Hours (Table) 04/08/22 04/08/22 04/08/22 Range/Units 06:38 16:30 17:30 WBC (4.50-10.00) X 10*3/uL RBC (4.10-5.20) X 10*6/uL Hct (37.2-46.3) % RDW (11.5-14.5) % Plt Count (140-440) X 10*3/uL MPV (9.5-12.2) fL Absolute Nucleated RBC (0.00-0.00) X 10*3/uL Immature Gran # (0.00-0.04) X 10*3/uL Neutrophils # (1.80-7.70) X 10*3/uL Monocytes # (0.20-1.00) X 10*3/uL NRBC/100 WBC Diff (0.0-0.0) /100 WBCS Sodium (135-145) mmol/L Potassium (3.5-5.5) mmol/L Chloride (96-109) mmol/L Carbon Dioxide (20.0-27.5) mmol/L Anion Gap (10.00-18.00) mmol/L BUN (9.0-27.0) mg/dL Creatinine (0.6-1.5) mg/dL Est GFR (CKD-EPI)AfAm (60.0-200.0) Est GFR (CKD-EPI)NonAf (60.0-200.0) BUN/Creatinine Ratio (12.00-20.00) Ratio Glucose (70-110) mg/dL POC Glucose (mg/dL) 284 H (70-110) mg/dL Hemoglobin A1c 7.6 H (0.0-6.0) % Calcium (8.7-10.3) mg/dL ALT (8-44) U/L Albumin (3.8-4.9) g/dL Albumin/Globulin Ratio (1.60-3.17) g/dL Urine Appearance Cloudy H (Clear) Urine Protein Trace H (Negative) Urine Blood Moderate H (Negative) Ur Leukocyte Esterase Small H (Negative) Ur Squamous Epith Cells 8 H (0-4) /hpf Urine Bacteria Moderate H (None) /hpf Hyaline Casts 5 H (0-2) /lpf Urine Mucus Rare H (None) /hpf Ur Random Sodium (40-220) mmol/L 04/08/22 04/08/22 04/09/22 Range/Units 17:30 19:59 06:01 WBC 25.57 H (4.50-10.00) X 10*3/uL RBC 3.95 L (4.10-5.20) X 10*6/uL Hct 37.0 L (37.2-46.3) % RDW 15.2 H (11.5-14.5) % Plt Count 692 H (140-440) X 10*3/uL MPV 9.3 L (9.5-12.2) fL Absolute Nucleated RBC 0.03 H (0.00-0.00) X 10*3/uL Immature Gran # 0.48 H (0.00-0.04) X 10*3/uL Neutrophils # 21.81 H (1.80-7.70) X 10*3/uL Monocytes # 1.12 H (0.20-1.00) X 10*3/uL NRBC/100 WBC Diff 0.1 H (0.0-0.0) /100 WBCS Sodium (135-145) mmol/L Potassium (3.5-5.5) mmol/L Chloride (96-109) mmol/L Carbon Dioxide (20.0-27.5) mmol/L Anion Gap (10.00-18.00) mmol/L BUN (9.0-27.0) mg/dL Creatinine (0.6-1.5) mg/dL Est GFR (CKD-EPI)AfAm (60.0-200.0) Est GFR (CKD-EPI)NonAf (60.0-200.0) BUN/Creatinine Ratio (12.00-20.00) Ratio Glucose (70-110) mg/dL POC Glucose (mg/dL) 320 H (70-110) mg/dL Hemoglobin A1c (0.0-6.0) % Calcium (8.7-10.3) mg/dL ALT (8-44) U/L Albumin (3.8-4.9) g/dL Albumin/Globulin Ratio (1.60-3.17) g/dL Urine Appearance (Clear) Urine Protein (Negative) Urine Blood (Negative) Ur Leukocyte Esterase (Negative) Ur Squamous Epith Cells (0-4) /hpf Urine Bacteria (None) /hpf Hyaline Casts (0-2) /lpf Urine Mucus (None) /hpf Ur Random Sodium <20 L (40-220) mmol/L 04/09/22 04/09/22 04/09/22 Range/Units 06:01 06:25 12:48 WBC (4.50-10.00) X 10*3/uL RBC (4.10-5.20) X 10*6/uL Hct (37.2-46.3) % RDW (11.5-14.5) % Plt Count (140-440) X 10*3/uL MPV (9.5-12.2) fL Absolute Nucleated RBC (0.00-0.00) X 10*3/uL Immature Gran # (0.00-0.04) X 10*3/uL Neutrophils # (1.80-7.70) X 10*3/uL Monocytes # (0.20-1.00) X 10*3/uL NRBC/100 WBC Diff (0.0-0.0) /100 WBCS Sodium 125 L (135-145) mmol/L Potassium 5.8 H (3.5-5.5) mmol/L Chloride 89 L (96-109) mmol/L Carbon Dioxide 14.6 L (20.0-27.5) mmol/L Anion Gap 21.40 H (10.00-18.00) mmol/L BUN 79.5 H (9.0-27.0) mg/dL Creatinine 2.6 H (0.6-1.5) mg/dL Est GFR (CKD-EPI)AfAm 19.8 L (60.0-200.0) Est GFR (CKD-EPI)NonAf 17.1 L (60.0-200.0) BUN/Creatinine Ratio 30.58 H (12.00-20.00) Ratio Glucose 236 H (70-110) mg/dL POC Glucose (mg/dL) 250 H 295 H (70-110) mg/dL Hemoglobin A1c (0.0-6.0) % Calcium 8.6 L (8.7-10.3) mg/dL ALT 76 H (8-44) U/L Albumin 3.4 L (3.8-4.9) g/dL Albumin/Globulin Ratio 1.06 L (1.60-3.17) g/dL Urine Appearance (Clear) Urine Protein (Negative) Urine Blood (Negative) Ur Leukocyte Esterase (Negative) Ur Squamous Epith Cells (0-4) /hpf Urine Bacteria (None) /hpf Hyaline Casts (0-2) /lpf Urine Mucus (None) /hpf Ur Random Sodium (40-220) mmol/L Microbiology - Last 24 Hours (Table) 04/05/22 20:15 Blood Culture - Preliminary Blood No Growth after 72 hours 04/05/22 20:00 Blood Culture - Preliminary Blood No Growth after 72 hours Assessment and Plan Assessment: Right lower extremity cellulitis with sloughing of the skin in the calf region Patient with sepsis with tachycardia, leukocytosis and tachypnea Acute kidney injury on chronic kidney disease Hypovolemic hyponatremia Hypertension, currently blood pressure is borderline and her blood pressure medication doses were reported Chronic bilateral lower extremity swelling/lymphedema Recent admission with urinary tract infection and severe sepsis and DAIN Chronic bladder retention Diabetes type 2 currently on insulin sliding scale at home Paroxysmal atrial fibrillation on anticoagulation with Eliquis Hyperlipidemia Previous history of smoking Morbid obesity with BMI 55.6 Plan: Continue with antibiotic as per infectious disease team currently on daptomycin Monitor creatinine, continue with sodium bicarb. Monitor input and output Continue with Lasix 40 mg daily, lower dose of metoprolol 25 mg, get close monitoring of blood pressure Labs and medication were reviewed.. Continue same treatment. Continue with s ymptomatic treatment. Resume home medication. Monitor labs and vitals. DVT and GI prophylaxis. Further recommendations as per clinical course of the patient DVT prophylaxis: Eliquis GI prophylaxis, Pepcid PT/OT: Pending Prognosis is guarded
[2022-04-09] MEDS: MELATONIN 5 MG TABLET PO SCH (20:58)
[2022-04-09] MEDS ORDERED: INSULIN DETEMIR (LEVEMIR) 100 UNIT/ML SYR SQ SCH (21:00)
--- NOTE | 2022-04-09 22:43 | PN ---
PROGRESS NOTE SUBJECTIVE: The patient is seen for followup for acute kidney injury. The patient has had no urine retention. Her blood pressure remains borderline. This morning when the patient was seen, her labs were not back. Her labs show sodium of 125, CO2 of 14.6, and potassium 5.8. The patient was not having any significant complaints this morning. OBJECTIVE: VITAL SIGNS: Today, blood pressure 100/57, heart rate 100 per minute. GENERAL: The patient is afebrile. HEART: S1, S2. LUNGS: Decreased breath sounds at the bases. LOWER EXTREMITIES: Shows bilateral extremities to be wrapped. [employer]: Grossly intact. LABORATORY DATA: Show sodium 125, potassium 5.8, chloride 89, CO2 is 14.6, BUN 79.5, and creatinine 2.6. Hemoglobin 12.1 g/dL. ASSESSMENT: 1. Acute kidney injury, acute tubular necrosis, nonoliguric, secondary to hypotension, started on midodrine. 2. Hyperkalemia, associated with acute kidney injury and metabolic acidosis. 3. Hyponatremia, currently hypervolemic. 4. History of hypertension, blood pressure currently low. 5. Chronic atrial fibrillation, maintained on Eliquis. 6. Recent admission for sepsis and urinary tract infection. PLAN: Lokelma p.o. x1 for hyperkalemia. Start bicarb drip and I will base it in half-normal saline because of the hyponatremia. Repeat labs in the a.m. Continue with midodrine. MMODL / IJN: [id number] /
[2022-04-09 22:46] LABS: Glucose,Whole Blood 233 mg/dL (70-110)
[2022-04-09] MEDS: LATANOPROST 0.005% OPHTH DROPS 2.5 ML BTL BOTH EYES SCH (22:54)
--- NOTE | 2022-04-09 23:40 | P.PN ---
Subjective Progress Note Date: 04/08/22 Principal diagnosis: Right lower extremity wound and cellulitis Patient is a 76-year-old female with multiple comorbidities presented to hospital with a fall in this patient who did have a right lower extremity blister superficial ulceration and cellulitis also with renal insufficiency. On today's evaluation that is 04/08/2022, the patient denies having any fever or any chills she is breathing comfortably. Denies having any chest pain pain to the ramus intermedius currently controlled no nausea vomiting or diarrhea Objective - Vital Signs Vital signs: Vital Signs Temp 97.3 F L 04/08/22 20:00 Pulse 107 H 04/08/22 20:00 Resp 17 04/08/22 20:00 BP 121/69 04/08/22 20:00 Pulse Ox 99 04/08/22 20:00 FiO2 Intake & Output 04/08/22 04/08/22 04/09/22 06:59 18:59 06:59 Intake Total 390 Output Total 500 Balance -110 Intake: Intake, IV Titration 50 Amount ceFAZolin 2 gm In Sodium 50 Chloride 0.9% 50 ml @ 100 mls/hr IVPB Q12HR [facility] Rx #:[id number] Oral 340 Output: Urine 500 Other: Voiding Method Bedside Commode # Voids 1 2 # Bowel Movements 1 1 - Exam GENERAL DESCRIPTION: An elderly female lying in bed in no distress RESPIRATORY SYSTEM: Unlabored breathing , decreased breath sounds at bases HEART: S1 S2 regular rate and rhythm , ABDOMEN: Soft , no tenderness EXTREMITIES: Diffuse swelling to bilateral lower extremity laceration to the right leg with a blister and redness - Labs CBC & Chem 7: 04/09/22 06:01 04/09/22 06:01 Labs: Abnormal Lab Results - Last 24 Hours (Table) 04/08/22 04/08/22 04/08/22 Range/Units 06:38 06:38 06:38 WBC 21.76 H (4.50-10.00) X 10*3/uL RBC 3.87 L (4.10-5.20) X 10*6/uL Hgb 11.8 L (12.0-15.0) g/dL Hct 36.9 L (37.2-46.3) % RDW 15.1 H (11.5-14.5) % Plt Count 675 H (140-440) X 10*3/uL Absolute Nucleated RBC 0.02 H (0.00-0.00) X 10*3/uL Immature Gran # 0.68 H (0.00-0.04) X 10*3/uL Neutrophils # 16.91 H (1.80-7.70) X 10*3/uL Basophils # 0.11 H (0.00-0.10) X 10*3/uL NRBC/100 WBC Diff 0.1 H (0.0-0.0) /100 WBCS Sodium 128 L (137-145) mmol/L Potassium 5.2 H (3.5-5.1) mmol/L Chloride 93 L (98-107) mmol/L Carbon Dioxide 21 L (22-30) mmol/L BUN 76 H (7-17) mg/dL Creatinine 2.35 H (0.52-1.04) mg/dL Glucose 309 H (74-99) mg/dL POC Glucose (mg/dL) (70-110) mg/dL Hemoglobin A1c 7.6 H (0.0-6.0) % Calcium 8.1 L (8.4-10.2) mg/dL Urine Appearance (Clear) Urine Protein (Negative) Urine Blood (Negative) Ur Leukocyte Esterase (Negative) Ur Squamous Epith Cells (0-4) /hpf Urine Bacteria (None) /hpf Hyaline Casts (0-2) /lpf Urine Mucus (None) /hpf 04/08/22 04/08/22 04/08/22 Range/Units 11:45 16:30 17:30 WBC (4.50-10.00) X 10*3/uL RBC (4.10-5.20) X 10*6/uL Hgb (12.0-15.0) g/dL Hct (37.2-46.3) % RDW (11.5-14.5) % Plt Count (140-440) X 10*3/uL Absolute Nucleated RBC (0.00-0.00) X 10*3/uL Immature Gran # (0.00-0.04) X 10*3/uL Neutrophils # (1.80-7.70) X 10*3/uL Basophils # (0.00-0.10) X 10*3/uL NRBC/100 WBC Diff (0.0-0.0) /100 WBCS Sodium (137-145) mmol/L Potassium (3.5-5.1) mmol/L Chloride (98-107) mmol/L Carbon Dioxide (22-30) mmol/L BUN (7-17) mg/dL Creatinine (0.52-1.04) mg/dL Glucose (74-99) mg/dL POC Glucose (mg/dL) 298 H 284 H (70-110) mg/dL Hemoglobin A1c (0.0-6.0) % Calcium (8.4-10.2) mg/dL Urine Appearance Cloudy H (Clear) Urine Protein Trace H (Negative) Urine Blood Moderate H (Negative) Ur Leukocyte Esterase Small H (Negative) Ur Squamous Epith Cells 8 H (0-4) /hpf Urine Bacteria Moderate H (None) /hpf Hyaline Casts 5 H (0-2) /lpf Urine Mucus Rare H (None) /hpf 04/08/ Range/Units 19:59 WBC (4.50-10.00) X 10*3/uL RBC (4.10-5.20) X 10*6/uL Hgb (12.0-15.0) g/dL Hct (37.2-46.3) % RDW (11.5-14.5) % Plt Count (140-440) X 10*3/uL Absolute Nucleated RBC (0.00-0.00) X 10*3/uL Immature Gran # (0.00-0.04) X 10*3/uL Neutrophils # (1.80-7.70) X 10*3/uL Basophils # (0.00-0.10) X 10*3/uL NRBC/100 WBC Diff (0.0-0.0) /100 WBCS Sodium (137-145) mmol/L Potassium (3.5-5.1) mmol/L Chloride (98-107) mmol/L Carbon Dioxide (22-30) mmol/L BUN (7-17) mg/dL Creatinine (0.52-1.04) mg/dL Glucose (74-99) mg/dL POC Glucose (mg/dL) 320 H (70-110) mg/dL Hemoglobin A1c (0.0-6.0) % Calcium (8.4-10.2) mg/dL Urine Appearance (Clear) Urine Protein (Negative) Urine Blood (Negative) Ur Leukocyte Esterase (Negative) Ur Squamous Epith Cells (0-4) /hpf Urine Bacteria (None) /hpf Hyaline Casts (0-2) /lpf Urine Mucus (None) /hpf Microbiology - Last 24 Hours (Table) 04/05/22 20:15 Blood Culture - Preliminary Blood No Growth after 72 hours 04/05/22 20:00 Blood Culture - Preliminary Blood No Growth after 72 hours Assessment and Plan (1) Bilateral lower leg cellulitis Current Visit: Yes Status: Acute Code(s): L03.116 - CELLULITIS OF LEFT LOWER LIMB; L03.115 - CELLULITIS OF RIGHT LOWER LIMB SNOMED Code(s): 719558759 Plan: 1patient with the acute right lower extremity cellulitis in this patient did have diffuse swelling and blister formation and ulceration from ruptured blister likely from gram-positive skin marli. 2patient with the elevated kidney function and high risk of nephrotoxicity from vancomycin level was on the high side, vancomycin was subsequently discontinued. 3 local wound care with a dry Aquacel silver dressing and Sebas wrap from just above the toe to below the knee 4-patient to continue with the cefazolin and monitor clinical course closely Time with Patient: Less than 30
--- NOTE | 2022-04-09 23:42 | P.PN ---
Subjective Progress Note Date: 04/09/22 Principal diagnosis: Right lower extremity wound and cellulitis Patient is a 76-year-old female with multiple comorbidities presented to hospital with a fall in this patient who did have a right lower extremity blister superficial ulceration and cellulitis also with renal insufficiency. On today's evaluation that is 04/09/2022, the patient remains to be afebrile, the patient is breathing comfortably. Denies having any chest pain pain to the bilateral lower extremity especially the right leg currently controlled no nausea vomiting or diarrhea Objective - Vital Signs Vital signs: Vital Signs Temp 98.2 F 04/09/22 14:00 Pulse 100 04/09/22 14:00 Resp 20 04/09/22 14:00 BP 100/57 04/09/22 14:00 Pulse Ox 95 04/09/22 14:00 FiO2 Intake & Output 04/08/22 04/09/22 04/09/22 18:59 06:59 18:59 Intake Total 930 Output Total 75 Balance 930 -75 Intake: Intake, IV Titration 450 Amount Sodium Chloride 0.9% 1, 450 000 ml @ 50 mls/hr IV . Q20H [facility] Rx#:[id number] Oral 480 Output: Urine 75 Other: Voiding Method Bedside Commode Bedside Commode # Voids 2 2 # Bowel Movements 1 1 - Exam GENERAL DESCRIPTION: An elderly female lying in bed in no distress RESPIRATORY SYSTEM: Unlabored breathing , decreased breath sounds at bases HEART: S1 S2 regular rate and rhythm , ABDOMEN: Soft , no tenderness EXTREMITIES: Diffuse swelling to bilateral lower extremity laceration to the right leg with a blister and redness - Labs CBC & Chem 7: 04/09/22 06:01 04/09/22 06:01 Labs: Abnormal Lab Results - Last 24 Hours (Table) 04/08/22 04/08/22 04/08/22 Range/Units 06:38 16:30 17:30 WBC (4.50-10.00) X 10*3/uL RBC (4.10-5.20) X 10*6/uL Hct (37.2-46.3) % RDW (11.5-14.5) % Plt Count (140-440) X 10*3/uL MPV (9.5-12.2) fL Absolute Nucleated RBC (0.00-0.00) X 10*3/uL Immature Gran # (0.00-0.04) X 10*3/uL Neutrophils # (1.80-7.70) X 10*3/uL Monocytes # (0.20-1.00) X 10*3/uL NRBC/100 WBC Diff (0.0-0.0) /100 WBCS Sodium (135-145) mmol/L Potassium (3.5-5.5) mmol/L Chloride (96-109) mmol/L Carbon Dioxide (20.0-27.5) mmol/L Anion Gap (10.00-18.00) mmol/L BUN (9.0-27.0) mg/dL Creatinine (0.6-1.5) mg/dL Est GFR (CKD-EPI)AfAm (60.0-200.0) Est GFR (CKD-EPI)NonAf (60.0-200.0) BUN/Creatinine Ratio (12.00-20.00) Ratio Glucose (70-110) mg/dL POC Glucose (mg/dL) 284 H (70-110) mg/dL Hemoglobin A1c 7.6 H (0.0-6.0) % Calcium (8.7-10.3) mg/dL ALT (8-44) U/L Albumin (3.8-4.9) g/dL Albumin/Globulin Ratio (1.60-3.17) g/dL Urine Appearance Cloudy H (Clear) Urine Protein Trace H (Negative) Urine Blood Moderate H (Negative) Ur Leukocyte Esterase Small H (Negative) Ur Squamous Epith Cells 8 H (0-4) /hpf Urine Bacteria Moderate H (None) /hpf Hyaline Casts 5 H (0-2) /lpf Urine Mucus Rare H (None) /hpf Ur Random Sodium (40-220) mmol/L 04/08/22 04/08/22 04/09/22 Range/Units 17:30 19:59 06:01 WBC 25.57 H (4.50-10.00) X 10*3/uL RBC 3.95 L (4.10-5.20) X 10*6/uL Hct 37.0 L (37.2-46.3) % RDW 15.2 H (11.5-14.5) % Plt Count 692 H (140-440) X 10*3/uL MPV 9.3 L (9.5-12.2) fL Absolute Nucleated RBC 0.03 H (0.00-0.00) X 10*3/uL Immature Gran # 0.48 H (0.00-0.04) X 10*3/uL Neutrophils # 21.81 H (1.80-7.70) X 10*3/uL Monocytes # 1.12 H (0.20-1.00) X 10*3/uL NRBC/100 WBC Diff 0.1 H (0.0-0.0) /100 WBCS Sodium (135-145) mmol/L Potassium (3.5-5.5) mmol/L Chloride (96-109) mmol/L Carbon Dioxide (20.0-27.5) mmol/L Anion Gap (10.00-18.00) mmol/L BUN (9.0-27.0) mg/dL Creatinine (0.6-1.5) mg/dL Est GFR (CKD-EPI)AfAm (60.0-200.0) Est GFR (CKD-EPI)NonAf (60.0-200.0) BUN/Creatinine Ratio (12.00-20.00) Ratio Glucose (70-110) mg/dL POC Glucose (mg/dL) 320 H (70-110) mg/dL Hemoglobin A1c (0.0-6.0) % Calcium (8.7-10.3) mg/dL ALT (8-44) U/L Albumin (3.8-4.9) g/dL Albumin/Globulin Ratio (1.60-3.17) g/dL Urine Appearance (Clear) Urine Protein (Negative) Urine Blood (Negative) Ur Leukocyte Esterase (Negative) Ur Squamous Epith Cells (0-4) /hpf Urine Bacteria (None) /hpf Hyaline Casts (0-2) /lpf Urine Mucus (None) /hpf Ur Random Sodium <20 L (40-220) mmol/L 04/09/22 04/09/22 04/09/22 Range/Units 06:01 06:25 12:48 WBC (4.50-10.00) X 10*3/uL RBC (4.10-5.20) X 10*6/uL Hct (37.2-46.3) % RDW (11.5-14.5) % Plt Count (140-440) X 10*3/uL MPV (9.5-12.2) fL Absolute Nucleated RBC (0.00-0.00) X 10*3/uL Immature Gran # (0.00-0.04) X 10*3/uL Neutrophils # (1.80-7.70) X 10*3/uL Monocytes # (0.20-1.00) X 10*3/uL NRBC/100 WBC Diff (0.0-0.0) /100 WBCS Sodium 125 L (135-145) mmol/L Potassium 5.8 H (3.5-5.5) mmol/L Chloride 89 L (96-109) mmol/L Carbon Dioxide 14.6 L (20.0-27.5) mmol/L Anion Gap 21.40 H (10.00-18.00) mmol/L BUN 79.5 H (9.0-27.0) mg/dL Creatinine 2.6 H (0.6-1.5) mg/dL Est GFR (CKD-EPI)AfAm 19.8 L (60.0-200.0) Est GFR (CKD-EPI)NonAf 17.1 L (60.0-200.0) BUN/Creatinine Ratio 30.58 H (12.00-20.00) Ratio Glucose 236 H (70-110) mg/dL POC Glucose (mg/dL) 250 H 295 H (70-110) mg/dL Hemoglobin A1c (0.0-6.0) % Calcium 8.6 L (8.7-10.3) mg/dL ALT 76 H (8-44) U/L Albumin 3.4 L (3.8-4.9) g/dL Albumin/Globulin Ratio 1.06 L (1.60-3.17) g/dL Urine Appearance (Clear) Urine Protein (Negative) Urine Blood (Negative) Ur Leukocyte Esterase (Negative) Ur Squamous Epith Cells (0-4) /hpf Urine Bacteria (None) /hpf Hyaline Casts (0-2) /lpf Urine Mucus (None) /hpf Ur Random Sodium (40-220) mmol/L Microbiology - Last 24 Hours (Table) 04/05/22 20:15 Blood Culture - Preliminary Blood No Growth after 72 hours 04/05/22 20:00 Blood Culture - Preliminary Blood No Growth after 72 hours Assessment and Plan (1) Bilateral lower leg cellulitis Current Visit: Yes Status: Acute Code(s): L03.116 - CELLULITIS OF LEFT LOWER LIMB; L03.115 - CELLULITIS OF RIGHT LOWER LIMB SNOMED Code(s): 644863662 Plan: 1patient with the acute right lower extremity cellulitis in this patient did have diffuse swelling and blister formation and ulceration from ruptured blister likely from gram-positive skin marli. 2patient with the elevated kidney function and high risk of nephrotoxicity from vancomycin level was on the high side, vancomycin was subsequently discontinued. 3 local wound care with a dry Aquacel silver dressing and Sebas wrap from just above the toe to below the knee 4-patient noticed to have worsening of the white count we will discontinue cefazolin start the patient on daptomycin and a clinical response will recheck inflammatory markers and CBC with a.m. lab Time with Patient: Less than 30
[2022-04-10] MEDS: HYDROcodone/APAP 5-325MG 1 EACH TAB PO PRN ×3 (01:27→18:01)
[2022-04-10 06:27] LABS: Glucose,Whole Blood 221 mg/dL (70-110)
[2022-04-10] MEDS: MIDODRINE 5 MG TAB PO SCH ×3 (06:32→17:08)
[2022-04-10] MEDS: INSULIN ASPART (NovoLOG) 100 UNIT/ML VIAL SQ SCH ×4 (06:32→22:08)
[2022-04-10] MEDS: SYMBICORT 160-4.5 MCG INHALER INHALATION SCH ×2 (07:33→16:33)
[2022-04-10] MEDS: SODIUM CHLORIDE 0.45% 1,000 ML with SODIUM BICARB (1 MEQ/ML) 150 ML IV SCH ×2 (07:47)
[2022-04-10] MEDS: APIXABAN 5 MG TAB PO SCH ×2 (08:39→17:04)
[2022-04-10] MEDS: polyethylene glycoL 3350 17 GM POWD.PACK PO SCH (08:39)
[2022-04-10] MEDS: FUROSEMIDE 40 MG TAB PO SCH (08:39)
[2022-04-10] MEDS: METOPROLOL SUCCINATE (ER) 25 MG TAB.ER.24H PO SCH (08:39)
[2022-04-10] MEDS: traMADol 50 MG TAB PO PRN ×2 (08:40→15:30)
[2022-04-10 09:31] LABS: Basophils # (A) 0.07 X 10*3/uL (0.00-0.10); Basophils % (A) 0.3 %; Eosinophils # (A) 0.06 X 10*3/uL (0.04-0.35); Eosinophils % (A) 0.3 %; HCT 33.8 % (37.2-46.3); HGB 11.4 g/dL (12.0-15.0); Immature Grans, Automated 1.7 %; Lymphocytes # (A) 2.31 X 10*3/uL (0.90-5.00); Lymphocytes % (A) 11.2 %; MCH 31.1 pg (27.0-32.0); MCHC 33.7 g/dL (32.0-37.0); MCV 92.3 fL (80.0-97.0); Mean Platelet Volume 9.2 fL (9.5-12.2); Monocytes # (A) 1.04 X 10*3/uL (0.20-1.00); NRBC Per 100 WBC 0.1 /100 WBCS (0.0-0.0); Neutrophils # (A) 16.79 X 10*3/uL (1.80-7.70); Neutrophils % (A) 81.5 %; Platelet Count 659 X 10*3/uL (140-440); RBC 3.66 X 10*6/uL (4.10-5.20); RDW 15.5 % (11.5-14.5); WBC 20.62 X 10*3/uL (4.50-10.00)
[2022-04-10 09:50] LABS: African American GFR (CKD) 21.8 (60.0-200.0); Anion Gap 17.6 mmol/L (10.00-18.00); BUN/Creat Ratio 34.88 Ratio (12.00-20.00); Blood Urea Nitrogen 83.7 mg/dL (9.0-27.0); Calcium 8.4 mg/dL (8.7-10.3); Carbon Dioxide 20.4 mmol/L (20.0-27.5); Non-African American GFR(CKD) 18.8 (60.0-200.0); Potassium 5.5 mmol/L (3.5-5.5)
--- NOTE | 2022-04-10 10:45 | P.PN ---
Subjective Patient is seen for follow-up for acute kidney injury and hyponatremia. Patient is hemodynamically stable with improvement in blood pressure. She is maintained on midodrine. Serum creatinine slightly improved Overall patient states she is feeling slightly better. Patient has had good urine output although it cannot be measured accurately. No evidence of retention on bladder scan. Objective - Vital Signs Vital signs: Vital Signs Temp 97.4 F L 04/10/22 08:00 Pulse 105 H 04/10/22 08:00 Resp 17 04/10/22 08:00 BP 91/62 04/10/22 08:00 Pulse Ox 100 04/10/22 08:00 FiO2 Intake & Output 04/09/22 04/10/22 04/10/22 18:59 06:59 18:59 Intake Total 1877 1860 Output Total 175 250 Balance 1702 1610 Intake: Intake, IV Titration 900 Amount Sodium Chloride 0.45% 1, 900 000 ml @ 75 mls/hr IV . [id number] SONDRA with Sodium Bicarb (1 Meq/ml) 150 ml Rx#:[id number] Oral 1877 960 Output: Urine 175 250 Other: Voiding Method Bedside Commode # Voids 2 1 # Bowel Movements 1 1 - Exam Awake, comfortable, no acute distress Examination of the heart S1 and S2 Examination of the lungs decreased breath sounds at the bases Abdomen is soft morbidly obese Examination lower ex Mittie shows significant edema. Both extremities are w rapped - Labs CBC & Chem 7: 04/10/22 06:17 04/10/22 06:17 Labs: Abnormal Lab Results - Last 24 Hours (Table) 04/09/22 04/09/22 04/09/22 Range/Units 06:01 06:01 12:48 WBC 25.57 H (4.50-10.00) X 10*3/uL RBC 3.95 L (4.10-5.20) X 10*6/uL Hgb (12.0-15.0) g/dL Hct 37.0 L (37.2-46.3) % RDW 15.2 H (11.5-14.5) % Plt Count 692 H (140-440) X 10*3/uL MPV 9.3 L (9.5-12.2) fL Absolute Nucleated RBC 0.03 H (0.00-0.00) X 10*3/uL Immature Gran # 0.48 H (0.00-0.04) X 10*3/uL Neutrophils # 21.81 H (1.80-7.70) X 10*3/uL Monocytes # 1.12 H (0.20-1.00) X 10*3/uL NRBC/100 WBC Diff 0.1 H (0.0-0.0) /100 WBCS Sodium 125 L (135-145) mmol/L Potassium 5.8 H (3.5-5.5) mmol/L Chloride 89 L (96-109) mmol/L Carbon Dioxide 14.6 L (20.0-27.5) mmol/L Anion Gap 21.40 H (10.00-18.00) mmol/L BUN 79.5 H (9.0-27.0) mg/dL Creatinine 2.6 H (0.6-1.5) mg/dL Est GFR (CKD-EPI)AfAm 19.8 L (60.0-200.0) Est GFR (CKD-EPI)NonAf 17.1 L (60.0-200.0) BUN/Creatinine Ratio 30.58 H (12.00-20.00) Ratio Glucose 236 H (70-110) mg/dL POC Glucose (mg/dL) 295 H (70-110) mg/dL Calcium 8.6 L (8.7-10.3) mg/dL ALT 76 H (8-44) U/L Albumin 3.4 L (3.8-4.9) g/dL Albumin/Globulin Ratio 1.06 L (1.60-3.17) g/dL 04/09/22 04/09/22 04/10/22 Range/Units 16:43 22:45 06:17 WBC 20.62 H (4.50-10.00) X 10*3/uL RBC 3.66 L (4.10-5.20) X 10*6/uL Hgb 11.4 L (12.0-15.0) g/dL Hct 33.8 L (37.2-46.3) % RDW 15.5 H (11.5-14.5) % Plt Count 659 H (140-440) X 10*3/uL MPV 9.2 L (9.5-12.2) fL Absolute Nucleated RBC 0.03 H (0.00-0.00) X 10*3/uL Immature Gran # 0.35 H (0.00-0.04) X 10*3/uL Neutrophils # 16.79 H (1.80-7.70) X 10*3/uL Monocytes # 1.04 H (0.20-1.00) X 10*3/uL NRBC/100 WBC Diff 0.1 H (0.0-0.0) /100 WBCS Sodium (135-145) mmol/L Potassium (3.5-5.5) mmol/L Chloride (96-109) mmol/L Carbon Dioxide (20.0-27.5) mmol/L Anion Gap (10.00-18.00) mmol/L BUN (9.0-27.0) mg/dL Creatinine (0.6-1.5) mg/dL Est GFR (CKD-EPI)AfAm (60.0-200.0) Est GFR (CKD-EPI)NonAf (60.0-200.0) BUN/Creatinine Ratio (12.00-20.00) Ratio Glucose (70-110) mg/dL POC Glucose (mg/dL) 298 H 233 H (70-110) mg/dL Calcium (8.7-10.3) mg/dL ALT (8-44) U/L Albumin (3.8-4.9) g/dL Albumin/Globulin Ratio (1.60-3.17) g/dL 04/10/22 04/10/22 Range/Units 06:17 06:23 WBC (4.50-10.00) X 10*3/uL RBC (4.10-5.20) X 10*6/uL Hgb (12.0-15.0) g/dL Hct (37.2-46.3) % RDW (11.5-14.5) % Plt Count (140-440) X 10*3/uL MPV (9.5-12.2) fL Absolute Nucleated RBC (0.00-0.00) X 10*3/uL Immature Gran # (0.00-0.04) X 10*3/uL Neutrophils # (1.80-7.70) X 10*3/uL Monocytes # (0.20-1.00) X 10*3/uL NRBC/100 WBC Diff (0.0-0.0) /100 WBCS Sodium 124 L (135-145) mmol/L Potassium (3.5-5.5) mmol/L Chloride 86 L (96-109) mmol/L Carbon Dioxide (20.0-27.5) mmol/L Anion Gap (10.00-18.00) mmol/L BUN 83.7 H (9.0-27.0) mg/dL Creatinine 2.4 H (0.6-1.5) mg/dL Est GFR (CKD-EPI)AfAm 21.8 L (60.0-200.0) Est GFR (CKD-EPI)NonAf 18.8 L (60.0-200.0) BUN/Creatinine Ratio 34.88 H (12.00-20.00) Ratio Glucose 200 H (70-110) mg/dL POC Glucose (mg/dL) 221 H (70-110) mg/dL Calcium 8.4 L (8.7-10.3) mg/dL ALT (8-44) U/L Albumin (3.8-4.9) g/dL Albumin/Globulin Ratio (1.60-3.17) g/dL Microbiology - Last 24 Hours (Table) 04/05/22 20:00 Blood Culture - Preliminary Blood No Growth after 96 hours 04/05/22 20:15 Blood Culture - Preliminary Blood No Growth after 96 hours Assessment and Plan Assessment: 1. Acute kidney injury secondary to hypotension and hypoperfusion. No urine retention. UA shows trace protein and moderate blood 2. Hyponatremia currently hypervolemic. Urine sodium is low as patient was significantly hypotensive. 3. Mild hyperkalemia associated with acute kidney injury 4. Lower extremity cellulitis mostly right side maintained on antibiotics 5. Chronic A. fib maintained on eliquis 6. Recent admission for sepsis and urinary tract infection Plan: Check chest x-ray Lokelma x1 Samsca 1 Can hold bicarb drip and switch to oral sodium bicarb to volume overload
[2022-04-10] MEDS ORDERED: SODIUM ZIRCONIUM CYCLOSILICATE 10 GM PACKET PO ONE (11:00)
[2022-04-10] MEDS ORDERED: TOLVAPTAN 15 MG 1/2 TABLET PO ONE (11:00)
--- NOTE | 2022-04-10 11:16 | XR ---
EXAMINATION TYPE: XR chest 1V DATE OF EXAM: 04/10/2022 COMPARISON: 04/01/2022 HISTORY: Shortness of breath TECHNIQUE: Single frontal view of the chest is obtained. FINDINGS: Bibasilar subsegmental consolidation. Heart size normal. Hyperinflation. Double lead cardi ac device. Atherosclerotic change aorta. Vague pleural thickening. Arthropathy of the shoulders. No o vert failure. IMPRESSION: No overt failure. Favor basilar atelectasis over pneumonia. Correlate clinically.
[2022-04-10 11:28] LABS: Glucose,Whole Blood 266 mg/dL (70-110)
[2022-04-10 12:24] VITALS: BMI 55.5
--- NOTE | 2022-04-10 13:31 | P.PN ---
Subjective Patient is a 76-year-old female with a known history of atrial fibrillation on anticoagulation with Eliquis, hypertension, hyperlipidemia, morbid obesity, diabetes type 2 insulin-dependent and prior history of smoking was sent to the hospital from [facility]. Patient was recently admitted to hospital due to sepsis secondary to urinary tract infection. She was discharged from the hospital 04/03/2022. Patient has been in the state for 2 days before she was found by her brother and brought to the ER. Patient developed paralysis on the bilateral lower extremities. Patient was noted to have bilateral lower extremity redness and sloughing of the skin.. Wound care nurse at the facility was concerned about the appearance of bilateral lower extremity skin changes and inform the physician on-call., Who recommended transfer the patient to [facility]. Patient was admitted to hospital due to bilateral lower extremity cellulitis. Patient already denies any complaints of fever or chills. No nausea vomiting abdominal pain or diarrhea. No chest pain or worsening shortness of breath. CT head and cervical spine showed mild spondylitic changes in the cervical spine. No fracture. Cerebral atrophy. No acute intracranial abnormality. Right lateral frontal scalp hematoma. TiBia and fibula x-ray showed soft tissue edema. Laboratory test showed WBC 15.8 hemoglobin 10.3 and platelets 408 Sodium 134 potassium 3.4 chloride 96 bicarb is 29 BUN 73 and creatinine 1.52 and blood sugar is 206 AST 75 ALT 146 alk phos 112 and CRP 5.9. 04/07/2022 Patient complaining of from right leg swelling, bruising/weekend with some clear yellow discharge from the lateral leg with some vesicles, also complex more red and slightly warm compared to the left side, she has history of chronic with elephat Patient still has right leg cellulitis, she is on IV vancomycin as per ID team Creatinine 1.4 went to 1.7, with lower dose of Lasix, check a bladder scan and consult nephrology who saw her last time for a I secondary to obstructive uropathy and had Hernandez catheter pending. She is also on home dose of Eliquis for A. fib 04/08/2012 Patient clinically looks the same, sitting in chair denies chest pain or dyspnea or dizziness. She still been treated for her right leg cellulitis which is wrapped in a dressing. Patient does not have significant pain. Her creatinine went up today 2.5, she was hypotensive this morning. Lasix dose was lowered yesterday from twice a day down towards daily. Also we will lower her metoprolol 100 mg down to 25 mg. We give bolus of 500 mL and start normal saline at 75 mL/h Urine analysis in the bladder scan still pending. Losartan still on hold since admission. Consult food services coordinator. Patient currently remains on cefazolin with ID team on the case. IV vancomycin was stopped. Also she is on Eliquis home dose of 5 mg for her history of A. fib. Check labs in the morning 04/09/2022 Patient still feeling sick, she sitting in chair almost all the time but looks very tired. She still been treated for her right leg cellulitis. Leukocytosis worsened today up to 25,000. Antibiotics was suggested to daptomycin today. Normal saline at 50 mL was stopped and patient was started on bicarbonate drip at 75 mL/h given her worsening creatinine 2.6 also with some evidence of acidemia and hyponatremia with sodium 125. But partly also because of hyperglycemia 3 and anatomic looks like she was on insulin sliding scale. She was started on Levemir 5 units today because sugar more than 250 and average. Blood pressure improved after known dose of her Lasix and metoprolol however still borderline and still needs close monitoring, Patient remains in guarded prognosis. We'll keep monitoring her closely. Check labs in the morning 04/10/2022 patient still sitting in chair, she looks somewhat better to me compared to the last couple days and yesterday. Her only 2 complaints this morning is that feeling cold and persistent pain in her right leg about 8/10. Ultram when necessary is added. Discussed with staff. Her lab shown improvement with WBC coming down to 20,000, sodium still low at 124 and she received 1 dose of samsca today. She remains on daptomycin and sodium bicarb with recommendation to switch it to pills by food services coordinator Objective - Vital Signs Vital signs: Vital Signs Temp 97.4 F L 04/10/22 08:00 Pulse 61 04/10/22 12:14 Resp 17 04/10/22 08:00 BP 130/76 04/10/22 12:14 Pulse Ox 100 04/10/22 08:00 FiO2 Intake & Output 04/09/22 04/10/22 04/10/22 18:59 06:59 18:59 Intake Total 1877 1860 Output Total 175 250 Balance 1702 1610 Weight 133.356 kg Intake: Intake, IV Titration 900 Amount Sodium Chloride 0.45% 1, 900 000 ml @ 75 mls/hr IV . [id number] SONDRA with Sodium Bicarb (1 Meq/ml) 150 ml Rx#:[id number] Oral 1877 960 Output: Urine 175 250 Other: Voiding Method Bedside Commode # Voids 2 1 # Bowel Movements 1 1 - Exam -GENERAL: The patient is alert and oriented x3, not in any acute distress. Well developed, well morbidly obese HEENT: Pupils are round and equally reacting to light. EOMI. No scleral icterus. No conjunctival pallor. Normocephalic, atraumatic. No pharyngeal erythema. No thyromegaly. CARDIOVASCULAR: S1 and S2 present. No murmurs, rubs, or gallops. PULMONARY: Chest is clear to auscultation, no wheezing or crackles. ABDOMEN: Soft, nontender, nondistended, normoactive bowel sounds. No palpable organomegaly. MUSCULOSKELETAL: No joint swelling or deformity. -EXTREMITIES: No cyanosis, clubbing, or pedal edema. Right leg warm rate and tender with vesicular lesion and some purulent discharge on the lateral lower leg. Bilateral chronic lymphedema NEUROLOGICAL: Gross neurological examination did not reveal any focal deficits. SKIN: No rashes. no petechiae. - Labs CBC & Chem 7: 04/10/22 06:17 04/10/22 06:17 Labs: Abnormal Lab Results - Last 24 Hours (Table) 04/09/22 04/09/22 04/10/22 Range/Units 16:43 22:45 06:17 WBC 20.62 H (4.50-10.00) X 10*3/uL RBC 3.66 L (4.10-5.20) X 10*6/uL Hgb 11.4 L (12.0-15.0) g/dL Hct 33.8 L (37.2-46.3) % RDW 15.5 H (11.5-14.5) % Plt Count 659 H (140-440) X 10*3/uL MPV 9.2 L (9.5-12.2) fL Absolute Nucleated RBC 0.03 H (0.00-0.00) X 10*3/uL Immature Gran # 0.35 H (0.00-0.04) X 10*3/uL Neutrophils # 16.79 H (1.80-7.70) X 10*3/uL Monocytes # 1.04 H (0.20-1.00) X 10*3/uL NRBC/100 WBC Diff 0.1 H (0.0-0.0) /100 WBCS Sodium (135-145) mmol/L Chloride (96-109) mmol/L BUN (9.0-27.0) mg/dL Creatinine (0.6-1.5) mg/dL Est GFR (CKD-EPI)AfAm (60.0-200.0) Est GFR (CKD-EPI)NonAf (60.0-200.0) BUN/Creatinine Ratio (12.00-20.00) Ratio Glucose (70-110) mg/dL POC Glucose (mg/dL) 298 H 233 H (70-110) mg/dL Calcium (8.7-10.3) mg/dL 04/10/22 04/10/22 04/10/22 Range/Units 06:17 06:23 11:26 WBC (4.50-10.00) X 10*3/uL RBC (4.10-5.20) X 10*6/uL Hgb (12.0-15.0) g/dL Hct (37.2-46.3) % RDW (11.5-14.5) % Plt Count (140-440) X 10*3/uL MPV (9.5-12.2) fL Absolute Nucleated RBC (0.00-0.00) X 10*3/uL Immature Gran # (0.00-0.04) X 10*3/uL Neutrophils # (1.80-7.70) X 10*3/uL Monocytes # (0.20-1.00) X 10*3/uL NRBC/100 WBC Diff (0.0-0.0) /100 WBCS Sodium 124 L (135-145) mmol/L Chloride 86 L (96-109) mmol/L BUN 83.7 H (9.0-27.0) mg/dL Creatinine 2.4 H (0.6-1.5) mg/dL Est GFR (CKD-EPI)AfAm 21.8 L (60.0-200.0) Est GFR (CKD-EPI)NonAf 18.8 L (60.0-200.0) BUN/Creatinine Ratio 34.88 H (12.00-20.00) Ratio Glucose 200 H (70-110) mg/dL POC Glucose (mg/dL) 221 H 266 H (70-110) mg/dL Calcium 8.4 L (8.7-10.3) mg/dL Microbiology - Last 24 Hours (Table) 04/05/22 20:00 Blood Culture - Preliminary Blood No Growth after 96 hours 04/05/22 20:15 Blood Culture - Preliminary Blood No Growth after 96 hours Assessment and Plan Assessment: Right lower extremity cellulitis with sloughing of the skin in the calf region Patient with sepsis with tachycardia, leukocytosis and tachypnea Acute kidney injury on chronic kidney disease Hypovolemic hyponatremia Hypertension, currently blood pressure is borderline and her blood pressure medication doses were reported Chronic bilateral lower extremity swelling/lymphedema Recent admission with urinary tract infection and severe sepsis and DAIN Chronic bladder retention Diabetes type 2 currently on insulin sliding scale at home Paroxysmal atrial fibrillation on anticoagulation with Eliquis Hyperlipidemia Previous history of smoking Morbid obesity with BMI 55.6 Plan: Continue with antibiotic as per infectious disease team currently on daptomycin Monitor creatinine, continue with sodium bicarb pills pills. Monitor input and output Continue with Lasix 40 mg daily, lower dose of metoprolol 25 mg, get close monitoring of blood pressure Labs and medication were reviewed.. Continue same treatment. Continue with symptomatic treatment. Resume home medication. Monitor labs and vitals. DVT and GI prophylaxis. Further recommendations as per clinical course of the patient DVT prophylaxis: Eliquis GI prophylaxis, Pepcid PT/OT: Pending Prognosis is guarded
[2022-04-10 16:37] LABS: Glucose,Whole Blood 216 mg/dL (70-110)
[2022-04-10] MEDS: ASPIRIN 81 MG PO SCH (17:04)
[2022-04-10] MEDS: ASCORBIC ACID 500 MG TAB PO SCH (17:04)
[2022-04-10] MEDS: CALCIUM CARBONATE 500 MG CHEWABLE PO SCH (17:04)
[2022-04-10] MEDS: MULTIVITAMINS, THERA 1 EACH TAB PO SCH (17:04)
[2022-04-10] MEDS: TAMSULOSIN 0.4 MG CAP.ER.24H PO SCH (17:04)
[2022-04-10 20:21] LABS: Glucose,Whole Blood 280 mg/dL (70-110)
[2022-04-10] MEDS: MELATONIN 5 MG TABLET PO SCH (22:09)
[2022-04-10] MEDS: SODIUM BICARBONATE TAB 650 MG TAB PO SCH (22:09)
[2022-04-10] MEDS: LATANOPROST 0.005% OPHTH DROPS 2.5 ML BTL BOTH EYES SCH (22:13)
[2022-04-10 23:59] LABS: Glucose,Whole Blood 194 mg/dL (70-110)
[2022-04-11] MEDS: INSULIN DETEMIR (LEVEMIR) 100 UNIT/ML SYR SQ SCH ×2 (00:15→22:57)
[2022-04-11] MEDS: traMADol 50 MG TAB PO PRN ×2 (00:23→08:26)
[2022-04-11 06:30] LABS: Glucose,Whole Blood 246 mg/dL (70-110)
[2022-04-11] MEDS: HYDROcodone/APAP 5-325MG 1 EACH TAB PO PRN (06:56)
[2022-04-11] MEDS: INSULIN ASPART (NovoLOG) 100 UNIT/ML VIAL SQ SCH ×4 (06:57→21:47)
[2022-04-11] MEDS: APIXABAN 5 MG TAB PO SCH ×2 (08:26→16:20)
[2022-04-11] MEDS: MIDODRINE 5 MG TAB PO SCH ×3 (08:26→16:53)
[2022-04-11] MEDS: FUROSEMIDE 40 MG TAB PO SCH (08:26)
[2022-04-11] MEDS: SODIUM BICARBONATE TAB 650 MG TAB PO SCH ×2 (08:26→21:48)
[2022-04-11] MEDS: METOPROLOL SUCCINATE (ER) 25 MG TAB.ER.24H PO SCH (08:26)
[2022-04-11] MEDS: polyethylene glycoL 3350 17 GM POWD.PACK PO SCH (08:26)
[2022-04-11] MEDS: SYMBICORT 160-4.5 MCG INHALER INHALATION SCH ×2 (08:40→21:30)
[2022-04-11 11:01] LABS: African American GFR (CKD) 24 (>60 ml/min/1.73 sqM); Anion Gap 15 mmol/L; Blood Urea Nitrogen 86 mg/dL (7-17); Calcium 7.7 mg/dL (8.4-10.2); Carbon Dioxide 21 mmol/L (22-30); Chloride 85 mmol/L (98-107); Glucose 268 mg/dL (74-99); Non-African American GFR(CKD) 21 (>60 ml/min/1.73 sqM); Potassium 4.7 mmol/L (3.5-5.1); Sodium 121 mmol/L (137-145)
[2022-04-11] MEDS ORDERED: FUROSEMIDE 10 MG/ML 4 ML VIAL IV STA (11:32)
--- NOTE | 2022-04-11 11:32 | P.PN ---
Subjective Patient is seen for follow-up for acute kidney injury and hyponatremia. Patient is hemodynamically stable with improvement in blood pressure with midodrine. Serum creatinine slightly improved Overall patient states she is feeling slightly better. Patient has had good urine output although it cannot be measured accurately. No evidence of retention on bladder scan. Serum sodium has been decreasing for the last 2-3 days. Patient appears hyperv olemic with significant edema in the lower extremities. Her blood pressure was initially low which is now improved with midodrine. Patient received a dose of Samsca yesterday. Sodium is 121 today. I will repeat another dose and add IV Lasix as well. Objective - Vital Signs Vital signs: Vital Signs Temp 98.1 F 04/11/22 08:00 Pulse 73 04/11/22 08:00 Resp 16 04/11/22 08:00 BP 102/69 04/11/22 08:00 Pulse Ox 95 04/11/22 08:00 FiO2 Intake & Output 04/10/22 04/11/22 04/11/22 18:59 06:59 18:59 Intake Total 1397 Output Total 450 Balance 947 Weight 133.356 kg Intake: Oral 1397 Output: Urine 450 Other: # Voids 1 1 # Bowel Movements 1 - Exam Awake, comfortable, no acute distress Examination of the heart S1 and S2 Examination of the lungs decreased breath sounds at the bases Abdomen is soft morbidly obese Examination lower ex Mittie shows significant edema. Both extremities are wrapped and significant weeping is noted bilaterally - Labs CBC & Chem 7: 04/10/22 06:17 04/11/22 10:21 Labs: Abnormal Lab Results - Last 24 Hours (Table) 04/10/22 04/10/22 04/10/22 Range/Units 16:35 20:20 23:57 Sodium (137-145) mmol/L Chloride (98-107) mmol/L Carbon Dioxide (22-30) mmol/L BUN (7-17) mg/dL Creatinine (0.52-1.04) mg/dL Glucose (74-99) mg/dL POC Glucose (mg/dL) 216 H 280 H 194 H (70-110) mg/dL Calcium (8.4-10.2) mg/dL 04/11/22 04/11/22 Range/Units 06:25 10:21 Sodium 121 L (137-145) mmol/L Chloride 85 L (98-107) mmol/L Carbon Dioxide 21 L (22-30) mmol/L BUN 86 H (7-17) mg/dL Creatinine 2.20 H (0.52-1.04) mg/dL Glucose 268 H (74-99) mg/dL POC Glucose (mg/dL) 246 H (70-110) mg/dL Calcium 7.7 L (8.4-10.2) mg/dL Microbiology - Last 24 Hours (Table) 04/05/22 20:15 Blood Culture - Preliminary Blood No Growth after 120 hours 04/05/22 20:00 Blood Culture - Preliminary Blood No Growth after 120 hours Assessment and Plan Assessment: 1. Acute kidney injury secondary to hypotension and hypoperfusion. No urine retention. UA shows trace protein and moderate blood 2. Hyponatremia currently hypervolemic. Urine sodium is low as patient was significantly hypotensive. Repeat Samsca and give 1 dose of IV Lasix 3. Mild hyperkalemia associated with acute kidney injury 4. Lower extremity cellulitis mostly right side maintained on antibiotics 5. Chronic A. fib maintained on eliquis 6. Recent admission for sepsis and urinary tract infection Plan: Repeat Samsca 15 mg by mouth IV Lasix 1 Repeat sodium this afternoon
[2022-04-11] MEDS ORDERED: TOLVAPTAN 15 MG 1/2 TABLET PO ONE (12:00)
[2022-04-11 12:12] LABS: Glucose,Whole Blood 261 mg/dL (70-110)
[2022-04-11] MEDS: DAPTOmycin 350 MG in SODIUM CHLORIDE 0.9% 50 ML IVPB SCH (16:16)
[2022-04-11] MEDS: TAMSULOSIN 0.4 MG CAP.ER.24H PO SCH (16:20)
[2022-04-11] MEDS: ASPIRIN 81 MG PO SCH (16:20)
[2022-04-11] MEDS: ASCORBIC ACID 500 MG TAB PO SCH (16:20)
[2022-04-11] MEDS: MULTIVITAMINS, THERA 1 EACH TAB PO SCH (16:20)
[2022-04-11] MEDS: CALCIUM CARBONATE 500 MG CHEWABLE PO SCH (16:21)
[2022-04-11 16:46] LABS: Glucose,Whole Blood 238 mg/dL (70-110)
[2022-04-11 19:35] LABS: Glucose,Whole Blood 216 mg/dL (70-110)
[2022-04-11] MEDS ORDERED: SODIUM CHLORIDE 0.9% 500 ML 500 ML IV ONE (21:13)
[2022-04-11] MEDS: LATANOPROST 0.005% OPHTH DROPS 2.5 ML BTL BOTH EYES SCH (22:57)
[2022-04-11] MEDS: MELATONIN 5 MG TABLET PO SCH (23:15)
--- NOTE | 2022-04-11 23:24 | P.PN ---
Subjective Progress Note Date: 04/10/22 Principal diagnosis: Right lower extremity wound and cellulitis Patient is a 76-year-old female with multiple comorbidities presented to hospital with a fall in this patient who did have a right lower extremity blister superficial ulceration and cellulitis also with renal insufficiency. On today's evaluation that is 04/10/2022 the patient denies having any fever or chills patient is breathing comfortably on room air, the patient denies having any chest pain shortness of breath or cough no abdominal pain or any worsening pain lower extremity Objective - Vital Signs Vital signs: Vital Signs Temp 97.4 F L 04/10/22 08:00 Pulse 105 H 04/10/22 08:00 Resp 17 04/10/22 08:00 BP 91/62 04/10/22 08:00 Pulse Ox 100 04/10/22 08:00 FiO2 Intake & Output 04/09/22 04/10/22 04/10/22 18:59 06:59 18:59 Intake Total 1877 1860 Output Total 175 250 Balance 1702 1610 Intake: Intake, IV Titration 900 Amount Sodium Chloride 0.45% 1, 900 000 ml @ 75 mls/hr IV . [id number] SONDRA with Sodium Bicarb (1 Meq/ml) 150 ml Rx#:[id number] Oral 1877 960 Output: Urine 175 250 Other: Voiding Method Bedside Commode # Voids 2 1 # Bowel Movements 1 1 - Exam GENERAL DESCRIPTION: An elderly female lying in bed in no distress RESPIRATORY SYSTEM: Unlabored breathing , decreased breath sounds at bases HEART: S1 S2 regular rate and rhythm , ABDOMEN: Soft , no tenderness EXTREMITIES: Diffuse swelling to bilateral lower extremity laceration to the right leg with a blister and redness - Labs CBC & Chem 7: 04/10/22 06:17 04/11/22 17:30 Labs: Abnormal Lab Results - Last 24 Hours (Table) 04/09/22 04/09/22 04/09/22 Range/Units 06:01 06:01 12:48 WBC 25.57 H (4.50-10.00) X 10*3/uL RBC 3.95 L (4.10-5.20) X 10*6/uL Hgb (12.0-15.0) g/dL Hct 37.0 L (37.2-46.3) % RDW 15.2 H (11.5-14.5) % Plt Count 692 H (140-440) X 10*3/uL MPV 9.3 L (9.5-12.2) fL Absolute Nucleated RBC 0.03 H (0.00-0.00) X 10*3/uL Immature Gran # 0.48 H (0.00-0.04) X 10*3/uL Neutrophils # 21.81 H (1.80-7.70) X 10*3/uL Monocytes # 1.12 H (0.20-1.00) X 10*3/uL NRBC/100 WBC Diff 0.1 H (0.0-0.0) /100 WBCS Sodium 125 L (135-145) mmol/L Potassium 5.8 H (3.5-5.5) mmol/L Chloride 89 L (96-109) mmol/L Carbon Dioxide 14.6 L (20.0-27.5) mmol/L Anion Gap 21.40 H (10.00-18.00) mmol/L BUN 79.5 H (9.0-27.0) mg/dL Creatinine 2.6 H (0.6-1.5) mg/dL Est GFR (CKD-EPI)AfAm 19.8 L (60.0-200.0) Est GFR (CKD-EPI)NonAf 17.1 L (60.0-200.0) BUN/Creatinine Ratio 30.58 H (12.00-20.00) Ratio Glucose 236 H (70-110) mg/dL POC Glucose (mg/dL) 295 H (70-110) mg/dL Calcium 8.6 L (8.7-10.3) mg/dL ALT 76 H (8-44) U/L Albumin 3.4 L (3.8-4.9) g/dL Albumin/Globulin Ratio 1.06 L (1.60-3.17) g/dL 04/09/22 04/09/22 04/10/22 Range/Units 16:43 22:45 06:17 WBC 20.62 H (4.50-10.00) X 10*3/uL RBC 3.66 L (4.10-5.20) X 10*6/uL Hgb 11.4 L (12.0-15.0) g/dL Hct 33.8 L (37.2-46.3) % RDW 15.5 H (11.5-14.5) % Plt Count 659 H (140-440) X 10*3/uL MPV 9.2 L (9.5-12.2) fL Absolute Nucleated RBC 0.03 H (0.00-0.00) X 10*3/uL Immature Gran # 0.35 H (0.00-0.04) X 10*3/uL Neutrophils # 16.79 H (1.80-7.70) X 10*3/uL Monocytes # 1.04 H (0.20-1.00) X 10*3/uL NRBC/100 WBC Diff 0.1 H (0.0-0.0) /100 WBCS Sodium (135-145) mmol/L Potassium (3.5-5.5) mmol/L Chloride (96-109) mmol/L Carbon Dioxide (20.0-27.5) mmol/L Anion Gap (10.00-18.00) mmol/L BUN (9.0-27.0) mg/dL Creatinine (0.6-1.5) mg/dL Est GFR (CKD-EPI)AfAm (60.0-200.0) Est GFR (CKD-EPI)NonAf (60.0-200.0) BUN/Creatinine Ratio (12.00-20.00) Ratio Glucose (70-110) mg/dL POC Glucose (mg/dL) 298 H 233 H (70-110) mg/dL Calcium (8.7-10.3) mg/dL ALT (8-44) U/L Albumin (3.8-4.9) g/dL Albumin/Globulin Ratio (1.60-3.17) g/dL 04/10/22 04/10/22 Range/Units 06:17 06:23 WBC (4.50-10.00) X 10*3/uL RBC (4.10-5.20) X 10*6/uL Hgb (12.0-15.0) g/dL Hct (37.2-46.3) % RDW (11.5-14.5) % Plt Count (140-440) X 10*3/uL MPV (9.5-12.2) fL Absolute Nucleated RBC (0.00-0.00) X 10*3/uL Immature Gran # (0.00-0.04) X 10*3/uL Neutrophils # (1.80-7.70) X 10*3/uL Monocytes # (0.20-1.00) X 10*3/uL NRBC/100 WBC Diff (0.0-0.0) /100 WBCS Sodium 124 L (135-145) mmol/L Potassium (3.5-5.5) mmol/L Chloride 86 L (96-109) mmol/L Carbon Dioxide (20.0-27.5) mmol/L Anion Gap (10.00-18.00) mmol/L BUN 83.7 H (9.0-27.0) mg/dL Creatinine 2.4 H (0.6-1.5) mg/dL Est GFR (CKD-EPI)AfAm 21.8 L (60.0-200.0) Est GFR (CKD-EPI)NonAf 18.8 L (60.0-200.0) BUN/Creatinine Ratio 34.88 H (12.00-20.00) Ratio Glucose 200 H (70-110) mg/dL POC Glucose (mg/dL) 221 H (70-110) mg/dL Calcium 8.4 L (8.7-10.3) mg/dL ALT (8-44) U/L Albumin (3.8-4.9) g/dL Albumin/Globulin Ratio (1.60-3.17) g/dL Microbiology - Last 24 Hours (Table) 04/05/22 20:00 Blood Culture - Preliminary Blood No Growth after 96 hours 04/05/22 20:15 Blood Culture - Preliminary Blood No Growth after 96 hours Assessment and Plan (1) Bilateral lower leg cellulitis Current Visit: Yes Status: Acute Code(s): L03.116 - CELLULITIS OF LEFT LOWER LIMB; L03.115 - CELLULITIS OF RIGHT LOWER LIMB SNOMED Code(s): 871096975 Plan: 1patient with the acute right lower extremity cellulitis in this patient did have diffuse swelling and blister formation and ulceration from ruptured blister likely from gram-positive skin marli. 2patient with the elevated kidney function and high risk of nephrotoxicity from vancomycin level was on the high side, vancomycin was subsequently discontinued. 3 local wound care with a dry Aquacel silver dressing and Sebas wrap from just above the toe to below the knee 4-Patient white count has shown a downward trend with addition of daptomycin which will be continued local wound care to continue as ordered and monitor clinical course closely Time with Patient: Less than 30
--- NOTE | 2022-04-11 23:25 | P.PN ---
Subjective Progress Note Date: 04/11/22 Principal diagnosis: Right lower extremity wound and cellulitis Patient is a 76-year-old female with multiple comorbidities presented to hospital with a fall in this patient who did have a right lower extremity blister superficial ulceration and cellulitis also with renal insufficiency. On today's evaluation that is 04/11/2022 the patient remains to be afebrile patient is breathing comfortably on room air patient denies having any chest pain no cough or sputum production no abdominal pain and mention the legs are slightly improving Objective - Vital Signs Vital signs: Vital Signs Temp 97.3 F L 04/11/22 14:00 Pulse 74 04/11/22 14:00 Resp 19 04/11/22 14:00 BP 91/58 04/11/22 14:00 Pulse Ox 95 04/11/22 14:00 FiO2 Intake & Output 04/10/22 04/11/22 04/11/22 18:59 06:59 18:59 Intake Total 1397 Output Total 450 Balance 947 Weight 133.356 kg Intake: Oral 1397 Output: Urine 450 Other: # Voids 1 1 # Bowel Movements 1 - Exam GENERAL DESCRIPTION: An elderly female lying in bed in no distress RESPIRATORY SYSTEM: Unlabored breathing , decreased breath sounds at bases HEART: S1 S2 regular rate and rhythm , ABDOMEN: Soft , no tenderness EXTREMITIES: Diffuse swelling to bilateral lower extremity laceration to the right leg with a blister and redness - Labs CBC & Chem 7: 04/10/22 06:17 04/11/22 17:30 Labs: Abnormal Lab Results - Last 24 Hours (Table) 04/10/22 04/10/22 04/10/22 Range/Units 16:35 20:20 23:57 Sodium (137-145) mmol/L Chloride (98-107) mmol/L Carbon Dioxide (22-30) mmol/L BUN (7-17) mg/dL Creatinine (0.52-1.04) mg/dL Glucose (74-99) mg/dL POC Glucose (mg/dL) 216 H 280 H 194 H (70-110) mg/dL Calcium (8.4-10.2) mg/dL 04/11/22 04/11/22 04/11/22 Range/Units 06:25 10:21 12:10 Sodium 121 L (137-145) mmol/L Chloride 85 L (98-107) mmol/L Carbon Dioxide 21 L (22-30) mmol/L BUN 86 H (7-17) mg/dL Creatinine 2.20 H (0.52-1.04) mg/dL Glucose 268 H (74-99) mg/dL POC Glucose (mg/dL) 246 H 261 H (70-110) mg/dL Calcium 7.7 L (8.4-10.2) mg/dL Microbiology - Last 24 Hours (Table) 04/05/22 20:15 Blood Culture - Preliminary Blood No Growth after 120 hours 04/05/22 20:00 Blood Culture - Preliminary Blood No Growth after 120 hours Assessment and Plan (1) Bilateral lower leg cellulitis Current Visit: Yes Status: Acute Code(s): L03.116 - CELLULITIS OF LEFT LOWER LIMB; L03.115 - CELLULITIS OF RIGHT LOWER LIMB SNOMED Code(s): 054161301 Plan: 1patient with the acute right lower extremity cellulitis in this patient did have diffuse swelling and blister formation and ulceration from ruptured blister likely from gram-positive skin marli. 2patient with the elevated kidney function and high risk of nephrotoxicity from vancomycin level was on the high side, vancomycin was subsequently discontinued. 3 local wound care with a dry Aquacel silver dressing and Sebas wrap from just above the toe to below the knee 4-Patient white count has shown a downward trend with addition of daptomycin , However no CBC was done today we will repeat her CBC and a CRP with a.m. lab continue daptomycin and reevaluate the wounds tomorrow at the time of dressing changes Time with Patient: Less than 30
[2022-04-12 05:54] LABS: Glucose,Whole Blood 252 mg/dL (70-110)
[2022-04-12] MEDS: INSULIN ASPART (NovoLOG) 100 UNIT/ML VIAL SQ SCH ×4 (06:44→20:53)
[2022-04-12] MEDS: SYMBICORT 160-4.5 MCG INHALER INHALATION SCH ×2 (07:36→16:19)
[2022-04-12] MEDS: SODIUM BICARBONATE TAB 650 MG TAB PO SCH ×2 (08:03→20:55)
[2022-04-12] MEDS: MIDODRINE 5 MG TAB PO SCH ×3 (08:03→17:31)
[2022-04-12] MEDS: polyethylene glycoL 3350 17 GM POWD.PACK PO SCH (08:03)
[2022-04-12] MEDS: METOPROLOL SUCCINATE (ER) 25 MG TAB.ER.24H PO SCH (08:03)
[2022-04-12] MEDS: FUROSEMIDE 40 MG TAB PO SCH (08:03)
[2022-04-12] MEDS: APIXABAN 5 MG TAB PO SCH ×2 (08:03→17:31)
--- NOTE | 2022-04-12 08:59 | P.PN ---
Subjective Patient is a 76-year-old female with a known history of atrial fibrillation on anticoagulation with Eliquis, hypertension, hyperlipidemia, morbid obesity, diabetes type 2 insulin-dependent and prior history of smoking was sent to the hospital from [facility]. Patient was recently admitted to hospital due to sepsis secondary to urinary tract infection. She was discharged from the hospital 04/03/2022. Patient has been in the state for 2 days before she was found by her brother and brought to the ER. Patient developed paralysis on the bilateral lower extremities. Patient was noted to have bilateral lower extremity redness and sloughing of the skin.. Wound care nurse at the facility was concerned about the appearance of bilateral lower extremity skin changes and inform the physician on-call., Who recommended transfer the patient to [facility]. Patient was admitted to hospital due to bilateral lower extremity cellulitis. Patient already denies any complaints of fever or chills. No nausea vomiting abdominal pain or diarrhea. No chest pain or worsening shortness of breath. CT head and cervical spine showed mild spondylitic changes in the cervical spine. No fracture. Cerebral atrophy. No acute intracranial abnormality. Right lateral frontal scalp hematoma. TiBia and fibula x-ray showed soft tissue edema. Laboratory test showed WBC 15.8 hemoglobin 10.3 and platelets 408 Sodium 134 potassium 3.4 chloride 96 bicarb is 29 BUN 73 and creatinine 1.52 and blood sugar is 206 AST 75 ALT 146 alk phos 112 and CRP 5.9. 04/07/2022 Patient complaining of from right leg swelling, bruising/weekend with some clear yellow discharge from the lateral leg with some vesicles, also complex more red and slightly warm compared to the left side, she has history of chronic with elephat Patient still has right leg cellulitis, she is on IV vancomycin as per ID team Creatinine 1.4 went to 1.7, with lower dose of Lasix, check a bladder scan and consult nephrology who saw her last time for a I secondary to obstructive uropathy and had Hernandez catheter pending. She is also on home dose of Eliquis for A. fib 04/08/2012 Patient clinically looks the same, sitting in chair denies chest pain or dyspnea or dizziness. She still been treated for her right leg cellulitis which is wrapped in a dressing. Patient does not have significant pain. Her creatinine went up today 2.5, she was hypotensive this morning. Lasix dose was lowered yesterday from twice a day down towards daily. Also we will lower her metoprolol 100 mg down to 25 mg. We give bolus of 500 mL and start normal saline at 75 mL/h Urine analysis in the bladder scan still pending. Losartan still on hold since admission. Consult concrete panel installer. Patient currently remains on cefazolin with ID team on the case. IV vancomycin was stopped. Also she is on Eliquis home dose of 5 mg for her history of A. fib. Check labs in the morning 04/09/2022 Patient still feeling sick, she sitting in chair almost all the time but looks very tired. She still been treated for her right leg cellulitis. Leukocytosis worsened today up to 25,000. Antibiotics was suggested to daptomycin today. Normal saline at 50 mL was stopped and patient was started on bicarbonate drip at 75 mL/h given her worsening creatinine 2.6 also with some evidence of acidemia and hyponatremia with sodium 125. But partly also because of hyperglycemia 3 and anatomic looks like she was on insulin sliding scale. She was started on Levemir 5 units today because sugar more than 250 and average. Blood pressure improved after known dose of her Lasix and metoprolol however still borderline and still needs close monitoring, Patient remains in guarded prognosis. We'll keep monitoring her closely. Check labs in the morning 04/10/2022 patient still sitting in chair, she looks somewhat better to me compared to the last couple days and yesterday. Her only 2 complaints this morning is that feeling cold and persistent pain in her right leg about 8/10. Ultram when necessary is added. Discussed with staff. Her lab shown improvement with WBC coming down to 20,000, sodium still low at 124 and she received 1 dose of samsca today. She remains on daptomycin and sodium bicarb with recommendation to switch it to pills by concrete panel installer 04/11/2022 Patient presents with right leg cellulitis and she is currently being treated with daptomycin, she sitting on the chair at bedside all the time, no new complaint. She just feels cold. Also reports some pain in her right leg about 8/10, she states that Ultram 25 mg per little bit before we increased the dose to 50 mg. Blood pressure since admission was borderline but asymptomatic however her sodium was trending downward 21 so received samsca 1 dose yesterday and 1 dose today. Sole Seamer also she received 1 dose of IV Lasix today and we will keep monitoring her blood pressure on sodium closely. Objective - Vital Signs Vital signs: Vital Signs Temp 98.1 F 04/11/22 08:00 Pulse 73 04/11/22 08:00 Resp 16 04/11/22 08:00 BP 101/70 04/11/22 11:50 Pulse Ox 95 04/11/22 08:00 FiO2 Intake & Output 04/10/22 04/11/22 04/11/22 18:59 06:59 18:59 Intake Total 1397 Output Total 450 Balance 947 Weight 133.356 kg Intake: Oral 1397 Output: Urine 450 Other: # Voids 1 1 # Bowel Movements 1 - Exam -GENERAL: The patient is alert and oriented x3, not in any acute distress. Well developed, well morbidly obese HEENT: Pupils are round and equally reacting to light. EOMI. No scleral icterus. No conjunctival pallor. Normocephalic, atraumatic. No pharyngeal erythema. No thyromegaly. CARDIOVASCULAR: S1 and S2 present. No murmurs, rubs, or gallops. PULMONARY: Chest is clear to auscultation, no wheezing or crackles. ABDOMEN: Soft, nontender, nondistended, normoactive bowel sounds. No palpable organomegaly. MUSCULOSKELETAL: No joint swelling or deformity. -EXTREMITIES: No cyanosis, clubbing, or pedal edema. Right leg warm rate and tender with vesicular lesion and some purulent discharge on the lateral lower leg. Bilateral chronic lymphedema NEUROLOGICAL: Gross neurological examination did not reveal any focal deficits. SKIN: No rashes. no petechiae. - Labs CBC & Chem 7: 04/10/22 06:17 04/11/22 17:30 Labs: Abnormal Lab Results - Last 24 Hours (Table) 04/10/22 04/10/22 04/10/22 Range/Units 16:35 20:20 23:57 Sodium (137-145) mmol/L Chloride (98-107) mmol/L Carbon Dioxide (22-30) mmol/L BUN (7-17) mg/dL Creatinine (0.52-1.04) mg/dL Glucose (74-99) mg/dL POC Glucose (mg/dL) 216 H 280 H 194 H (70-110) mg/dL Calcium (8.4-10.2) mg/dL 04/11/22 04/11/22 04/11/22 Range/Units 06:25 10:21 12:10 Sodium 121 L (137-145) mmol/L Chloride 85 L (98-107) mmol/L Carbon Dioxide 21 L (22-30) mmol/L BUN 86 H (7-17) mg/dL Creatinine 2.20 H (0.52-1.04) mg/dL Glucose 268 H (74-99) mg/dL POC Glucose (mg/dL) 246 H 261 H (70-110) mg/dL Calcium 7.7 L (8.4-10.2) mg/dL Microbiology - Last 24 Hours (Table) 04/05/22 20:15 Blood Culture - Preliminary Blood No Growth after 120 hours 04/05/22 20:00 Blood Culture - Preliminary Blood No Growth after 120 hours Assessment and Plan Assessment: Right lower extremity cellulitis with sloughing of the skin in the calf region Patient with sepsis with tachycardia, leukocytosis and tachypnea Acute kidney injury on chronic kidney disease Hypovolemic hyponatremia Hypertension, currently blood pressure is borderline and her blood pressure medication doses were reported Chronic bilateral lower extremity swelling/lymphedema Recent admission with urinary tract infection and severe sepsis and DAIN Chronic bladder retention Diabetes type 2 currently on insulin sliding scale at home Paroxysmal atrial fibrillation on anticoagulation with Eliquis Hyperlipidemia Previous history of smoking Morbid obesity with BMI 55.6 Plan: Continue with antibiotic as per infectious disease team currently on daptomycin Monitor creatinine, continue with sodium bicarb pills pills. Monitor input and output Continue with Lasix 40 mg daily, lower dose of metoprolol 25 mg, get close monitoring of blood pressure Labs and medication were reviewed.. Continue same treatment. Continue with symptomatic treatment. Resume home medication. Monitor labs and vitals. DVT and GI prophylaxis. Further recommendations as per clinical course of the patient DVT prophylaxis: Eliquis GI prophylaxis, Pepcid PT/OT: Pending Prognosis is guarded
[2022-04-12 09:48] LABS: Basophils # (A) 0.07 X 10*3/uL (0.00-0.10); Basophils % (A) 0.4 %; Eosinophils # (A) 0.09 X 10*3/uL (0.04-0.35); Eosinophils % (A) 0.5 %; HCT 33.4 % (37.2-46.3); HGB 11.1 g/dL (12.0-15.0); Immature Grans, Automated 1.1 %; Lymphocytes # (A) 1.99 X 10*3/uL (0.90-5.00); Lymphocytes % (A) 10.8 %; MCH 30.9 pg (27.0-32.0); MCHC 33.2 g/dL (32.0-37.0); Mean Platelet Volume 8.9 fL (9.5-12.2); Monocytes # (A) 0.93 X 10*3/uL (0.20-1.00); NRBC Per 100 WBC 0.2 /100 WBCS (0.0-0.0); Neutrophils # (A) 15.19 X 10*3/uL (1.80-7.70); Neutrophils % (A) 82.2 %; Platelet Count 717 X 10*3/uL (140-440); RBC 3.59 X 10*6/uL (4.10-5.20); RDW 16.2 % (11.5-14.5); WBC 18.47 X 10*3/uL (4.50-10.00)
[2022-04-12 10:51] LABS: African American GFR (CKD) 20.8 (60.0-200.0); Anion Gap 20.3 mmol/L (10.00-18.00); BUN/Creat Ratio 36.2 Ratio (12.00-20.00); Blood Urea Nitrogen 90.5 mg/dL (9.0-27.0); C Reactive Protein 15.4 mg/dL (0.00-0.80); Calcium 8.9 mg/dL (8.7-10.3); Carbon Dioxide 20.7 mmol/L (20.0-27.5); Non-African American GFR(CKD) 17.9 (60.0-200.0); Potassium 5.1 mmol/L (3.5-5.5)
--- NOTE | 2022-04-12 10:55 | P.PN ---
Subjective Patient is seen in follow-up for acute kidney injury. Creatinine 2.2 yesterday. Sodium was 121 yesterday. Patient received Samsca, Lasix as well as fluid bolus yesterday. Quite edematous. Oral intake fair. Denies vomiting or diarrhea. Vital signs are stable. General: awake. No acute distress. HEENT: Head exam is unremarkable. LUNGS: Breath sounds decreased. HEART: Rate and Rhythm are regular. First and second heart sounds normal. No murmurs, rubs or gallops. ABDOMEN: Soft, obese. EXTREMITITES: 2+ edema. Lower extremities wrapped. Objective - Vital Signs Vital signs: Vital Signs Temp 97.4 F L 04/12/22 07:33 Pulse 95 04/12/22 07:33 Resp 18 04/12/22 07:33 BP 92/61 04/12/22 07:33 Pulse Ox 96 04/12/22 07:39 FiO2 Intake & Output 04/11/22 04/12/22 04/12/22 18:59 06:59 18:59 Other: Voiding Method Bedside Commode Bedside Commode # Voids 3 3 - Labs CBC & Chem 7: 04/12/22 04:01 04/11/22 17:30 Labs: Abnormal Lab Results - Last 24 Hours (Table) 04/11/22 04/11/22 04/11/22 Range/Units 10:21 12:10 16:45 WBC (4.50-10.00) X 10*3/uL RBC (4.10-5.20) X 10*6/uL Hgb (12.0-15.0) g/dL Hct (37.2-46.3) % RDW (11.5-14.5) % Plt Count (140-440) X 10*3/uL MPV (9.5-12.2) fL Absolute Nucleated RBC (0.00-0.00) X 10*3/uL Immature Gran # (0.00-0.04) X 10*3/uL Neutrophils # (1.80-7.70) X 10*3/uL NRBC/100 WBC Diff (0.0-0.0) /100 WBCS Sodium 121 L (137-145) mmol/L Chloride 85 L (98-107) mmol/L Carbon Dioxide 21 L (22-30) mmol/L BUN 86 H (7-17) mg/dL Creatinine 2.20 H (0.52-1.04) mg/dL Glucose 268 H (74-99) mg/dL POC Glucose (mg/dL) 261 H 238 H (70-110) mg/dL Calcium 7.7 L (8.4-10.2) mg/dL 04/11/22 04/11/22 04/12/22 Range/Units 17:30 19:33 04:01 WBC 18.47 H (4.50-10.00) X 10*3/uL RBC 3.59 L (4.10-5.20) X 10*6/uL Hgb 11.1 L (12.0-15.0) g/dL Hct 33.4 L (37.2-46.3) % RDW 16.2 H (11.5-14.5) % Plt Count 717 H (140-440) X 10*3/uL MPV 8.9 L (9.5-12.2) fL Absolute Nucleated RBC 0.03 H (0.00-0.00) X 10*3/uL Immature Gran # 0.20 H (0.00-0.04) X 10*3/uL Neutrophils # 15.19 H (1.80-7.70) X 10*3/uL NRBC/100 WBC Diff 0.2 H (0.0-0.0) /100 WBCS Sodium 121 L (137-145) mmol/L Chloride (98-107) mmol/L Carbon Dioxide (22-30) mmol/L BUN (7-17) mg/dL Creatinine (0.52-1.04) mg/dL Glucose (74-99) mg/dL POC Glucose (mg/dL) 216 H (70-110) mg/dL Calcium (8.4-10.2) mg/dL 04/12/22 Range/Units 05:52 WBC (4.50-10.00) X 10*3/uL RBC (4.10-5.20) X 10*6/uL Hgb (12.0-15.0) g/dL Hct (37.2-46.3) % RDW (11.5-14.5) % Plt Count (140-440) X 10*3/uL MPV (9.5-12.2) fL Absolute Nucleated RBC (0.00-0.00) X 10*3/uL Immature Gran # (0.00-0.04) X 10*3/uL Neutrophils # (1.80-7.70) X 10*3/uL NRBC/100 WBC Diff (0.0-0.0) /100 WBCS Sodium (137-145) mmol/L Chloride (98-107) mmol/L Carbon Dioxide (22-30) mmol/L BUN (7-17) mg/dL Creatinine (0.52-1.04) mg/dL Glucose (74-99) mg/dL POC Glucose (mg/dL) 252 H (70-110) mg/dL Calcium (8.4-10.2) mg/dL Microbiology - Last 24 Hours (Table) 04/05/22 20:15 Blood Culture - Final Blood No Growth after 144 hours 04/05/22 20:00 Blood Culture - Final Blood No Growth after 144 hours Assessment and Plan Plan: Assessment: 1. Acute kidney injury secondary to ATN secondary to hypotension. UA with trace protein. No hydronephrosis noted on kidney ultrasound.creatinine was 1.5- 1 admission and peaked at 2.6 - 2.2 yesterday. 2. Hypervolemic hyponatremia. Urine sodium less than 20 and urine osmolality 430. 3. Lower extremity cellulitis on antibiotics. 4. Chronic A. fib maintained on anticoagulation. 5. Metabolic acidosis secondary to acute kidney injury maintained on oral bicarbonate. 6. Diabetes mellitus. 7. Acute on chronic diastolic CHF and moderate pulmonary hypertension. Plan: Change Lasix to 40 mg IV twice daily. 1200 mL fluid restriction. Follow-up morning labs. Will repeat Samsca depending on sodium level. Avoid nephrotoxins. Stop Fleet enemas. Check TSH and cortisol level.
[2022-04-12 11:39] LABS: Glucose,Whole Blood 230 mg/dL (70-110)
[2022-04-12] MEDS: FUROSEMIDE 10 MG/ML 4 ML VIAL IV SCH ×2 (12:19→20:53)
[2022-04-12 12:35] LABS: African American GFR (CKD) 21 (>60 ml/min/1.73 sqM); Anion Gap 12 mmol/L; Blood Urea Nitrogen 93 mg/dL (7-17); Calcium 8.5 mg/dL (8.4-10.2); Carbon Dioxide 22 mmol/L (22-30); Chloride 86 mmol/L (98-107); Glucose 200 mg/dL (74-99); Non-African American GFR(CKD) 18 (>60 ml/min/1.73 sqM); Potassium 4.9 mmol/L (3.5-5.1); Sodium 120 mmol/L (137-145)
[2022-04-12] MEDS ORDERED: TOLVAPTAN 15 MG 1/2 TABLET PO ONE (16:30)
[2022-04-12 16:34] LABS: Glucose,Whole Blood 224 mg/dL (70-110)
[2022-04-12] MEDS: MULTIVITAMINS, THERA 1 EACH TAB PO SCH (17:31)
[2022-04-12] MEDS: ASPIRIN 81 MG PO SCH (17:31)
[2022-04-12] MEDS: TAMSULOSIN 0.4 MG CAP.ER.24H PO SCH (17:31)
[2022-04-12] MEDS: CALCIUM CARBONATE 500 MG CHEWABLE PO SCH (17:31)
[2022-04-12] MEDS: ASCORBIC ACID 500 MG TAB PO SCH (17:31)
[2022-04-12 19:40] LABS: Glucose,Whole Blood 359 mg/dL (70-110)
[2022-04-12] MEDS: INSULIN DETEMIR (LEVEMIR) 100 UNIT/ML SYR SQ SCH (20:53)
[2022-04-12] MEDS: MELATONIN 5 MG TABLET PO SCH (20:54)
[2022-04-12] MEDS: LATANOPROST 0.005% OPHTH DROPS 2.5 ML BTL BOTH EYES SCH (21:44)
--- NOTE | 2022-04-13 03:22 | PN ---
PROGRESS NOTE DATE OF SERVICE: 04/12/2022 SUBJECTIVE: This 76-year-old woman, who was admitted with right lower extremity cellulitis, is being closely monitored. No chest pain. No palpitations. No fever. OBJECTIVE: VITAL SIGNS: Pulse is 84, blood pressure is 86/57, respirations 19. HEENT: Conjunctivae normal. NECK: No JVD. CARDIOVASCULAR: S1, S2. RESPIRATIONS: Diminished at the bases, few scattered rhonchi. ABDOMEN: Soft. NERVOUS SYSTEM: No focal deficits. LABORATORY DATA: Creatinine 2.4. Other labs are noted. Glucose noted. ASSESSMENT: 1. Right lower leg cellulitis with possible sepsis. 2. Acute kidney injury. 3. Hyponatremia. 4. Hypertension. 5. Multiple complex medical issues. PLAN: She was recommended to continue current medications, continue symptomatic treatment, continue with antibiotics. Monitor creatinine closely. I would also recommend Nephrology consultation and Infectious Disease evaluation. Guarded prognosis. Further recommendations to follow. MMODL / IJN: [id number] /
[2022-04-13 06:04] LABS: Glucose,Whole Blood 273 mg/dL (70-110)
[2022-04-13] MEDS: MIDODRINE 5 MG TAB PO SCH ×3 (06:39→17:30)
[2022-04-13] MEDS: INSULIN ASPART (NovoLOG) 100 UNIT/ML VIAL SQ SCH ×4 (06:39→20:39)
[2022-04-13] MEDS: SYMBICORT 160-4.5 MCG INHALER INHALATION SCH ×2 (07:51→16:25)
[2022-04-13] MEDS: FUROSEMIDE 10 MG/ML 4 ML VIAL IV SCH (08:21)
[2022-04-13] MEDS: polyethylene glycoL 3350 17 GM POWD.PACK PO SCH (08:21)
[2022-04-13] MEDS: APIXABAN 5 MG TAB PO SCH ×2 (08:21→17:30)
[2022-04-13] MEDS: SODIUM BICARBONATE TAB 650 MG TAB PO SCH ×2 (08:21→20:58)
[2022-04-13] MEDS: METOPROLOL SUCCINATE (ER) 25 MG TAB.ER.24H PO SCH (08:21)
--- NOTE | 2022-04-13 09:34 | P.PN ---
Subjective Patient is seen in follow-up for acute kidney injury. Creatinine 2.49 yesterday. Sodium was 120 yesterday. She was started on IV Lasix and also r eceived a dose of Samsca. Quite edematous. Oral intake fair. Denies vomiting or diarrhea. Doesn't like the food here. Vital signs are stable. General: awake. No acute distress. HEENT: Head exam is unremarkable. LUNGS: Breath sounds decreased. HEART: Rate and Rhythm are regular. ABDOMEN: Soft, obese. EXTREMITITES: 2+ edema. Lower extremities wrapped. Objective - Vital Signs Vital signs: Vital Signs Temp 96.5 F L 04/13/22 07:56 Pulse 97 04/13/22 07:56 Resp 18 04/13/22 07:56 BP 108/55 04/13/22 07:56 Pulse Ox 98 04/13/22 07:56 FiO2 Intake & Output 04/12/22 04/13/22 04/13/22 18:59 06:59 18:59 Intake Total 275 Output Total 350 Balance -350 275 Intake: Oral 275 Output: Urine 350 Other: Voiding Method Bedside Commode Bedside Commode # Voids 3 # Bowel Movements 1 - Labs CBC & Chem 7: 04/12/22 04:01 04/12/22 12:14 Labs: Abnormal Lab Results - Last 24 Hours (Table) 04/12/22 04/12/22 04/12/22 Range/Units 04:01 04:01 11:37 WBC 18.47 H (4.50-10.00) X 10*3/uL RBC 3.59 L (4.10-5.20) X 10*6/uL Hgb 11.1 L (12.0-15.0) g/dL Hct 33.4 L (37.2-46.3) % RDW 16.2 H (11.5-14.5) % Plt Count 717 H (140-440) X 10*3/uL MPV 8.9 L (9.5-12.2) fL Absolute Nucleated RBC 0.03 H (0.00-0.00) X 10*3/uL Immature Gran # 0.20 H (0.00-0.04) X 10*3/uL Neutrophils # 15.19 H (1.80-7.70) X 10*3/uL NRBC/100 WBC Diff 0.2 H (0.0-0.0) /100 WBCS Sodium 125 L (135-145) mmol/L Chloride 84 L (96-109) mmol/L Anion Gap 20.30 H (10.00-18.00) mmol/L BUN 90.5 H (9.0-27.0) mg/dL Creatinine 2.5 H (0.6-1.5) mg/dL Est GFR (CKD-EPI)AfAm 20.8 L (60.0-200.0) Est GFR (CKD-EPI)NonAf 17.9 L (60.0-200.0) BUN/Creatinine Ratio 36.20 H (12.00-20.00) Ratio Glucose 203 H (70-110) mg/dL POC Glucose (mg/dL) 230 H (70-110) mg/dL C-Reactive Protein 15.40 H (0.00-0.80) mg/dL 04/12/22 04/12/22 04/12/22 Range/Units 12:14 16:32 19:39 WBC (4.50-10.00) X 10*3/uL RBC (4.10-5.20) X 10*6/uL Hgb (12.0-15.0) g/dL Hct (37.2-46.3) % RDW (11.5-14.5) % Plt Count (140-440) X 10*3/uL MPV (9.5-12.2) fL Absolute Nucleated RBC (0.00-0.00) X 10*3/uL Immature Gran # (0.00-0.04) X 10*3/uL Neutrophils # (1.80-7.70) X 10*3/uL NRBC/100 WBC Diff (0.0-0.0) /100 WBCS Sodium 120 L (135-145) mmol/L Chloride 86 L (96-109) mmol/L Anion Gap (10.00-18.00) mmol/L BUN 93 H (9.0-27.0) mg/dL Creatinine 2.49 H (0.6-1.5) mg/dL Est GFR (CKD-EPI)AfAm (60.0-200.0) Est GFR (CKD-EPI)NonAf (60.0-200.0) BUN/Creatinine Ratio (12.00-20.00) Ratio Glucose 200 H (70-110) mg/dL POC Glucose (mg/dL) 224 H 359 H (70-110) mg/dL C-Reactive Protein (0.00-0.80) mg/dL 04/13/22 Range/Units 06:03 WBC (4.50-10.00) X 10*3/uL RBC (4.10-5.20) X 10*6/uL Hgb (12.0-15.0) g/dL Hct (37.2-46.3) % RDW (11.5-14.5) % Plt Count (140-440) X 10*3/uL MPV (9.5-12.2) fL Absolute Nucleated RBC (0.00-0.00) X 10*3/uL Immature Gran # (0.00-0.04) X 10*3/uL Neutrophils # (1.80-7.70) X 10*3/uL NRBC/100 WBC Diff (0.0-0.0) /100 WBCS Sodium (135-145) mmol/L Chloride (96-109) mmol/L Anion Gap (10.00-18.00) mmol/L BUN (9.0-27.0) mg/dL Creatinine (0.6-1.5) mg/dL Est GFR (CKD-EPI)AfAm (60.0-200.0) Est GFR (CKD-EPI)NonAf (60.0-200.0) BUN/Creatinine Ratio (12.00-20.00) Ratio Glucose (70-110) mg/dL POC Glucose (mg/dL) 273 H (70-110) mg/dL C-Reactive Protein (0.00-0.80) mg/dL Assessment and Plan Plan: Assessment: 1. Acute kidney injury secondary to ATN secondary to hypotension. UA with trace protein. No hydronephrosis noted on kidney ultrasound. Creatinine was 1.5-1 admission and peaked at 2.6 - 2.49 yesterday. 2. Hypervolemic hyponatremia. Urine sodium less than 20 and urine osmolality 430. 3. Lower extremity cellulitis on antibiotics. 4. Chronic A. fib maintained on anticoagulation. 5. Metabolic acidosis secondary to acute kidney injury maintained on oral bicarbonate. 6. Diabetes mellitus. 7. Acute on chronic diastolic CHF and moderate pulmonary hypertension. Plan: Maintain Lasix 40 mg IV twice daily. Status post Samsca yesterday. 1200 mL fluid restriction. Follow-up morning labs. Avoid nephrotoxins. Stop Fleet enemas. Follow-up TSH and cortisol level. Continue to monitor renal function and urine output.
[2022-04-13 10:37] LABS: Magnesium 2.1 mg/dL (1.5-2.4)
[2022-04-13 11:46] LABS: Glucose,Whole Blood 258 mg/dL (70-110)
[2022-04-13 12:14] LABS: African American GFR (CKD) 16.3 (60.0-200.0); BUN/Creat Ratio 32.12 Ratio (12.00-20.00); Blood Urea Nitrogen 98.3 mg/dL (9.0-27.0); Calcium 9.7 mg/dL (8.7-10.3); Carbon Dioxide 19.5 mmol/L (20.0-27.5); Chloride 81 mmol/L (96-109); Glucose 214 mg/dL (70-110); Non-African American GFR(CKD) 14.1 (60.0-200.0); Sodium 120 mmol/L (135-145)
[2022-04-13] MEDS: DAPTOmycin 350 MG in SODIUM CHLORIDE 0.9% 50 ML IVPB SCH (13:24)
[2022-04-13] MEDS ORDERED: INSULIN REGULAR 100 UNIT/ML VIAL (IV) IV ONE (14:20)
[2022-04-13] MEDS ORDERED: SODIUM BICARB 8.4% 50 ML SYR (1 MEQ/ML) IV STA (14:20)
[2022-04-13] MEDS ORDERED: DEXTROSE 50% SYRINGE 50 ML IVP STA (14:20)
[2022-04-13] MEDS ORDERED: SODIUM ZIRCONIUM CYCLOSILICATE 10 GM PACKET PO ONE (14:20)
[2022-04-13] MEDS ORDERED: SODIUM CHLORIDE TAB 1 GM TAB PO STA ×2 (14:21→19:40)
[2022-04-13] MEDS ORDERED: TOLVAPTAN 15 MG 1/2 TABLET PO ONE (14:21)
[2022-04-13 16:32] LABS: Glucose,Whole Blood 136 mg/dL (70-110)
[2022-04-13] MEDS: CALCIUM CARBONATE 500 MG CHEWABLE PO SCH (17:29)
[2022-04-13] MEDS: ASPIRIN 81 MG PO SCH (17:29)
[2022-04-13] MEDS: ASCORBIC ACID 500 MG TAB PO SCH (17:29)
[2022-04-13] MEDS: MULTIVITAMINS, THERA 1 EACH TAB PO SCH (17:30)
[2022-04-13] MEDS: HYDROcodone/APAP 5-325MG 1 EACH TAB PO PRN (17:30)
[2022-04-13] MEDS: TAMSULOSIN 0.4 MG CAP.ER.24H PO SCH (17:30)
[2022-04-13 19:14] LABS: African American GFR (CKD) 15 (>60 ml/min/1.73 sqM); Anion Gap 12 mmol/L; Calcium 8.5 mg/dL (8.4-10.2); Carbon Dioxide 25 mmol/L (22-30); Chloride 84 mmol/L (98-107); Glucose 103 mg/dL (74-99); Non-African American GFR(CKD) 13 (>60 ml/min/1.73 sqM); Potassium 4.5 mmol/L (3.5-5.1); Sodium 121 mmol/L (137-145)
[2022-04-13 19:23] LABS: Blood Urea Nitrogen 104 mg/dL (7-17)
[2022-04-13 20:29] LABS: Glucose,Whole Blood 150 mg/dL (70-110)
[2022-04-13] MEDS: MELATONIN 5 MG TABLET PO SCH (20:58)
[2022-04-13] MEDS: LATANOPROST 0.005% OPHTH DROPS 2.5 ML BTL BOTH EYES SCH (20:58)
[2022-04-13] MEDS: INSULIN DETEMIR (LEVEMIR) 100 UNIT/ML SYR SQ SCH (20:58)
--- NOTE | 2022-04-13 22:54 | P.PN ---
Subjective Progress Note Date: 04/12/22 Principal diagnosis: Right lower extremity wound and cellulitis Patient is a 76-year-old female with multiple comorbidities presented to hospital with a fall in this patient who did have a right lower extremity blister superficial ulceration and cellulitis also with renal insufficiency. On today's evaluation that is 04/12/2022 the patient continues to be afebrile patient is breathing comfortably on room air patient denies chest pain no cough or sputum production no abdominal pain and bilateral lower extremity swelling and draining slightly decreased Objective - Vital Signs Vital signs: Vital Signs Temp 97.4 F L 04/12/22 07:33 Pulse 73 04/12/22 11:53 Resp 18 04/12/22 07:33 BP 90/51 04/12/22 11:53 Pulse Ox 96 04/12/22 07:39 FiO2 Intake & Output 04/11/22 04/12/22 04/12/22 18:59 06:59 18:59 Output Total 250 Balance -250 Output: Urine 250 Other: Voiding Method Bedside Commode Bedside Commode # Voids 3 3 # Bowel Movements 1 - Exam GENERAL DESCRIPTION: An elderly female lying in bed in no distress RESPIRATORY SYSTEM: Unlabored breathing , decreased breath sounds at bases HEART: S1 S2 regular rate and rhythm , ABDOMEN: Soft , no tenderness EXTREMITIES: Diffuse swelling to bilateral lower extremity laceration to the right leg with a blister and redness - Labs CBC & Chem 7: 04/12/22 04:01 04/13/22 18:43 Labs: Abnormal Lab Results - Last 24 Hours (Table) 04/11/22 04/11/22 04/11/22 Range/Units 16:45 17:30 19:33 WBC (4.50-10.00) X 10*3/uL RBC (4.10-5.20) X 10*6/uL Hgb (12.0-15.0) g/dL Hct (37.2-46.3) % RDW (11.5-14.5) % Plt Count (140-440) X 10*3/uL MPV (9.5-12.2) fL Absolute Nucleated RBC (0.00-0.00) X 10*3/uL Immature Gran # (0.00-0.04) X 10*3/uL Neutrophils # (1.80-7.70) X 10*3/uL NRBC/100 WBC Diff (0.0-0.0) /100 WBCS Sodium 121 L (137-145) mmol/L Chloride (96-109) mmol/L Anion Gap (10.00-18.00) mmol/L BUN (9.0-27.0) mg/dL Creatinine (0.6-1.5) mg/dL Est GFR (CKD-EPI)AfAm (60.0-200.0) Est GFR (CKD-EPI)NonAf (60.0-200.0) BUN/Creatinine Ratio (12.00-20.00) Ratio Glucose (70-110) mg/dL POC Glucose (mg/dL) 238 H 216 H (70-110) mg/dL C-Reactive Protein (0.00-0.80) mg/dL 04/12/22 04/12/22 04/12/22 Range/Units 04:01 04:01 05:52 WBC 18.47 H (4.50-10.00) X 10*3/uL RBC 3.59 L (4.10-5.20) X 10*6/uL Hgb 11.1 L (12.0-15.0) g/dL Hct 33.4 L (37.2-46.3) % RDW 16.2 H (11.5-14.5) % Plt Count 717 H (140-440) X 10*3/uL MPV 8.9 L (9.5-12.2) fL Absolute Nucleated RBC 0.03 H (0.00-0.00) X 10*3/uL Immature Gran # 0.20 H (0.00-0.04) X 10*3/uL Neutrophils # 15.19 H (1.80-7.70) X 10*3/uL NRBC/100 WBC Diff 0.2 H (0.0-0.0) /100 WBCS Sodium 125 L (137-145) mmol/L Chloride 84 L (96-109) mmol/L Anion Gap 20.30 H (10.00-18.00) mmol/L BUN 90.5 H (9.0-27.0) mg/dL Creatinine 2.5 H (0.6-1.5) mg/dL Est GFR (CKD-EPI)AfAm 20.8 L (60.0-200.0) Est GFR (CKD-EPI)NonAf 17.9 L (60.0-200.0) BUN/Creatinine Ratio 36.20 H (12.00-20.00) Ratio Glucose 203 H (70-110) mg/dL POC Glucose (mg/dL) 252 H (70-110) mg/dL C-Reactive Protein 15.40 H (0.00-0.80) mg/dL 04/12/22 04/12/22 Range/Units 11:37 12:14 WBC (4.50-10.00) X 10*3/uL RBC (4.10-5.20) X 10*6/uL Hgb (12.0-15.0) g/dL Hct (37.2-46.3) % RDW (11.5-14.5) % Plt Count (140-440) X 10*3/uL MPV (9.5-12.2) fL Absolute Nucleated RBC (0.00-0.00) X 10*3/uL Immature Gran # (0.00-0.04) X 10*3/uL Neutrophils # (1.80-7.70) X 10*3/uL NRBC/100 WBC Diff (0.0-0.0) /100 WBCS Sodium 120 L (137-145) mmol/L Chloride 86 L (96-109) mmol/L Anion Gap (10.00-18.00) mmol/L BUN 93 H (9.0-27.0) mg/dL Creatinine 2.49 H (0.6-1.5) mg/dL Est GFR (CKD-EPI)AfAm (60.0-200.0) Est GFR (CKD-EPI)NonAf (60.0-200.0) BUN/Creatinine Ratio (12.00-20.00) Ratio Glucose 200 H (70-110) mg/dL POC Glucose (mg/dL) 230 H (70-110) mg/dL C-Reactive Protein (0.00-0.80) mg/dL Microbiology - Last 24 Hours (Table) 04/05/22 20:15 Blood Culture - Final Blood No Growth after 144 hours 04/05/22 20:00 Blood Culture - Final Blood No Growth after 144 hours Assessment and Plan (1) Bilateral lower leg cellulitis Current Visit: Yes Status: Acute Code(s): L03.116 - CELLULITIS OF LEFT LOWER LIMB; L03.115 - CELLULITIS OF RIGHT LOWER LIMB SNOMED Code(s): 628523206 Plan: 1patient with the acute right lower extremity cellulitis in this patient did have diffuse swelling and blister formation and ulceration from ruptured blister likely from gram-positive skin marli. 2patient with the elevated kidney function and high risk of nephrotoxicity from vancomycin level was on the high side, vancomycin was subsequently discontinued. 3 local wound care with a dry Aquacel silver dressing and Sebas wrap from just above the toe to below the knee 4-Patient white count has shown a downward trend with addition of daptomycin , and white count was down to 18,000 today patient to continue the daptomycin and monitor clinical course closely Time with Patient: Less than 30
--- NOTE | 2022-04-13 22:55 | P.PN ---
Subjective Progress Note Date: 04/13/22 Principal diagnosis: Right lower extremity wound and cellulitis Patient is a 76-year-old female with multiple comorbidities presented to hospital with a fall in this patient who did have a right lower extremity blister superficial ulceration and cellulitis also with renal insufficiency. On today's evaluation that is 04/13/2022 the patient remains to be afebrile patient is breathing comfortably on room air patient denies chest pain no cough or sputum production no abdominal pain and bilateral lower extremity swelling about the same not as painful still having some drainage on the dressing Objective - Vital Signs Vital signs: Vital Signs Temp 97.4 F L 04/13/22 14:00 Pulse 52 L 04/13/22 14:00 Resp 19 04/13/22 14:00 BP 94/61 04/13/22 14:00 Pulse Ox 92 L 04/13/22 14:00 FiO2 Intake & Output 04/12/22 04/13/22 04/13/22 18:59 06:59 18:59 Intake Total 275 Output Total 350 Balance -350 275 Intake: Oral 275 Output: Urine 350 Other: Voiding Method Bedside Commode Bedside Commode Bedside Commode # Voids 3 # Bowel Movements 1 - Exam GENERAL DESCRIPTION: An elderly female lying in bed in no distress RESPIRATORY SYSTEM: Unlabored breathing , decreased breath sounds at bases HEART: S1 S2 regular rate and rhythm , ABDOMEN: Soft , no tenderness EXTREMITIES: Diffuse swelling to bilateral lower extremity laceration to the right leg with a blister and redness - Labs CBC & Chem 7: 04/12/22 04:01 04/13/22 18:43 Labs: Abnormal Lab Results - Last 24 Hours (Table) 04/12/22 04/12/22 04/13/22 Range/Units 16:32 19:39 06:03 Sodium (135-145) mmol/L Potassium (3.5-5.5) mmol/L Chloride (96-109) mmol/L Carbon Dioxide (20.0-27.5) mmol/L Anion Gap (10.00-18.00) mmol/L BUN (9.0-27.0) mg/dL Creatinine (0.6-1.5) mg/dL Est GFR (CKD-EPI)AfAm (60.0-200.0) Est GFR (CKD-EPI)NonAf (60.0-200.0) BUN/Creatinine Ratio (12.00-20.00) Ratio Glucose (70-110) mg/dL POC Glucose (mg/dL) 224 H 359 H 273 H (70-110) mg/dL Cortisol (3.1-22.4) ug/dL 04/13/22 04/13/22 Range/Units 07:00 11:45 Sodium 120 L (135-145) mmol/L Potassium 6.0 H (3.5-5.5) mmol/L Chloride 81 L (96-109) mmol/L Carbon Dioxide 19.5 L (20.0-27.5) mmol/L Anion Gap 19.50 H (10.00-18.00) mmol/L BUN 98.3 H (9.0-27.0) mg/dL Creatinine 3.1 H (0.6-1.5) mg/dL Est GFR (CKD-EPI)AfAm 16.3 L (60.0-200.0) Est GFR (CKD-EPI)NonAf 14.1 L (60.0-200.0) BUN/Creatinine Ratio 32.12 H (12.00-20.00) Ratio Glucose 214 H (70-110) mg/dL POC Glucose (mg/dL) 258 H (70-110) mg/dL Cortisol 39.8 H (3.1-22.4) ug/dL Assessment and Plan (1) Bilateral lower leg cellulitis Current Visit: Yes Status: Acute Code(s): L03.116 - CELLULITIS OF LEFT LOWER LIMB; L03.115 - CELLULITIS OF RIGHT LOWER LIMB SNOMED Code(s): 635937025 Plan: 1patient with the acute right lower extremity cellulitis in this patient did have diffuse swelling and blister formation and ulceration from ruptured blister likely from gram-positive skin marli. 2patient with the elevated kidney function and high risk of nephrotoxicity from vancomycin level was on the high side, vancomycin was subsequently discontinued. 3 local wound care with a dry Aquacel silver dressing and Sebas wrap from just above the toe to below the knee 4Patient to continue with the daptomycin white count is trending down and monitor clinical course closely Time with Patient: Less than 30
--- NOTE | 2022-04-14 02:53 | PN ---
PROGRESS NOTE DATE OF SERVICE: 04/13/2022 SUBJECTIVE: This is a 76-year-old woman who was admitted with right lower lobe cellulitis, had significant drainage. The cultures are negative so far. No chest pain, no palpitations, no fever. PHYSICAL EXAMINATION: VITAL SIGNS: Pulse is 97, blood pressure 102/80, respirations 11. CHEST: A few scattered rhonchi. CARDIOVASCULAR: S1, S2. ABDOMEN: Soft. EXTREMITIES: Right leg cellulitis present. LABORATORY DATA: Labs noted. ASSESSMENT: 1. Right lower leg cellulitis with possible sepsis. 2. Acute kidney injury. 3. Hyponatremia. 4. Hypertension. 5. Multiple complex medical issues. RECOMMENDATIONS: Recommended to continue current management and symptomatic treatment, otherwise at this time I would recommend repeat labs continue the antibiotics, cultures. Guarded prognosis. Further recommendations to follow, nephrology is following the patient closely. JAYE / NASIM: [id number] /
[2022-04-14 06:24] LABS: Glucose,Whole Blood 193 mg/dL (70-110)
[2022-04-14] MEDS: MIDODRINE 5 MG TAB PO SCH ×3 (06:49→16:49)
[2022-04-14] MEDS: INSULIN ASPART (NovoLOG) 100 UNIT/ML VIAL SQ SCH ×4 (06:49→22:44)
[2022-04-14] MEDS: SODIUM BICARBONATE TAB 650 MG TAB PO SCH ×2 (08:16→22:44)
[2022-04-14] MEDS: polyethylene glycoL 3350 17 GM POWD.PACK PO SCH (08:16)
[2022-04-14] MEDS: APIXABAN 5 MG TAB PO SCH ×2 (08:16→16:50)
[2022-04-14] MEDS: METOPROLOL SUCCINATE (ER) 25 MG TAB.ER.24H PO SCH (08:17)
[2022-04-14] MEDS: SYMBICORT 160-4.5 MCG INHALER INHALATION SCH ×2 (08:22→20:13)
[2022-04-14 09:01] LABS: Basophils # (A) 0.05 X 10*3/uL (0.00-0.10); Basophils % (A) 0.4 %; Eosinophils # (A) 0.08 X 10*3/uL (0.04-0.35); Eosinophils % (A) 0.6 %; HCT 28.9 % (37.2-46.3); HGB 9.6 g/dL (12.0-15.0); Immature Grans, Automated 1.2 %; Lymphocytes # (A) 1.45 X 10*3/uL (0.90-5.00); Lymphocytes % (A) 11.6 %; MCH 31.5 pg (27.0-32.0); MCHC 33.2 g/dL (32.0-37.0); MCV 94.8 fL (80.0-97.0); Mean Platelet Volume 9.1 fL (9.5-12.2); Monocytes # (A) 1.02 X 10*3/uL (0.20-1.00); Monocytes % (A) 8.2 %; NRBC Per 100 WBC 0.2 /100 WBCS (0.0-0.0); Neutrophils # (A) 9.74 X 10*3/uL (1.80-7.70); Platelet Count 514 X 10*3/uL (140-440); RBC 3.05 X 10*6/uL (4.10-5.20); RDW 16.1 % (11.5-14.5); WBC 12.49 X 10*3/uL (4.50-10.00)
--- NOTE | 2022-04-14 09:44 | P.PN ---
Subjective Patient is seen in follow-up for acute kidney injury. Renal function worsening. Lasix discontinued. Sodium level 121 last night. She did receive sodium chloride tab. Also received Samsca yesterday. Oral intake is poor. Vital signs are stable. Blood pressure on the lower side. General: awake. No acute distress. HEENT: Head exam is unremarkable. LUNGS: Breath sounds decreased. HEART: Rate and Rhythm are regular. ABDOMEN: Soft, obese. EXTREMITITES: 2+ edema. Lower extremities wrapped. Objective - Vital Signs Vital signs: Vital Signs Temp 98.2 F 04/14/22 08:00 Pulse 82 04/14/22 08:00 Resp 18 04/14/22 08:00 BP 94/59 04/14/22 08:00 Pulse Ox 95 04/14/22 08:00 FiO2 Intake & Output 04/13/22 04/14/22 04/14/22 18:59 06:59 18:59 Output Total 700 Balance -700 Output: Urine 700 Other: Voiding Method Bedside Commode Indwelling Catheter # Voids 2 # Bowel Movements 1 - Labs CBC & Chem 7: 04/14/22 05:32 04/13/22 18:43 Labs: Abnormal Lab Results - Last 24 Hours (Table) 04/13/22 04/13/22 04/13/22 Range/Units 07:00 11:45 16:31 WBC (4.50-10.00) X 10*3/uL RBC (4.10-5.20) X 10*6/uL Hgb (12.0-15.0) g/dL Hct (37.2-46.3) % RDW (11.5-14.5) % Plt Count (140-440) X 10*3/uL MPV (9.5-12.2) fL Absolute Nucleated RBC (0.00-0.00) X 10*3/uL Immature Gran # (0.00-0.04) X 10*3/uL Neutrophils # (1.80-7.70) X 10*3/uL Monocytes # (0.20-1.00) X 10*3/uL NRBC/100 WBC Diff (0.0-0.0) /100 WBCS Sodium 120 L (135-145) mmol/L Potassium 6.0 H (3.5-5.5) mmol/L Chloride 81 L (96-109) mmol/L Carbon Dioxide 19.5 L (20.0-27.5) mmol/L Anion Gap 19.50 H (10.00-18.00) mmol/L BUN 98.3 H (9.0-27.0) mg/dL Creatinine 3.1 H (0.6-1.5) mg/dL Est GFR (CKD-EPI)AfAm 16.3 L (60.0-200.0) Est GFR (CKD-EPI)NonAf 14.1 L (60.0-200.0) BUN/Creatinine Ratio 32.12 H (12.00-20.00) Ratio Glucose 214 H (70-110) mg/dL POC Glucose (mg/dL) 258 H 136 H (70-110) mg/dL Cortisol 39.8 H (3.1-22.4) ug/dL 04/13/22 04/13/22 04/14/22 Range/Units 18:43 20:28 05:32 WBC 12.49 H (4.50-10.00) X 10*3/uL RBC 3.05 L (4.10-5.20) X 10*6/uL Hgb 9.6 L (12.0-15.0) g/dL Hct 28.9 L (37.2-46.3) % RDW 16.1 H (11.5-14.5) % Plt Count 514 H (140-440) X 10*3/uL MPV 9.1 L (9.5-12.2) fL Absolute Nucleated RBC 0.02 H (0.00-0.00) X 10*3/uL Immature Gran # 0.15 H (0.00-0.04) X 10*3/uL Neutrophils # 9.74 H (1.80-7.70) X 10*3/uL Monocytes # 1.02 H (0.20-1.00) X 10*3/uL NRBC/100 WBC Diff 0.2 H (0.0-0.0) /100 WBCS Sodium 121 L (135-145) mmol/L Potassium (3.5-5.5) mmol/L Chloride 84 L (96-109) mmol/L Carbon Dioxide (20.0-27.5) mmol/L Anion Gap (10.00-18.00) mmol/L BUN 104 H* (9.0-27.0) mg/dL Creatinine 3.19 H (0.6-1.5) mg/dL Est GFR (CKD-EPI)AfAm (60.0-200.0) Est GFR (CKD-EPI)NonAf (60.0-200.0) BUN/Creatinine Ratio (12.00-20.00) Ratio Glucose 103 H (70-110) mg/dL POC Glucose (mg/dL) 150 H (70-110) mg/dL Cortisol (3.1-22.4) ug/dL 04/14/22 Range/Units 06:23 WBC (4.50-10.00) X 10*3/uL RBC (4.10-5.20) X 10*6/uL Hgb (12.0-15.0) g/dL Hct (37.2-46.3) % RDW (11.5-14.5) % Plt Count (140-440) X 10*3/uL MPV (9.5-12.2) fL Absolute Nucleated RBC (0.00-0.00) X 10*3/uL Immature Gran # (0.00-0.04) X 10*3/uL Neutrophils # (1.80-7.70) X 10*3/uL Monocytes # (0.20-1.00) X 10*3/uL NRBC/100 WBC Diff (0.0-0.0) /100 WBCS Sodium (135-145) mmol/L Potassium (3.5-5.5) mmol/L Chloride (96-109) mmol/L Carbon Dioxide (20.0-27.5) mmol/L Anion Gap (10.00-18.00) mmol/L BUN (9.0-27.0) mg/dL Creatinine (0.6-1.5) mg/dL Est GFR (CKD-EPI)AfAm (60.0-200.0) Est GFR (CKD-EPI)NonAf (60.0-200.0) BUN/Creatinine Ratio (12.00-20.00) Ratio Glucose (70-110) mg/dL POC Glucose (mg/dL) 193 H (70-110) mg/dL Cortisol (3.1-22.4) ug/dL Assessment and Plan Plan: Assessment: 1. Acute kidney injury secondary to ATN secondary to hypotension. UA with trace protein. No hydronephrosis noted on kidney ultrasound. Creatinine was 1.52 admission - 3.19 as of yesterday evening. 2. Hypervolemic hyponatremia. Urine sodium less than 20 and urine osmolality 430. Cortisol level not low. TSH normal. Status post Samsca and IV Lasix this admission. Also component of poor solute intake. 3. Lower extremity cellulitis on antibiotics. 4. Chronic A. fib maintained on anticoagulation. 5. Metabolic acidosis secondary to acute kidney injury maintained on oral bic arbonate. Better. 6. Diabetes mellitus. 7. Acute on chronic diastolic CHF and moderate pulmonary hypertension. Plan: Hold Lasix due to worsening renal function. Status post Samsca this admission. 1200 mL fluid restriction. Add sodium chloride tabs. Check chest x-ray. Follow-up morning labs. Avoid nephrotoxins. Stopped Fleet enemas. Continue to monitor renal function and urine output. Maintain Hernandez catheter for strict I's and O's.
[2022-04-14 10:01] LABS: African American GFR (CKD) 17.2 (60.0-200.0); Anion Gap 19.6 mmol/L (10.00-18.00); BUN/Creat Ratio 33.62 Ratio (12.00-20.00); Blood Urea Nitrogen 98.5 mg/dL (9.0-27.0); Calcium 8.5 mg/dL (8.7-10.3); Carbon Dioxide 20.5 mmol/L (20.0-27.5); Non-African American GFR(CKD) 14.8 (60.0-200.0); Potassium 4.4 mmol/L (3.5-5.5)
--- NOTE | 2022-04-14 10:09 | XR ---
EXAMINATION TYPE: XR chest 1V DATE OF EXAM: 04/14/2022 COMPARISON: 04/10/2022 HISTORY: Shortness of breath TECHNIQUE: Single frontal view of the chest is obtained. FINDINGS: Left lower lobe infiltrate and small effusion. Cardiac device. Hypertrophic and degenerati ve changes spine. Arthropathy of the shoulders. Atherosclerotic change aorta. IMPRESSION: Left basilar atelectasis or infiltrate and small effusion. No overt failure.
[2022-04-14] MEDS: ACETAMINOPHEN TAB 325 MG TAB PO PRN ×2 (10:57→16:49)
[2022-04-14] MEDS: SODIUM CHLORIDE TAB 1 GM TAB PO SCH ×2 (10:58→22:44)
[2022-04-14 11:28] LABS: Glucose,Whole Blood 285 mg/dL (70-110)
--- NOTE | 2022-04-14 15:27 | P.PN ---
Subjective Progress Note Date: 04/14/22 This is a 76-year-old female who was recently admitted with right lower extremity cellulitis with significant drainage and weeping and being closely monitored. Cultures thus far are negative and anxiety following along with nephrology. Patient is continued on daptomycin. WBC is currently 12 and recom mending to continue with local wound care. Sodium extremely low and nephrology following although has improved since yesterday and is currently 126 today. Patient is maintained on sodium chloride tabs along with sodium bicarb and will follow-up with repeat labs in the morning. Blood cultures thus far are negative. Case management is following and patient will be returning to [facility] for continued rehab once stabilized. Chest x-ray is ordered for today. Patient is afebrile denies worsening shortness of breath or any chest pain. Patient is tolerating diet with no reports of nausea or vomiting noted. Patient is asking for something for pain. PT/OT following Review of systems: Constitutional: No reports of fatigue, fever, or chills Cardiovascular: No reports of chest pain or palpitations Respiratory: No reports of shortness of breath or cough GI: No reports of nausea, no reports of of vomiting, : No reports of dysuria or retention Neurovascular: reports of generalized weakness, and lower extremity pain All medications have been reviewed Active Medications Acetaminophen (Acetaminophen Tab 325 Mg Tab) 650 mg PO Q6HR PRN PRN Reason: Mild Pain or Fever > 100.5 Last Admin: 04/14/22 10:57 Dose: 650 mg Hydrocodone Bitart/Acetaminophen (Hydrocodone/Apap 5-325mg 1 Each Tab) 1 each PO Q6HR PRN PRN Reason: Pain Last Admin: 04/13/22 17:30 Dose: 1 each Albuterol Sulfate (Albuterol Nebulized 2.5 Mg/3 Ml) 2.5 mg INHALATION RT-QID PRN PRN Reason: Shortness Of Breath Apixaban (Apixaban 5 Mg Tab) 5 mg PO BID@0800,1700 [facility]; Protocol Last Admin: 04/14/22 08:16 Dose: 5 mg Ascorbic Acid (Ascorbic Acid 500 Mg Tab) 500 mg PO DAILY@1700 [facility] Last Admin: 04/13/22 17:29 Dose: 500 mg Aspirin (Aspirin 81 Mg) 81 mg PO DAILY@1700 [facility] Last Admin: 04/13/22 17:29 Dose: 81 mg Bisacodyl (Bisacodyl 10 Mg Supp) 10 mg RECTAL DAILY PRN PRN Reason: Constipation Budesonide/Formoterol Fumarate (Symbicort 160-4.5 Mcg Inhaler) 2 puff INHALATI ON RT-BID@0800,1700 [facility] Last Admin: 04/14/22 08:22 Dose: 2 puff Calcium Carbonate/Glycine (Calcium Carbonate 500 Mg Chewable) 500 mg PO DAILY@1700 [facility] Last Admin: 04/13/22 17:29 Dose: 500 mg Dextrose/Water (Dextrose 50% Syringe 50 Ml) 25 ml IVP PER PROTOCOL PRN; Protocol PRN Reason: Hypoglycemia Dextrose/Water (Dextrose 50% Syringe 50 Ml) 50 ml IVP PER PROTOCOL PRN; Protocol PRN Reason: Hypoglycemia Daptomycin 350 mg/ Sodium (Chloride) 50 mls @ 100 mls/hr IVPB Q48H [facility]; Protocol Last Admin: 04/13/22 13:24 Dose: 100 mls/hr Insulin Aspart (Insulin Aspart (Novolog) 100 Unit/Ml Vial) 0 unit SQ [facility]; Protocol Last Admin: 04/14/22 12:01 Dose: 6 unit Insulin Detemir (Insulin Detemir (Levemir) 100 Unit/Ml Syr) 7 unit SQ [facility] Last Admin: 04/13/22 20:58 Dose: 7 unit Latanoprost (Latanoprost 0.005% Ophth Drops 2.5 Ml Btl) 1 drops BOTH EYES HS@2100 [facility] Last Admin: 04/13/22 20:58 Dose: 1 drops Magnesium Hydroxide (Magnesium Hydroxide 2,400 Mg/10 Ml Cup) 2,400 mg PO DAILY PRN PRN Reason: Constipation Melatonin (Melatonin 5 Mg Tablet) 5 mg PO HS@2100 [facility] Last Admin: 04/13/22 20:58 Dose: 5 mg Metoprolol Succinate (Metoprolol Succinate (Er) 25 Mg Tab.Er.24h) 25 mg PO DAILY@0800 [facility] Last Admin: 04/14/22 08:17 Dose: Not Given Midodrine (Midodrine 5 Mg Tab) 10 mg PO AC-TID [facility] Last Admin: 04/14/22 10:58 Dose: 10 mg Multivitamins (Multivitamins, Thera 1 Each Tab) 1 each PO DAILY@1700 [facility] Last Admin: 04/13/22 17:30 Dose: 1 each Naloxone HCl (Naloxone 0.4 Mg/Ml 1 Ml Vial) 0.2 mg IV Q2M PRN PRN Reason: Opioid Reversal Polyethylene Glycol (Polyethylene Glycol 3350 17 Gm Powd.Pack) 17 gm PO DAILY@0800 [facility] Last Admin: 04/14/22 08:16 Dose: 17 gm Sodium Bicarbonate (Sodium Bicarbonate Tab 650 Mg Tab) 650 mg PO BID [facility] Last Admin: 04/14/22 08:16 Dose: 650 mg Sodium Chloride (Sodium Chloride Tab 1 Gm Tab) 1 gm PO BID [facility] Last Admin: 04/14/22 10:58 Dose: 1 gm Tamsulosin HCl (Tamsulosin 0.4 Mg Cap.Er.24h) 0.4 mg PO DAILY@1700 [facility] Last Admin: 04/13/22 17:30 Dose: 0.4 mg Tramadol HCl (Tramadol 50 Mg Tab) 50 mg PO Q6HR PRN PRN Reason: Breakthrough Pain PHYSICAL EXAMINATION: GENERAL: The patient is alert and oriented x4, Well developed, well nourished. Morbid obesity obese HEENT: Pupils are round and equally reacting to light. EOMI. no scleral icterus. No conjunctival pallor. Normocephalic, atraumatic. No pharyngeal erythema. No thyromegaly. CARDIOVASCULAR: S1 and S2 muffled PULMONARY: diminished breath sounds bilaterally with no wheezing or rhonchi noted. ABDOMEN: soft. Nontender on exam. obese. non-distended, normoactive bowel sounds. No palpable organomegaly. MUSCULOSKELETAL: No joint swelling or deformity. EXTREMITIES: No cyanosis, clubbing, with pedal edema. Extensive bilateral lower extremity edema with weeping noted NEUROLOGICAL: Gross neurological examination did not reveal any focal deficits. Diffuse weakness SKIN: No rashes. Assessment: Right lower leg cellulitis with possible sepsis, present on admission Acute kidney injury, possibly secondary to vancomycin Hyponatremia due to poor solute intake, improving Hypertension History of diabetes mellitus, insulin-dependent, uncontrolled with hyperglycemia History of atrial fibrillation Hyperlipidemia Hypertension Morbid obesity with a body mass index of 55.6 GI prophylaxis DVT prophylaxis Full code Plan: Recommend to continue with current medications and management with infectious disease following. Nephrology following as well for worsening kidney functions. Creatinine currently trending down at 2.9, sodium is low although improved at 126 today and recommend repeat labs. Blood sugars elevated recommend Accu-Cheks before meals and at bedtime and will continue current medication regimen. Case management following as patient will be returning to [facility] once stabilized and discharged. Continue local wound care and monitor white count closely. Will need to discuss with infectious disease about treatment plan moving forward. Patient is currently maintained on daptomycin and will continue local wound care. Due to multiple complex medical issues, prognosis is guarded. The impression and plan of care has been dictated by Gwendolyn Shannon, nurse practitioner as directed. Dr. Hardik MD I have performed a history and examination and MDM of this patient, discussed the same with the dictator, and agree with the dictator's assessment and plan as written ,documented as a scribe. Based on total visit time, I have performed more than 50% of the visit. Any additional findings or plans will be noted. Objective - Vital Signs Vital signs: Vital Signs Temp 98.2 F 04/14/22 08:00 Pulse 82 04/14/22 08:00 Resp 18 04/14/22 08:00 BP 94/59 04/14/22 08:00 Pulse Ox 95 04/14/22 08:00 FiO2 Intake & Output 04/13/22 04/14/22 04/14/22 18:59 06:59 18:59 Output Total 700 Balance -700 Output: Urine 700 Other: Voiding Method Bedside Commode Indwelling Catheter # Voids 2 # Bowel Movements 1 - Labs CBC & Chem 7: 04/14/22 05:32 04/14/22 05:32 Labs: Abnormal Lab Results - Last 24 Hours (Table) 04/13/22 04/13/22 04/13/22 Range/Units 07:00 11:45 16:31 WBC (4.50-10.00) X 10*3/uL RBC (4.10-5.20) X 10*6/uL Hgb (12.0-15.0) g/dL Hct (37.2-46.3) % RDW (11.5-14.5) % Plt Count (140-440) X 10*3/uL MPV (9.5-12.2) fL Absolute Nucleated RBC (0.00-0.00) X 10*3/uL Immature Gran # (0.00-0.04) X 10*3/uL Neutrophils # (1.80-7.70) X 10*3/uL Monocytes # (0.20-1.00) X 10*3/uL NRBC/100 WBC Diff (0.0-0.0) /100 WBCS Sodium 120 L (135-145) mmol/L Potassium 6.0 H (3.5-5.5) mmol/L Chloride 81 L (96-109) mmol/L Carbon Dioxide 19.5 L (20.0-27.5) mmol/L Anion Gap 19.50 H (10.00-18.00) mmol/L BUN 98.3 H (9.0-27.0) mg/dL Creatinine 3.1 H (0.6-1.5) mg/dL Est GFR (CKD-EPI)AfAm 16.3 L (60.0-200.0) Est GFR (CKD-EPI)NonAf 14.1 L (60.0-200.0) BUN/Creatinine Ratio 32.12 H (12.00-20.00) Ratio Glucose 214 H (70-110) mg/dL POC Glucose (mg/dL) 258 H 136 H (70-110) mg/dL Cortisol 39.8 H (3.1-22.4) ug/dL 04/13/22 04/13/22 04/14/22 Range/Units 18:43 20:28 05:32 WBC 12.49 H (4.50-10.00) X 10*3/uL RBC 3.05 L (4.10-5.20) X 10*6/uL Hgb 9.6 L (12.0-15.0) g/dL Hct 28.9 L (37.2-46.3) % RDW 16.1 H (11.5-14.5) % Plt Count 514 H (140-440) X 10*3/uL MPV 9.1 L (9.5-12.2) fL Absolute Nucleated RBC 0.02 H (0.00-0.00) X 10*3/uL Immature Gran # 0.15 H (0.00-0.04) X 10*3/uL Neutrophils # 9.74 H (1.80-7.70) X 10*3/uL Monocytes # 1.02 H (0.20-1.00) X 10*3/uL NRBC/100 WBC Diff 0.2 H (0.0-0.0) /100 WBCS Sodium 121 L (135-145) mmol/L Potassium (3.5-5.5) mmol/L Chloride 84 L (96-109) mmol/L Carbon Dioxide (20.0-27.5) mmol/L Anion Gap (10.00-18.00) mmol/L BUN 104 H* (9.0-27.0) mg/dL Creatinine 3.19 H (0.6-1.5) mg/dL Est GFR (CKD-EPI)AfAm (60.0-200.0) Est GFR (CKD-EPI)NonAf (60.0-200.0) BUN/Creatinine Ratio (12.00-20.00) Ratio Glucose 103 H (70-110) mg/dL POC Glucose (mg/dL) 150 H (70-110) mg/dL Cortisol (3.1-22.4) ug/dL 04/14/22 Range/Units 06:23 WBC (4.50-10.00) X 10*3/uL RBC (4.10-5.20) X 10*6/uL Hgb (12.0-15.0) g/dL Hct (37.2-46.3) % RDW (11.5-14.5) % Plt Count (140-440) X 10*3/uL MPV (9.5-12.2) fL Absolute Nucleated RBC (0.00-0.00) X 10*3/uL Immature Gran # (0.00-0.04) X 10*3/uL Neutrophils # (1.80-7.70) X 10*3/uL Monocytes # (0.20-1.00) X 10*3/uL NRBC/100 WBC Diff (0.0-0.0) /100 WBCS Sodium (135-145) mmol/L Potassium (3.5-5.5) mmol/L Chloride (96-109) mmol/L Carbon Dioxide (20.0-27.5) mmol/L Anion Gap (10.00-18.00) mmol/L BUN (9.0-27.0) mg/dL Creatinine (0.6-1.5) mg/dL Est GFR (CKD-EPI)AfAm (60.0-200.0) Est GFR (CKD-EPI)NonAf (60.0-200.0) BUN/Creatinine Ratio (12.00-20.00) Ratio Glucose (70-110) mg/dL POC Glucose (mg/dL) 193 H (70-110) mg/dL Cortisol (3.1-22.4) ug/dL
[2022-04-14 16:45] LABS: Glucose,Whole Blood 195 mg/dL (70-110)
[2022-04-14] MEDS: TAMSULOSIN 0.4 MG CAP.ER.24H PO SCH (16:49)
[2022-04-14] MEDS: ASCORBIC ACID 500 MG TAB PO SCH (16:49)
[2022-04-14] MEDS: MULTIVITAMINS, THERA 1 EACH TAB PO SCH (16:49)
[2022-04-14] MEDS: ASPIRIN 81 MG PO SCH (16:50)
[2022-04-14] MEDS: CALCIUM CARBONATE 500 MG CHEWABLE PO SCH (16:50)
[2022-04-14 20:46] LABS: Glucose,Whole Blood 243 mg/dL (70-110)
--- NOTE | 2022-04-14 22:41 | P.PN ---
Subjective Progress Note Date: 04/14/22 Principal diagnosis: Right lower extremity wound and cellulitis Patient is a 76-year-old female with multiple comorbidities presented to hospital with a fall in this patient who did have a right lower extremity blister superficial ulceration and cellulitis also with renal insufficiency. On today's evaluation that is 04/14/2022 the patient continues to be afebrile patient is breathing comfortably on room air patient denies chest pain no cough or sputum production no abdominal pain , the patient right lower extremity swelling redness and drainage has slightly decreased Objective - Vital Signs Vital signs: Vital Signs Temp 98.2 F 04/14/22 08:00 Pulse 82 04/14/22 08:21 Resp 18 04/14/22 08:21 BP 94/59 04/14/22 08:00 Pulse Ox 95 04/14/22 08:00 FiO2 Intake & Output 04/13/22 04/14/22 04/14/22 18:59 06:59 18:59 Output Total 700 Balance -700 Output: Urine 700 Other: Voiding Method Bedside Commode Indwelling Catheter Indwelling Catheter # Voids 2 # Bowel Movements 1 - Exam GENERAL DESCRIPTION: An elderly female lying in bed in no distress RESPIRATORY SYSTEM: Unlabored breathing , decreased breath sounds at bases HEART: S1 S2 regular rate and rhythm , ABDOMEN: Soft , no tenderness EXTREMITIES: Right lower extremity some superficial ulceration from ruptured blister, surrounding redness has improved - Labs CBC & Chem 7: 04/14/22 05:32 04/14/22 05:32 Labs: Abnormal Lab Results - Last 24 Hours (Table) 04/13/22 04/13/22 04/13/22 Range/Units 07:00 11:45 16:31 WBC (4.50-10.00) X 10*3/uL RBC (4.10-5.20) X 10*6/uL Hgb (12.0-15.0) g/dL Hct (37.2-46.3) % RDW (11.5-14.5) % Plt Count (140-440) X 10*3/uL MPV (9.5-12.2) fL Absolute Nucleated RBC (0.00-0.00) X 10*3/uL Immature Gran # (0.00-0.04) X 10*3/uL Neutrophils # (1.80-7.70) X 10*3/uL Monocytes # (0.20-1.00) X 10*3/uL NRBC/100 WBC Diff (0.0-0.0) /100 WBCS Sodium 120 L (135-145) mmol/L Potassium 6.0 H (3.5-5.5) mmol/L Chloride 81 L (96-109) mmol/L Carbon Dioxide 19.5 L (20.0-27.5) mmol/L Anion Gap 19.50 H (10.00-18.00) mmol/L BUN 98.3 H (9.0-27.0) mg/dL Creatinine 3.1 H (0.6-1.5) mg/dL Est GFR (CKD-EPI)AfAm 16.3 L (60.0-200.0) Est GFR (CKD-EPI)NonAf 14.1 L (60.0-200.0) BUN/Creatinine Ratio 32.12 H (12.00-20.00) Ratio Glucose 214 H (70-110) mg/dL POC Glucose (mg/dL) 258 H 136 H (70-110) mg/dL Calcium (8.7-10.3) mg/dL 04/13/22 04/13/22 04/14/22 Range/Units 18:43 20:28 05:32 WBC (4.50-10.00) X 10*3/uL RBC (4.10-5.20) X 10*6/uL Hgb (12.0-15.0) g/dL Hct (37.2-46.3) % RDW (11.5-14.5) % Plt Count (140-440) X 10*3/uL MPV (9.5-12.2) fL Absolute Nucleated RBC (0.00-0.00) X 10*3/uL Immature Gran # (0.00-0.04) X 10*3/uL Neutrophils # (1.80-7.70) X 10*3/uL Monocytes # (0.20-1.00) X 10*3/uL NRBC/100 WBC Diff (0.0-0.0) /100 WBCS Sodium 121 L 126 L (135-145) mmol/L Potassium (3.5-5.5) mmol/L Chloride 84 L 86 L (96-109) mmol/L Carbon Dioxide (20.0-27.5) mmol/L Anion Gap 19.60 H (10.00-18.00) mmol/L BUN 104 H* 98.5 H (9.0-27.0) mg/dL Creatinine 3.19 H 2.9 H (0.6-1.5) mg/dL Est GFR (CKD-EPI)AfAm 17.2 L (60.0-200.0) Est GFR (CKD-EPI)NonAf 14.8 L (60.0-200.0) BUN/Creatinine Ratio 33.62 H (12.00-20.00) Ratio Glucose 103 H 165 H (70-110) mg/dL POC Glucose (mg/dL) 150 H (70-110) mg/dL Calcium 8.5 L (8.7-10.3) mg/dL 04/14/22 04/14/22 04/14/22 Range/Units 05:32 06:23 11:26 WBC 12.49 H (4.50-10.00) X 10*3/uL RBC 3.05 L (4.10-5.20) X 10*6/uL Hgb 9.6 L (12.0-15.0) g/dL Hct 28.9 L (37.2-46.3) % RDW 16.1 H (11.5-14.5) % Plt Count 514 H (140-440) X 10*3/uL MPV 9.1 L (9.5-12.2) fL Absolute Nucleated RBC 0.02 H (0.00-0.00) X 10*3/uL Immature Gran # 0.15 H (0.00-0.04) X 10*3/uL Neutrophils # 9.74 H (1.80-7.70) X 10*3/uL Monocytes # 1.02 H (0.20-1.00) X 10*3/uL NRBC/100 WBC Diff 0.2 H (0.0-0.0) /100 WBCS Sodium (135-145) mmol/L Potassium (3.5-5.5) mmol/L Chloride (96-109) mmol/L Carbon Dioxide (20.0-27.5) mmol/L Anion Gap (10.00-18.00) mmol/L BUN (9.0-27.0) mg/dL Creatinine (0.6-1.5) mg/dL Est GFR (CKD-EPI)AfAm (60.0-200.0) Est GFR (CKD-EPI)NonAf (60.0-200.0) BUN/Creatinine Ratio (12.00-20.00) Ratio Glucose (70-110) mg/dL POC Glucose (mg/dL) 193 H 285 H (70-110) mg/dL Calcium (8.7-10.3) mg/dL Assessment and Plan (1) Bilateral lower leg cellulitis Current Visit: Yes Status: Acute Code(s): L03.116 - CELLULITIS OF LEFT LOWER LIMB; L03.115 - CELLULITIS OF RIGHT LOWER LIMB SNOMED Code(s): 947068314 Plan: 1patient with the acute right lower extremity cellulitis in this patient did have diffuse swelling and blister formation and ulceration from ruptured blister likely from gram-positive skin marli. 2patient with the elevated kidney function and high risk of nephrotoxicity from vancomycin level was on the high side, vancomycin was subsequently discontinued. 3 local wound care with a dry Aquacel silver dressing and Sebas wrap from just above the toe to below the knee 4Patient seemed to have shown clinical improvement and the patient white count was down to 12,000, patient to continue with the daptomycin and monitor clinical course closely Time with Patient: Less than 30
[2022-04-14] MEDS: MELATONIN 5 MG TABLET PO SCH (22:44)
[2022-04-14] MEDS: INSULIN DETEMIR (LEVEMIR) 100 UNIT/ML SYR SQ SCH (22:44)
[2022-04-14] MEDS: LATANOPROST 0.005% OPHTH DROPS 2.5 ML BTL BOTH EYES SCH (22:45)
[2022-04-14] MEDS: HYDROcodone/APAP 5-325MG 1 EACH TAB PO PRN (22:46)
[2022-04-15 06:40] LABS: Glucose,Whole Blood 135 mg/dL (70-110)
[2022-04-15] MEDS: INSULIN ASPART (NovoLOG) 100 UNIT/ML VIAL SQ SCH ×4 (06:45→22:12)
[2022-04-15] MEDS: MIDODRINE 5 MG TAB PO SCH ×3 (06:57→17:20)
[2022-04-15] MEDS: HYDROcodone/APAP 5-325MG 1 EACH TAB PO PRN ×2 (06:59→12:44)
[2022-04-15] MEDS: polyethylene glycoL 3350 17 GM POWD.PACK PO SCH (07:41)
[2022-04-15] MEDS: METOPROLOL SUCCINATE (ER) 25 MG TAB.ER.24H PO SCH (07:42)
[2022-04-15] MEDS: APIXABAN 5 MG TAB PO SCH ×2 (07:42→17:20)
[2022-04-15] MEDS: SODIUM CHLORIDE TAB 1 GM TAB PO SCH ×2 (07:42→22:14)
[2022-04-15] MEDS: SODIUM BICARBONATE TAB 650 MG TAB PO SCH (07:42)
[2022-04-15] MEDS: SYMBICORT 160-4.5 MCG INHALER INHALATION SCH ×2 (08:41→20:34)
[2022-04-15 10:32] LABS: African American GFR (CKD) 27.2 (60.0-200.0); Anion Gap 11.1 mmol/L (10.00-18.00); BUN/Creat Ratio 42.3 Ratio (12.00-20.00); Blood Urea Nitrogen 84.6 mg/dL (9.0-27.0); Calcium 8.5 mg/dL (8.7-10.3); Carbon Dioxide 28.9 mmol/L (20.0-27.5); Magnesium 2.1 mg/dL (1.5-2.4); Non-African American GFR(CKD) 23.5 (60.0-200.0); Potassium 3.6 mmol/L (3.5-5.5)
[2022-04-15] MEDS ORDERED: POTASSIUM CHLORIDE ER 20 MEQ TAB.ER PO STA (10:59)
--- NOTE | 2022-04-15 11:00 | P.PN ---
Subjective Patient is seen in follow-up for acute kidney injury. Renal function improving. Sodium level also better. Remains off diuretics. Maintained on sodium chloride tabs. Also on midodrine. Blood pressure remains on the lower side. Oral intake is poor. Vital signs are stable. Blood pressure on the lower side. General: awake. No acute distress. HEENT: Head exam is unremarkable. LUNGS: Breath sounds decreased. HEART: Rate and Rhythm are regular. ABDOMEN: Soft, obese. EXTREMITITES: 2+ edema. Lower extremities wrapped. Objective - Vital Signs Vital signs: Vital Signs Temp 98.3 F 04/15/22 07:32 Pulse 86 04/15/22 07:32 Resp 18 04/15/22 07:32 BP 112/70 04/15/22 07:32 Pulse Ox 97 04/15/22 07:32 FiO2 21 04/14/22 20:13 Intake & Output 04/14/22 04/15/22 04/15/22 18:59 06:59 18:59 Intake Total 600 Output Total 800 1100 Balance -200 -1100 Intake: Oral 600 Output: Urine 800 1100 Other: Voiding Method Indwelling Catheter Indwelling Catheter - Labs CBC & Chem 7: 04/14/22 05:32 04/15/22 06:35 Labs: Abnormal Lab Results - Last 24 Hours (Table) 04/14/22 04/14/22 04/14/22 Range/Units 11:26 16:43 20:32 Sodium (135-145) mmol/L Chloride (96-109) mmol/L Carbon Dioxide (20.0-27.5) mmol/L BUN (9.0-27.0) mg/dL Creatinine (0.6-1.5) mg/dL Est GFR (CKD-EPI)AfAm (60.0-200.0) Est GFR (CKD-EPI)NonAf (60.0-200.0) BUN/Creatinine Ratio (12.00-20.00) Ratio Glucose (70-110) mg/dL POC Glucose (mg/dL) 285 H 195 H 243 H (70-110) mg/dL Calcium (8.7-10.3) mg/dL 04/15/22 04/15/22 Range/Units 06:35 06:39 Sodium 131 L (135-145) mmol/L Chloride 91 L (96-109) mmol/L Carbon Dioxide 28.9 H (20.0-27.5) mmol/L BUN 84.6 H (9.0-27.0) mg/dL Creatinine 2.0 H (0.6-1.5) mg/dL Est GFR (CKD-EPI)AfAm 27.2 L (60.0-200.0) Est GFR (CKD-EPI)NonAf 23.5 L (60.0-200.0) BUN/Creatinine Ratio 42.30 H (12.00-20.00) Ratio Glucose 112 H (70-110) mg/dL POC Glucose (mg/dL) 135 H (70-110) mg/dL Calcium 8.5 L (8.7-10.3) mg/dL Assessment and Plan Plan: Assessment: 1. Acute kidney injury secondary to ATN secondary to hypotension. UA with trace protein. No hydronephrosis noted on kidney ultrasound. Creatinine was 1.52 admission - peaked at 3.19 this admission - 2.0 today. 2. Hypervolemic hyponatremia. Urine sodium less than 20 and urine osmolality 430. Cortisol level not low. TSH normal. Status post Samsca and IV Lasix this admission. Also component of poor solute intake. Now maintained on sodium chloride tabs. Sodium level improving. 3. Lower extremity cellulitis on antibiotics. 4. Chronic A. fib maintained on metoprolol and anticoagulation. 5. Metabolic acidosis secondary to acute kidney injury maintained on oral bicar bonate. Better. 6. Diabetes mellitus. 7. Acute on chronic diastolic CHF and moderate pulmonary hypertension. 8. Hypokalemia from poor intake. Plan: Continue to hold diuretics. 1200 mL fluid restriction. Maintain sodium chloride tabs. Avoid nephrotoxins. Stopped Fleet enemas. Continue to monitor renal function and urine output. Maintain Hernandez catheter for strict I's and O's - plan to DC Hernandez catheter tomorrow. Stop sodium bicarbonate.
[2022-04-15 11:32] LABS: Glucose,Whole Blood 265 mg/dL (70-110)
[2022-04-15] MEDS: DAPTOmycin 350 MG in SODIUM CHLORIDE 0.9% 50 ML IVPB SCH (14:58)
[2022-04-15 16:24] LABS: Glucose,Whole Blood 298 mg/dL (70-110)
[2022-04-15] MEDS: traMADol 50 MG TAB PO PRN (17:20)
[2022-04-15] MEDS: CALCIUM CARBONATE 500 MG CHEWABLE PO SCH (17:20)
[2022-04-15] MEDS: TAMSULOSIN 0.4 MG CAP.ER.24H PO SCH (17:20)
[2022-04-15] MEDS: ASCORBIC ACID 500 MG TAB PO SCH (17:20)
[2022-04-15] MEDS: ASPIRIN 81 MG PO SCH (17:20)
[2022-04-15] MEDS: MULTIVITAMINS, THERA 1 EACH TAB PO SCH (17:20)
--- NOTE | 2022-04-15 18:52 | P.PN ---
Subjective Progress Note Date: 04/15/22 This is a 76-year-old female who was recently admitted with right lower extremity cellulitis with significant drainage and weeping and being closely monitored. Cultures thus far are negative and anxiety following along with nephrology. Patient is continued on daptomycin. WBC is currently 12 and recom mending to continue with local wound care. Sodium extremely low and nephrology following although has improved since yesterday and is currently 126 today. Patient is maintained on sodium chloride tabs along with sodium bicarb and will follow-up with repeat labs in the morning. Blood cultures thus far are negative. Case management is following and patient will be returning to [facility] for continued rehab once stabilized. Chest x-ray is ordered for today. Patient is afebrile denies worsening shortness of breath or any chest pain. Patient is tolerating diet with no reports of nausea or vomiting noted. Patient is asking for something for pain. PT/OT following 04/15/2022 Patient is seen today and currently sitting up with family at the bedside. Patient is continued on daptomycin and will receive a midline for outpatient IV antibiotics for the next 10 days to complete course. This was discussed with infectious disease. Patient also to continue with local wound care twice daily and as needed if becoming soiled. Patient will be going to [facility] nephrology following recommending continuing current regimen and will follow-up with repeat labs. Especially protein. Patient's blood sugars are slightly elevated and will continue with sliding scale and have increased long acting to 10 units nightly. Patient is afebrile and denies chest pain or shortness of breath. Patient is asking when she can return home. Midline ordered. Review of systems: Constitutional: No reports of fatigue, fever, or chills Cardiovascular: No reports of chest pain or palpitations Respiratory: No reports of shortness of breath or cough GI: No reports of nausea, no reports of of vomiting, : No reports of dysuria or retention Neurovascular: reports of generalized weakness, and lower extremity pain All medications have been reviewed PHYSICAL EXAMINATION: GENERAL: The patient is alert and oriented x4, Well developed, well nourished. Morbidly obese HEENT: Pupils are round and equally reacting to light. EOMI. no scleral icterus. No conjunctival pallor. Normocephalic, atraumatic. No pharyngeal erythema. No thyromegaly. CARDIOVASCULAR: S1 and S2 muffled PULMONARY: diminished breath sounds bilaterally with no wheezing or rhonchi noted. ABDOMEN: soft. Nontender on exam. obese. non-distended, normoactive bowel sounds. No palpable organomegaly. MUSCULOSKELETAL: No joint swelling or deformity. EXTREMITIES: No cyanosis, clubbing, with pedal edema. Extensive bilateral lower extremity edema with less weeping noted NEUROLOGICAL: Gross neurological examination did not reveal any focal deficits. Diffuse weakness SKIN: No rashes. Assessment: Right lower leg cellulitis with possible sepsis, present on admission Acute kidney injury, possibly secondary to vancomycin Hyponatremia due to poor solute intake, improving Hypertension History of diabetes mellitus, insulin-dependent, uncontrolled with hyperglycemia History of atrial fibrillation Hyperlipidemia Hypertension Morbid obesity with a body mass index of 55.6 GI prophylaxis DVT prophylaxis Full code Plan: Recommend to continue with current medications and management with infectious disease following. Nephrology following as well for worsening kidney functions. Creatinine currently trending down at 2.0, sodium is up to 131 today and recommend repeat labs. Blood sugars elevated recommend Accu-Cheks before meals and at bedtime and will continue current medication regimen. Have increased the long acting to 10 units at bed. Case management following as patient will be returning to [facility] once stabilized and discharged. Continue local wound care and monitor white count closely. Discussed with infectious disease about treatment plan and will receive a midline to complete 10 days of IV daptomycin. Patient is currently maintained on daptomycin and will continue local wound care. Due to multiple complex medical issues, prognosis is guarded. Possible discharge in 24 hours. The impression and plan of care has been dictated by Gwendolyn Shannon, nurse practitioner as directed. Dr. Hardik MD I have performed a history and examination and MDM of this patient, discussed the same with the dictator, and agree with the dictator's assessment and plan as written ,documented as a scribe. Based on total visit time, I have performed more than 50% of the visit. Any additional findings or plans will be noted. Objective - Vital Signs Vital signs: Vital Signs Temp 98.3 F 04/15/22 07:32 Pulse 86 04/15/22 07:32 Resp 18 04/15/22 07:32 BP 112/70 04/15/22 07:32 Pulse Ox 97 04/15/22 07:32 FiO2 21 04/14/22 20:13 Intake & Output 11/04/15/22 04/15/22 18:59 06:59 18:59 Intake Total 600 Output Total 800 1100 Balance -200 -1100 Intake: Oral 600 Output: Urine 800 1100 Other: Voiding Method Indwelling Catheter Indwelling Catheter - Labs CBC & Chem 7: 04/14/22 05:32 04/15/22 06:35 Labs: Abnormal Lab Results - Last 24 Hours (Table) 04/14/22 04/14/22 04/14/22 Range/Units 05:32 11:26 16:43 Sodium 126 L (135-145) mmol/L Chloride 86 L (96-109) mmol/L Anion Gap 19.60 H (10.00-18.00) mmol/L BUN 98.5 H (9.0-27.0) mg/dL Creatinine 2.9 H (0.6-1.5) mg/dL Est GFR (CKD-EPI)AfAm 17.2 L (60.0-200.0) Est GFR (CKD-EPI)NonAf 14.8 L (60.0-200.0) BUN/Creatinine Ratio 33.62 H (12.00-20.00) Ratio Glucose 165 H (70-110) mg/dL POC Glucose (mg/dL) 285 H 195 H (70-110) mg/dL Calcium 8.5 L (8.7-10.3) mg/dL 04/14/22 04/15/22 Range/Units 20:32 06:39 Sodium (135-145) mmol/L Chloride (96-109) mmol/L Anion Gap (10.00-18.00) mmol/L BUN (9.0-27.0) mg/dL Creatinine (0.6-1.5) mg/dL Est GFR (CKD-EPI)AfAm (60.0-200.0) Est GFR (CKD-EPI)NonAf (60.0-200.0) BUN/Creatinine Ratio (12.00-20.00) Ratio Glucose (70-110) mg/dL POC Glucose (mg/dL) 243 H 135 H (70-110) mg/dL Calcium (8.7-10.3) mg/dL
[2022-04-15] MEDS ORDERED: INSULIN DETEMIR (LEVEMIR) 100 UNIT/ML SYR SQ SCH (21:00)
[2022-04-15 22:08] LABS: Glucose,Whole Blood 212 mg/dL (70-110)
[2022-04-15] MEDS: LATANOPROST 0.005% OPHTH DROPS 2.5 ML BTL BOTH EYES SCH (22:13)
[2022-04-15] MEDS: MELATONIN 5 MG TABLET PO SCH (22:14)
[2022-04-16] MEDS: HYDROcodone/APAP 5-325MG 1 EACH TAB PO PRN ×3 (03:51→17:05)
[2022-04-16 06:28] LABS: Glucose,Whole Blood 164 mg/dL (70-110)
[2022-04-16] MEDS: INSULIN ASPART (NovoLOG) 100 UNIT/ML VIAL SQ SCH ×3 (06:31→17:13)
[2022-04-16] MEDS: MIDODRINE 5 MG TAB PO SCH ×3 (06:31→17:13)
[2022-04-16 07:42] VITALS: RESP 18
[2022-04-16] MEDS: SYMBICORT 160-4.5 MCG INHALER INHALATION SCH (07:54)
[2022-04-16 09:26] LABS: African American GFR (CKD) 40.2 (60.0-200.0); Anion Gap 11.5 mmol/L (10.00-18.00); BUN/Creat Ratio 46.14 Ratio (12.00-20.00); Blood Urea Nitrogen 66.9 mg/dL (9.0-27.0); Calcium 8.7 mg/dL (8.7-10.3); Magnesium 2.1 mg/dL (1.5-2.4); Non-African American GFR(CKD) 34.7 (60.0-200.0)
--- NOTE | 2022-04-16 11:00 | P.PN ---
Subjective Patient is seen in follow-up for acute kidney injury. Renal function improving. Sodium level also better. Remains off diuretics. Maintained on sodium chloride tabs. Also on midodrine. Blood pressure remains on the lower side. Oral intake is poor. Has Hernandez catheter. Nonoliguric. Vital signs are stable. Blood pressure on the lower side. General: awake. No acute distress. HEENT: Head exam is unremarkable. LUNGS: Breath sounds decreased. HEART: Rate and Rhythm are regular. ABDOMEN: Soft, obese. EXTREMITITES: 2+ edema. Lower extremities wrapped. Objective - Vital Signs Vital signs: Vital Signs Temp 97.8 F 04/16/22 07:41 Pulse 83 04/16/22 07:41 Resp 18 04/16/22 07:41 BP 96/63 04/16/22 07:41 Pulse Ox 94 L 04/16/22 07:41 FiO2 21 04/14/22 20:13 Intake & Output 04/15/22 04/16/22 04/16/22 18:59 06:59 18:59 Output Total 700 1200 400 Balance -700 -1200 -400 Output: Urine 700 1200 400 Uretheral (Hernandez) 400 Other: Voiding Method Indwelling Catheter - Labs CBC & Chem 7: 04/14/22 05:32 04/16/22 06:06 Labs: Abnormal Lab Results - Last 24 Hours (Table) 04/15/22 04/15/22 04/15/22 Range/Units 11:31 16:23 22:07 Sodium (135-145) mmol/L Chloride (96-109) mmol/L Carbon Dioxide (20.0-27.5) mmol/L BUN (9.0-27.0) mg/dL Est GFR (CKD-EPI)AfAm (60.0-200.0) Est GFR (CKD-EPI)NonAf (60.0-200.0) BUN/Creatinine Ratio (12.00-20.00) Ratio Glucose (70-110) mg/dL POC Glucose (mg/dL) 265 H 298 H 212 H (70-110) mg/dL 04/16/22 04/16/22 Range/Units 06:06 06:27 Sodium 134 L (135-145) mmol/L Chloride 93 L (96-109) mmol/L Carbon Dioxide 30.0 H (20.0-27.5) mmol/L BUN 66.9 H (9.0-27.0) mg/dL Est GFR (CKD-EPI)AfAm 40.2 L (60.0-200.0) Est GFR (CKD-EPI)NonAf 34.7 L (60.0-200.0) BUN/Creatinine Ratio 46.14 H (12.00-20.00) Ratio Glucose 144 H (70-110) mg/dL POC Glucose (mg/dL) 164 H (70-110) mg/dL Assessment and Plan Plan: Assessment: 1. Acute kidney injury secondary to ATN secondary to hypotension. UA with trace protein. No hydronephrosis noted on kidney ultrasound. Creatinine was 1.52 admission - peaked at 3.19 this admission -1.5 today. Nonoliguric. 2. Hypervolemic hyponatremia. Urine sodium less than 20 and urine osmolality 430. Cortisol level not low. TSH normal. Status post Samsca and IV Lasix this admission. Also component of poor solute intake. Now maintained on sodium chloride tabs. Sodium level improving. 3. Lower extremity cellulitis on antibiotics. 4. Chronic A. fib maintained on metoprolol and anticoagulation. 5. Metabolic acidosis secondary to acute kidney injury. Resolved. 6. Diabetes mellitus. 7. Acute on chronic diastolic CHF and moderate pulmonary hypertension. 8. Hypokalemia from poor intake. Replace. Better. Plan: Continue to hold diuretics. 1200 mL fluid restriction. Maintain sodium chloride tabs - decrease to once daily. Avoid nephrotoxins. Stopped Fleet enemas. Continue to monitor renal function and urine output. Okay to DC Hernandez catheter from nephrology standpoint. Monitor postvoid residual to make sure no retention. Repeat BMP and magnesium level 2-3 days postdischarge. Follow up outpatient in 1 week.
[2022-04-16] MEDS: APIXABAN 5 MG TAB PO SCH ×2 (11:01→17:13)
[2022-04-16] MEDS: polyethylene glycoL 3350 17 GM POWD.PACK PO SCH (11:02)
[2022-04-16] MEDS: SODIUM CHLORIDE TAB 1 GM TAB PO SCH (11:02)
[2022-04-16] MEDS: METOPROLOL SUCCINATE (ER) 25 MG TAB.ER.24H PO SCH (11:02)
[2022-04-16 11:32] LABS: Glucose,Whole Blood 178 mg/dL (70-110)
--- NOTE | 2022-04-16 12:18 | P.DS ---
Providers Date of admission: 04/05/22 21:28 Expected date of discharge: 04/16/22 Attending physician: Lee Guadalupe Consults: 04/07/22 02:59 Consult Physician Routine Consulting Provider: Melissa Farris Consult Reason/Comments: LE cellulitis Do you want consulting provider notified?: Yes, Notify in am 04/07/22 13:25 Consult Physician Urgent Consulting Provider: Nataliia Novoa Consult Reason/Comments: davy Do you want consulting provider notified?: Yes Primary care physician: Lee Guadalupe Hospital Course: Final diagnosis Right lower leg cellulitis with possible sepsis, present on admission Acute kidney injury, possibly secondary to vancomycin Hyponatremia due to poor solute intake, improving Hypertension History of diabetes mellitus, insulin-dependent, uncontrolled with hyperglycemia History of atrial fibrillation Hyperlipidemia Hypertension Morbid obesity with a body mass index of 55.6 GI prophylaxis DVT prophylaxis Full code Discharge disposition Patient is being discharged in a stable condition with guarded prognosis to [facility] . Patient will follow-up with Dr. Miner in the outpatient setting upon discharge. Patient is to kidney with IV daptomycin per infectious disease for the next 14 days as scheduled. Recommend follow-up at the wound care center with Dr. Farris at [facility] in 1-2 weeks. Patient also to follow- up with nephrology in one week. Total time taken is greater than 35 minutes. Hospital course This is a 76-year-old female who was recently admitted right lower extremity cellulitis with significant drainage and weeping and also some kidney injury along with hyponatremia. Patient is currently maintained on sodium chloride tablets recommend 1 g daily with close outpatient follow-up with nephrology along with labs of CBC, BMP, magnesium in 2-3 days. Patient also has received a midline and will continue on IV daptomycin per infectious disease Dr. Farris for the next 14 days to complete the course. Recommend following up with the wound care center at [phone] to call and make an appointment in 1-2 weeks. To continue local wound care and frequent dressing changes is becoming soiled or wet. Patient has been cleared by consultations for discharge. Currently no reports of chest pain, shortness of breath, or palpitations. Patient is afebrile. No reports of nausea or vomiting and patient is tolerating diet. Patient will be going to [facility] today. Guarded prognosis. Physical exam: Gen: This is a 76-year-old female awake, alert and oriented 3, well-developed, well-nourished, morbidly obese. HEENT: Head is atraumatic, normocephalic. Pupils equal, round. Sclerae is anicteric. NECK: Supple. No JVD. No lymphadenopathy. No thyromegaly. LUNGS: Diminished breath sounds bilaterally with no wheezes or rhonchi. No intercostal retractions. HEART: S1, S2 are muffled No murmur. ABDOMEN: Soft. Obese. Bowel sounds are present. No masses. No tenderness. EXTREMITIES: No pedal edema. No calf tenderness. Bilateral lower extremities with continued edema and swelling with some improvement with right lower extremity Sebas wrapped NEUROLOGICAL: Patient is awake, alert and oriented x3. Cranial nerves 2 through 12 are grossly intact. Diffusely weak Please refer to medication reconciliation sheet for a list of medications. The impression and plan of care has been dictated by Gwendolyn Shannon, Nurse Practitioner as directed. Dr. Hardik MD I have performed a history and examination and MDM of this patient, discussed the same with the dictator, and agree with the dictator's assessment and plan as written ,documented as a scribe. Based on total visit time, I have performed more than 50% of the visit. Patient Condition at Discharge: Stable Plan - Discharge Summary Discharge Rx Participant: No New Discharge Prescriptions: New DAPTOmycin 350 mg IV Q48H 14 Days each Insulin Detemir (Levemir) [Levemir] 10 unit SQ HS each HYDROcodone/APAP 5-325MG [Novice 5-325] 1 each PO Q6HR PRN #4 tab PRN Reason: Pain Midodrine [ProAmatine] 10 mg PO AC-TID tab Sodium Chloride Tab 1 gm PO DAILY tab Metoprolol Succinate (ER) [Toprol XL] 25 mg PO DAILY@0800 tab traMADol HCl [Ultram] 50 mg PO Q6HR PRN #4 tab PRN Reason: Breakthrough Pain Continue Ascorbic Acid [Vitamin C] 500 mg PO DAILY@1700 Multivitamins, Thera [Multivitamin (formulary)] 1 tab PO DAILY@1700 Bimatoprost [Lumigan 0.01% Ophth Soln] 1 drop BOTH EYES HS@2100 Aspirin 81 mg PO DAILY@1700 Melatonin 5 mg PO HS@2100 Albuterol Inhaler [Ventolin Hfa Inhaler] 1 puff INHALATION RT-QID PRN PRN Reason: Shortness Of Breath bisacodyL [Dulcolax] 10 mg RECTAL DAILY PRN PRN Reason: Constipation INSULIN ASPART (NovoLOG) [NovoLOG (formulary)] See Protocol SQ ACHS@07,11,1630,2130 Magnesium Hydroxide [Milk of Magnesia Concentrate] 7,200 mg PO DAILY PRN PRN Reason: Constipation Na Phos,M-B/Na Phos,Di-Ba [Fleet Adult] 133 ml RECTAL DAILY PRN PRN Reason: Constipation Acetaminophen Tab [Tylenol] 650 mg PO Q6HR PRN tab PRN Reason: Mild Pain Or Fever > 100.5 Calcium Carbonate Antacid (Unkown Strength) 1 tab PO DAILY@1700 Apixaban [Eliquis] 5 mg PO BID@0800,1700 Atorvastatin Calcium [Lipitor] 20 mg PO HS@2100 Budesonide-Formot 160-4.5 Mcg [Symbicort 160-4.5 Mcg Inhaler] 2 puff INHALATION RT-BID@0800,1700 polyethylene glycoL 3350 [Miralax] 17 gm PO DAILY@0800 Tamsulosin [Flomax] 0.4 mg PO DAILY@1700 Discontinued Cefdinir 300 mg PO DAILY@0700 Furosemide [Lasix] 40 mg PO DAILY@0800 Sodium Bicarbonate Tab 650 mg PO BID@0800,1700 Metoprolol Succinate (ER) [Toprol XL] 100 mg PO DAILY@0800 Discharge Medication List Ascorbic Acid [Vitamin C] 500 mg PO DAILY@17003/11/17 [History] Bimatoprost [Lumigan 0.01% [facility] Soln] 1 drop BOTH EYES HS@209903/11/17 [History] Multivitamins, Thera [Multivitamin (formulary)] 1 tab PO DAILY@17003/11/17 [History] Aspirin 81 mg PO DAILY@169901/26/20 [History] Melatonin 5 mg PO HS@2100 09/12/21 [History] Albuterol Inhaler [Ventolin Hfa Inhaler] 1 puff INHALATION RT-QID PRN 03/30/22 [History] Acetaminophen Tab [Tylenol] 650 mg PO Q6HR PRN tab 04/03/22 [Rx] Apixaban [Eliquis] 5 mg PO BID@0800,1700 04/05/22 [History] Atorvastatin Calcium [Lipitor] 20 mg PO HS@2100 04/05/22 [History] Budesonide-Formot 160-4.5 Mcg [Symbicort 160-4.5 Mcg Inhaler] 2 puff INHALATION RT-BID@0800,1700 04/05/22 [History] Calcium Carbonate Antacid (Unkown Strength) 1 tab PO DAILY@1700 04/05/22 [History] INSULIN ASPART (NovoLOG) [NovoLOG (formulary)] See Protocol SQ ACHS@07,11,1630,2130 04/05/22 [History] Magnesium Hydroxide [Milk of Magnesia Concentrate] 7,200 mg PO DAILY PRN 04/05/22 [History] Na Phos,M-B/Na Phos,Di-Ba [Fleet Adult] 133 ml RECTAL DAILY PRN 04/05/22 [History] Tamsulosin [Flomax] 0.4 mg PO DAILY@1700 04/05/22 [History] bisacodyL [Dulcolax] 10 mg RECTAL DAILY PRN 04/05/22 [History] polyethylene glycoL 3350 [Miralax] 17 gm PO DAILY@0800 04/05/22 [History] DAPTOmycin 350 mg IV Q48H 14 Days each 04/16/22 [Rx] HYDROcodone/APAP 5-325MG [Novice 5-325] 1 each PO Q6HR PRN #4 tab 04/16/22 [Rx] Insulin Detemir (Levemir) [Levemir] 10 unit SQ HS each 04/16/22 [Rx] Metoprolol Succinate (ER) [Toprol XL] 25 mg PO DAILY@0800 tab 04/16/22 [Rx] Midodrine [ProAmatine] 10 mg PO AC-TID tab 04/16/22 [Rx] Sodium Chloride Tab 1 gm PO DAILY tab 04/16/22 [Rx] traMADol HCl [Ultram] 50 mg PO Q6HR PRN #4 tab 04/16/22 [Rx] Follow up Appointment(s)/Referral(s): Lokesh Miner MD [STAFF PHYSICIAN] - 1-2 days Sonny Rocha DO [STAFF PHYSICIAN] - 1 Week Ambulatory/Diagnostic Orders: Basic Metabolic Panel [LAB.AMB] Time Frame: 3 Days, Location: None Selected Activity/Diet/Wound Care/Special Instructions: Patient is going to [facility] Activity as tolerated Patient is to follow-up with nephrology outpatient in 1-2 weeks with repeat labs of BMP and magnesium Continue care locally to bilateral lower extremities and the right leg use dry Aquacel silver dressing to the open area and Sebas wraps just above the toes to below the knee Continue renal low potassium, low phosphorus low sodium diet with fluid restrictions of 1200 mL and recommend continue with an sugars twice a day Continue indwelling Hernandez catheter Discharge Disposition: TRANSFER TO SNF/ECF
[2022-04-16 14:31] VITALS: BP 102/88; PULSE 99; TEMP 97.4
[2022-04-16] MEDS: traMADol 50 MG TAB PO PRN (16:34)
[2022-04-16] MEDS: ASCORBIC ACID 500 MG TAB PO SCH (17:13)
[2022-04-16] MEDS: CALCIUM CARBONATE 500 MG CHEWABLE PO SCH (17:13)
[2022-04-16] MEDS: ASPIRIN 81 MG PO SCH (17:13)
[2022-04-16] MEDS: MULTIVITAMINS, THERA 1 EACH TAB PO SCH (17:13)
[2022-04-16] MEDS: TAMSULOSIN 0.4 MG CAP.ER.24H PO SCH (17:13)
[2022-04-17] MEDS ORDERED: SODIUM CHLORIDE TAB 1 GM TAB PO SCH (09:00)
== END 2022-04-16 17:24 | DRG 871 ==
LOC: EC 16:41 → 4SSUR 21:28
PROVIDERS: ADMIT Internal Medicine; ATTEND Internal Medicine
PROC: 05HD33Z Insertion of Infusion Device into Right Cephalic Vein, Percutaneous Approach (ICD-10-PCS; principal; 2022-04-16 09:00)
DX: A41.9 Sepsis, unspecified organism (principal); I50.33 Acute on chronic diastolic (congestive) heart failure; N17.0 Acute kidney failure with tubular necrosis; E87.20 Acidosis, unspecified; I13.0 Hypertensive heart and chronic kidney disease with heart failure and stage 1 through stage 4 chronic kidney disease, or unspecified chronic kidney disease; E87.0 Hyperosmolality and hypernatremia; Z68.43 Body mass index [BMI] 50.0-59.9, adult; E87.1 Hypo-osmolality and hyponatremia; I48.20 Chronic atrial fibrillation, unspecified; L03.115 Cellulitis of right lower limb; N39.0 Urinary tract infection, site not specified; L03.116 Cellulitis of left lower limb; I27.20 Pulmonary hypertension, unspecified; E11.22 Type 2 diabetes mellitus with diabetic chronic kidney disease; G83.9 Paralytic syndrome, unspecified; E66.01 Morbid (severe) obesity due to excess calories; N18.9 Chronic kidney disease, unspecified; E11.65 Type 2 diabetes mellitus with hyperglycemia; L89.891 Pressure ulcer of other site, stage 1; S81.811A Laceration without foreign body, right lower leg, initial encounter; E86.1 Hypovolemia; N13.9 Obstructive and reflux uropathy, unspecified; E78.5 Hyperlipidemia, unspecified; E87.5 Hyperkalemia; S00.03XA Contusion of scalp, initial encounter; I89.0 Lymphedema, not elsewhere classified; M79.89 Other specified soft tissue disorders; E87.6 Hypokalemia; W19.XXXA Unspecified fall, initial encounter; Z79.4 Long term (current) use of insulin; Z79.82 Long term (current) use of aspirin; Z79.51 Long term (current) use of inhaled steroids; Z79.899 Other long term (current) drug therapy; Z79.01 Long term (current) use of anticoagulants; Z95.0 Presence of cardiac pacemaker; Z87.891 Personal history of nicotine dependence
CPT/HCPCS: 36410; 36415; 71045; 76770; 76937; 80048; 80053; 80076; 80202; 81001; 82533; 83036; 83605; 83735; 83935; 84295; 84300; 84443; 85025; 85652; 86140; 87040; 87635; 94640; 94760; 96365; 96367; 99285

== ENCOUNTER 2023-03-19 16:17 | Inpatient (IN) | payer MEDICARE, OTHER ==
--- NOTE | 2023-03-19 16:52 | ED ---
General Adult HPI - General Chief complaint: Recheck/Abnormal Lab/Rx Stated complaint: low potass Source: patient, RN notes reviewed Mode of arrival: EMS Limitations: no limitations - History of Present Illness Initial comments: 77 year old female presents to the ER for abnormal labs. Patient presents from [facility] where she had her potassium drawn. She reports that her level was 2.7 and was given a dose of oral potassium with the a serial draw of 2.7. She is recommended to come to the emergency department for further evaluation. She offers no specific complaints at the time of evaluation. She denies any dizziness, lightheadedness, headache, nausea, vomiting, chest pain, chest tightness or shortness of breath. She has been taking her medications as prescribed. - Related Data Home Medications Medication Instructions Recorded Confirmed Ascorbic Acid [Vitamin C] 500 mg PO DAILY@1700 03/11/17 03/19/23 Bimatoprost [Lumigan 0.01% Ophth 1 drop BOTH EYES HS@209903/11/17 03/19/23 Soln] Multivitamins, Thera [Multivitamin 1 tab PO DAILY@1700 03/11/17 03/19/23 (formulary)] Aspirin 81 mg PO DAILY@1700 01/26/20 03/19/23 Melatonin 5 mg PO HS@2100 09/12/21 03/19/23 Albuterol Inhaler [Ventolin Hfa 1 puff INHALATION RT-QID PRN 03/30/22 03/19/23 Inhaler] Apixaban [Eliquis] 5 mg PO BID@0800,1700 04/05/22 03/19/23 Atorvastatin Calcium [Lipitor] 20 mg PO HS@2100 04/05/22 03/19/23 INSULIN ASPART (NovoLOG) [NovoLOG See Protocol SQ 04/05/22 03/19/23 (formulary)] ACHS@07,11,1630,2130 Magnesium Hydroxide [Milk of 7,200 mg PO DAILY PRN 04/05/22 03/19/23 Magnesia Concentrate] Na Phos,M-B/Na Phos,Di-Ba [Fleet 133 ml RECTAL DAILY PRN 04/05/22 03/19/23 Adult] Tamsulosin [Flomax] 0.4 mg PO DAILY@1700 04/05/22 03/19/23 bisacodyL [Dulcolax] 10 mg RECTAL DAILY PRN 04/05/22 03/19/23 Calcium Carbonate 500 mg PO DAILY@1700 03/19/23 03/19/23 Famotidine [Pepcid] 20 mg PO DAILY@0800 03/19/23 03/19/23 Ferrous Sulfate [Feosol] 325 mg PO BID@0800,1700 03/19/23 03/19/23 Fluticasone Propion/Salmeterol 1 puff INHALATION RT-BID@0800,2100 03/19/23 03/19/23 [Wixela 250-50 Inhub] Furosemide [Lasix] 40 mg PO DAILY@0800 03/19/23 03/19/23 Gabapentin [Neurontin] 200 mg PO BID@0800,1700 03/19/23 03/19/23 HYDROcodone/APAP 5-325MG [[place] 1 tab PO Q6H PRN 03/19/23 03/19/23 5-325] Insulin Glargine [Lantus Vial] 10 unit SQ HS@2130 03/19/23 03/19/23 Jacky Packet 1 packet PO BID@0800,1700 03/19/23 03/19/23 Midodrine HCl [ProAmatine] 10 mg PO TID@0800,1200,1700 03/19/23 03/19/23 Nystatin 100,000 Unit/gm Powd 1 applic TOPICAL TID 03/19/23 03/19/23 [Mycostatin Powder] Polyvinyl Alcohol/Povidone 1 drop BOTH EYES BID@0800,1700 03/19/23 03/19/23 [Freshkote Eye Drop] Potassium Chloride ER [K-Dur 10] 10 meq PO DAILY@0800 03/19/23 03/19/23 Semaglutide [Ozempic] 0.25 mg SQ FR 03/19/23 03/19/23 Sertraline [Zoloft] 50 mg PO DAILY@0800 03/19/23 03/19/23 Previous Rx's Medication Instructions Recorded Acetaminophen Tab [Tylenol] 650 mg PO Q6HR PRN tab 04/03/22 Metoprolol Succinate (ER) [Toprol 25 mg PO DAILY@0800 tab 04/16/22 XL] traMADol HCl [Ultram] 50 mg PO Q6HR PRN #4 tab 04/16/22 Allergies Allergy/AdvReac Type Severity Reaction Status Date / Time No Known Allergies Allergy Verified 03/19/23 19:48 Review of Systems ROS Statement: Those systems with pertinent positive or pertinent negative responses have been documented in the HPI. ROS Other: All systems not noted in ROS Statement are negative. Past Medical History Past Medical History: Atrial Fibrillation, Hyperlipidemia, Hypertension, Supraventricular Tachycardia (SVT) Additional Past Medical History / Comment(s): PE ?; years ago, diabetes, pacemaker, obesity, hernia, History of Any Multi-Drug Resistant Organisms: MRSA Date of last positivie culture/infection: 09/11/22 MDRO Source:: Right Lower extremity Past Surgical History: Orthopedic Surgery Additional Past Surgical History / Comment(s): hernia,eye surgery,rt knee Past Anesthesia/Blood Transfusion Reactions: No Reported Reaction Past Psychological History: No Psychological Hx Reported Smoking Status: Former smoker Past Alcohol Use History: None Reported Past Drug Use History: None Reported - Past Family History Sister(s) Family Medical History: Congestive Heart Failure (CHF), Pulmonary Embolus Additional Family Medical History / Comment(s): gallbladder removed General Exam - General Exam Comments Initial Comments: General: Alert, in no acute distress Head: atraumatic normocephalic. Eyes PERRL, EOMI intact, mucous membranes moist Respiratory: Lungs clear to auscultation bilaterally Cardiovascular: Heart rate regular rate and rhythm Abdominal: Soft without guarding or rebound Extremities: Normal inspection with full range of motion and normal capillary refill Neuroogic: alert and oriented 3, CN II-XII intact, able to ambulate with steady gait Skin: warm dry and intact with normal color Limitations: no limitations Course Vital Signs 03/19/23 03/19/23 16:34 19:40 Temperature 98.8 F Pulse Rate 70 70 Respiratory 20 18 Rate Blood Pressure 120/60 119/57 O2 Sat by Pulse 96 96 Oximetry - Reevaluation(s) Reevaluation #1: 03/19/23 19:07 Elevated. Patient updated on results. She is agreeable with the plan for admission. Reevaluation #2: 03/19/23 19:[address] Rivera, [facility] who agrees and accepts the patient for admission EKG Findings - EKG Comments: EKG Findings:: I interpreted the following: EKG performed at 18: 07/26/1960 9 bpm and electronically ventricularly paced. * [place], QRS duration 161, QT/QTc 467/487 Medical Decision Making - Medical Decision Making Was pt. sent in by a medical professional or institution (ANTONIA Carolina, BOAT WORKER, urgent care, hospital, or correction...) When possible be specific @ Yes, Theodora Did you speak to anyone other than the patient for history (EMS, parent, family, police, friend...)? What history was obtained from this source @ -Patient's Brother Did you review nursing and triage notes (agree or disagree)? Why? @ -[I reviewed and agree with nursing and triage notes] Were old charts reviewed (outside hosp., previous admission, EMS record, old EKG, old radiological studies, urgent care reports/EKG's, correction records)? Report findings @ -[No old charts were reviewed] Differential Diagnosis (chest pain, altered mental status, abdominal pain women, abdominal pain men, vaginal bleeding, weakness, fever, dyspnea, syncope, headache, dizziness, GI bleed, back pain, seizure, CVA, palpatations, mental health, musculoskeletal)? @ -[not applicable] EKG interpreted by me (3pts min.). @ -[As above] X-rays interpreted by me (1pt min.). @ -[None done] CT interpreted by me (1pt min.). @ -[None done] U/S interpreted by me (1pt. min.). @ -[None done] What testing was considered but not performed or refused? (CT, X-rays, U/S, labs)? Why? @ -[None] What meds were considered but not given or refused? Why? @ -[None] Did you discuss the management of the patient with other professionals (professionals i.e. ANTONIA Carolina, BOAT WORKER, lab, RT, psych nurse, social sciences department chair, portable irrigation operator, teacher, customer service security officer, showcase maker)? Give summary @ -Dr. Rivera Was smoking cessation discussed for >3mins.? @ -[No] Was critical care preformed (if so, how long)? @ -[No] Were there social determinants of health that impacted care today? How? (Homelessness, low income, unemployed, alcoholism, drug addiction, transportation, low edu. Level, literacy, decrease access to med. care, half-way, rehab)? @ -[No] Was there de-escalation of care discussed even if they declined (Discuss DNR or withdrawal of care, Hospice)? DNR status @ -[No] What co-morbidities impacted this encounter? (DM, HTN, Smoking, COPD, CAD, Cancer, CVA, ARF, Chemo, Hep., AIDS, mental health diagnosis, sleep apnea, morbid obesity)? @ -[None] Was patient admitted / discharged? Hospital course, mention meds given and route, prescriptions, significant lab abnormalities, going to OR and other pertinent info. @ Admission. This is a 77-year-old female who presents the emergency department with low potassium. Patient had a thorough history and physical exam performed. Physical exam reveals an obese female with heart rate regular rate and rhythm, lungs clear, abdomen soft. There is 2+ bilateral pedal edema. Patient's laboratory studies reveal WBC 12.2, hemoglobin 13.2 sodium 136, potassium 2.4 chloride 86 BUN 72, creatinine 1.58 glucose 213 calcium 10.5 I discussed the results in detail the patient verbalized understanding all questions were addressed. She is agreeable with the plan for admission. Patient be given 80 mg potassium orally. Case discussed with Dr. Campbell [facility] who agrees and accepts the patient for further observation. Undiagnosed new problem with uncertain prognosis? @ -[No] Drug Therapy requiring intensive monitoring for toxicity (Heparin, Nitro, Insulin, Cardizem)? @ -[No] Were any procedures done? @ -[No] Diagnosis/symptom? @ -Hypokalemia Acute, or Chronic, or Acute on Chronic? @ -Acute Uncomplicated (without systemic symptoms) or Complicated (systemic symptoms)? @ -Uncomplicated Side effects of treatment? @ -[No] Exacerbation, Progression, or Severe Exacerbation? @ -[No] Poses a threat to life or bodily function? How? (Chest pain, [place], ND, pneumonia, PE, COPD, DKA, ARF, appy, cholecystitis, CVA, Diverticulitis, Homicidal, Suicidal, threat to staff... and all critical care pts) @ -Yes, Electrolyte Imbalance - Lab Data Result diagrams: 03/19/23 16:40 03/19/23 16:40 Lab Results 10/26/23 10/26/23 Range/Units 16:40 16:40 WBC 12.2 H (3.8-10.6) k/uL RBC 4.62 (3.80-5.40) m/uL Hgb 13.2 (11.4-16.0) gm/dL Hct 40.0 (34.0-46.0) % MCV 86.6 (80.0-100.0) fL MCH 28.6 (25.0-35.0) pg MCHC 33.0 (31.0-37.0) g/dL RDW 16.7 H (11.5-15.5) % Plt Count 334 (150-450) k/uL MPV 7.2 Neutrophils % 80 % Lymphocytes % 11 % Monocytes % 4 % Eosinophils % 3 % Basophils % 0 % Neutrophils # 9.8 H (1.3-7.7) k/uL Lymphocytes # 1.3 (1.0-4.8) k/uL Monocytes # 0.5 (0-1.0) k/uL Eosinophils # 0.4 (0-0.7) k/uL Basophils # 0.0 (0-0.2) k/uL Anisocytosis Slight Sodium 136 L (137-145) mmol/L Potassium 2.4 L* (3.5-5.1) mmol/L Chloride 86 L (98-107) mmol/L Carbon Dioxide 35 H (22-30) mmol/L Anion Gap 15 mmol/L BUN 72 H (7-17) mg/dL Creatinine 1.58 H (0.52-1.04) mg/dL Est GFR (CKD-EPI)AfAm 36 (>60 ml/min/1.73 sqM) Est GFR (CKD-EPI)NonAf 31 (>60 ml/min/1.73 sqM) Glucose 213 H (74-99) mg/dL Calcium 10.5 H (8.4-10.2) mg/dL Phosphorus 3.8 (2.5-4.5) mg/dL Magnesium 2.0 (1.6-2.3) mg/dL Total Bilirubin 1.5 H (0.2-1.3) mg/dL AST 23 (14-36) U/L ALT 21 (4-34) U/L Alkaline Phosphatase 67 (38-126) U/L Total Protein 7.0 (6.3-8.2) g/dL Albumin 3.6 (3.5-5.0) g/dL Disposition Clinical Impression: Hypokalemia Disposition: ADMITTED IP TO THIS HOSP Condition: Fair Time of Disposition: 19:09
[2023-03-19 17:01] LABS: Anisocytosis Slight; Basophils % (A) 0 %; Eosinophils # (A) 0.4 k/uL (0-0.7); Eosinophils % (A) 3 %; HGB 13.2 gm/dL (11.4-16.0); Lymphocytes # (A) 1.3 k/uL (1.0-4.8); Lymphocytes % (A) 11 %; MCH 28.6 pg (25.0-35.0); MCV 86.6 fL (80.0-100.0); Mean Platelet Volume 7.2; Monocytes # (A) 0.5 k/uL (0-1.0); Monocytes % (A) 4 %; Neutrophils # (A) 9.8 k/uL (1.3-7.7); Neutrophils % (A) 80 %; Platelet Count 334 k/uL (150-450); RBC 4.62 m/uL (3.80-5.40); RDW 16.7 % (11.5-15.5); WBC 12.2 k/uL (3.8-10.6)
[2023-03-19 17:11] LABS: ALT 21 U/L (4-34); AST 23 U/L (14-36); African American GFR (CKD) 36 (>60 ml/min/1.73 sqM); Albumin 3.6 g/dL (3.5-5.0); Alkaline Phosphatase 67 U/L (38-126); Blood Urea Nitrogen 72 mg/dL (7-17); Calcium 10.5 mg/dL (8.4-10.2); Chloride 86 mmol/L (98-107); Glucose 213 mg/dL (74-99); Non-African American GFR(CKD) 31 (>60 ml/min/1.73 sqM); Phosphorus 3.8 mg/dL (2.5-4.5); Sodium 136 mmol/L (137-145); Total Bilirubin 1.5 mg/dL (0.2-1.3)
[2023-03-19 17:17] LABS: Anion Gap 15 mmol/L; Carbon Dioxide 35 mmol/L (22-30)
[2023-03-19 17:22] LABS: Potassium 2.4 mmol/L (3.5-5.1)
[2023-03-19] MEDS ORDERED: POTASSIUM CHLORIDE ER 20 MEQ TAB.ER PO STA ×2 (19:07→19:08)
[2023-03-19] MEDS ORDERED: NALOXONE 0.4 MG/ML 1 ML VIAL IV PRN (19:10)
[2023-03-19] MEDS ORDERED: HYDROcodone/APAP 5-325MG 1 EACH TAB PO PRN (19:12)
[2023-03-19] MEDS ORDERED: ALBUTEROL NEBULIZED 2.5 MG/3 ML INHALATION PRN (19:12)
[2023-03-19] MEDS ORDERED: bisacodyL 10 MG SUPP RECTAL PRN (19:12)
[2023-03-19] MEDS ORDERED: ACETAMINOPHEN TAB 325 MG TAB PO PRN (19:12)
[2023-03-19] MEDS ORDERED: traMADol 50 MG TAB PO PRN (19:12)
[2023-03-19] MEDS ORDERED: NON FORMULARY DRUG (Daptomycin [Daptomycin] 350 MG Each) IV SCH (19:15)
[2023-03-19] MEDS: MELATONIN 5 MG TABLET PO SCH (21:04)
[2023-03-19] MEDS: ATORVASTATIN 20 MG TAB PO SCH (21:04)
[2023-03-19 21:09] LABS: Glucose,Whole Blood 156 mg/dL (70-110)
[2023-03-19] MEDS: INSULIN DETEMIR (LEVEMIR) 100 UNIT/ML SYR SQ SCH (21:16)
[2023-03-19] MEDS: LATANOPROST 0.005% OPHTH DROPS 2.5 ML BTL BOTH EYES SCH (21:17)
[2023-03-20] MEDS ORDERED: SYMBICORT 160-4.5 MCG INHALER INHALATION SCH (08:00)
[2023-03-20] MEDS: SYMBICORT 160-4.5 MCG INHALER INHALATION SCH ×3 (08:13→20:00)
[2023-03-20] MEDS: MIDODRINE 5 MG TAB PO SCH ×3 (08:52→17:17)
[2023-03-20] MEDS: APIXABAN 5 MG TAB PO SCH ×2 (08:52→16:38)
[2023-03-20] MEDS: METOPROLOL SUCCINATE (ER) 25 MG TAB.ER.24H PO SCH (08:52)
[2023-03-20] MEDS: polyethylene glycoL 3350 17 GM POWD.PACK PO SCH (08:53)
[2023-03-20 11:04] LABS: HCT 45.3 % (37.2-46.3); HGB 14.3 d/dL (12.0-15.0); MCHC 31.6 d/dL (32.0-37.0); MCV 88.8 FL (80.0-97.0); Mean Platelet Volume 9.8 FL (9.5-12.2); NRBC Per 100 WBC 0 X 10*3/uL (0.00-0.01); Platelet Count 347 X 10*3/uL (140-440); RDW 17.4 % (11.5-14.5); WBC 30.97 X 10*3/uL (4.50-10.00)
--- NOTE | 2023-03-20 11:15 | US ---
EXAMINATION TYPE: US abdomen complete DATE OF EXAM: 03/20/2023 COMPARISON: NONE CLINICAL INDICATION: Female, 77 years old with history of Hyperbilirubinemia; hyperbilirubinemia, per pt. cholecystectomy TECHNIQUE: Multiple sonographic images of the abdomen are obtained. FINDINGS: EXAM MEASUREMENTS: Liver Length: at least 22.7 cm Liver extended beyond possible field of view Gallbladder Wall: Surgically absent cm CBD: 0.6 cm Spleen: 12.0 cm Right Kidney: 11.0x4.4x5.7 cm Left Kidney: 11.3x5.9x6.3 cm INFORMATION TECHNOLOGY INSTRUCTOR NOTES: Pancreas: Tail obscured by overlying bowel gas Liver: mostly obscured by overlying bowel gas, liver is enlarged with increased attenuation. Liver c yst noted in Left lobe: 3.3x3.2x3.4cm, could not visualize Right Lobe cyst with certainty Gallbladder: Surgically absent Evidence for sonographic Jolley's sign: No CBD: upper limits Spleen: wnl Right Kidney: inferior pole cyst again seen: 4.3x3.7x4.0cm Left Kidney: wnl Upper IVC: wnl Abd Aorta: mid and distal obscured by overlying bowel gas exam extremely limited by patient inability to change positioning, large body habitus, and bowel gas The liver is homogenous. The intrahepatic portion of the IVC and proximal abdominal aorta are within normal limits. The visualized portions of the pancreas are homogenous. The spleen is unremarkable. Kidneys are symmetric and free of hydronephrosis. IMPRESSION: 1. Prior cholecystectomy. 2. Simple cyst within the left lobe of liver. 3. Simple cyst within the right kidney. 4 echo bypass. No evidence of biliary ductal dilation. 5. No evidence of hydronephrosis or shadowing renal stones.
[2023-03-20] MEDS: SODIUM CHLORIDE TAB 1 GM TAB PO SCH (11:20)
[2023-03-20 11:56] LABS: Basophils % (A) 0.3 %; Eosinophils # (A) 0.05 X 10*3/uL (0.04-0.35); Eosinophils % (A) 0.2 %; Lymphocytes # (A) 0.69 X 10*3/uL (0.90-5.00); Lymphocytes % (A) 2.2 %; Monocytes # (A) 0.83 X 10*3/uL (0.20-1.00); Monocytes % (A) 2.7 %; Neutrophils # (A) 28.95 X 10*3/uL (1.80-7.70); Neutrophils % (A) 93.5 %; RBC Morphology Normal (Normal)
[2023-03-20 12:47] LABS: Anisocytosis Slight; Basophils % (A) 0 %; Eosinophils # (A) 0.4 k/uL (0-0.7); Eosinophils % (A) 1 %; HCT 43.1 % (34.0-46.0); HGB 14.2 gm/dL (11.4-16.0); Lymphocytes # (A) 0.7 k/uL (1.0-4.8); Lymphocytes % (A) 2 %; MCH 28.6 pg (25.0-35.0); MCHC 32.9 g/dL (31.0-37.0); Mean Platelet Volume 8.4; Monocytes # (A) 0.4 k/uL (0-1.0); Monocytes % (A) 1 %; Neutrophils % (A) 95 %; Platelet Count 328 k/uL (150-450); Poikilocytosis Slight; RBC 4.96 m/uL (3.80-5.40); RDW 16.9 % (11.5-15.5)
[2023-03-20 13:00] LABS: WBC 30.7 k/uL (3.8-10.6)
[2023-03-20 13:37] LABS: BUN/Creat Ratio 33.94 Ratio (12.00-20.00); Blood Urea Nitrogen 57.7 mg/dL (9.0-27.0); Carbon Dioxide 32.8 mmol/L (21.6-31.8); Chloride 90 mmol/L (96-109); Glucose 204 mg/dL (70-110); Potassium 3.6 mmol/L (3.5-5.5); Sodium 139 mmol/L (135-145)
[2023-03-20] MEDS ORDERED: HYDROcodone/APAP 5-325MG 1 EACH TAB PO PRN (14:18)
--- NOTE | 2023-03-20 14:18 | P.HPIM ---
History of Present Illness H&P Date: 03/20/23 History of present illness; patient is a 77-year-old lady with past medical hist ory significant for diabetes mellitus, hypertension, hyperlipidemia, atrial fibrillation presented to the ER because of abnormal labs. Patient is a long- term resident of [facility], sent in for abnormal labs, found to have potassium levels of 2.7, patient is on Lasix at the facility, patient was given oral potassium and was sent in for further evaluation and treatment. Patient denies any lightheadedness or dizziness. Denies any palpitations. Denies any chest pain or shortness of breath. No complain of nausea, vomiting or diarrhea. Denied any fever or chills. Initial lab work done in the ER showed WBC 12.2, hemoglobin 13.2, platelet count 334, sodium 136, potassium 2.4, chloride 86, BUN 72, creatinine 1.58, glucose 213, calcium 10.5 patient was admitted for further evaluation and treatment REVIEW OF SYSTEMS: CONSTITUTIONAL: No fever, no malaise, no fatigue. HEENT: No recent visual problems or hearing problems. Denied any sore throat. CARDIOVASCULAR: No chest pain, orthopnea, PND, no palpitations, no syncope. PULMONARY: No shortness of breath, no cough, no hemoptysis. GASTROINTESTINAL: No diarrhea, no nausea, no vomiting, no abdominal pain. NEUROLOGICAL: No headaches, no weakness, no numbness. HEMATOLOGICAL: Denies any bleeding or petechiae. GENITOURINARY: Denies any burning micturition, frequency, or urgency. MUSCULOSKELETAL/RHEUMATOLOGICAL: Denies any joint pain, swelling, or any muscle pain. ENDOCRINE: Denies any polyuria or polydipsia. The rest of the 14-point review of systems is negative. PHYSICAL EXAMINATION: GENERAL: The patient is alert and oriented x3, not in any acute distress. Well developed, well nourished. HEENT: Pupils are round and equally reacting to light. EOMI. No scleral icterus. No conjunctival pallor. Normocephalic, atraumatic. No pharyngeal erythema. No thyromegaly. CARDIOVASCULAR: S1 and S2 present. No murmurs, rubs, or gallops. PULMONARY: Chest is clear to auscultation, no wheezing or crackles. ABDOMEN: Soft, nontender, nondistended, normoactive bowel sounds. No palpable organomegaly. EXTREMITIES: Chronic lymphedema of lower extremities bilaterally NEUROLOGICAL: Gross neurological examination did not reveal any focal deficits. SKIN: No rashes. Assessment and plan Acute kidney injury Leukocytosis Hypokalemia Hyponatremia hypercalcemia Chronic lymphedema Diabetes mellitus History of atrial fibrillation Hyperlipidemia Hypertension Monitor vital signs Monitor CBC Monitor CMP Continue telemetry monitoring Monitor electrolytes. Potassium replacement ordered. Resume home meds Labs and medication were reviewed.. Continue same treatment. Continue with symptomatic treatment. Resume home medication. Monitor labs and vitals. DVT and GI prophylaxis. Further recommendations as per clinical course of the patient Dictation was produced using [employer] dictation software. please excuse any gramm atical, word or spelling errors. Past Medical History Past Medical History: Atrial Fibrillation, Hyperlipidemia, Hypertension, Supraventricular Tachycardia (SVT) Additional Past Medical History / Comment(s): PE ?; years ago, diabetes, pacemaker, obesity, hernia, History of Any Multi-Drug Resistant Organisms: MRSA Date of last positivie culture/infection: 09/11/22 MDRO Source:: Right Lower extremity Past Surgical History: Orthopedic Surgery Additional Past Surgical History / Comment(s): hernia,eye surgery,rt knee Past Anesthesia/Blood Transfusion Reactions: No Reported Reaction Past Psychological History: No Psychological Hx Reported Smoking Status: Former smoker Past Alcohol Use History: None Reported Past Drug Use History: None Reported - Past Family History Sister(s) Family Medical History: Congestive Heart Failure (CHF), Pulmonary Embolus Additional Family Medical History / Comment(s): gallbladder removed Medications and Allergies Home Medications Medication Instructions Recorded Confirmed Type Ascorbic Acid [Vitamin C] 500 mg PO DAILY@0 03/11/17 03/19/23 History Bimatoprost [Lumigan 0.01% Ophth 1 drop BOTH EYES HS@209903/11/17 03/19/23 History Soln] Multivitamins, Thera [Multivitamin 1 tab PO DAILY@0 03/11/17 03/19/23 History (formulary)] Aspirin 81 mg PO DAILY@1700 01/26/20 03/19/23 History Melatonin 5 mg PO HS@209909/12/21 03/19/23 History Albuterol Inhaler [Ventolin Hfa 1 puff INHALATION RT-QID PRN 03/30/22 03/19/23 History Inhaler] Acetaminophen Tab [Tylenol] 650 mg PO Q6HR PRN tab 04/03/22 03/19/23 Rx Apixaban [Eliquis] 5 mg PO BID@0800,1700 04/05/22 03/19/23 History Atorvastatin Calcium [Lipitor] 20 mg PO HS@2100 04/05/22 03/19/23 History INSULIN ASPART (NovoLOG) [NovoLOG See Protocol SQ 04/05/22 03/19/23 History (formulary)] ACHS@07,11,1630,2130 Magnesium Hydroxide [Milk of 7,200 mg PO DAILY PRN 04/05/22 03/19/23 History Magnesia Concentrate] Na Phos,M-B/Na Phos,Di-Ba [Fleet 133 ml RECTAL DAILY PRN 04/05/22 03/19/23 History Adult] Tamsulosin [Flomax] 0.4 mg PO DAILY@1700 04/05/22 03/19/23 History bisacodyL [Dulcolax] 10 mg RECTAL DAILY PRN 04/05/22 03/19/23 History Metoprolol Succinate (ER) [Toprol 25 mg PO DAILY@0800 tab 04/16/22 03/19/23 Rx XL] traMADol HCl [Ultram] 50 mg PO Q6HR PRN #4 tab 04/16/22 03/19/23 Rx Calcium Carbonate 500 mg PO DAILY@1700 03/19/23 03/19/23 History Famotidine [Pepcid] 20 mg PO DAILY@0800 03/19/23 03/19/23 History Ferrous Sulfate [Feosol] 325 mg PO BID@0800,1700 03/19/23 03/19/23 History Fluticasone Propion/Salmeterol 1 puff INHALATION RT-BID@0800,2100 03/19/23 03/19/23 History [Wixela 250-50 Inhub] Furosemide [Lasix] 40 mg PO DAILY@0800 03/19/23 03/19/23 History Gabapentin [Neurontin] 200 mg PO BID@0800,1700 03/19/23 03/19/23 History HYDROcodone/APAP 5-325MG [[place] 1 tab PO Q6H PRN 03/19/23 03/19/23 History 5-325] Insulin Glargine [Lantus Vial] 10 unit SQ HS@2130 03/19/23 03/19/23 History Jacky Packet 1 packet PO BID@0800,1700 03/19/23 03/19/23 History Midodrine HCl [ProAmatine] 10 mg PO TID@0800,1200,1700 03/19/23 03/19/23 History Nystatin 100,000 Unit/gm Powd 1 applic TOPICAL TID 03/19/23 03/19/23 History [Mycostatin Powder] Polyvinyl Alcohol/Povidone 1 drop BOTH EYES BID@0800,1700 03/19/23 03/19/23 History [Freshkote Eye Drop] Potassium Chloride ER [K-Dur 10] 10 meq PO DAILY@0800 03/19/23 03/19/23 History Semaglutide [Ozempic] 0.25 mg SQ FR 03/19/23 03/19/23 History Sertraline [Zoloft] 50 mg PO DAILY@0800 03/19/23 03/19/23 History Allergies Allergy/AdvReac Type Severity Reaction Status Date / Time No Known Allergies Allergy Verified 03/19/23 19:48 Physical Exam Vitals: Vital Signs Temp Pulse Resp BP Pulse Ox 03/20/23 08:18 97 03/20/23 08:15 84 03/20/23 08:00 86 24 131/74 96 03/20/23 02:00 75 20 138/69 94 L 03/19/23 22:00 77 20 111/57 94 L 03/19/23 19:40 70 18 119/57 96 03/19/23 16:34 98.8 F 70 20 120/60 96 Intake and Output 03/19/23 03/20/23 03/20/23 22:59 06:59 14:59 Other: Weight 126.099 kg Results CBC & Chem 7: 03/20/23 12:40 03/20/23 06:33 Labs: Abnormal Lab Results - Last 24 Hours (Table) 03/19/23 03/19/23 03/19/23 Range/Units 16:40 16:40 21:03 WBC 12.2 H (3.8-10.6) k/uL RDW 16.7 H (11.5-15.5) % Neutrophils # 9.8 H (1.3-7.7) k/uL Sodium 136 L (137-145) mmol/L Potassium 2.4 L* (3.5-5.1) mmol/L Chloride 86 L (98-107) mmol/L Carbon Dioxide 35 H (22-30) mmol/L BUN 72 H (7-17) mg/dL Creatinine 1.58 H (0.52-1.04) mg/dL Glucose 213 H (74-99) mg/dL POC Glucose (mg/dL) 156 H (70-110) mg/dL Calcium 10.5 H (8.4-10.2) mg/dL Total Bilirubin 1.5 H (0.2-1.3) mg/dL
[2023-03-20] MEDS ORDERED: DEXTROSE 50% SYRINGE 50 ML IVP PRN ×2 (14:19)
[2023-03-20] MEDS: MULTIVITAMINS, THERA 1 EACH TAB PO SCH (16:37)
[2023-03-20] MEDS: ASCORBIC ACID 500 MG TAB PO SCH (16:37)
[2023-03-20 16:38] LABS: Glucose,Whole Blood 237 mg/dL (70-110)
[2023-03-20] MEDS: ASPIRIN 81 MG PO SCH (16:38)
[2023-03-20] MEDS: TAMSULOSIN 0.4 MG CAP.ER.24H PO SCH (16:39)
[2023-03-20] MEDS: CALCIUM CARBONATE 500 MG CHEWABLE PO SCH (16:39)
[2023-03-20] MEDS: FERROUS SULFATE 325 MG TAB PO SCH (16:39)
[2023-03-20] MEDS: GABAPENTIN 100 MG CAP PO SCH (16:39)
[2023-03-20 16:55] LABS: ALT 24 U/L (4-34); AST 51 U/L (14-36); African American GFR (CKD) 45 (>60 ml/min/1.73 sqM); Albumin 4.1 g/dL (3.5-5.0); Alkaline Phosphatase 70 U/L (38-126); Anion Gap 17 mmol/L; Blood Urea Nitrogen 66 mg/dL (7-17); Carbon Dioxide 31 mmol/L (22-30); Chloride 89 mmol/L (98-107); Globulin 4.2 g/dL; Glucose 207 mg/dL (74-99); Non-African American GFR(CKD) 39 (>60 ml/min/1.73 sqM); Sodium 137 mmol/L (137-145); Total Bilirubin 3.3 mg/dL (0.2-1.3); Total Protein 8.3 g/dL (6.3-8.2)
[2023-03-20] MEDS: ceFAZolin 3 GM in SODIUM CHLORIDE 0.9% 100 ML IVPB SCH (17:14)
[2023-03-20] MEDS: INSULIN ASPART (NovoLOG) 100 UNIT/ML VIAL SQ SCH ×2 (17:17→20:48)
[2023-03-20 17:19] LABS: Potassium 4.5 mmol/L (3.5-5.1)
[2023-03-20] MEDS: SYMBICORT 80-4.5 MCG INHALER INHALATION SCH (19:57)
[2023-03-20 20:46] LABS: Glucose,Whole Blood 304 mg/dL (70-110)
[2023-03-20] MEDS: MELATONIN 5 MG TABLET PO SCH (20:48)
[2023-03-20] MEDS: ATORVASTATIN 20 MG TAB PO SCH (20:48)
[2023-03-20] MEDS: INSULIN DETEMIR (LEVEMIR) 100 UNIT/ML SYR SQ SCH (21:00)
[2023-03-20] MEDS: LATANOPROST 0.005% OPHTH DROPS 2.5 ML BTL BOTH EYES SCH (21:00)
--- NOTE | 2023-03-20 22:37 | P.CONS ---
History of Present Illness - Reason for Consult Consult date: 03/20/23 Leukocytosis and history of cellulitis Requesting physician: Loco Parra - Chief Complaint Abnormal lab increasing swelling redness to the leg x few days - History of Present Illness Patient is a 77-year-old female with a past medical history significant for hypertension hyperlipidemia atrial fibrillation patient is a shelter resident and the patient was sent to the ER for evaluation of low potassium of 2.7 patient on presentation to the hospital was afebrile she was noticed to have a elevated white count 12.0 which is subsequently up to 30.7 did have elevated BUN/creatinine, infectious was consulted because of her elevated white count history of lower extremity cellulitis patient currently denies having any headache or URI symptoms patient is breathing comfortably on 2 L nasal cannula oxygen denies any chest pain or cough no nausea vomiting no abdo melvi pain patient did have diffuse swelling redness patient with right lower extremity dependent has been getting worse over the last few days patient complaining of some sharp pain to the right leg moderate intensity without any radiation did not have any skin breakdown or any drainage Review of Systems Positive point and negatives has been mentioned in the HPI, complete review of systems was performed and all other systems are negative Past Medical History Past Medical History: Atrial Fibrillation, Hyperlipidemia, Hypertension, Supraventricular Tachycardia (SVT) Additional Past Medical History / Comment(s): PE ?; years ago, diabetes, pacemaker, obesity, hernia, History of Any Multi-Drug Resistant Organisms: MRSA Year Discovered:: 09/11/22 MDRO Source:: Right Lower extremity Past Surgical History: Orthopedic Surgery Additional Past Surgical History / Comment(s): hernia,eye surgery,rt knee Past Anesthesia/Blood Transfusion Reactions: No Reported Reaction Past Psychological History: No Psychological Hx Reported Smoking Status: Former smoker Past Alcohol Use History: None Reported Past Drug Use History: None Reported - Past Family History Sister(s) Family Medical History: Congestive Heart Failure (CHF), Pulmonary Embolus Additional Family Medical History / Comment(s): gallbladder removed Medications and Allergies Home Medications Medication Instructions Recorded Confirmed Type Ascorbic Acid [Vitamin C] 500 mg PO DAILY@1700 03/11/17 03/19/23 History Bimatoprost [Lumigan 0.01% Ophth 1 drop BOTH EYES HS@2100 03/11/17 03/19/23 History Soln] Multivitamins, Thera [Multivitamin 1 tab PO DAILY@1700 03/11/17 03/19/23 History (formulary)] Aspirin 81 mg PO DAILY@1700 01/26/20 03/19/23 History Melatonin 5 mg PO HS@2100 09/12/21 03/19/23 History Albuterol Inhaler [Ventolin Hfa 1 puff INHALATION RT-QID PRN 03/30/22 03/19/23 History Inhaler] Apixaban [Eliquis] 5 mg PO BID@0800,1700 04/05/22 03/19/23 History Atorvastatin Calcium [Lipitor] 20 mg PO HS@2100 04/05/22 03/19/23 History INSULIN ASPART (NovoLOG) [NovoLOG See Protocol SQ 04/05/22 03/19/23 History (formulary)] ACHS@07,11,1630,2130 Magnesium Hydroxide [Milk of 7,200 mg PO DAILY PRN 04/05/22 03/19/23 History Magnesia Concentrate] Na Phos,M-B/Na Phos,Di-Ba [Fleet 133 ml RECTAL DAILY PRN 04/05/22 03/19/23 History Adult] Tamsulosin [Flomax] 0.4 mg PO DAILY@1700 04/05/22 03/19/23 History bisacodyL [Dulcolax] 10 mg RECTAL DAILY PRN 04/05/22 03/19/23 History Metoprolol Succinate (ER) [Toprol 25 mg PO DAILY@0800 tab 04/16/22 03/19/23 Rx XL] traMADol HCl [Ultram] 50 mg PO Q6HR PRN #4 tab 04/16/22 03/19/23 Rx Calcium Carbonate 500 mg PO DAILY@1700 03/19/23 03/19/23 History Famotidine [Pepcid] 20 mg PO DAILY@0800 03/19/23 03/19/23 History Ferrous Sulfate [Feosol] 325 mg PO BID@0800,1700 03/19/23 03/19/23 History Fluticasone Propion/Salmeterol 1 puff INHALATION RT-BID@0800,2100 03/19/23 03/19/23 History [Wixela 250-50 Inhub] Furosemide [Lasix] 40 mg PO DAILY@0800 03/19/23 03/19/23 History Gabapentin [Neurontin] 200 mg PO BID@0800,1700 03/19/23 03/19/23 History HYDROcodone/APAP 5-325MG [Shelby 1 tab PO Q6H PRN 03/19/23 03/19/23 History 5-325] Insulin Glargine [Lantus Vial] 10 unit SQ HS@2130 03/19/23 03/19/23 History Jacky Packet 1 packet PO BID@0800,1700 03/19/23 03/19/23 History Midodrine HCl [ProAmatine] 10 mg PO TID@0800,1200,1700 03/19/23 03/19/23 History Nystatin 100,000 Unit/gm Powd 1 applic TOPICAL TID 03/19/23 03/19/23 History [Mycostatin Powder] Polyvinyl Alcohol/Povidone 1 drop BOTH EYES BID@0800,1700 03/19/23 03/19/23 H istory [Freshkote Eye Drop] Semaglutide [Ozempic] 0.25 mg SQ FR 03/19/23 03/19/23 History Sertraline [Zoloft] 50 mg PO DAILY@0800 03/19/23 03/19/23 History Cephalexin [Keflex] 500 mg PO Q6HR 7 Days #28 cap 03/23/23 Rx Potassium Chloride ER [K-Dur 10] 40 meq PO DAILY@0800 5 Days #20 tab 03/23/23 Rx Allergies Allergy/AdvReac Type Severity Reaction Status Date / Time No Known Allergies Allergy Verified 03/19/23 19:48 Physical Exam Vitals: Vital Signs Temp Pulse Resp BP Pulse Ox 03/20/23 13:29 71 18 142/68 98 03/20/23 08:18 97 03/20/23 08:15 84 03/20/23 08:00 86 24 131/74 96 03/20/23 02:00 75 20 138/69 94 L 03/19/23 22:00 77 20 111/57 94 L 03/19/23 19:40 70 18 119/57 96 03/19/23 16:34 98.8 F 70 20 120/60 96 GENERAL DESCRIPTION: An elderly female up in the chair, no distress. No tachypnea or accessory muscle of respiration use. HEENT: Shows Pallor , no scleral icterus. Oral mucous membrane is dry. No pharyngeal erythema or thrush NECK: Trachea central, no thyromegaly. LUNGS: Unlabored breathing. Decreased breath sound at the bases HEART: S1, S2, regular rate and rhythm. No loud murmur ABDOMEN: Soft, no tenderness , EXTREMITIES: Diffuse swelling to bilateral lower extremity did have extensive redness to the right leg and weeping edema SKIN: No rash, no masses palpable. NEUROLOGICAL: The patient is awake, alert, oriented x3, mood and affect normal. Results CBC & Chem 7: 03/23/23 05:32 03/23/23 05:32 Labs: Abnormal Lab Results - Last 24 Hours (Table) 03/19/23 03/19/23 03/19/23 Range/Units 16:40 16:40 21:03 WBC 12.2 H (3.8-10.6) k/uL MCHC (32.0-37.0) d/dL RDW 16.7 H (11.5-15.5) % Neutrophils # 9.8 H (1.3-7.7) k/uL Lymphocytes # (0.90-5.00) X 10*3/uL Sodium 136 L (137-145) mmol/L Potassium 2.4 L* (3.5-5.1) mmol/L Chloride 86 L (98-107) mmol/L Carbon Dioxide 35 H (22-30) mmol/L Anion Gap (4.00-12.00) mmol/L BUN 72 H (7-17) mg/dL Creatinine 1.58 H (0.52-1.04) mg/dL Est GFR (CKD-EPI) (>=60) BUN/Creatinine Ratio (12.00-20.00) Ratio Glucose 213 H (74-99) mg/dL POC Glucose (mg/dL) 156 H (70-110) mg/dL Calcium 10.5 H (8.4-10.2) mg/dL Total Bilirubin 1.5 H (0.2-1.3) mg/dL 03/20/23 03/20/23 03/20/23 Range/Units 06:33 06:33 12:40 WBC 30.97 H 30.7 H (3.8-10.6) k/uL MCHC 31.6 L (32.0-37.0) d/dL RDW 17.4 H 16.9 H (11.5-15.5) % Neutrophils # 28.95 H 29.0 H (1.3-7.7) k/uL Lymphocytes # 0.69 L 0.7 L (0.90-5.00) X 10*3/uL Sodium (137-145) mmol/L Potassium (3.5-5.1) mmol/L Chloride 90 L (98-107) mmol/L Carbon Dioxide 32.8 H (22-30) mmol/L Anion Gap 16.20 H (4.00-12.00) mmol/L BUN 57.7 H (7-17) mg/dL Creatinine 1.7 H (0.52-1.04) mg/dL Est GFR (CKD-EPI) 30 L (>=60) BUN/Creatinine Ratio 33.94 H (12.00-20.00) Ratio Glucose 204 H (74-99) mg/dL POC Glucose (mg/dL) (70-110) mg/dL Calcium 11.0 H (8.4-10.2) mg/dL Total Bilirubin (0.2-1.3) mg/dL Assessment and Plan (1) Cellulitis of right lower extremity Current Visit: Yes Status: Acute Code(s): L03.115 - CELLULITIS OF RIGHT LOWER LIMB SNOMED Code(s): 60270106976464345 (2) Leukocytosis Current Visit: No Status: Acute Code(s): D72.829 - ELEVATED WHITE BLOOD CELL COUNT, UNSPECIFIED SNOMED Code(s): 743224657 Plan: 1patient with elevated white count source is likely right lower extremity cellulitis in this patient who did have did extensive and diffuse swelling redness to the right lower extremity likely from gram-positive skin marli and less likely gram-negative infection 2 patient with renal insufficiency high risk of nephrotoxicity from vancomycin. 3we will start patient cefazolin 3 g every 8 hours 4-continue with compressive dressing to bilateral lower extremity and marked the area of the redness We will follow on clinical condition and cultures to further adjust medication if needed Thank you for this consultation we will follow the patient along with you Dictation was produced using [employer] software. please excuse any grammatical, word or spelling errors. Time with Patient: Greater than 30
[2023-03-21] MEDS: ceFAZolin 3 GM in SODIUM CHLORIDE 0.9% 100 ML IVPB SCH ×3 (00:35→17:31)
[2023-03-21 05:48] LABS: Glucose,Whole Blood 249 mg/dL (70-110)
[2023-03-21] MEDS: INSULIN ASPART (NovoLOG) 100 UNIT/ML VIAL SQ SCH ×4 (06:14→20:59)
[2023-03-21] MEDS: MIDODRINE 5 MG TAB PO SCH ×3 (06:14→18:27)
[2023-03-21] MEDS: SYMBICORT 160-4.5 MCG INHALER INHALATION SCH ×3 (08:26→20:02)
[2023-03-21] MEDS: SYMBICORT 80-4.5 MCG INHALER INHALATION SCH (08:37)
[2023-03-21] MEDS: polyethylene glycoL 3350 17 GM POWD.PACK PO SCH (09:10)
[2023-03-21] MEDS: GABAPENTIN 100 MG CAP PO SCH ×2 (09:10→17:32)
[2023-03-21] MEDS: FERROUS SULFATE 325 MG TAB PO SCH ×2 (09:10→17:32)
[2023-03-21] MEDS: APIXABAN 5 MG TAB PO SCH ×2 (09:10→17:32)
[2023-03-21] MEDS: SODIUM CHLORIDE TAB 1 GM TAB PO SCH (09:10)
[2023-03-21] MEDS: METOPROLOL SUCCINATE (ER) 25 MG TAB.ER.24H PO SCH (09:10)
[2023-03-21 10:12] LABS: ALT 17 U/L (8-44); AST 25 U/L (13-35); Albumin 4.1 d/dL (3.8-4.9); Albumin/Globulin Ratio 1.02 Ratio (1.60-3.17); Alkaline Phosphatase 89 U/L (41-126); BUN/Creat Ratio 32.74 Ratio (12.00-20.00); Blood Urea Nitrogen 62.2 mg/dL (9.0-27.0); Calcium 10.3 mg/dL (8.7-10.3); Carbon Dioxide 30.3 mmol/L (21.6-31.8); Chloride 88 mmol/L (96-109); Glucose 206 mg/dL (70-110); Potassium 3.3 mmol/L (3.5-5.5); Sodium 137 mmol/L (135-145); Total Protein 8.1 d/dL (6.2-8.2)
[2023-03-21 10:23] LABS: HCT 47.2 % (37.2-46.3); HGB 14.8 d/dL (12.0-15.0); MCH 27.9 pg (27.0-32.0); MCHC 31.4 d/dL (32.0-37.0); MCV 88.9 FL (80.0-97.0); Mean Platelet Volume 9.6 FL (9.5-12.2); NRBC Per 100 WBC 0 X 10*3/uL (0.00-0.01); Platelet Count 346 X 10*3/uL (140-440); RBC 5.31 X 10*6/uL (4.10-5.20); RDW 17.8 % (11.5-14.5); WBC 22.63 X 10*3/uL (4.50-10.00)
[2023-03-21] MEDS ORDERED: POTASSIUM CHLORIDE ER 20 MEQ TAB.ER PO STA (12:08)
[2023-03-21 12:26] LABS: Glucose,Whole Blood 256 mg/dL (70-110)
--- NOTE | 2023-03-21 14:17 | P.PN ---
Subjective Progress Note Date: 03/21/23 Principal diagnosis: Leukocytosis and right lower extremity cellulitis Patient is a 77-year-old female with a past medical history significant for hypertension hyperlipidemia atrial fibrillation patient is a [facility] resident and the patient was sent to the ER for evaluation of low potassium of 2.7, patient also noticed to have elevated white count and did have evidence of extensive right lower extremity cellulitis. On today's evaluation that is 03/21/2023, the patient remains to be afebrile, the patient is breathing comfortably on 2 L nasal cannula oxygen, the patient denies any chest pain or cough, patient denies Abdominal pain and no nausea/vomiting or diarrhea, did have extensive swelling to the right lower extremity with some clear drainage denies any worsening pain. Patient white count is slightly down to 22.63, creatinine is 1.9 Objective - Vital Signs Vital signs: Vital Signs Temp 97.7 F 03/21/23 07:00 Pulse 80 03/21/23 07:00 Resp 16 03/21/23 07:00 BP 113/74 03/21/23 07:00 Pulse Ox 96 03/21/23 07:00 FiO2 Intake & Output 03/20/23 03/21/23 03/21/23 18:59 06:59 18:59 Intake Total 680 Balance 680 Weight 126.099 kg Intake: Oral 680 Other: Voiding Method Bedside Commode # Voids 1 # Bowel Movements 1 - Exam GENERAL DESCRIPTION: An elderly female up in the chair in no distress RESPIRATORY SYSTEM: Unlabored breathing , clear to auscultation anteriorly HEART: S1 S2 regular rate and rhythm , ABDOMEN: Soft , no tenderness EXTREMITIES: Diffuse swelling redness and some clear drainage to the right leg - Labs CBC & Chem 7: 03/21/23 05:58 03/21/23 05:58 Labs: Abnormal Lab Results - Last 24 Hours (Table) 03/20/23 03/20/23 03/20/23 Range/Units 03:00 06:33 06:33 WBC (3.8-10.6) k/uL RBC (4.10-5.20) X 10*6/uL Hct (37.2-46.3) % MCHC (32.0-37.0) d/dL RDW (11.5-15.5) % Neutrophils # 28.95 H (1.80-7.70) X 10*3/uL Lymphocytes # 0.69 L (0.90-5.00) X 10*3/uL Potassium (3.5-5.5) mmol/L Chloride 89 L 90 L (98-107) mmol/L Carbon Dioxide 31 H 32.8 H (22-30) mmol/L Anion Gap 16.20 H (4.00-12.00) mmol/L BUN 66 H 57.7 H (7-17) mg/dL Creatinine 1.32 H 1.7 H (0.52-1.04) mg/dL Est GFR (CKD-EPI) 30 L (>=60) BUN/Creatinine Ratio 33.94 H (12.00-20.00) Ratio Glucose 207 H 204 H (74-99) mg/dL POC Glucose (mg/dL) (70-110) mg/dL Hemoglobin A1c (<=6.0) % Calcium 11.0 H (8.7-10.3) mg/dL Total Bilirubin 3.3 H (0.2-1.3) mg/dL AST 51 H (14-36) U/L Total Protein 8.3 H (6.3-8.2) g/dL Globulin (1.6-3.3) d/dL Albumin/Globulin Ratio (1.60-3.17) Ratio 03/20/23 03/20/23 03/20/23 Range/Units 12:40 16:36 20:45 WBC 30.7 H (3.8-10.6) k/uL RBC (4.10-5.20) X 10*6/uL Hct (37.2-46.3) % MCHC (32.0-37.0) d/dL RDW 16.9 H (11.5-15.5) % Neutrophils # 29.0 H (1.80-7.70) X 10*3/uL Lymphocytes # 0.7 L (0.90-5.00) X 10*3/uL Potassium (3.5-5.5) mmol/L Chloride (98-107) mmol/L Carbon Dioxide (22-30) mmol/L Anion Gap (4.00-12.00) mmol/L BUN (7-17) mg/dL Creatinine (0.52-1.04) mg/dL Est GFR (CKD-EPI) (>=60) BUN/Creatinine Ratio (12.00-20.00) Ratio Glucose (74-99) mg/dL POC Glucose (mg/dL) 237 H 304 H (70-110) mg/dL Hemoglobin A1c (<=6.0) % Calcium (8.7-10.3) mg/dL Total Bilirubin (0.2-1.3) mg/dL AST (14-36) U/L Total Protein (6.3-8.2) g/dL Globulin (1.6-3.3) d/dL Albumin/Globulin Ratio (1.60-3.17) Ratio 03/21/23 03/21/23 03/21/23 Range/Units 05:47 05:58 05:58 WBC 22.63 H (3.8-10.6) k/uL RBC 5.31 H (4.10-5.20) X 10*6/uL Hct 47.2 H (37.2-46.3) % MCHC 31.4 L (32.0-37.0) d/dL RDW 17.8 H (11.5-15.5) % Neutrophils # (1.80-7.70) X 10*3/uL Lymphocytes # (0.90-5.00) X 10*3/uL Potassium (3.5-5.5) mmol/L Chloride (98-107) mmol/L Carbon Dioxide (22-30) mmol/L Anion Gap (4.00-12.00) mmol/L BUN (7-17) mg/dL Creatinine (0.52-1.04) mg/dL Est GFR (CKD-EPI) (>=60) BUN/Creatinine Ratio (12.00-20.00) Ratio Glucose (74-99) mg/dL POC Glucose (mg/dL) 249 H (70-110) mg/dL Hemoglobin A1c 6.9 H (<=6.0) % Calcium (8.7-10.3) mg/dL Total Bilirubin (0.2-1.3) mg/dL AST (14-36) U/L Total Protein (6.3-8.2) g/dL Globulin (1.6-3.3) d/dL Albumin/Globulin Ratio (1.60-3.17) Ratio 03/21/23 Range/Units 05:58 WBC (3.8-10.6) k/uL RBC (4.10-5.20) X 10*6/uL Hct (37.2-46.3) % MCHC (32.0-37.0) d/dL RDW (11.5-15.5) % Neutrophils # (1.80-7.70) X 10*3/uL Lymphocytes # (0.90-5.00) X 10*3/uL Potassium 3.3 L (3.5-5.5) mmol/L Chloride 88 L (98-107) mmol/L Carbon Dioxide (22-30) mmol/L Anion Gap 18.70 H (4.00-12.00) mmol/L BUN 62.2 H (7-17) mg/dL Creatinine 1.9 H (0.52-1.04) mg/dL Est GFR (CKD-EPI) 27 L (>=60) BUN/Creatinine Ratio 32.74 H (12.00-20.00) Ratio Glucose 206 H (74-99) mg/dL POC Glucose (mg/dL) (70-110) mg/dL Hemoglobin A1c (<=6.0) % Calcium (8.7-10.3) mg/dL Total Bilirubin 2.0 H (0.2-1.3) mg/dL AST (14-36) U/L Total Protein (6.3-8.2) g/dL Globulin 4.0 H (1.6-3.3) d/dL Albumin/Globulin Ratio 1.02 L (1.60-3.17) Ratio Assessment and Plan (1) Cellulitis of right lower extremity Current Visit: Yes Status: Acute Code(s): L03.115 - CELLULITIS OF RIGHT LOWER LIMB SNOMED Code(s): 14742226064940501 (2) Leukocytosis Current Visit: No Status: Acute Code(s): D72.829 - ELEVATED WHITE BLOOD CELL COUNT, UNSPECIFIED SNOMED Code(s): 161483396 Plan: 1patient with elevated white count source is likely right lower extremity cellulitis in this patient who did have did extensive and diffuse swelling redness to the right lower extremity likely from gram-positive skin marli and less likely gram-negative infection 2 patient with renal insufficiency high risk of nephrotoxicity from vancomycin. 3patient white count is trending down and will continue with cefazolin 3 g acacia ry 8 hours 4-continue with compressive dressing to bilateral lower extremity and marked the area of the redness Dictation was produced using [employer] dictation software. please excuse any grammatical, word or spelling errors. Time with Patient: Less than 30
--- NOTE | 2023-03-21 14:38 | P.PN ---
Subjective Progress Note Date: 03/21/23 patient is a 77-year-old lady with past medical history significant for diabetes mellitus, hypertension, hyperlipidemia, atrial fibrillation presented to the ER because of abnormal labs. Patient is a long-term resident of [facility], sent in for abnormal labs, found to have potassium levels of 2.7, patient is on Lasix at the facility, patient was given oral potassium and was sent in for further evaluation and treatment. Patient denies any lightheadedness or dizziness. Denies any palpitations. Denies any chest pain or shortness of breath. No complain of nausea, vomiting or diarrhea. Denied any fever or chills. Initial lab work done in the ER showed WBC 12.2, hemoglobin 13.2, platelet count 334, sodium 136, potassium 2.4, chloride 86, BUN 72, creatinine 1.58, glucose 213, calcium 10.5 patient was admitted for further evaluation and treatment 03/21. Patient seen and examined. Patient white count has improved, still has swelling and redness of right lower extremity. Lab work done showed a PVC 22.63, hemoglobin 14.8, platelet count 346, sodium 137, potassium 3.3, BUN 62.2, creatinine 1.9 Vital signs stable REVIEW OF SYSTEMS: CONSTITUTIONAL: No fever, no malaise,. CARDIOVASCULAR: No chest pain, no palpitations, no syncope. PULMONARY: No shortness of breath, no cough, GASTROINTESTINAL: No diarrhea, no nausea, no vomiting, no abdominal pain. NEUROLOGICAL: No headaches, no weakness, PHYSICAL EXAMINATION: GENERAL: The patient is alert and oriented x3, not in any acute distress. Well developed, well nourished. HEENT: Pupils are round and equally reacting to light. EOMI. No scleral icterus. No conjunctival pallor. Normocephalic, atraumatic. No pharyngeal erythema. No thyromegaly. CARDIOVASCULAR: S1 and S2 present. No murmurs, rubs, or gallops. PULMONARY: Chest is clear to auscultation, no wheezing or crackles. ABDOMEN: Soft, nontender, nondistended, normoactive bowel sounds. No palpable organomegaly. EXTREMITIES: Chronic lymphedema of lower extremities bilaterally, right lower extremity erythematous and swollen NEUROLOGICAL: Gross neurological examination did not reveal any focal deficits. SKIN: No rashes. Assessment and plan Acute kidney injury Right lower external cellulitis Leukocytosis Hypokalemia Hyponatremia hypercalcemia Chronic lymphedema Diabetes mellitus History of atrial fibrillation Hyperlipidemia Hypertension Monitor vital signs Monitor CBC Monitor CMP Continue telemetry monitoring Regarding Right lower extremity cellulitis, ordered blood cultures, ordered ultrasound of lower extremities, continue IV cefazolin , ID on board In regards to atrial fibrillation, continue Toprol and Eliquis Regards to hyperlipidemia , continue Lipitor In regards to hypothyroid continue Synthyroid In regards to diabetes mellitus, continue current insulin regimen Consult wound care Labs and medication were reviewed.. Continue same treatment. Continue with symptomatic treatment. Resume home medication. Monitor labs and vitals. DVT and GI prophylaxis. Further recommendations as per clinical course of the patient Dictation was produced using [employer] dictation software. please excuse any grammatical, word or spelling errors. Objective - Vital Signs Vital signs: Vital Signs Temp 97.7 F 03/21/23 07:00 Pulse 80 03/21/23 07:00 Resp 16 03/21/23 07:00 BP 113/74 03/21/23 07:00 Pulse Ox 96 03/21/23 07:00 FiO2 Intake & Output 03/20/23 03/21/23 03/21/23 18:59 06:59 18:59 Weight 126.099 kg Other: Voiding Method Bedside Commode # Voids 1 # Bowel Movements 1 - Labs CBC & Chem 7: 03/21/23 05:58 03/21/23 05:58 Labs: Abnormal Lab Results - Last 24 Hours (Table) 03/20/23 03/20/23 03/20/23 Range/Units 03:00 06:33 06:33 WBC 30.97 H (4.50-10.00) X 10*3/uL MCHC 31.6 L (32.0-37.0) d/dL RDW 17.4 H (11.5-14.5) % Neutrophils # 28.95 H (1.80-7.70) X 10*3/uL Lymphocytes # 0.69 L (0.90-5.00) X 10*3/uL Chloride 89 L 90 L (98-107) mmol/L Carbon Dioxide 31 H 32.8 H (22-30) mmol/L Anion Gap 16.20 H (4.00-12.00) mmol/L BUN 66 H 57.7 H (7-17) mg/dL Creatinine 1.32 H 1.7 H (0.52-1.04) mg/dL Est GFR (CKD-EPI) 30 L (>=60) BUN/Creatinine Ratio 33.94 H (12.00-20.00) Ratio Glucose 207 H 204 H (74-99) mg/dL POC Glucose (mg/dL) (70-110) mg/dL Calcium 11.0 H (8.7-10.3) mg/dL Total Bilirubin 3.3 H (0.2-1.3) mg/dL AST 51 H (14-36) U/L Total Protein 8.3 H (6.3-8.2) g/dL 03/20/23 03/20/23 03/20/23 Range/Units 12:40 16:36 20:45 WBC 30.7 H (4.50-10.00) X 10*3/uL MCHC (32.0-37.0) d/dL RDW 16.9 H (11.5-14.5) % Neutrophils # 29.0 H (1.80-7.70) X 10*3/uL Lymphocytes # 0.7 L (0.90-5.00) X 10*3/uL Chloride (98-107) mmol/L Carbon Dioxide (22-30) mmol/L Anion Gap (4.00-12.00) mmol/L BUN (7-17) mg/dL Creatinine (0.52-1.04) mg/dL Est GFR (CKD-EPI) (>=60) BUN/Creatinine Ratio (12.00-20.00) Ratio Glucose (74-99) mg/dL POC Glucose (mg/dL) 237 H 304 H (70-110) mg/dL Calcium (8.7-10.3) mg/dL Total Bilirubin (0.2-1.3) mg/dL AST (14-36) U/L Total Protein (6.3-8.2) g/dL 03/21/23 Range/Units 05:47 WBC (4.50-10.00) X 10*3/uL MCHC (32.0-37.0) d/dL RDW (11.5-14.5) % Neutrophils # (1.80-7.70) X 10*3/uL Lymphocytes # (0.90-5.00) X 10*3/uL Chloride (98-107) mmol/L Carbon Dioxide (22-30) mmol/L Anion Gap (4.00-12.00) mmol/L BUN (7-17) mg/dL Creatinine (0.52-1.04) mg/dL Est GFR (CKD-EPI) (>=60) BUN/Creatinine Ratio (12.00-20.00) Ratio Glucose (74-99) mg/dL POC Glucose (mg/dL) 249 H (70-110) mg/dL Calcium (8.7-10.3) mg/dL Total Bilirubin (0.2-1.3) mg/dL AST (14-36) U/L Total Protein (6.3-8.2) g/dL
--- NOTE | 2023-03-21 15:29 | US ---
EXAMINATION TYPE: US venous doppler duplex LE BI DATE OF EXAM: 03/21/2023 3:19 PM COMPARISON: NONE CLINICAL INDICATION: Female, 77 years old with history of swelling,; edema limited due to body habitu s patient unable to tolerate compressions well SIDE PERFORMED: Bilateral TECHNIQUE: The lower extremity deep venous system is examined utilizing real time linear array sonog fede with graded compression, doppler sonography and color-flow sonography. VESSELS IMAGED: Common Femoral Vein Deep Femoral Vein Greater Saphenous Vein * Femoral Vein Popliteal Vein Small Saphenous Vein * Right Leg: Negative for DVT Left Leg: Negative for DVT IMPRESSION: 1. Bilateral lower extremity ultrasound negative for deep venous thrombosis
[2023-03-21 17:18] LABS: Glucose,Whole Blood 230 mg/dL (70-110)
[2023-03-21] MEDS: CALCIUM CARBONATE 500 MG CHEWABLE PO SCH (17:32)
[2023-03-21] MEDS: ASCORBIC ACID 500 MG TAB PO SCH (17:32)
[2023-03-21] MEDS: TAMSULOSIN 0.4 MG CAP.ER.24H PO SCH (17:32)
[2023-03-21] MEDS: MULTIVITAMINS, THERA 1 EACH TAB PO SCH (17:32)
[2023-03-21] MEDS: ASPIRIN 81 MG PO SCH (17:32)
[2023-03-21] MEDS: MELATONIN 5 MG TABLET PO SCH (19:53)
[2023-03-21] MEDS: ATORVASTATIN 20 MG TAB PO SCH (19:53)
[2023-03-21] MEDS: LATANOPROST 0.005% OPHTH DROPS 2.5 ML BTL BOTH EYES SCH (19:54)
[2023-03-21 19:57] LABS: Glucose,Whole Blood 265 mg/dL (70-110)
[2023-03-21 20:23] LABS: Glucose,Whole Blood 283 mg/dL (70-110)
[2023-03-21] MEDS: INSULIN DETEMIR (LEVEMIR) 100 UNIT/ML SYR SQ SCH (20:59)
[2023-03-22] MEDS: ceFAZolin 3 GM in SODIUM CHLORIDE 0.9% 100 ML IVPB SCH ×3 (00:19→17:57)
[2023-03-22 05:52] LABS: Glucose,Whole Blood 215 mg/dL (70-110)
[2023-03-22] MEDS: INSULIN ASPART (NovoLOG) 100 UNIT/ML VIAL SQ SCH ×4 (06:07→21:02)
[2023-03-22] MEDS: MIDODRINE 5 MG TAB PO SCH ×3 (06:08→17:58)
[2023-03-22] MEDS: SYMBICORT 160-4.5 MCG INHALER INHALATION SCH ×2 (08:22→19:57)
[2023-03-22] MEDS: FERROUS SULFATE 325 MG TAB PO SCH ×2 (08:36→17:58)
[2023-03-22] MEDS: polyethylene glycoL 3350 17 GM POWD.PACK PO SCH (08:36)
[2023-03-22] MEDS: METOPROLOL SUCCINATE (ER) 25 MG TAB.ER.24H PO SCH (08:36)
[2023-03-22] MEDS: APIXABAN 5 MG TAB PO SCH ×2 (08:36→17:58)
[2023-03-22] MEDS: GABAPENTIN 100 MG CAP PO SCH ×2 (08:36→17:58)
[2023-03-22] MEDS: SODIUM CHLORIDE TAB 1 GM TAB PO SCH (08:36)
[2023-03-22 09:54] LABS: HCT 40.4 % (37.2-46.3); HGB 13.1 d/dL (12.0-15.0); MCH 28.2 pg (27.0-32.0); MCHC 32.4 d/dL (32.0-37.0); MCV 86.9 FL (80.0-97.0); NRBC Per 100 WBC 0 X 10*3/uL (0.00-0.01); Platelet Count 305 X 10*3/uL (140-440); RBC 4.65 X 10*6/uL (4.10-5.20); RDW 17.2 % (11.5-14.5); WBC 14.56 X 10*3/uL (4.50-10.00)
[2023-03-22 10:44] LABS: ALT 8 U/L (8-44); AST 33 U/L (13-35); Albumin 3.5 d/dL (3.8-4.9); Albumin/Globulin Ratio 0.95 Ratio (1.60-3.17); Alkaline Phosphatase 76 U/L (41-126); BUN/Creat Ratio 34.59 Ratio (12.00-20.00); Blood Urea Nitrogen 58.8 mg/dL (9.0-27.0); Calcium 9.3 mg/dL (8.7-10.3); Carbon Dioxide 28.6 mmol/L (21.6-31.8); Chloride 87 mmol/L (96-109); Globulin 3.7 d/dL (1.6-3.3); Glucose 197 mg/dL (70-110); Potassium 3.6 mmol/L (3.5-5.5); Sodium 130 mmol/L (135-145); Total Protein 7.2 d/dL (6.2-8.2)
[2023-03-22 12:33] LABS: Glucose,Whole Blood 273 mg/dL (70-110)
--- NOTE | 2023-03-22 12:51 | P.PN ---
Subjective Progress Note Date: 03/22/23 patient is a 77-year-old lady with past medical history significant for diabetes mellitus, hypertension, hyperlipidemia, atrial fibrillation presented to the ER because of abnormal labs. Patient is a long-term resident of [facility], sent in for abnormal labs, found to have potassium levels of 2.7, patient is on Lasix at the facility, patient was given oral potassium and was sent in for further evaluation and treatment. Patient denies any lightheadedness or dizziness. Denies any palpitations. Denies any chest pain or shortness of breath. No complain of nausea, vomiting or diarrhea. Denied any fever or chills. Initial lab work done in the ER showed WBC 12.2, hemoglobin 13.2, platelet count 334, sodium 136, potassium 2.4, chloride 86, BUN 72, creatinine 1.58, glucose 213, calcium 10.5 patient was admitted for further evaluation and treatment 03/21. Patient seen and examined. Patient white count has improved, still has swelling and redness of right lower extremity. Lab work done showed a PVC 22.63, hemoglobin 14.8, platelet count 346, sodium 137, potassium 3.3, BUN 62.2, creatinine 1.9 Vital signs stable 03/22. Patient seen and examined. Blood work done this morning showed WBC 14.56, platelet count 305, hemoglobin 13.1. Patient keen to go home REVIEW OF SYSTEMS: CONSTITUTIONAL: No fever, no malaise,. CARDIOVASCULAR: No chest pain, no palpitations, no syncope. PULMONARY: No shortness of breath, no cough, GASTROINTESTINAL: No diarrhea, no nausea, no vomiting, no abdominal pain. NEUROLOGICAL: No headaches, no weakness, PHYSICAL EXAMINATION: GENERAL: The patient is alert and oriented x3, not in any acute distress. Well developed, well nourished. HEENT: Pupils are round and equally reacting to light. EOMI. No scleral icterus. No conjunctival pallor. Normocephalic, atraumatic. No pharyngeal erythema. No thyromegaly. CARDIOVASCULAR: S1 and S2 present. No murmurs, rubs, or gallops. PULMONARY: Chest is clear to auscultation, no wheezing or crackles. ABDOMEN: Soft, nontender, nondistended, normoactive bowel sounds. No palpable organomegaly. EXTREMITIES: Chronic lymphedema of lower extremities bilaterally, right lower extremity erythematous and swollen NEUROLOGICAL: Gross neurological examination did not reveal any focal deficits. SKIN: No rashes. Assessment and plan Acute kidney injury Right lower external cellulitis Leukocytosis Hypokalemia Hyponatremia hypercalcemia Chronic lymphedema Diabetes mellitus History of atrial fibrillation Hyperlipidemia Hypertension Monitor vital signs Monitor CBC Monitor CMP Continue telemetry monitoring Regarding Right lower extremity cellulitis, follow-up on blood cultures, ultrasound of lower extremities negative for DVT, continue IV cefazolin , ID on board In regards to atrial fibrillation, continue Toprol and Eliquis Regards to hyperlipidemia , continue Lipitor In regards to hypothyroid continue Synthyroid In regards to diabetes mellitus, continue current insulin regimen Consult wound care Labs and medication were reviewed.. Continue same treatment. Continue with symptomatic treatment. Resume home medication. Monitor labs and vitals. DVT and GI prophylaxis. Further recommendations as per clinical course of the patient Dictation was produced using [employer] dictation software. please excuse any grammatical, word or spelling errors. Objective - Vital Signs Vital signs: Vital Signs Temp 97.7 F 03/22/23 07:05 Pulse 73 03/22/23 07:05 Resp 18 03/22/23 07:05 BP 116/78 03/22/23 07:05 Pulse Ox 95 03/22/23 07:05 FiO2 Intake & Output 03/21/23 03/22/23 03/22/23 18:59 06:59 18:59 Intake Total 1416 100 500 Balance 1416 100 500 Intake: Oral 1416 100 500 Other: Voiding Method Bedside Commode # Voids 1 1 - Labs CBC & Chem 7: 03/22/23 06:15 03/22/23 06:15 Labs: Abnormal Lab Results - Last 24 Hours (Table) 03/21/23 03/21/23 03/21/23 Range/Units 05:58 05:58 05:58 WBC 22.63 H (4.50-10.00) X 10*3/uL RBC 5.31 H (4.10-5.20) X 10*6/uL Hct 47.2 H (37.2-46.3) % MCHC 31.4 L (32.0-37.0) d/dL RDW 17.8 H (11.5-14.5) % Potassium 3.3 L (3.5-5.5) mmol/L Chloride 88 L (96-109) mmol/L Anion Gap 18.70 H (4.00-12.00) mmol/L BUN 62.2 H (9.0-27.0) mg/dL Creatinine 1.9 H (0.6-1.5) mg/dL Est GFR (CKD-EPI) 27 L (>=60) BUN/Creatinine Ratio 32.74 H (12.00-20.00) Ratio Glucose 206 H (70-110) mg/dL POC Glucose (mg/dL) (70-110) mg/dL Hemoglobin A1c 6.9 H (<=6.0) % Total Bilirubin 2.0 H (0.3-1.2) mg/dL Globulin 4.0 H (1.6-3.3) d/dL Albumin/Globulin Ratio 1.02 L (1.60-3.17) Ratio 03/21/23 03/21/23 03/21/23 Range/Units 12:25 17:16 19:56 WBC (4.50-10.00) X 10*3/uL RBC (4.10-5.20) X 10*6/uL Hct (37.2-46.3) % MCHC (32.0-37.0) d/dL RDW (11.5-14.5) % Potassium (3.5-5.5) mmol/L Chloride (96-109) mmol/L Anion Gap (4.00-12.00) mmol/L BUN (9.0-27.0) mg/dL Creatinine (0.6-1.5) mg/dL Est GFR (CKD-EPI) (>=60) BUN/Creatinine Ratio (12.00-20.00) Ratio Glucose (70-110) mg/dL POC Glucose (mg/dL) 256 H 230 H 265 H (70-110) mg/dL Hemoglobin A1c (<=6.0) % Total Bilirubin (0.3-1.2) mg/dL Globulin (1.6-3.3) d/dL Albumin/Globulin Ratio (1.60-3.17) Ratio 03/21/23 03/22/23 03/22/23 Range/Units 20:21 05:51 06:15 WBC 14.56 H (4.50-10.00) X 10*3/uL RBC (4.10-5.20) X 10*6/uL Hct (37.2-46.3) % MCHC (32.0-37.0) d/dL RDW 17.2 H (11.5-14.5) % Potassium (3.5-5.5) mmol/L Chloride (96-109) mmol/L Anion Gap (4.00-12.00) mmol/L BUN (9.0-27.0) mg/dL Creatinine (0.6-1.5) mg/dL Est GFR (CKD-EPI) (>=60) BUN/Creatinine Ratio (12.00-20.00) Ratio Glucose (70-110) mg/dL POC Glucose (mg/dL) 283 H 215 H (70-110) mg/dL Hemoglobin A1c (<=6.0) % Total Bilirubin (0.3-1.2) mg/dL Globulin (1.6-3.3) d/dL Albumin/Globulin Ratio (1.60-3.17) Ratio
--- NOTE | 2023-03-22 16:22 | P.PN ---
Subjective Progress Note Date: 03/22/23 Principal diagnosis: Leukocytosis and right lower extremity cellulitis Patient is a 77-year-old female with a past medical history significant for hypertension hyperlipidemia atrial fibrillation patient is a half-way resident and the patient was sent to the ER for evaluation of low potassium of 2.7, patient also noticed to have elevated white count and did have evidence of extensive right lower extremity cellulitis. On today's evaluation that is 03/22/2023, the patient denies any fever or chills, the patient is breathing comfortably on room air and no need for supplemental oxygen, the patient denies any chest pain or cough, patient denies nausea/vomiting or diarrhea and no abdominal pain, the patient swelling and pain to the right lower extremity has decreased in intensity Patient white count is slightly down to 14.56, creatinine is 1.7 Objective - Vital Signs Vital signs: Vital Signs Temp 97.7 F 03/22/23 07:05 Pulse 73 03/22/23 07:05 Resp 18 03/22/23 07:05 BP 116/78 03/22/23 07:05 Pulse Ox 95 03/22/23 07:05 FiO2 Intake & Output 03/21/23 03/22/23 03/22/23 18:59 06:59 18:59 Intake Total 1416 100 500 Balance 1416 100 500 Intake: Oral 1416 100 500 Other: Voiding Method Bedside Commode # Voids 1 1 1 - Exam GENERAL DESCRIPTION: An elderly female up in the chair in no distress RESPIRATORY SYSTEM: Unlabored breathing , clear to auscultation anteriorly HEART: S1 S2 regular rate and rhythm , ABDOMEN: Soft , no tenderness EXTREMITIES: Right lower extremity is currently covered in an Sebas wrap did have drainage on the dressing - Labs CBC & Chem 7: 03/22/23 06:15 03/22/23 06:15 Labs: Abnormal Lab Results - Last 24 Hours (Table) 03/21/23 03/21/23 03/21/23 Range/Units 17:16 19:56 20:21 WBC (4.50-10.00) X 10*3/uL RDW (11.5-14.5) % Sodium (135-145) mmol/L Chloride (96-109) mmol/L Anion Gap (4.00-12.00) mmol/L BUN (9.0-27.0) mg/dL Creatinine (0.6-1.5) mg/dL Est GFR (CKD-EPI) (>=60) BUN/Creatinine Ratio (12.00-20.00) Ratio Glucose (70-110) mg/dL POC Glucose (mg/dL) 230 H 265 H 283 H (70-110) mg/dL Albumin (3.8-4.9) d/dL Globulin (1.6-3.3) d/dL Albumin/Globulin Ratio (1.60-3.17) Ratio 03/22/23 03/22/23 03/22/23 Range/Units 05:51 06:15 06:15 WBC 14.56 H (4.50-10.00) X 10*3/uL RDW 17.2 H (11.5-14.5) % Sodium 130 L (135-145) mmol/L Chloride 87 L (96-109) mmol/L Anion Gap 14.40 H (4.00-12.00) mmol/L BUN 58.8 H (9.0-27.0) mg/dL Creatinine 1.7 H (0.6-1.5) mg/dL Est GFR (CKD-EPI) 30 L (>=60) BUN/Creatinine Ratio 34.59 H (12.00-20.00) Ratio Glucose 197 H (70-110) mg/dL POC Glucose (mg/dL) 215 H (70-110) mg/dL Albumin 3.5 L (3.8-4.9) d/dL Globulin 3.7 H (1.6-3.3) d/dL Albumin/Globulin Ratio 0.95 L (1.60-3.17) Ratio 03/22/23 Range/Units 12:31 WBC (4.50-10.00) X 10*3/uL RDW (11.5-14.5) % Sodium (135-145) mmol/L Chloride (96-109) mmol/L Anion Gap (4.00-12.00) mmol/L BUN (9.0-27.0) mg/dL Creatinine (0.6-1.5) mg/dL Est GFR (CKD-EPI) (>=60) BUN/Creatinine Ratio (12.00-20.00) Ratio Glucose (70-110) mg/dL POC Glucose (mg/dL) 273 H (70-110) mg/dL Albumin (3.8-4.9) d/dL Globulin (1.6-3.3) d/dL Albumin/Globulin Ratio (1.60-3.17) Ratio Assessment and Plan (1) Cellulitis of right lower extremity Current Visit: Yes Status: Acute Code(s): L03.115 - CELLULITIS OF RIGHT LOWER LIMB SNOMED Code(s): 44938657970789595 (2) Leukocytosis Current Visit: No Status: Acute Code(s): D72.829 - ELEVATED WHITE BLOOD CELL COUNT, UNSPECIFIED SNOMED Code(s): 409086732 Plan: 1patient with elevated white count source is likely right lower extremity cellulitis in this patient who did have did extensive and diffuse swelling red ness to the right lower extremity likely from gram-positive skin marli and less likely gram-negative infection 2 patient with renal insufficiency high risk of nephrotoxicity from vancomycin. 3patient to continue with compressive dressing to bilateral lower extremity to keep the swelling down 4-patient white count is trending down and will continue with cefazolin 3 g every 8 hours Dictation was produced using [employer] dictation software. please excuse any grammatical, word or spelling errors. Time with Patient: Less than 30
[2023-03-22 17:36] LABS: Glucose,Whole Blood 230 mg/dL (70-110)
[2023-03-22] MEDS: ASPIRIN 81 MG PO SCH (17:58)
[2023-03-22] MEDS: CALCIUM CARBONATE 500 MG CHEWABLE PO SCH (17:58)
[2023-03-22] MEDS: TAMSULOSIN 0.4 MG CAP.ER.24H PO SCH (17:59)
[2023-03-22] MEDS: MULTIVITAMINS, THERA 1 EACH TAB PO SCH (17:59)
[2023-03-22] MEDS: ASCORBIC ACID 500 MG TAB PO SCH (17:59)
[2023-03-22 19:52] LABS: Glucose,Whole Blood 290 mg/dL (70-110)
[2023-03-22] MEDS: MELATONIN 5 MG TABLET PO SCH (19:52)
[2023-03-22] MEDS: ATORVASTATIN 20 MG TAB PO SCH (19:52)
[2023-03-22] MEDS: INSULIN DETEMIR (LEVEMIR) 100 UNIT/ML SYR SQ SCH (21:02)
[2023-03-22] MEDS: LATANOPROST 0.005% OPHTH DROPS 2.5 ML BTL BOTH EYES SCH (21:03)
[2023-03-22 22:38] VITALS: RESP 16
[2023-03-23] MEDS: ceFAZolin 3 GM in SODIUM CHLORIDE 0.9% 100 ML IVPB SCH ×2 (00:26→08:21)
[2023-03-23 06:06] LABS: Glucose,Whole Blood 204 mg/dL (70-110)
[2023-03-23] MEDS: INSULIN ASPART (NovoLOG) 100 UNIT/ML VIAL SQ SCH ×2 (06:11→12:29)
[2023-03-23] MEDS: MIDODRINE 5 MG TAB PO SCH ×2 (06:11→12:28)
[2023-03-23] MEDS: GABAPENTIN 100 MG CAP PO SCH (08:21)
[2023-03-23] MEDS: SODIUM CHLORIDE TAB 1 GM TAB PO SCH (08:21)
[2023-03-23] MEDS: APIXABAN 5 MG TAB PO SCH (08:21)
[2023-03-23] MEDS: METOPROLOL SUCCINATE (ER) 25 MG TAB.ER.24H PO SCH (08:21)
[2023-03-23] MEDS: FERROUS SULFATE 325 MG TAB PO SCH (08:21)
[2023-03-23] MEDS: polyethylene glycoL 3350 17 GM POWD.PACK PO SCH (08:22)
[2023-03-23 08:44] VITALS: BP 113/72; PULSE 70; TEMP 97.7
[2023-03-23 09:03] LABS: ALT 9 U/L (8-44); AST 26 U/L (13-35); Albumin 3.5 d/dL (3.8-4.9); Alkaline Phosphatase 74 U/L (41-126); Blood Urea Nitrogen 56.7 mg/dL (9.0-27.0); Calcium 8.8 mg/dL (8.7-10.3); Carbon Dioxide 28.3 mmol/L (21.6-31.8); Chloride 89 mmol/L (96-109); Globulin 3.5 d/dL (1.6-3.3); Glucose 204 mg/dL (70-110); Potassium 3.1 mmol/L (3.5-5.5); Sodium 132 mmol/L (135-145); Total Bilirubin 0.7 mg/dL (0.3-1.2)
[2023-03-23] MEDS: SYMBICORT 160-4.5 MCG INHALER INHALATION SCH (09:15)
[2023-03-23 09:16] LABS: Basophils # (A) 0.05 X 10*3/uL (0.00-0.10); Basophils % (A) 0.4 %; Eosinophils % (A) 2.1 %; HCT 38.8 % (37.2-46.3); HGB 12.5 d/dL (12.0-15.0); Lymphocytes # (A) 1.33 X 10*3/uL (0.90-5.00); Lymphocytes % (A) 9.5 %; MCH 27.9 pg (27.0-32.0); MCHC 32.2 d/dL (32.0-37.0); MCV 86.6 FL (80.0-97.0); Mean Platelet Volume 9.8 FL (9.5-12.2); Monocytes # (A) 0.79 X 10*3/uL (0.20-1.00); Monocytes % (A) 5.7 %; NRBC Per 100 WBC 0 X 10*3/uL (0.00-0.01); Neutrophils # (A) 11.41 X 10*3/uL (1.80-7.70); Neutrophils % (A) 81.7 %; Platelet Count 330 X 10*3/uL (140-440); RBC 4.48 X 10*6/uL (4.10-5.20); WBC 13.96 X 10*3/uL (4.50-10.00)
[2023-03-23] MEDS ORDERED: Potassium Replacement Protocol 1 EACH MISC MISCELLANE PRN (12:07)
--- NOTE | 2023-03-23 12:13 | P.PN ---
Subjective Progress Note Date: 03/23/23 Principal diagnosis: Leukocytosis and right lower extremity cellulitis Patient is a 77-year-old female with a past medical history significant for hypertension hyperlipidemia atrial fibrillation patient is a [facility] resident and the patient was sent to the ER for evaluation of low potassium of 2.7, patient also noticed to have elevated white count and did have evidence of extensive right lower extremity cellulitis. On today's evaluation that is 03/23/2023, the patient continues to be afebrile , the patient is breathing comfortably on room air and denies any shortness of breath, the patient denies any chest pain or cough, patient denies abdominal pain and no nausea/vomiting or diarrhea , the patient swelling and pain to the right lower extremity has decreased in intensity, patient is feeling better and is insisting on going home Patient white count is slightly down to 13.96, creatinine is 1.5 Objective - Vital Signs Vital signs: Vital Signs Temp 97.7 F 03/23/23 07:04 Pulse 70 03/23/23 07:04 Resp 16 03/23/23 07:04 BP 113/72 03/23/23 07:04 Pulse Ox 96 03/23/23 07:04 FiO2 Intake & Output 03/22/23 03/23/23 03/23/23 18:59 06:59 18:59 Intake Total 1180 118 Balance 1180 118 Intake: Oral 1180 118 Other: Voiding Method Bedside Commode # Voids 1 0 # Bowel Movements 1 - Exam GENERAL DESCRIPTION: An elderly female up in the chair in no distress RESPIRATORY SYSTEM: Unlabored breathing , clear to auscultation anteriorly HEART: S1 S2 regular rate and rhythm , ABDOMEN: Soft , no tenderness EXTREMITIES: Right lower extremity is currently covered in an Sebas wrap did have drainage on the dressing - Labs CBC & Chem 7: 03/23/23 05:32 03/23/23 05:32 Labs: Abnormal Lab Results - Last 24 Hours (Table) 03/22/23 03/22/23 03/22/23 Range/Units 06:15 12:31 17:35 WBC (4.50-10.00) X 10*3/uL RDW (11.5-14.5) % Neutrophils # (1.80-7.70) X 10*3/uL Sodium 130 L (135-145) mmol/L Potassium (3.5-5.5) mmol/L Chloride 87 L (96-109) mmol/L Anion Gap 14.40 H (4.00-12.00) mmol/L BUN 58.8 H (9.0-27.0) mg/dL Creatinine 1.7 H (0.6-1.5) mg/dL Est GFR (CKD-EPI) 30 L (>=60) BUN/Creatinine Ratio 34.59 H (12.00-20.00) Ratio Glucose 197 H (70-110) mg/dL POC Glucose (mg/dL) 273 H 230 H (70-110) mg/dL Albumin 3.5 L (3.8-4.9) d/dL Globulin 3.7 H (1.6-3.3) d/dL Albumin/Globulin Ratio 0.95 L (1.60-3.17) Ratio 03/22/23 03/23/23 03/23/23 Range/Units 19:51 05:32 05:32 WBC 13.96 H (4.50-10.00) X 10*3/uL RDW 17.0 H (11.5-14.5) % Neutrophils # 11.41 H (1.80-7.70) X 10*3/uL Sodium 132 L (135-145) mmol/L Potassium 3.1 L (3.5-5.5) mmol/L Chloride 89 L (96-109) mmol/L Anion Gap 14.70 H (4.00-12.00) mmol/L BUN 56.7 H (9.0-27.0) mg/dL Creatinine (0.6-1.5) mg/dL Est GFR (CKD-EPI) 35 L (>=60) BUN/Creatinine Ratio 37.80 H (12.00-20.00) Ratio Glucose 204 H (70-110) mg/dL POC Glucose (mg/dL) 290 H (70-110) mg/dL Albumin 3.5 L (3.8-4.9) d/dL Globulin 3.5 H (1.6-3.3) d/dL Albumin/Globulin Ratio 1.00 L (1.60-3.17) Ratio 03/23/23 Range/Units 06:05 WBC (4.50-10.00) X 10*3/uL RDW (11.5-14.5) % Neutrophils # (1.80-7.70) X 10*3/uL Sodium (135-145) mmol/L Potassium (3.5-5.5) mmol/L Chloride (96-109) mmol/L Anion Gap (4.00-12.00) mmol/L BUN (9.0-27.0) mg/dL Creatinine (0.6-1.5) mg/dL Est GFR (CKD-EPI) (>=60) BUN/Creatinine Ratio (12.00-20.00) Ratio Glucose (70-110) mg/dL POC Glucose (mg/dL) 204 H (70-110) mg/dL Albumin (3.8-4.9) d/dL Globulin (1.6-3.3) d/dL Albumin/Globulin Ratio (1.60-3.17) Ratio Assessment and Plan (1) Cellulitis of right lower extremity Current Visit: Yes Status: Acute Code(s): L03.115 - CELLULITIS OF RIGHT LOWER LIMB SNOMED Code(s): 74725054521521962 (2) Leukocytosis Current Visit: No Status: Acute Code(s): D72.829 - ELEVATED WHITE BLOOD CELL COUNT, UNSPECIFIED SNOMED Code(s): 163003935 Plan: 1patient with elevated white count source is likely right lower extremity cellulitis in this patient who did have did extensive and diffuse swelling redness to the right lower extremity likely from gram-positive skin marli and less likely gram-negative infection 2 patient with renal insufficiency high risk of nephrotoxicity from vancomycin. 3patient to continue with compressive dressing to bilateral lower extremity to keep the swelling down 4-patient white count is trending down however not yet normal patient was advised as to the hospital for the 24-hour however the patient has been really insistent on discharge we will consider a 10 day course of oral Keflex discussed with the admitting physician working on discharge Dictation was produced using [email or web address] software. please excuse any grammatical, word or spelling errors. Time with Patient: Less than 30
--- NOTE | 2023-03-23 12:18 | P.DS ---
Providers Date of admission: 03/21/23 09:15 Expected date of discharge: 03/23/23 Attending physician: Debra Dye Consults: 03/20/23 14:17 Consult Physician Routine Consulting Provider: Melissa Farris Consult Reason/Comments: Leukocytosis, history of cellulitis of lower extremities Do you want consulting provider notified?: Yes Primary care physician: Lokesh Miner Hospital Course: Discharge diagnoses; Acute kidney injury Right lower external cellulitis Leukocytosis Hypokalemia Hyponatremia hypercalcemia Chronic lymphedema Diabetes mellitus History of atrial fibrillation Hyperlipidemia Hypertension Hospital course; patient is a 77-year-old lady with past medical history significant for diabetes mellitus, hypertension, hyperlipidemia, atrial fibrillation presented to the ER because of abnormal labs. Patient is a long-term resident of [facility], sent in for abnormal labs, found to have potassium levels of 2.7, patient is on Lasix at the facility, patient was given oral potassium and was sent in for further evaluation and treatment. Patient denies any lightheadedness or dizzine ss. Denies any palpitations. Denies any chest pain or shortness of breath. No complain of nausea, vomiting or diarrhea. Denied any fever or chills. Initial lab work done in the ER showed WBC 12.2, hemoglobin 13.2, platelet count 334, sodium 136, potassium 2.4, chloride 86, BUN 72, creatinine 1.58, glucose 213, calcium 10.5 patient was admitted for further evaluation and treatment 03/21. Patient seen and examined. Patient white count has improved, still has swelling and redness of right lower extremity. Lab work done showed a PVC 22.63, hemoglobin 14.8, platelet count 346, sodium 137, potassium 3.3, BUN 62.2, creatinine 1.9 Vital signs stable 03/22. Patient seen and examined. Blood work done this morning showed WBC 14.56, platelet count 305, hemoglobin 13.1. Patient keen to go home 03/23. Being discharged on oral Keflex for 10 days per ID recommendations. Potassium was 3.1, replacement ordered. PHYSICAL EXAMINATION: GENERAL: The patient is alert and oriented x3, not in any acute distress. Well developed, well nourished. HEENT: Pupils are round and equally reacting to light. EOMI. No scleral icterus. No conjunctival pallor. Normocephalic, atraumatic. No pharyngeal erythema. No thyromegaly. CARDIOVASCULAR: S1 and S2 present. No murmurs, rubs, or gallops. PULMONARY: Chest is clear to auscultation, no wheezing or crackles. ABDOMEN: Soft, nontender, nondistended, normoactive bowel sounds. No palpable organomegaly. EXTREMITIES: Chronic lymphedema of lower extremities bilaterally, right lower extremity erythema improved, bandages in place NEUROLOGICAL: Gross neurological examination did not reveal any focal deficits. SKIN: No rashes. Dictation was produced using [employer] dictation software. please excuse any grammatical, word or spelling errors. Patient Condition at Discharge: Fair Plan - Discharge Summary New Discharge Prescriptions: New Cephalexin [Keflex] 500 mg PO Q6HR 7 Days #28 cap Continue Ascorbic Acid [Vitamin C] 500 mg PO DAILY@1700 Multivitamins, Thera [Multivitamin (formulary)] 1 tab PO DAILY@1700 Bimatoprost [Lumigan 0.01% Ophth Soln] 1 drop BOTH EYES HS@2100 Aspirin 81 mg PO DAILY@1700 Melatonin 5 mg PO HS@2100 Albuterol Inhaler [Ventolin Hfa Inhaler] 1 puff INHALATION RT-QID PRN PRN Reason: Shortness Of Breath bisacodyL [Dulcolax] 10 mg RECTAL DAILY PRN PRN Reason: Constipation INSULIN ASPART (NovoLOG) [NovoLOG (formulary)] See Protocol SQ ACHS@07,11,1630,2130 Magnesium Hydroxide [Milk of Magnesia Concentrate] 7,200 mg PO DAILY PRN PRN Reason: Constipation Na Phos,M-B/Na Phos,Di-Ba [Fleet Adult] 133 ml RECTAL DAILY PRN PRN Reason: Constipation Fluticasone Propion/Salmeterol [Wixela 250-50 Inhub] 1 puff INHALATION RT- BID@0800,2100 Gabapentin [Neurontin] 200 mg PO BID@0800,1700 HYDROcodone/APAP 5-325MG [Ansley 5-325] 1 tab PO Q6H PRN PRN Reason: Pain Midodrine HCl [ProAmatine] 10 mg PO TID@0800,1200,1700 Semaglutide [Ozempic] 0.25 mg SQ FR Sertraline [Zoloft] 50 mg PO DAILY@0800 Apixaban [Eliquis] 5 mg PO BID@0800,1700 Atorvastatin Calcium [Lipitor] 20 mg PO HS@2100 Tamsulosin [Flomax] 0.4 mg PO DAILY@1700 Metoprolol Succinate (ER) [Toprol XL] 25 mg PO DAILY@0800 tab traMADol HCl [Ultram] 50 mg PO Q6HR PRN #4 tab PRN Reason: Breakthrough Pain Calcium Carbonate 500 mg PO DAILY@1700 Famotidine [Pepcid] 20 mg PO DAILY@0800 Ferrous Sulfate [Iron (65 MG Elemental)] 325 mg PO BID@0800,1700 Furosemide [Lasix] 40 mg PO DAILY@0800 Insulin Glargine [Lantus Vial] 10 unit SQ HS@213 Jacky Packet 1 packet PO BID@0800,1700 Nystatin 100,000 Unit/gm Powd [Mycostatin Powder] 1 applic TOPICAL TID Polyvinyl Alcohol/Povidone [Freshkote Eye Drop] 1 drop BOTH EYES BID@0800,1700 Changed Potassium Chloride ER [K-Dur 10] 40 meq PO DAILY@0800 5 Days #20 tab Discontinued Acetaminophen Tab [Tylenol] 650 mg PO Q6HR PRN tab PRN Reason: Mild Pain Or Fever > 100.5 Discharge Medication List Ascorbic Acid [Vitamin C] 500 mg PO DAILY@17003/11/17 [History] Bimatoprost [Lumigan 0.01% Ophth Soln] 1 drop BOTH EYES HS@209903/11/17 [History] Multivitamins, Thera [Multivitamin (formulary)] 1 tab PO DAILY@17003/11/17 [History] Aspirin 81 mg PO DAILY@1700 01/26/20 [History] Melatonin 5 mg PO HS@209909/12/21 [History] Albuterol Inhaler [Ventolin Hfa Inhaler] 1 puff INHALATION RT-QID PRN 03/30/22 [History] Apixaban [Eliquis] 5 mg PO BID@0800,1700 04/05/22 [History] Atorvastatin Calcium [Lipitor] 20 mg PO HS@209904/05/22 [History] INSULIN ASPART (NovoLOG) [NovoLOG (formulary)] See Protocol SQ ACHS@07,11,1630,212904/05/22 [History] Magnesium Hydroxide [Milk of Magnesia Concentrate] 7,200 mg PO DAILY PRN 04/05/22 [History] Na Phos,M-B/Na Phos,Di-Ba [Fleet Adult] 133 ml RECTAL DAILY PRN 04/05/22 [History] Tamsulosin [Flomax] 0.4 mg PO DAILY@1700 04/05/22 [History] bisacodyL [Dulcolax] 10 mg RECTAL DAILY PRN 04/05/22 [History] Metoprolol Succinate (ER) [Toprol XL] 25 mg PO DAILY@0800 tab 04/16/22 [Rx] traMADol HCl [Ultram] 50 mg PO Q6HR PRN #4 tab 04/16/22 [Rx] Calcium Carbonate 500 mg PO DAILY@1700 03/19/23 [History] Famotidine [Pepcid] 20 mg PO DAILY@0800 03/19/23 [History] Ferrous Sulfate [Iron (65 MG Elemental)] 325 mg PO BID@0800,1700 03/19/23 [History] Fluticasone Propion/Salmeterol [Wixela 250-50 Inhub] 1 puff INHALATION RT- BID@0800,2100 03/19/23 [History] Furosemide [Lasix] 40 mg PO DAILY@0800 03/19/23 [History] Gabapentin [Neurontin] 200 mg PO BID@0800,1700 03/19/23 [History] HYDROcodone/APAP 5-325MG [Ansley 5-325] 1 tab PO Q6H PRN 03/19/23 [History] Insulin Glargine [Lantus Vial] 10 unit SQ HS@2130 03/19/23 [History] Jacky Packet 1 packet PO BID@0800,1700 03/19/23 [History] Midodrine HCl [ProAmatine] 10 mg PO TID@0800,1200,1700 03/19/23 [History] Nystatin 100,000 Unit/gm Powd [Mycostatin Powder] 1 applic TOPICAL TID 03/19/23 [History] Polyvinyl Alcohol/Povidone [Freshkote Eye Drop] 1 drop BOTH EYES BID@0800,1700 03/19/23 [History] Semaglutide [Ozempic] 0.25 mg SQ FR 03/19/23 [History] Sertraline [Zoloft] 50 mg PO DAILY@0800 03/19/23 [History] Cephalexin [Keflex] 500 mg PO Q6HR 7 Days #28 cap 03/23/23 [Rx] Potassium Chloride ER [K-Dur 10] 40 meq PO DAILY@0800 5 Days #20 tab 03/23/23 [Rx] Follow up Appointment(s)/Referral(s): Lokesh Miner MD [Primary Care Provider] - 1-2 days Melissa Farris MD [STAFF PHYSICIAN] - 1 Week Discharge Disposition: TRANSFER TO SNF/ECF
[2023-03-23 12:26] LABS: Glucose,Whole Blood 233 mg/dL (70-110)
[2023-03-23] MEDS: POTASSIUM CHLORIDE ER 20 MEQ TAB.ER PO SCH ×3 (12:28→14:23)
== END 2023-03-23 15:58 | DRG 683 ==
LOC: EC 16:17 → 6NMEDSUR 20:31 → OBSVTOIN 03-21 09:15
PROVIDERS: ADMIT Hospitalist; ATTEND Hospitalist
DX: N17.9 Acute kidney failure, unspecified (principal); E87.1 Hypo-osmolality and hyponatremia; L03.115 Cellulitis of right lower limb; Z68.43 Body mass index [BMI] 50.0-59.9, adult; I47.10 Supraventricular tachycardia, unspecified; E11.9 Type 2 diabetes mellitus without complications; Z79.4 Long term (current) use of insulin; I48.91 Unspecified atrial fibrillation; Z66 Do not resuscitate; E87.6 Hypokalemia; E66.9 Obesity, unspecified; E83.52 Hypercalcemia; E03.9 Hypothyroidism, unspecified; E78.5 Hyperlipidemia, unspecified; I89.0 Lymphedema, not elsewhere classified; Z87.891 Personal history of nicotine dependence; I10 Essential (primary) hypertension; Z79.01 Long term (current) use of anticoagulants; Z79.82 Long term (current) use of aspirin; Z79.85 Long-term (current) use of injectable non-insulin antidiabetic drugs; Z79.899 Other long term (current) drug therapy; Z86.14 Personal history of Methicillin resistant Staphylococcus aureus infection
CPT/HCPCS: 36415; 76700; 80048; 80053; 83036; 83735; 84100; 85025; 85027; 93005; 93970; 94640; 94760; 96365; 99285

== ENCOUNTER → 2024-03-31 | Outpatient (CLI) | payer MEDICARE ==
--- NOTE | 2024-04-07 12:18 | MM ---
Reason for Exam: Screening (asymptomatic). Last mammogram was performed 1 year(s) and 2 month(s) ago. Patient History: Menarche at age 12. Patient has no children. Postmenopausal. Risk Values: Audra 5 year model risk: 1.9%. NCI Lifetime model risk: 3.1%. Prior Study Comparison: 04/08/2016 Bilateral Screening Mammogram, [facility]. 04/19/2018 Bilateral Screening Mammogram, [facility]. 02/13/2023 Bilateral MG screening mammo w CAD, [facility]. Tissue Density: The breasts are almost entirely fatty. Findings: Analyzed By CAD. Right breast: There is no suspicious group of microcalcifications or new suspicious mass. Benign-appearing calcifications right breast. Left breast: There is no suspicious group of microcalcifications or new suspicious mass. Benign-appearing calcifications left breast. Overall Assessment: Benign, BI-RAD 2 Management: Screening Mammogram of both breasts in [address] [facility] will attempt to contact patient to return for supplemental views and ultrasound if indicated. Patient should continue monthly self-breast exams. A clinical breast exam by your physician is recommended on an annual basis. This exam should not preclude additional follow-up of suspicious palpable abnormalities. Note on Audra scores and lifetime risk: 1. A Audra score greater than 3% is considered moderate risk. If this is the case, consider specialist referral to assess eligibility for a risk reducing agent. 2. If overall lifetime risk for the development of breast cancer is 20% or higher, the patient may qualify for future screening with alternating mammogram and breast MRI. [facility], , 04/07/2024 12:14 PM. Electronically signed and approved by: Reno Anderson DO
== END | disposition home or self-care (01) ==
LOC: RADMAMWWP 13:21
PROVIDERS: ATTEND Family Medicine
DX: Z12.31 Encounter for screening mammogram for malignant neoplasm of breast (principal); Z78.0 Asymptomatic menopausal state
CPT/HCPCS: 77067